=== PATIENT | female | born 1930 | race Caucasian/White ===

== ENCOUNTER 2017-09-01 08:43 | Emergency (ER) | payer MEDICARE ==
--- NOTE | 2017-09-01 09:57 | RAD ---
RIGHT ANKLE 3 VIEWS: HISTORY: Fall. Right ankle injury. FINDINGS: No comparison. The ankle mortise is intact. Small linear calcification lies just lateral to the me dial malleolus and may represent an old avulsion injury. No acute fracture or dislocation are appar ent. Large enthesophytes arise from the posterior aspect of the calcaneus. IMPRESSION: No acute osseous abnormalities are demonstrated. POS: [facility]
== END 2017-09-01 09:25 | disposition home or self-care (01) ==
LOC: ERS 08:43
DX: S93.401A Sprain of unspecified ligament of right ankle, initial encounter (principal); I48.91 Unspecified atrial fibrillation; E03.9 Hypothyroidism, unspecified; I10 Essential (primary) hypertension; Z79.82 Long term (current) use of aspirin; Z79.899 Other long term (current) drug therapy; X50.1XXA Overexertion from prolonged static or awkward postures, initial encounter

== ENCOUNTER 2018-01-25 10:04 | Emergency (ER) | payer MEDICARE ==
[2018-01-25] MEDS ORDERED: Adacel (T-DAP) 0.5 ML VIAL ONE (11:28)
--- NOTE | 2018-01-25 12:54 | RAD ---
THREE VIEWS OF THE RIGHT SHOULDER: COMPARISON: None. HISTORY: Right shoulder pain and arm pain after injury this morning. FINDINGS: Three views of the right shoulder show the patient to be status post right shoulder arthroplasty with out perihardware lucency or fracture. The visualized right thorax is unremarkable. No focal soft ti ssue swelling is seen. IMPRESSION: Status post right shoulder arthroplasty without evidence of acute osseous abnormality. POS: [facility]
== END 2018-01-25 12:11 | disposition home or self-care (01) ==
LOC: ERS 10:04
DX: S51.011A Laceration without foreign body of right elbow, initial encounter (principal); S40.011A Contusion of right shoulder, initial encounter; I48.91 Unspecified atrial fibrillation; E03.9 Hypothyroidism, unspecified; I10 Essential (primary) hypertension; Z79.82 Long term (current) use of aspirin; Z79.899 Other long term (current) drug therapy; W01.0XXA Fall on same level from slipping, tripping and stumbling without subsequent striking against object, initial encounter
CPT/HCPCS: 90471; 90715

== ENCOUNTER 2018-06-13 01:25 | Observation (INO) | payer MEDICARE ==
[2018-06-13 02:46] LABS: Hemoglobin 13.2 g/dL (12.0-16.0); Mean Corpuscular HGB CONC 33.3 g/dL (32.0-36.0); Mean Platelet Volume 8.1 fL (7.4-10.4); Platelet Count 190 thou/uL (130-400); RBC Distribution Width 12.9 % (11.5-14.5); Red Blood Cell (RBC) Count 4.38 mill/uL (4.20-5.40); White Blood Cell (WBC) Count 5.5 thou/uL (4.8-10.8)
[2018-06-13 03:04] LABS: ALT (SGPT) 10 U/L (8-55); AST (SGOT) 16 U/L (5-34); Alkaline Phosphatase 90 U/L (40-150); Anion Gap 12 mmol/L (10-20); BUN (Urea Nitrogen) 14 mg/dL (9.8-20.1); Bilirubin, Total 0.7 mg/dL (0.2-1.2); Calc. Creatinine Clearance 0 mL/min (70-130); Calcium 9.4 mg/dL (7.8-10.44); Carbon Dioxide 25 mmol/L (23-31); Chloride 106 mmol/L (98-107); Estimated GFR-MDRD 52; Globulin 3.1 g/dL (2.4-3.5); Glucose 105 mg/dL (83-110); Potassium 4.4 mmol/L (3.5-5.1); Protein, Total 7.1 g/dL (6.0-8.3); Sodium 139 mmol/L (136-145)
[2018-06-13 03:07] LABS: CKMB 2.1 ng/mL (0-6.6); Troponin I Less than 0.010 ng/mL (< 0.028)
[2018-06-13 03:22] LABS: Band 5 % (5-11); Eosinophils 3 % (0-10); Lymphocytes 41 % (21-51); MDiff Complete? YES; Monocytes 12 % (0-10); Neutrophil 38 % (42-75)
[2018-06-13 05:50] VITALS: BMI 27.3
[2018-06-13 05:56] LABS: Troponin I 0.014 ng/mL (< 0.028)
[2018-06-13] MEDS ORDERED: Ondansetron ODT 4 MG TAB SL PRN (06:01)
[2018-06-13] MEDS ORDERED: Ondansetron HCl/PF 4 MG/2 ML Vial IVP PRN (06:01)
--- NOTE | 2018-06-13 08:27 | RAD ---
CHEST 1 VIEW: HISTORY: Chest pain. COMPARISON: Chest radiograph 05/27/14. FINDINGS: Heart size is mildly enlarged. Dual-lead pacer is present. No focal airspace consolidation, pneumot horax, or effusion. There appears to be some scarring in the left upper lobe. IMPRESSION: Mild cardiomegaly and pulmonary venous congestion. POS: [facility]
[2018-06-13 08:56] LABS: Troponin I Less than 0.010 ng/mL (< 0.028)
[2018-06-13] MEDS ORDERED: Acetaminophen 325 MG TAB PO PRN (10:34)
--- NOTE | 2018-06-13 10:58 | HP ---
CHIEF COMPLAINT: Left-sided arm tingling. HISTORY OF PRESENT ILLNESS: Patient is an 87-year-old female with a known history of atrial fibrillation, permanent pacemaker, hyperlipidemia, and hypertension who presented with acute onset of left-sided arm numbness and tingling earlier today. She took one of her 's nitroglycerin tabs and the numbness and tingling subsequently resolved. Patient denies any prior similar symptoms. 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 Patient did not have any subsequent recurrence of these issues in the emergency department or at the time of my evaluation. REVIEW OF SYSTEMS: As per HPI. Constitutional: No significant weight loss or gain. No recent fevers, no recent acute illnesses. HEENT: No accompanying dizziness, lightheadedness, or vision change. Cardiovascular: As noted above. No chest pressure, no chest pain, no diaphoretic episode associated with her symptoms. Respiratory: No dyspnea with exertion. No congestion or shortness of breath. No recent upper respiratory infection. Gastrointestinal: No nausea , vomiting, abdominal pain, diarrhea or issues with constipation lately. Genitourinary: No changes in her urinary pattern habits. Patient does state that she has at baseline a fair amount of incontinence, but is not grossly changed from usual. Musculoskeletal: The patient has chronic arthralgias that are unchanged. Remainder of the review of systems otherwise negative. PAST MEDICAL AND SURGICAL HISTORY: As per HPI Includes, 1. Atrial fibrillation. 2. Hypertension. 3. Hyperlipidemia. 4. Hypothyroidism. 5. Arrhythmia, otherwise not specified. 6. Status post bilateral knee replacement. 7. Status post right shoulder replacement. 8. Status post hysterectomy. 9. Status post permanent pacemaker placement. HOME MEDICATIONS: Her EMR list currently includes the following, flecainide 100 mg p.o. daily and 50 mg p.o. at bedtime, furosemide 40 mg p.o. daily p.r.n. , Levothyroxine 50 mcg p.o. daily, lovastatin 40 mg p.o. at bedtime, aspirin 81 mg p.o. at bedtime, amlodipine 10 mg p.o. daily, carvedilol 12.5 mg p.o. b.i.d. , Losartan 100 mg p.o. daily. ALLERGIES: Include CEFAZOLIN, which causes a rash, CODEINE which causes nausea , IV and ORAL IODINATED CONTRAST causes shortness of breath, PENICILLINS cause a rash and SHELLFISH cause shortness of breath. FAMILY HISTORY: The patient denies any family history of significant cardiovascular disease. SOCIAL HISTORY: The patient denies any alcohol, tobacco or illicit drug use. PHYSICAL EXAMINATION: GENERAL: The patient is awake, alert, appropriate, oriented x3, provides a reasonable history as described above. HEENT: Normocephalic, atraumatic. Moist mucous membranes, equal ocular motions are intact. CARDIOVASCULAR: S1, S2. Soft heart tones. No murmurs, rubs or gallops appreciated. Pulses 2+ bilateral upper extremities. No pitting pedal edema. RESPIRATORY: Reasonable air movement. No conversational dyspnea. No wheezes, rales or rhonchi, otherwise clear to auscultation bilaterally. ABDOMEN: Positive bowel sounds, soft, nontender to palpation. MUSCULOSKELETAL: Moving all 4 extremities. LABORATORY DATA AND IMAGING: WBC 5.5, hemoglobin 13.2, hematocrit 39.5, platelets 190. Sodium 139, potassium 4.4, chloride 106, bicarbonate 25, BUN 14 , creatinine 1.0, glucose 105, calcium 9.4, total bilirubin 0.7, AST 16, ALT 10 , alkaline phosphatase 90. Troponin less than 0.01, followed by 0.014, followed by less than 0.01. Total protein 7.1, albumin 4.0. Chest x-ray from 06/13/2018 demonstrates "mild cardiomegaly and pulmonary venous congestion". ASSESSMENT AND PLAN: An 87-year-old female presenting with left arm tingling. 1. Left arm tingling concerning for atypical chest pain in a patient with prior cardiovascular history. Serial troponins have been negative. We will go ahead and obtain a pacer interrogation. The patient states that her last interrogation was 04/25/2018, we would be interested in the interval information that might be provided. The patient also states it has been greater than a year since her last stress test. We will consult patient's outpatient office aide, Dr. Vega, and also order a pharmacological stress test at this point in time. 2. Hypertension, stable. Continue home regimen. 3. Prior history of arrhythmia, status post permanent pacemaker on flecainide. Continue home regimen. 4. Hyperlipidemia. Continue home regimen. We will check a fasting lipid panel. 5. Hypothyroidism. We will check a TSH and continue her on her home regimen. 6. History of significant arthritis, particularly in the left shoulder. This could be an etiology for her discomfort if cardiac etiologies are ruled out. 7. Diet: N.p.o. for stress test. 8. Activity: As tolerated. 9. Deep venous thrombosis prophylaxis with enoxaparin. Thank you for asking me to care for your patient. Questions or concerns, please contact me at [facility]. The patient is a full code at this point in time. LAKEISHAD
[2018-06-13 11:13] LABS: Cardiac Risk 2.5 (Less than 4.5)
--- NOTE | 2018-06-13 14:21 | NM ---
NUCLEAR MEDICINE MYOCARDIAL PERFUSION EVALUATION: CLINICAL HISTORY: An 87-year-old female with chest pain. FINDINGS: Evaluation of the stress and rest imaging reveals no significant fixed or reversible defect. There i s a slight degree of physiologic apical thinning, although gated imaging does reveal appropriate scarlett on at the apex. The remaining aspects of the left ventricular kraft also reveal appropriate motion a nd contractility by gated imaging. There is a calculated LVEF of 83%. IMPRESSION: 1. Mild physiological apical thinning. 2. Otherwise, no significant abnormalities are demonstrated. POS: [facility]
[2018-06-13 15:43] VITALS: BP 135/67; TEMP 98.2
[2018-06-13] MEDS ORDERED: ADENOSINE 60 MG/20 ML VIAL ONE (15:45)
[2018-06-13] MEDS ORDERED: Atorvastatin Calcium 10 MG TAB PO SCH (21:00)
[2018-06-13] MEDS ORDERED: Aspirin 81 mg Enteric Coated Tablet PO SCH (21:00)
[2018-06-13] MEDS ORDERED: Carvedilol 6.25 MG TAB PO SCH (21:00)
[2018-06-13] MEDS ORDERED: Flecainide 50 MG TAB PO SCH (21:00)
--- NOTE | 2018-06-13 21:33 | CON ---
DATE OF CONSULTATION: 06/13/2018 HISTORY OF PRESENT ILLNESS: The patient is an 87-year-old woman with a history of atrial fibrillation and presented with left arm discomfort. The patient has a previous history of placement of electronic pacemaker. She also has a history of chronic shoulder discomfort. The patient was sleeping when she suddenly woke up with pain in her left arm, which radiated into her hand which was associated with numbness. This lasted for approximately 15 minutes and resolved prior to coming to the hospital. The patient did not have any further discomfort. The patient denies having any chest pain with exertion. She does have a history of atrial fibrillation and had had several falls. The patient denied having any recent palpitations. PAST MEDICAL HISTORY: 1. Hypertension. 2. Atrial fibrillation. 3. Hypothyroidism. PAST SURGICAL HISTORY: Knee surgery, shoulder surgery,and hysterectomy. SOCIAL HISTORY: Nonsmoker. MEDICATIONS: See nursing list. ALLERGIES: IODINE, PENICILLIN, CODEINE, and SHELLFISH. FAMILY HISTORY: No strong family history of heart disease. SOCIAL HISTORY: Nonsmoker. REVIEW OF SYSTEMS: Ten-point system otherwise unremarkable. PHYSICAL EXAMINATION: GENERAL: This is a well developed woman, in no acute distress. VITAL SIGNS: Blood pressure 153/70. NECK: Showed no jugular distention. LUNGS: Clear to auscultation. HEART: Regular rate and rhythm, normal S1, S2, no murmurs. ABDOMEN: Nondistended. EXTREMITIES: Showed no edema. SKIN: Warm and dry. VASCULAR: Radial pulses 2+. LABORATORY DATA: Sodium 139, potassium 4.4, chloride 106, bicarbonate 25, BUN 14, creatinine is 1.0. Troponin was less than 0.01. Her white blood cell count was 5.5, hemoglobin 13.2, hematocrit 39.5, platelets are 190. Her EKG revealed electronic atrial pacemaker with an incomplete right bundle branch block and a possible previous septal infarction. Nuclear stress test revealed no evidence of significant ischemia. IMPRESSION: 1. Left arm discomfort. 2. History of atrial fibrillation. 3. History of pacemaker placement. 4. History of multiple falls. This patient presents with left arm pain. There was no evidence of ischemia on her stress test. I think it is unlikely based on the stress test that the discomfort at rest was secondary to ischemic heart disease. The patient is on appropriate medications. She would be a poor candidate for anticoagulation with her history of multiple falls. The patient will continue on flecainide. We will follow this patient with you through her hospitalization. WANDY
[2018-06-14] MEDS ORDERED: Levothyroxine Sodium 50 MCG TAB PO SCH (09:00)
[2018-06-14] MEDS ORDERED: Losartan 25 MG TAB PO SCH (09:00)
[2018-06-14] MEDS ORDERED: Enoxaparin Sodium 30 MG/0.3 ML SYRINGE SC SCH (09:00)
[2018-06-14] MEDS ORDERED: Amlodipine 10 MG TAB PO SCH (09:00)
[2018-06-14] MEDS ORDERED: Flecainide 50 MG TAB PO SCH (09:00)
== END 2018-06-13 18:42 | disposition home or self-care (01) ==
LOC: ERS 01:25 → 2SW 04:09
PROVIDERS: ADMIT Hospitalist; ATTEND Hospitalist
DX: R20.2 Paresthesia of skin (principal); I10 Essential (primary) hypertension; E78.5 Hyperlipidemia, unspecified; E03.9 Hypothyroidism, unspecified; I48.91 Unspecified atrial fibrillation; Z91.041 Radiographic dye allergy status; Z88.5 Allergy status to narcotic agent; Z88.0 Allergy status to penicillin; Z91.013 Allergy to seafood; Z79.82 Long term (current) use of aspirin; Z95.0 Presence of cardiac pacemaker
CPT/HCPCS: 71045; 78452; 80061; 82553; 84484 ×2; 93005; 93017; 93306; 94760; 99285; A9500; G0378; 36415; 80053; 84443; 85025; J0153

== ENCOUNTER 2018-06-20 07:55 | Outpatient (CLI) | payer MEDICARE | END 2018-06-20 07:56 | disposition home or self-care (01) | LOC: BICMAMMO 07:55 | PROVIDERS: ATTEND Family Medicine | DX: Z12.31 Encounter for screening mammogram for malignant neoplasm of breast (principal); R92.1 Mammographic calcification found on diagnostic imaging of breast; Z80.3 Family history of malignant neoplasm of breast | CPT/HCPCS: 77063; 77067 ==

== ENCOUNTER 2018-12-21 08:34 | Inpatient (IN) | payer MEDICARE ==
--- NOTE | 2018-12-21 09:00 | RAD ---
RADIOGRAPH CHEST 1 VIEW: HISTORY: An 87-year-old female with chest pain. FINDINGS: There is hyperinflation of the lungs, consistent with COPD. There is no evidence of air space densit y, pneumothorax, or pulmonary edema. The lateral costophrenic angles are sharp. There is no cardiom egaly. There is a dual-lead left subclavian pacemaker. IMPRESSION: 1) No acute pulmonary findings. 2) Emphysema. 3) Pacemaker. monserrat [] POS: [facility]
[2018-12-21] MEDS ORDERED: Lidocaine Viscous Sol 2% 15 ml UD Cup ONE (09:33)
[2018-12-21] MEDS ORDERED: Mag-Al 1200 mg/1200 mg/30 ML UDCUP ONE (09:33)
[2018-12-21 09:51] LABS: #Eosinphils 0.2 thou/uL (0.0-0.7); #Lymphocytes 1.7 thou/uL (1.20-3.40); #Monocytes 0.8 thou/uL (0.11-0.59); #Neutrophils 3.3 thou/uL (1.40-6.50); %Basophils 0.7 % (0.0-1.0); %Eosinophils 3.6 % (0.0-10.0); %Lymphocytes 27.6 % (21.0-51.0); %Monocytes 13.1 % (0.0-10.0); Hemoglobin 14.5 g/dL (12.0-16.0); Mean Corpuscular HGB CONC 32.9 g/dL (32.0-36.0); Mean Corpuscular Hemoglobin 30.1 pg (27.0-31.0); Mean Corpuscular Volume 91.7 fL (78.0-98.0); Mean Platelet Volume 8.7 fL (7.4-10.4); Platelet Count 199 thou/uL (130-400); RBC Distribution Width 12.7 % (11.5-14.5); Red Blood Cell (RBC) Count 4.83 mill/uL (4.20-5.40)
[2018-12-21 10:27] LABS: ALT (SGPT) 13 U/L (8-55); AST (SGOT) 28 U/L (5-34); Albumin 4.4 g/dL (3.4-4.8); Alkaline Phosphatase 86 U/L (40-150); Anion Gap 14 mmol/L (10-20); BUN (Urea Nitrogen) 15 mg/dL (9.8-20.1); Bilirubin, Total 0.9 mg/dL (0.2-1.2); CK (CPK) 150 U/L (29-168); Calc. Creatinine Clearance 0 mL/min (70-130); Calcium 9.8 mg/dL (7.8-10.44); Carbon Dioxide 23 mmol/L (23-31); Chloride 105 mmol/L (98-107); Estimated GFR-MDRD 47; Globulin 3.6 g/dL (2.4-3.5); Glucose 98 mg/dL (83-110); Lipase 22 U/L (8-78); Potassium 4.8 mmol/L (3.5-5.1); Sodium 137 mmol/L (136-145)
[2018-12-21 10:35] LABS: CKMB 4.4 ng/mL (0-6.6)
[2018-12-21] MEDS ORDERED: Nitroglycerin 2% Ointment 1 INCH/1 GM Packet ONE (11:39)
[2018-12-21] MEDS ORDERED: Aspirin Chewable 81 MG TAB ONE ×3 (11:39→12:10)
[2018-12-21 12:18] LABS: Bilirubin Negative (Negative); Blood, Urine Small (Negative); Clarity CLEAR (Clear); Glucose, Urine (Dipstick) Negative (Negative); Leukocyte Moderate (Negative); Nitrite Negative (Negative); Protein, Urine (Dipstick) Negative (Neg-Trace); Specific Gravity, Urine 1.011 (1.002-1.036); Urobilinogen 0.2 mg/dL (0.2-1.0)
[2018-12-21 12:21] LABS: Bacteria/HPF None Seen HPF (None Seen); Hyaline Casts/LPF 0-3 HYALINE CAST LPF (0-3 Hyaline); Pathc Cast-AUWi Flag 0.29 (0-2.49); Squamous Epithelial 0-3 HPF (0-3)
[2018-12-21] MEDS ORDERED: Acetaminophen 325 MG TAB PO PRN (13:15)
[2018-12-21] MEDS ORDERED: Ondansetron PF 4 MG/2 ML Vial IVP PRN (13:15)
[2018-12-21] MEDS ORDERED: Ondansetron ODT 4 MG TAB PO PRN (13:15)
[2018-12-21] MEDS ORDERED: Senokot S 8.6-50 MG TAB PO PRN (13:15)
[2018-12-21] MEDS ORDERED: Furosemide 40 MG TAB PO PRN (13:20)
[2018-12-21] MEDS ORDERED: Heparin 10,000 UNITS/ 10 ML VIAL SLOW IVP SCH (14:15)
[2018-12-21] MEDS ORDERED: Heparin 25,000 units/D5W 500 ML IVPB SCH (14:15)
[2018-12-21 14:27] LABS: CKMB 5.7 ng/mL (0-6.6)
[2018-12-21] MEDS ORDERED: Communication Order-Pharmacy FS SCH (15:00)
[2018-12-21 15:07] LABS: Hemoglobin 14.2 g/dL (12.0-16.0); Platelet Count 203 thou/uL (130-400)
[2018-12-21] MEDS ORDERED: predniSONE 50 MG TAB PO SCH (16:00)
--- NOTE | 2018-12-21 16:12 | CON ---
DATE OF CONSULTATION: 12/21/2018 REASON FOR CONSULTATION: Non-STEMI. PRIMARY OPERATIONS RESEARCH MANAGER: Sierra Vega MD HISTORY OF PRESENT ILLNESS: Ms. Monson is a very pleasant 87-year-old white female, who comes to the hospital for chest pain. She states at 7:00 a.m. this morning, she started having chest tightness. She thought it was for her reflux, but it felt a little different by noon. She was not getting any better, so she decided to come in for evaluation. Initially, her troponins were negative, but they have been trending up to a positive range, so Cardiology has been consulted for this. She tells me that her pain is a little better controlled probably about one or two right now. PAST MEDICAL HISTORY: 1. History of paroxysmal atrial fibrillation. 2. Hypertension. 3. Hyperlipidemia. 4. Hypothyroidism. PAST SURGICAL HISTORY: 1. Bilateral knee replacements. 2. Right shoulder replacement. 3. Hysterectomy. 4. Pacemaker placement. OUTPATIENT MEDICATIONS: Include: 1. Flecainide 100 mg in the morning and 50 mg in the evening. 2. Lasix 40 mg a day. 3. Levothyroxine 50 mcg a day. 4. Lovastatin 40 mg at bedtime. 5. Aspirin 81 a day. 6. Amlodipine 10 mg a day. 7. Carvedilol 12.5 mg b.i.d. 8. Losartan 100 mg a day. ALLERGIES: CEFAZOLIN, CODEINE, IV AND ORAL IODINE CAUSES SHORTNESS OF BREATH, PENICILLIN, AND SHELLFISH. FAMILY HISTORY: No early coronary artery disease. SOCIAL HISTORY: No alcohol, tobacco, or drugs. REVIEW OF SYSTEMS: A 12-point review of systems was done and was found to be negative unless stated in the history of present illness. PHYSICAL EXAMINATION: VITAL SIGNS: Temperature 97.5, pulse 60, respiratory rate 18, saturating 98% on 2 L nasal cannula, and blood pressure 132/78. GENERAL: Awake, alert, and oriented x3. No distress. HEENT: Normocephalic and atraumatic. NECK: Supple. LUNGS: Clear. CARDIOVASCULAR: S1 and S2. No S3 or S4. No murmurs. ABDOMEN: Soft. Positive bowel sounds. EXTREMITIES: No edema. SKIN: Warm and dry. LABORATORY DATA: Laboratory work was reviewed. CBC with a white count of 6, hemoglobin 14, hematocrit 44, platelet count 199. Chemistries are completely unremarkable. GFR 47. Troponin initially 0.18 and now 0.36. Normal CK-MB. Albumin of 4.4 and lipase was 22. UA was unremarkable. EKG, no acute ischemia. Chest x-ray, no acute cardiopulmonary issues. ASSESSMENT: [id number] myocardial infarction. PLAN: 1. I spoke with Ms. Monson about how aggressive she wants to be with her care. I offered both medical therapy or heart catheterization. She tells me that she is very familiar with heart catheterization and she is very well aware of what it entails, and she states that if this is in fact a heart attack, she is willing to undergo said procedure. I think this is reasonable. We will go ahead and keep her n.p.o. post midnight for possible angiography with intervention tomorrow. 2. We spoke about the risks and benefits of the procedure. Risks included, but not limited to stroke, ND, bleeding, need for blood transfusion, limb loss, organ loss, . The patient understands and verbalized understanding of this and agrees to proceed. 3. Dr. 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 Job ID: [id number]
[2018-12-21] MEDS ORDERED: Heparin 1,000 UNITS/ML VIAL ONE ×2 (16:18→16:33)
[2018-12-21] MEDS ORDERED: Fentanyl 100 MCG/2 ML VIAL ONE (17:49)
[2018-12-21] MEDS: Fentanyl 100 MCG/2 ML VIAL SLOW IVP SCH ×2 (17:54→22:15)
[2018-12-21 17:57] LABS: CKMB 11.6 ng/mL (0-6.6)
[2018-12-21 20:57] LABS: Troponin I 1.687 ng/mL (< 0.028)
[2018-12-21] MEDS ORDERED: Sodium Chloride 0.9% 20 ML ONE (21:07)
[2018-12-21] MEDS ORDERED: Fentanyl 100 MCG/2 ML VIAL SLOW IVP PRN ×2 (21:51→22:44)
[2018-12-21] MEDS: Aspirin 81 mg Enteric Coated Tablet PO SCH (22:16)
[2018-12-21] MEDS: Atorvastatin Calcium 10 MG TAB PO SCH (22:17)
[2018-12-21] MEDS: predniSONE 50 MG TAB PO SCH (22:17)
[2018-12-21] MEDS: Flecainide 50 MG TAB PO SCH (22:17)
[2018-12-21] MEDS: Pantoprazole 40 MG VIAL IVP SCH (22:18)
[2018-12-21] MEDS: Nitroglycerin 0.4 MG TAB (25 Tab Bottle) SL PRN ×2 (22:31→22:42)
[2018-12-21] MEDS: Carvedilol 6.25 MG TAB PO SCH (22:56)
[2018-12-21] MEDS: Sodium Chloride 0.9% 1,000 ML IV SCH (22:57)
[2018-12-22] MEDS ORDERED: Sodium Chloride 0.9% 1,000 ML IV SCH (00:01)
[2018-12-22] MEDS: ALPRAZolam 0.5 MG TAB PO PRN ×2 (00:06→22:13)
--- NOTE | 2018-12-22 00:23 | HP ---
CHIEF COMPLAINT: Chest pain. HISTORY OF PRESENTING ILLNESS: This is an 87-year-old female with a relatively good health, history of hypertension, presented to the ER with 1-week history of hypertension. The patient's troponin in the ER was elevated at 0.181, subsequently decreased to 0.326, and next the 3rd set was 1.166. The patient's vital signs in the ER were within normal limits. PAST MEDICAL HISTORY: Significant for hypertension, pacemaker, some degree of anxiety. PAST SURGICAL HISTORY: Significant for hysterectomy, knee surgeries, and right shoulder surgery. ALLERGIES: THE PATIENT IS ALLERGIC TO CEFAZOLIN, CODEINE, IODINATED CONTRAST, PENICILLIN, SHELLFISH. SOCIAL HISTORY: The patient denies any smoking, alcohol, or drug history. REVIEW OF SYSTEMS: CONSTITUTIONAL: The patient denies any fever or chills. HEENT: The patient denies any headache, any blurred vision, pain or discharge from the ears. Denies any sore throat. RESPIRATORY/CHEST: The patient denies any respiratory distress, complaints of chest pain. CARDIOVASCULAR: Complains of chest pain, denies any palpitations. ABDOMEN: Complains of epigastric pain. Denies any nausea, vomiting, diarrhea, or constipation. MUSCULOSKELETAL: Chronic complaints of right shoulder pain, knee pain. NEUROLOGY: Denies any complaints of neurological deficit, weakness. PSYCHIATRIC: Denies any depression or anxiety. PHYSICAL EXAMINATION: CONSTITUTIONAL: No apparent distress. The patient is slightly anxious. VITAL SIGNS: Blood pressure 145/66, pulse 75, respiratory rate 77, O2 saturation 96% on room air, temperature 98.1. Vital signs are stable. HEENT: Normocephalic and atraumatic head. Normal external canal and tympanic membrane. Normal eyelids and conjunctivae, bilateral pupils are round and reactive to light. Moist oral mucosa, centrally placed nasal septum, midline trachea, no cervical lymphadenopathy. RESPIRATORY: No respiratory distress, good airway entry into both lung sinha. No wheezing. No rales. CHEST/CARDIOVASCULAR: Regular rate and rhythm. No murmurs. No rubs. No gallops. ABDOMEN: Soft, NT, ND. No masses. No splenomegaly. MUSCULOSKELETAL: No obvious swelling or tenderness. NEUROLOGIC: Cranial nerves are intact. No focal deficits noted. Motor and sensory faculties are within normal limits. PSYCHIATRIC: The patient is appropriately anxious. No signs of depression. LABORATORY DATA: Elevated troponin, 1st set is 0.181, 0.326, and 1.166. Rest of the labs are within normal limits. ASSESSMENT AND PLAN: 1. Chest pain, rule out myocardial infarction: Admit the patient under chest pain, rule out myocardial infarction. Due to the increasing troponin, we will start the patient on heparin drip. Cardiology consulted. Cardiac cath is planned for the morning. Start the patient on aspirin and statin, sublingual nitroglycerin as required, morphine as required. 2. Hypertension. Continue all the home medications. 3. Anxiety. Coleman jordan Job ID: [id number] [facility]
[2018-12-22 04:25] LABS: #Monocytes 0.1 thou/uL (0.11-0.59); #Neutrophils 3.4 thou/uL (1.40-6.50); %Basophils 0.3 % (0.0-1.0); %Eosinophils 0.1 % (0.0-10.0); %Lymphocytes 22.7 % (21.0-51.0); %Monocytes 1.1 % (0.0-10.0); %Neutrophils 75.8 % (42.0-75.0); Mean Corpuscular HGB CONC 32.9 g/dL (32.0-36.0); Mean Corpuscular Hemoglobin 30.1 pg (27.0-31.0); Mean Corpuscular Volume 91.4 fL (78.0-98.0); Mean Platelet Volume 8.5 fL (7.4-10.4); Platelet Count 182 thou/uL (130-400); RBC Distribution Width 12.3 % (11.5-14.5); Red Blood Cell (RBC) Count 4.33 mill/uL (4.20-5.40); White Blood Cell (WBC) Count 4.5 thou/uL (4.8-10.8)
[2018-12-22 04:42] LABS: Anion Gap 12 mmol/L (10-20); BUN (Urea Nitrogen) 21 mg/dL (9.8-20.1); Calc. Creatinine Clearance 51 mL/min (70-130); Calcium 9.3 mg/dL (7.8-10.44); Carbon Dioxide 24 mmol/L (23-31); Chloride 104 mmol/L (98-107); Estimated GFR-MDRD 49; Glucose 148 mg/dL (83-110); Potassium 4.3 mmol/L (3.5-5.1); Sodium 136 mmol/L (136-145)
[2018-12-22] MEDS: Carvedilol 6.25 MG TAB PO SCH ×2 (06:41→20:09)
[2018-12-22] MEDS: Losartan 25 MG TAB PO SCH (06:41)
[2018-12-22] MEDS: predniSONE 50 MG TAB PO SCH ×2 (06:42→19:59)
[2018-12-22] MEDS: Pantoprazole 40 MG VIAL IVP SCH ×2 (06:42→19:58)
[2018-12-22] MEDS ORDERED: Prevnar 13-Val Conj/PF 0.5 ML SYRINGE IM ONE (09:00)
[2018-12-22] MEDS ORDERED: Iopamidol 370 76% 100 ML VIAL ONE (09:21)
[2018-12-22] MEDS ORDERED: Sodium Chloride 0.9% 200 ML IV SCH (10:05)
[2018-12-22] MEDS ORDERED: traMADol HCl 50 MG TAB PO PRN (10:05)
[2018-12-22] MEDS ORDERED: Nitroglycerin 0.4 MG TAB (25 Tab Bottle) SL PRN (10:05)
[2018-12-22 12:35] LABS: Troponin I 1.338 ng/mL (< 0.028)
[2018-12-22] MEDS: Sodium Chloride 0.9% 1,000 ML IV SCH (13:18)
--- NOTE | 2018-12-22 13:45 | PDOC.PN ---
- Subjective Encounter Start Date: 12/22/18 Encounter Start Time: 13:39 Subjective: S/P cath, right groin discomfort after cath - Objective Resuscitation Status - Order Detail: 12/21/18 13:15 Resuscitation Status Routine Resuscitation Status: DNAR: NO Resuscitation Discussed with: Patient Vital Signs & Weight: Vital Signs (12 hours) Temp Pulse Resp BP BP Pulse Ox 12/22/18 07:59 97.5 F L 64 16 143/66 H 99 12/22/18 06:41 136/60 12/22/18 06:40 65 16 136/60 12/22/18 03:30 97.6 F 63 15 138/65 97 Weight Weight 194 lb 6.4 oz I&O: 12/21/18 12/22/18 12/23/18 06:59 06:59 06:59 Intake Total 1217 Output Total 100 Balance 1117 Result Diagrams: 12/22/18 04:14 12/22/18 04:14 Phys Exam - Physical Examination HEENT: PERRLA, moist MMs, sclera anicteric, TM's clear, oral pharynx no lesions , 2+ tonsils Neck: no nodes, no JVD, supple, full ROM Respiratory: no wheezing, no rales, no rhonchi Cardiovascular: RRR, no significant murmur, no rub Gastrointestinal: soft, non-tender, no distention, positive bowel sounds Musculoskeletal: no edema, pulses present Neurological: non-focal, normal sensation Psychiatric: normal affect, A&O x 3 Dx/Plan (1) CAD (coronary artery disease), [place] coronary artery Code(s): I25.10 - ATHSCL HEART DISEASE OF [place] CORONARY ARTERY W/O ANG PCTRS Status: Acute Qualifiers: [place] vs. transplanted heart: [place] heart Associated angina: with unstable angina Qualified Code(s): I25.110 - Atherosclerotic heart disease of [place] coronary artery with unstable angina pectoris Comment: S/P Cath, severe extensive CAD, no stents. Required CABG, not sure if Patient will opt for it. At baseline patient is independent, lives at home with her . Aspirin with Statin (2) Hypertension Code(s): I10 - ESSENTIAL (PRIMARY) HYPERTENSION Status: Acute Qualifiers: Hypertension type: essential hypertension Qualified Code(s): I10 - Essential (primary) hypertension Comment: continue home meds - Plan cont current plan of care, plan discussed w/ family, DVT proph w/SCDs * .
[2018-12-22] MEDS ORDERED: Communication Order-Pharmacy FS ONE (15:44)
[2018-12-22] MEDS ORDERED: CABG-Vancomycin 1 GM in Premix Bag 1 BAG IVPB SCH (15:45)
--- NOTE | 2018-12-22 16:52 | CON ---
DATE OF CONSULTATION: 12/22/2018 REQUESTING PHYSICIAN: Dr. Vega. PRIMARY CARE PHYSICIAN: Dr. Hernán Loza. CHIEF COMPLAINT: Epigastric discomfort and belching. HISTORY OF PRESENT ILLNESS: The patient is an active woman, who turns 88 years old tomorrow. She lives independently and until very recently even mowed her own yard with a push mower and only quit because of issues with arthritic symptoms in her shoulder. Last Summer, she had a brief stay in the hospital that she describes as being due to some ache and numbness in her left arm that was not clearly elucidated and then other than that had no symptoms that even in retrospect might be cardiac in nature. She presented after having persistent epigastric bloating and belching and some chest tightness. It started around 7 in the morning, but persisted and had some sort of change in character around noon time. When she presented to the hospital, her initial troponin was positive and they continued to rise during the course of the day. Cardiac catheterization today demonstrates 3-vessel coronary disease with good LV function. The patient denies any previous such episodes. The only episode of left arm and shoulder symptoms were this past Summer and she has not had any episodes of similar symptoms in the other shoulder or throat or jaws or in her back. This was not associated with any nausea or vomiting. No diaphoresis and no shortness of breath. PAST MEDICAL HISTORY: Her past medical history is significant for history of paroxysmal atrial fibrillation. She has been on anticoagulation in the past, but has been in sinus rhythm, on medical management, and has a dual-chamber pacemaker in place. She has hypertension, hyperlipidemia, hypothyroidism. She has had knee replacements and a right shoulder replacement. MEDICATIONS: Her mode medications are; 1. Coreg 12.5 mg b.i.d. 2. Losartan 100 mg a day. 3. Norvasc 10 mg a day. 4. Lovastatin 40 mg at bedtime. 5. Baby aspirin a day. 6. Flecainide 50 mg b.i.d. 7. Lasix 40 mg a day p.r.n. for edema. 8. Synthroid 50 mcg a day. 9. She also is taking half of a Bactrim a day. 10. Her flecainide has been adjusted to once a day. 11. Her Lasix has been changed to a scheduled dose. 12. Lipitor 10 mg at bedtime has been substituted for lovastatin. ALLERGIES: SHE REPORTS DEVELOPING HIVES WITH ANCEF AND WITH SHELLFISH WITH HER PREVIOUS ORTHOPEDIC PROCEDURES. SHE GOT VERY CONFUSED AND DYSPHORIA WITH WHAT SOUND LIKE NARCOTIC BASED PAIN MEDICATIONS. SHE SAID THAT TRAMADOL DID NOT WORK VERY WELL FOR HER, BUT PLAIN TYLENOL WAS USUALLY ADEQUATE. SHE HAS AN INTOLERANCE TO MANY ADHESIVE TAPES WELL. SOCIAL HISTORY: She does not smoke or drink alcohol. FAMILY HISTORY: She denies any family history of premature coronary disease. REVIEW OF SYSTEMS: Negative for any transient eye, speech, facial, or extremity symptoms consistent with TIAs unless one were to consider the arm numbness that she had last Summer. Negative for any claudication. Negative any shortness of breath, orthopnea, or PND. Negative for any recent illnesses. She has chronic right shoulder pain and limited range of motion of her right shoulder. PHYSICAL EXAMINATION: GENERAL: She appears perhaps slightly younger than her stated age, but looks reasonably urbina for an 88-year-old, and she does not strike me as frail or feeble at all. VITAL SIGNS: Her heart rate is 66, blood pressure 143/66, temperature is 97.5, and T-max this hospitalization has been 98.4, room air O2 saturations are 97% to 99%. HEENT: She has no xanthelasma. No JVD. No carotid bruits. CHEST: Clear to auscultation. She has regular rate and rhythm. ABDOMEN: Soft and nontender without any masses or bruits. She has healed surgical scars from her knee replacements and right shoulder replacement. Her pacemaker on the left side and low vertical midline abdomen, status post hysterectomy. EXTREMITIES: She has easily palpable radial, femoral, and posterior tibial pulses. I was not able to appreciate dorsalis pedis pulses. The vein is readily visible through thin skin on her legs. She has no varicosities, minimal if any edema. NEUROLOGIC: Grossly nonfocal. LABORATORY DATA: Laboratory exam shows a white count of 6.0, hemoglobin 14.5, hematocrit 44.3, and platelets of 199,000. Electrolytes were normal. Glucose 98, BUN 15, creatinine 1.10, calcium was 9.8, protein 8.0, albumin 4.4, lipase 22. Bilirubin 0.9, alkaline phosphatase 86, AST 28, ALT 13. Her troponin at about 09:30 yesterday morning was 0.181, about 1:15 in the afternoon was 0.326, around a quarter to five, it was 1.166, and around 8:00 p.m., was 1.687. Chest x-ray was clear with a relatively small heart, right shoulder prosthesis, and dual-chamber pacemaker via a left subclavian approach were present. Cardiac catheterization shows a right-dominant system with serial lesions in the right coronary proper and relatively slow filling through the PDA. She has calcification in her left main and proximal LAD and circumflex system with diffuse irregularity to those vessels. There is a long 80% or 90% lesion relatively proximally in the LAD, a little bit beyond the level of a very small high diagonal. There is a shorter more modest LAD lesion just beyond the small second diagonal the LAD wraps around the apex. There is extensive disease and a fairly high bifurcated OM1. There is disease in the circumflex proper just before a tiny subtotally occluded OM2 and then the circumflex terminates in two OMs, one of which is fairly in good size. The LVEF is around 60% or perhaps even 70% with an area inferior apical hypokinesis. LV pressures were 152/12 with an EDP of 24 and 143/13 with an EDP of 22. Aortic pressure on pullback was 153/60 with a mean of 100. IMPRESSION AND RECOMMENDATIONS: I had two long talks with the patient and her son, one of which an additional family member was present. Anatomically, I think that she is quite amenable to surgical revascularization. She seems to be "young," 88-year-old, but we had a lengthy discussion about the axiom about elderly patients no matter how good they look up front, they act their age once they are asleep under general anesthesia. I discussed the slightly increased risk of mortality simply because of age but more significant impact on difficulties in recovery. I do not think that her difficulties would be inordinate but that she should be prepared to have a somewhat longer length of stay in the hospital and be more likely to need some sort of interim disposition rather than going directly home, particularly because she lives alone and her family lives in [place]. I do not think that percutaneous intervention is a particularly attractive option given the nature of her lesions in a multi-vessel nature of her disease. She already has a slow enough heart rate noted to be a little bit hard to drive that any further down, there might be room to lower her blood pressure a bit more if she were to opt for medical management. The patient has not yet made up her mind. She wants to stop things over with Dr. Vega again and she also has some issues about good friend of hers having similar surgery done by Dr. See. She may decide if she wants to do surgery. She would like to discuss it with him. Job ID: [id number]
[2018-12-22] MEDS: Nitroglycerin 0.4 MG TAB (25 Tab Bottle) SL PRN ×4 (17:26→20:03)
[2018-12-22] MEDS: Aspirin 81 mg Enteric Coated Tablet PO SCH (19:59)
[2018-12-22] MEDS: Flecainide 50 MG TAB PO SCH (19:59)
[2018-12-22] MEDS: Atorvastatin Calcium 10 MG TAB PO SCH (19:59)
--- NOTE | 2018-12-22 20:08 | EKG ---
Test Reason : STAT Blood Pressure : / mmHG Vent. Rate : 062 BPM Atrial Rate : 062 BPM P-R Int : 278 ms QRS Dur : 096 ms QT Int : 454 ms P-R-T Axes : 000 -51 009 degrees QTc Int : 460 ms Atrial-paced rhythm with prolonged AV conduction Left axis deviation Inferior infarct , age undetermined Cannot rule out Anterior infarct (cited on or before 13-JUN-2018) Abnormal ECG When compared with ECG of 13-JUN-2018 01:57, Incomplete right bundle branch block is no longer Present Questionable change in initial forces of Septal leads Confirmed by APRIL VENTURA, SShalonda ([id number]) on 12/22/2018 8:08:20 PM Referred By: KAY Confirmed By:DR. Nicole CHEN MD
[2018-12-22] MEDS ORDERED: Gaviscon Tablet PO PRN (22:50)
[2018-12-22] MEDS ORDERED: Famotidine 20 MG TAB PO SCH (23:00)
[2018-12-22 23:44] LABS: Critical Call Chem Troponin I RESULT DECREASING; Troponin I 0.684 ng/mL (< 0.028)
[2018-12-23] MEDS: Sodium Chloride 0.9% 1,000 ML IV SCH ×2 (03:34→13:43)
[2018-12-23] MEDS ORDERED: Lidocaine 2% Viscous Solution 10 ML, Aluminum & Magnesium Hydroxide 30 ML SSW SCH (04:00)
[2018-12-23] MEDS: Carvedilol 6.25 MG TAB PO SCH (05:51)
[2018-12-23] MEDS: Losartan 25 MG TAB PO SCH (05:52)
[2018-12-23] MEDS ORDERED: Heparin 5,000 UNITS/ML VIAL ONE ×2 (06:03→16:26)
[2018-12-23] MEDS ORDERED: Albumin 5% 500 ML ONE (06:30)
[2018-12-23 06:45] LABS: Cardiac Risk 2.9 (Less than 4.5)
[2018-12-23] MEDS ORDERED: Midazolam HCl 2 mg/2 ml Vial ONE (07:21)
[2018-12-23] MEDS ORDERED: Fentanyl 250 MCG/5 ML VIAL ONE (07:35)
[2018-12-23] MEDS ORDERED: Midazolam HCl 5 mg/5 ml Vial ONE (07:36)
[2018-12-23] MEDS ORDERED: Nitroglycerin 50 MG/250 ML BOT 250 ML IVPB PRN (10:31)
[2018-12-23] MEDS ORDERED: Acetaminophen 325 MG TAB PO PRN (10:31)
[2018-12-23] MEDS ORDERED: Potassium Chloride 20 MEQ/100 ML PREMIX BAG IVPB PRN (10:31)
[2018-12-23] MEDS ORDERED: Promethazine HCl 25 MG/ML VIAL IM PRN (10:31)
[2018-12-23] MEDS ORDERED: Fentanyl 100 MCG/2 ML VIAL SLOW IVP PRN ×2 (10:31)
[2018-12-23] MEDS ORDERED: Hetastarch 6% 500 ML 500 ML IVPB PRN (10:31)
[2018-12-23] MEDS ORDERED: Mag-Al 1200 mg/1200 mg/30 ML UDCUP PO PRN (10:31)
[2018-12-23] MEDS ORDERED: Guaifenesin DM 100-10/5 ML UDCUP PO PRN (10:31)
[2018-12-23] MEDS ORDERED: Bisacodyl 10 MG SUPP PR PRN (10:31)
[2018-12-23] MEDS ORDERED: Bisacodyl 5 MG TAB PO PRN (10:31)
[2018-12-23] MEDS ORDERED: hydrALAZINE 20 MG/ML VIAL SLOW IVP PRN (10:31)
[2018-12-23] MEDS ORDERED: Post-Op Insulin Drip Protocol IVPB ONE (10:31)
[2018-12-23] MEDS ORDERED: Phenylephrine HCL 10 MG/ML VIAL ONE (10:35)
[2018-12-23] MEDS ORDERED: Insulin Regular 300 UNITS/3 ML VIAL SC PRN (11:40)
[2018-12-23] MEDS ORDERED: HUMULIN R 100 UNITS in Sodium Chloride 0.9% 100 ML IVPB SCH (11:40)
[2018-12-23] MEDS ORDERED: Dextrose 5% in Water 1,000 ML IV PRN (11:40)
[2018-12-23] MEDS ORDERED: Dextrose 50% Abboject 50 ML SYRINGE SLOW IVP PRN (11:40)
[2018-12-23] MEDS ORDERED: Aspirin Chewable 81 MG TAB PO SCH (11:45)
[2018-12-23] MEDS ORDERED: Docusate 100 MG CAP PO SCH (11:45)
[2018-12-23] MEDS ORDERED: Famotidine/PF 20 mg/2ml Vial SLOW IVP SCH (11:45)
[2018-12-23] MEDS ORDERED: Dexamethasone 4 mg/ml Vial ONE (12:00)
[2018-12-23] MEDS ORDERED: Bupivacaine HCl 0.5%/Epinephrine 1:200,000/PF 30 ml Vial ONE (12:00)
[2018-12-23 13:30] LABS: Actual Bicarbonate (HCO3a) 24.7 mEq/L (22-28); Carboxyhemoglobin (COHb) 0.6 gm% (0.0-3.0); Hemoglobin (Hb) 10.8 g/dL (12.0-16.0); O2 Tension (PaO2) 195.4 mmHg (> 60.0); Potassium - ABG Lab 4.25 mmol/L (3.70-5.30); pH, Arterial 7.46 (7.35-7.45)
[2018-12-23 13:31] LABS: Puncture Site ALINE
[2018-12-23 13:50] LABS: INR-International Normal Ratio 1.7; PTT 32.5 SEC (22.9-36.1); Prothrombin Time 20.1 SEC (12.0-14.7)
[2018-12-23 13:52] LABS: Hemoglobin 11.2 g/dL (12.0-16.0); Mean Corpuscular Hemoglobin 29.1 pg (27.0-31.0); Mean Corpuscular Volume 90.8 fL (78.0-98.0); Mean Platelet Volume 9.1 fL (7.4-10.4); Platelet Count 163 thou/uL (130-400); RBC Distribution Width 12.8 % (11.5-14.5); Red Blood Cell (RBC) Count 3.85 mill/uL (4.20-5.40)
[2018-12-23 13:58] LABS: Anion Gap 14 mmol/L (10-20); BUN (Urea Nitrogen) 18 mg/dL (9.8-20.1); Calc. Creatinine Clearance 75 mL/min (70-130); Calcium 8.3 mg/dL (7.8-10.44); Carbon Dioxide 21 mmol/L (23-31); Chloride 110 mmol/L (98-107); Estimated GFR-MDRD 76; Glucose 212 mg/dL (83-110); Potassium 4.4 mmol/L (3.5-5.1); Sodium 141 mmol/L (136-145)
[2018-12-23 14:01] LABS: Band 18 % (5-11); Large Platelets SLIGHT; Lymphocytes 13 % (21-51); MDiff Complete? YES; Metamyelocyte 1 % (0-0); Monocytes 14 % (0-10); Myelocyte 2 % (0-0); Neutrophil 52 % (42-75); Ovalocytes SLIGHT = 2-5 cells (100X) (0-1/hpf); Platelet Morphology Comment Appears Adequate; Polychromasia SLIGHT = 2-3 cells (100X) (0-2/hpf)
--- NOTE | 2018-12-23 14:45 | OP ---
DATE OF PROCEDURE: 12/23/2018 PROCEDURES PERFORMED: Coronary artery bypass grafting x4 with left internal mammary artery to the distal left anterior descending, sequential reverse greater saphenous vein graft from aorta to the first obtuse marginal to the third obtuse marginal, and reverse greater saphenous vein graft from aorta to the distal PDA, ligation of left atrial appendage. PREOPERATIVE DIAGNOSES: Coronary artery disease, status post non-ST elevation myocardial infarction; history of paroxysmal atrial fibrillation. POSTOPERATIVE DIAGNOSES: Coronary artery disease, status post non-ST elevation myocardial infarction; history of paroxysmal atrial fibrillation. SUPPLEMENTAL MANAGER: Everardo. ANESTHESIA: General endotracheal anesthesia. INDICATIONS: The patient is a woman, who turned 88 years old today. She presented with epigastric discomfort and chest pain associated with belching that she had first attributed to reflux symptoms. After it had persisted for several hours, she presented to the emergency room, where she was found to have elevated troponins without any ST elevation. It is consistent with a non-ST elevation myocardial infarction. Cardiac catheterization demonstrates severe 3-vessel coronary artery disease with good LV function. After discussing treatment options with her, it is opted to proceed with surgical revascularization. FINDINGS: The patient was in atrial fibrillation shortly after induction and postprocedure was in and out of atrial fibrillation. Most of her soft tissues were soft and of poor quality, particularly the skin. The ANEUDY was a large vessel with good flow. The saphenous vein had multiple segments of diffuse dilatation. All the coronaries were diffusely diseased with the LAD and the first obtuse marginal being particularly poor quality due to calcification. The distal LAD, where graft was about a 1 to 1.5 mm vessel. The mid OM1, where graft was 1.5 to 2 mm. The OM2 was about 2 mm. The distal PDA was about a 1.5 mm vessel. The right coronary crux was rock hard. The posterolateral branch was deep within the epicardial fat and was only about 1 to 1.5 mm vessel and it was elected not to attempt grafting of it. The pericardium was easily closed. NARRATIVE REPORT: After informed consent was obtained, the patient was taken to the operating room and placed in supine position on the operating table. After the induction of general anesthesia, the patient's left greater saphenous vein was ultrasonographically mapped and the leg marked. Her right chest was prepped and draped in sterile fashion and a right subclavian central line was placed using a triple-lumen central line kit and the Seldinger technique. All 3 ports aspirated and flushed easily. The line was secured to the skin with suture. The patient's torso, groins, and lower extremities were then prepped and draped in sterile fashion. Saphenous vein was exposed just above the left knee and then, endoscopically harvested from the groin to the distal calf. It was prepared for use as a graft because of diffuse oozing in the dissection bed. The port site and the skin incision were made in the lower leg to free up the vein and harvested were closed over a bulb suction drain using subcutaneous Vicryl and running nylon skin suture. A median sternotomy was performed. The left internal mammary artery was mobilized as a skeletonized in-situ graft from the level of lateral xiphoid to the level of subclavian vein. Side branches were controlled with small hemoclips. The patient was heparinized and the mammary was ligated and divided distally. There was excellent flow through the mammary, which was then instilled intraluminally with papaverine solution. The mammary bed was inspected for hemostasis. The ANEUDY retractor was replaced with a Cerna retractor. The pericardium was opened and marsupialized. The aorta was palpated and was soft. Double concentric pursestring of 2-0 Ethibond was placed in the ascending aorta beyond the pericardial reflection at the base of the arch. A single pursestring was placed in the right atrial appendage, taking care to avoid the tip of the pacemaker atrial lead. Aortic and venous cannulae were inserted and secured by their pursestrings. Cardiopulmonary bypass was instituted and the patient was systemically cooled. The heart was examined and the vessel to be bypassed were identified. The hilar reflections of the left pleura were mobilized and a longitudinal incision was made in the pericardium anterior to the left phrenic nerve through which the mammary could be passed. The plane between the aorta and pulmonary artery were developed. An aortic cross-clamp was applied and cardioplegia was administered through an aortic root needle. When arrest have been achieved, attention was then turned to the distal PDA. It was exposed and opened across an island of plaque and the saphenous vein was reversed and anastomosed to it end-to-side with running Prolene suture. The anastomosis was tested by flushing cold cardioplegia down the graft. The right coronary artery was then exposed at the crux. It was not bypassable at that level. The posterolateral was explored near its origin. It was deep within the epicardial fat was a relatively small vessel. It was opted to not to attempt grafting of it. That dissection bed was oversewn with Prolene suture to assure hemostasis and attention was then turned to the circumflex system. The first obtuse marginal was a diffusely diseased vessel distally, where the plaquing was less pronounced. It was very small vessel and still fairly poor quality and island of relatively soft vessel could be identified and it was opted to use that for an anastomotic point. By contrast, the posterolateral OM3 was relatively good quality. It was opened and the saphenous vein was anastomosed to it end-to-side with the anastomosis oriented perpendicular to the axis of the coronary. A [id number]-aq-chep anastomosis was then constructed from that vein graft to the soft area on the mid OM1 with that anastomosis also oriented perpendicular to the axis of the coronary. The LAD was then explored. It was opened rather distally, where anteriorly the vessel was thin-walled, but soft posteriorly. There was still very heavy plaquing. The mammary was anastomosed there with running 7-0 Prolene over a 1 mm probe at the heel. Upon releasing the bulldog, Doppler flow could be clearly identified both proximally and distally in the LAD and the heart began to pink up and fribbled. Aortic cross-clamp was replaced with a partial occluding clamp and aortotomy was made in the ascending aorta with a scalpel and punch incorporating the root needle site for the more proximal aortotomy. The PDA graft was along the right side of the heart and anastomosed to that proximal aortotomy. The sequential OM graft was anastomosed to the more distal aortotomy. The vein grafts were occluded. Partial occluding clamp removed. The vein grafts were de-aired and the bulldogs removed from them. The anastomoses were inspected for hemostasis. The left atrial appendage had been ligated using 3-0 Prolene suture run in 2 layers of horizontal mattress suture. Immediately after achieving arrest and prior to constructing the first coronary anastomosis, that suture line was also hemostatic and the appendage felt tensed and was noncompressible. A posterior pericardial drain was brought out through a separate incision and secured with suture. Right atrial and right ventricular temporary epicardial pacing wires were placed. The patient was then slowly weaned from cardiopulmonary bypass. The proximal vein graft anastomoses were marked with small hemoclips. When the patient was off bypass, the aortic and venous cannulae were removed and the pursestring secured, protamine was administered when hemostasis was adequate and an anterior mediastinal drain was placed and the pericardium was easily closed over with running Vicryl. The cut surfaces of the sternum were treated with vancomycin paste and platelet rich GPS. The sternum was reapproximated with #7 stainless steel wires. A total of 30 mL of 0.5% Marcaine with epinephrine mixed with 4 mg of Decadron were infiltrated into the fascia and subcutaneous tissue for postoperative pain control. The soft tissues were irrigated and then treated with platelet poor GPS. The fascia was closed over the wires with running #1 Vicryl. Subcutaneous tissue was reapproximated with 2-0 Vicryl and skin was closed with 4-0 Vicryl subcuticular suture. The wounds were dressed and the patient taken to the intensive care unit in stable condition. Job ID: [id number]
[2018-12-23] MEDS: Ondansetron PF 4 MG/2 ML Vial IVP PRN (14:49)
[2018-12-23] MEDS: Ketorolac Tromethamine 30 MG/ML VIAL IVP SCH ×2 (14:49→18:22)
--- NOTE | 2018-12-23 15:45 | RAD ---
CHEST ONE VIEW: HISTORY: Status post open heart surgery. COMPARISON: 12/21/2018 FINDINGS: There is an endotracheal tube at the level of the clavicles. Left-sided transvenous pacemaker, uncha nged. A mediastinal drainage catheter is identified. There is a right-sided subclavian central veno us catheter with the distal tip projecting over the expected region of the right atrium. There are s ternotomy wires. There is atherosclerosis of the aorta. Normal cardiac silhouette. Lungs and pleur al spaces are essentially clear. No consolidation or masses. There are chronic changes. No pneumot horax. Chronic degenerative changes of the left shoulder are noted. IMPRESSION: Findings compatible with recent open heart surgery. POS: [facility]
[2018-12-23] MEDS ORDERED: Cardioplegic Soln 1,000 ML BAG ONE (16:26)
[2018-12-23] MEDS ORDERED: Protamine Sulfate 250 MG/25 ML VIAL ONE (16:26)
[2018-12-23] MEDS ORDERED: Rocuronium Bromide 10 MG/ML (10ML VIAL) ONE (16:26)
[2018-12-23] MEDS ORDERED: Papaverine 60 MG/2 ML VIAL ONE (16:26)
[2018-12-23] MEDS ORDERED: PROPOFOL 200 MG/20 ML VIAL ONE (16:26)
[2018-12-23] MEDS ORDERED: DOPamine 400 MG/10 ML VIAL ONE (16:26)
[2018-12-23] MEDS ORDERED: Heparin 30,000 units/30 ml VIAL ONE (16:26)
[2018-12-23] MEDS ORDERED: Magnesium 5 GM/10 ML VIAL ONE (16:26)
[2018-12-23] MEDS ORDERED: Thrombin 5000 UNITS/5 ML VIAL ONE (16:26)
[2018-12-23] MEDS ORDERED: Aminocaproic Acid 5 GM/20 ML VIAL ONE (16:26)
[2018-12-23] MEDS ORDERED: PHENYLEPHRINE-NS 100 MCG/ML 10 ML SYRINGE ONE (16:26)
[2018-12-23] MEDS ORDERED: Mannitol 12.5 GM/50 ML ONE (16:26)
[2018-12-23] MEDS ORDERED: Calcium Chloride 1 GM/10 ML Abboject SYRINGE ONE (16:26)
[2018-12-23] MEDS ORDERED: Lidocaine 2% PF 100 mg/5 ml Syringe ONE (16:26)
[2018-12-23] MEDS ORDERED: Potassium Chloride 60 MEQ/30 ML VIAL ONE (16:26)
[2018-12-23] MEDS ORDERED: Sodium Bicarb 50 MEQ/50 ML VIAL ONE (16:26)
[2018-12-23] MEDS ORDERED: Albumin 25% 25 GM/100 ML BOT ONE (16:26)
[2018-12-23] MEDS ORDERED: Vecuronium 10 MG VIAL ONE (16:26)
[2018-12-23 16:31] LABS: Base Excess (BEa) -3.7 mEq/L (-2.0 to +3.0); CO2 Tension 26.6 mmHg (35.0-45.0); Calcium, Ionized 1.07 mmol/L (1.12-1.30); Carboxyhemoglobin (COHb) 1.1 gm% (0.0-3.0); Hemoglobin (Hb) 9.2 g/dL (12.0-16.0); O2 Tension (PaO2) 162.4 mmHg (> 60.0); Potassium - ABG Lab 3.75 mmol/L (3.70-5.30); pH, Arterial 7.47 (7.35-7.45)
[2018-12-23 16:32] LABS: Puncture Site ALINE
--- NOTE | 2018-12-23 16:40 | PDOC.CTH ---
Cardiology Progress Note - Subjective Pt. back from OR s/p CABGx4. QUINTANILLA-> LAD, SVG-> RCA,OM1,2. Stillintubated but awake. - Objective Vital Signs Pulse Resp BP BP Pulse Ox 12/23/18 15:06 98 79/54 L 12/23/18 14:00 100 12/23/18 10:31 98 12/23/18 05:50 84 18 147/73 H Weight 193 lb 3.2 oz 12/22/18 12/23/18 12/24/18 06:59 06:59 06:59 Intake Total 1217 1420 Output Total 100 2400 Balance 1117 -980 - Physical Examination General/Neuro: other: (intubated) Neck: carotid US brisk Lungs: CTA Heart: RRR Abdomen: NT/ND, soft - Telemetry Telemetry Rhythm: NSR, V-Pacing - Labs Result Diagrams: 12/23/18 13:28 12/23/18 13:28 Troponin/CKMB CK-MB (CK-2) 11.6 ng/mL (0-6.6) H* 12/21/18 16:44 Troponin I 0.684 ng/mL (< 0.028) H* 12/22/18 23:03 - Assessment/Plan 1.CAD- s/p CABG today. 2.HTN_ low at present ,on pressors. 3.Atrial fib: V-pacing, sinus I agree with the present management.
[2018-12-23] MEDS ORDERED: DOPamine 400 MG/D5W 250 ML 250 ML IVPB SCH (17:15)
[2018-12-23] MEDS: Norepinephrine 8 MG/0.9% NS 250 ML IVPB PRN (18:00)
--- NOTE | 2018-12-23 18:48 | PDOC.PN ---
- Subjective Encounter Start Date: 12/23/18 Encounter Start Time: 18:46 Subjective: s/p CABG X4 vessels today.intubated and in CCU -: awake and follows simple commands - Objective Resuscitation Status - Order Detail: 12/21/18 13:15 Resuscitation Status Routine Resuscitation Status: DNAR: NO Resuscitation Discussed with: Patient MAR Reviewed: Yes Vital Signs & Weight: Vital Signs (12 hours) Temp Pulse Resp BP Pulse Ox 12/23/18 18:15 69 114/72 12/23/18 16:00 97.1 F L 17 12/23/18 15:06 98 79/54 L 12/23/18 15:00 97.2 F L 12/23/18 14:00 96.7 F L 100 12/23/18 13:00 96.1 F L 12/23/18 10:31 98 Weight Weight 193 lb 3.2 oz Most Recent Monitor Data Heart Rate from ECG 74 NIBP 115/91 NIBP BP-Mean 99 Respiration from ECG 12 SpO2 100 I&O: 12/22/18 12/23/18 12/24/18 06:59 06:59 06:59 Intake Total 1217 1420 1258 Output Total 100 2400 2004 Balance 8662 -802 -378 Result Diagrams: 12/23/18 13:28 12/23/18 13:28 Additional Labs: Accuchecks 12/23/18 12/23/18 12/23/18 18:20 17:32 16:23 POC Glucose 128 H 182 H 178 H 12/23/18 12/23/18 12/23/18 13:29 12:18 11:01 POC Glucose 203 H 179 H 183 H 12/23/18 12/23/18 12/23/18 10:33 09:47 08:07 POC Glucose 155 H 160 H 130 H Laboratory Tests 12/21/18 12/21/18 12/21/18 09:39 13:19 16:44 Troponin I 0.181 H 0.326 H* 1.166 H* 12/21/18 12/22/18 12/22/18 19:50 11:48 23:03 Troponin I 1.687 H* 1.338 H* 0.684 H* Phys Exam - Physical Examination Constitutional: NAD ETT.opens eyes w verbal stimuli,nods head HEENT: PERRLA, moist MMs, sclera anicteric, oral pharynx no lesions ETT Neck: no nodes, no JVD, supple, full ROM Respiratory: no wheezing, no rales, no rhonchi, clear to auscultation bilateral Cardiovascular: RRR, no significant murmur Gastrointestinal: soft, non-tender, no distention, positive bowel sounds Musculoskeletal: no edema, pulses present Neurological: moves all 4 limbs Psychiatric: normal affect Dx/Plan (1) CAD (coronary artery disease), [place] coronary artery Code(s): I25.10 - ATHSCL HEART DISEASE OF [place] CORONARY ARTERY W/O ANG PCTRS Status: Acute Qualifiers: [place] vs. transplanted heart: [place] heart Associated angina: with unstable angina Qualified Code(s): I25.110 - Atherosclerotic heart disease of [place] coronary artery with unstable angina pectoris Comment: S/P Cath, severe extensive CAD.S/P CABGX4 12/23/18 (2) Hypertension Code(s): I10 - ESSENTIAL (PRIMARY) HYPERTENSION Status: Acute Qualifiers: Hypertension type: essential hypertension Qualified Code(s): I10 - Essential (primary) hypertension Comment: continue home meds - Plan PT/OT, incentive spirometry, DVT proph w/SCDs cont ASA. -: Post-op care per CTS and cardiology. -: HD stable. -: am labs * . Review of Systems - Review of Systems Other: can not be obtained as pt is mildly sedated and intubated - Medications/Allergies Allergies/Adverse Reactions: Allergies Allergy/AdvReac Type Severity Reaction Status Date / Time adhesive Allergy Rash Verified 12/22/18 00:09 cefazolin [From Anc] Allergy Verified 12/21/18 23:37 codeine Allergy Verified 12/21/18 23:37 iodine Allergy Verified 12/22/18 04:57 shellfish derived Allergy Short of Verified 12/21/18 23:37 Breath Medications: Current Medications Acetaminophen (Tylenol) 650 mg PO Q6H PRN PRN Reason: Headache/Fever Or Mild Pain Hydrocodone Bitart/Acetaminophen ([place] 5/325) 1 tab PO Q4H PRN PRN Reason: Moderate Pain (4-6) Hydrocodone Bitart/Acetaminophen ([place] 5/325) 2 tab PO Q4H PRN PRN Reason: Severe Pain (7-10) Al Hydroxide/Mg Hydroxide (Maalox) 30 ml PO Q4H PRN PRN Reason: Indigestion Albumin Human (Albumin 5%) 12.5 gm IVPB Q6H PRN PRN Reason: To Maintain SBP> 90 mmHG Stop: 12/24/18 10:32 Albumin Human (Albumin 5%) 25 gm IVPB Q6H PRN PRN Reason: To Maintain SBP > 90 mmHG Stop: 12/24/18 10:32 Last Admin: 12/23/18 13:35 Dose: 25 gm Albumin Human (Albumin 5%) 25 gm IVPB NOW [facility] Stop: 12/23/18 20:00 Last Admin: 12/23/18 16:35 Dose: 25 gm Albuterol/Ipratropium (Duoneb) 3 ml NEB Q6H PRN PRN Reason: SHORTNESS OF BREATH Aspirin (Aspirin Chewable) 81 mg PO DAILY [facility] Bisacodyl (Dulcolax) 10 mg PO Q12H PRN PRN Reason: Constipation Bisacodyl (Dulcolax) 10 mg [place] Q12H PRN PRN Reason: Constipation Dextrose/Water (Dextrose 50%) 25 gm SLOW IVP PRN PRN PRN Reason: PER HYPOGLYCEMIC PROTOCOL Docusate Sodium (Colace) 100 mg PO BID [facility] Famotidine (Pepcid) 20 mg SLOW IVP Q12HR [facility] Fentanyl (Sublimaze) 25 mcg SLOW IVP Q2H PRN PRN Reason: Moderate Pain (4-6) Stop: 12/25/18 07:45 Fentanyl (Sublimaze) 50 mcg SLOW IVP Q2H PRN PRN Reason: Severe Pain (7-10) Stop: 12/25/18 07:45 Glucagon (Glucagon) 1 mg SC PRN PRN PRN Reason: PER HYPOGLYCEMIC PROTOCOL Guaifenesin/Dextromethorphan (Robitussin Dm) 15 ml PO Q4H PRN PRN Reason: Cough Hydralazine HCl (Apresoline) 10 mg SLOW IVP Q6H PRN PRN Reason: To Maintain SBP< 140mmHG Hetastarch/Sodium Chloride (Hespan) 500 mls @ 0 mls/hr IVPB PRN PRN PRN Reason: To Maintain SBP > 90mmHg Stop: 12/24/18 07:45 Norepinephrine Bitartrate (Levophed) 250 mls @ 0 mls/hr IVPB PRN PRN; Protocol PRN Reason: To maintain SBP > 90 mmHG Last Admin: 12/23/18 18:00 Dose: 250 mls Nicardipine HCl 25 mg/ Sodium (Chloride) 260 mls @ 0 mls/hr IVPB INF PRN; Protocol PRN Reason: To Maintain SBP< 140mmHG Nitroglycerin/Dextrose (Nitroglycerin 50 Mg/250 Ml Bot) 250 mls @ 0 mls/hr IVPB PRN PRN; Protocol PRN Reason: To Maintain SBP< 140mmHG Sodium Chloride (Normal Saline 0.9%) 1,000 mls @ 75 mls/hr IV .[id number] [facility] Last Admin: 12/23/18 13:43 Dose: 1,000 mls Insulin Human Regular 100 (units/ Sodium Chloride) 101 mls @ 0 mls/hr IVPB INF [facility]; Protocol Last Admin: 12/23/18 15:14 Dose: 101 mls Dextrose/Water (D5w) 1,000 mls @ 0 mls/hr IV INF PRN PRN Reason: PRN HYPOGLYCEMIC PROTOCOL Dopamine HCl/Dextrose (Dopamine/D5w) 250 mls @ 0 mls/hr IVPB INF [facility]; Protocol Insulin Glargine (Lantus) 0 units SC ONE PRN PRN Reason: PER OPEN HEART ORDERS Stop: 12/26/18 11:41 Insulin Human Regular (Humulin R) 0 units SC Q4H PRN; Protocol PRN Reason: POST OP SLIDING SCALE Ketorolac Tromethamine (Toradol) 15 mg IVP Q6HR [facility] Stop: 12/24/18 06:01 Last Admin: 12/23/18 18:22 Dose: 15 mg Morphine Sulfate (Morphine) 2 mg SLOW IVP Q15MIN PRN PRN Reason: Severe Pain (7-10) Ondansetron HCl (Zofran) 4 mg IVP Q6H PRN PRN Reason: Nausea/Vomiting Last Admin: 12/23/18 14:49 Dose: 4 mg Potassium Chloride (Kcl) 20 meq IVPB PRN PRN PRN Reason: K level </= 4.0 Promethazine HCl (Phenergan) 6.25 mg IM Q4H PRN PRN Reason: Nausea/Vomiting
[2018-12-23 19:39] LABS: Hemoglobin 7.9 g/dL (12.0-16.0)
[2018-12-23 19:53] LABS: Potassium 3.8 mmol/L (3.5-5.1)
[2018-12-23] MEDS ORDERED: Calcium Chloride 1 GM/10 ML Abboject SYRINGE IVP SCH (20:45)
[2018-12-23 21:02] LABS: Actual Bicarbonate (HCO3a) 18.4 mEq/L (22-28); Base Excess (BEa) -4.5 mEq/L (-2.0 to +3.0); Calcium, Ionized 1.33 mmol/L (1.12-1.30); Carboxyhemoglobin (COHb) 1.5 gm% (0.0-3.0); Hemoglobin (Hb) 6.7 g/dL (12.0-16.0); O2 Tension (PaO2) 146.5 mmHg (> 60.0); Potassium - ABG Lab 3.43 mmol/L (3.70-5.30); pH, Arterial 7.48 (7.35-7.45)
[2018-12-23 21:05] LABS: CO2 Tension 25.4 mmHg (35.0-45.0); Puncture Site ART LINE
[2018-12-23] MEDS: Famotidine/PF 20 mg/2ml Vial SLOW IVP SCH (21:14)
[2018-12-23] MEDS: Docusate 100 MG CAP PO SCH (21:14)
[2018-12-24] MEDS: Norepinephrine 8 MG/0.9% NS 250 ML IVPB PRN ×4 (00:20→20:45)
[2018-12-24] MEDS: Ketorolac Tromethamine 30 MG/ML VIAL IVP SCH ×2 (00:23→05:38)
[2018-12-24] MEDS: Morphine 2 MG/ML SYRINGE SLOW IVP PRN ×4 (02:34→16:30)
[2018-12-24] MEDS ORDERED: Digoxin 0.5 MG/2 ML AMP SLOW IVP SCH ×2 (05:45→10:45)
[2018-12-24 05:49] LABS: Band 18 % (5-11); Hemoglobin 9.7 g/dL (12.0-16.0); Lymphocytes 11 % (21-51); MDiff Complete? YES; Mean Corpuscular Hemoglobin 30.3 pg (27.0-31.0); Mean Corpuscular Volume 91.7 fL (78.0-98.0); Monocytes 13 % (0-10); Neutrophil 58 % (42-75); Platelet Count 112 thou/uL (130-400); Platelet Morphology Comment Appears Decreased; RBC Distribution Width 12.7 % (11.5-14.5); White Blood Cell (WBC) Count 19.9 thou/uL (4.8-10.8)
[2018-12-24 05:50] LABS: Anion Gap 14 mmol/L (10-20); BUN (Urea Nitrogen) 24 mg/dL (9.8-20.1); Calc. Creatinine Clearance 64 mL/min (70-130); Calcium 8.2 mg/dL (7.8-10.44); Carbon Dioxide 18 mmol/L (23-31); Chloride 114 mmol/L (98-107); Estimated GFR-MDRD 63; Glucose 113 mg/dL (83-110); Potassium 4.4 mmol/L (3.5-5.1); Sodium 142 mmol/L (136-145)
[2018-12-24] MEDS: Sodium Chloride 0.9% 1,000 ML IV SCH ×2 (06:18→13:28)
[2018-12-24] MEDS ORDERED: HYDROcodone/Acetaminophen 5/325 mg Tablet PO PRN (07:45)
--- NOTE | 2018-12-24 07:45 | RAD ---
CHEST 1 VIEW: Date: 12/24/18 INDICATION: Status post open heart surgery. COMPARISON: Prior exam dated 12/23/18. FINDINGS: Cardiomegaly is present. Mediastinal drain is unchanged. ET tube is unchanged. Right subclavian centr al venous catheter is unchanged. No pneumothorax is evident. Dual lead pacemaker is similar appearing . Chronic lung changes are similar appearing. IMPRESSION: Stable exam. POS: [facility]
[2018-12-24 08:00] LABS: Actual Bicarbonate (HCO3a) 15.7 mEq/L (22-28); Base Excess (BEa) -6.8 mEq/L (-2.0 to +3.0); Calcium, Ionized 1.11 mmol/L (1.12-1.30); Carboxyhemoglobin (COHb) 0.7 gm% (0.0-3.0); Hemoglobin (Hb) 9.1 g/dL (12.0-16.0); O2 Tension (PaO2) 119.4 mmHg (> 60.0); Potassium - ABG Lab 4.52 mmol/L (3.70-5.30); pH, Arterial 7.46 (7.35-7.45)
[2018-12-24] MEDS ORDERED: Sodium Bicarb 50 MEQ/50 ML VIAL IVP SCH (08:15)
[2018-12-24] MEDS ORDERED: Sodium Bicarb 50 MEQ/50 ML Abboject 8.4% SYRINGE IVP SCH (08:15)
[2018-12-24] MEDS: Famotidine/PF 20 mg/2ml Vial SLOW IVP SCH ×2 (08:55→20:45)
[2018-12-24] MEDS: Docusate 100 MG CAP PO SCH ×2 (09:10→20:39)
[2018-12-24] MEDS: Aspirin Chewable 81 MG TAB PO SCH (09:10)
--- NOTE | 2018-12-24 10:52 | PDOC.CTH ---
Cardiology Progress Note - Subjective The pt seen and examined. Converted back to AFib with RVR this AM when the pt' s vent was weaning down to Cpap. Unable to speak due to Vent support. - Objective Vital Signs Temp Pulse Resp BP Pulse Ox 12/24/18 10:04 132 H 104/55 L 12/24/18 08:00 98.7 F 11 L 100 12/24/18 07:00 98.7 F 12/24/18 06:20 120 H 100/56 L 12/24/18 06:00 12 12/24/18 05:37 148 H 12/24/18 04:00 15 12/24/18 02:08 82 119/62 12/24/18 02:00 12 12/24/18 00:00 12 Weight 194 lb 6.4 oz 12/23/18 12/24/18 12/25/18 06:59 06:59 06:59 Intake Total 1420 1958 Output Total 2400 3280 95 Balance -980 -1322 -95 - Physical Examination General/Neuro: other: (alert) Lungs: CTA (very diminished at bases) Heart: other: (irregular) Abdomen: soft Extremities: other: (No edema) - Telemetry Telemetry Rhythm: Afib 100-120s - Labs Result Diagrams: 12/24/18 05:25 12/24/18 05:25 Troponin/CKMB CK-MB (CK-2) 11.6 ng/mL (0-6.6) H* 12/21/18 16:44 Troponin I 0.684 ng/mL (< 0.028) H* 12/22/18 23:03 - Assessment/Plan 1. CAD with S/p CABGx4 with QUINTANILLA-> LAD, RSVG-> OM1, OM2, and dist PDA and SYBIL ligation - stable; not on BBlokcer due to hypotensive. 2. Afib - HR still up to 100-120s with s/p Digoxin 0.25mg IV push this AM; Will start Digoxin 0.25mg IV push q 6hrs x3 then change to 0.125mg PO qd. on ASA 81mg qd. Cont. to monitor on tele 3. HTN - Hypotensive; Off dopamine this AM; still on Levophed; 4. Hyperlipidemia - will resume Statin when she is more stable 5. Hypothyroidism - may resume Levothyroxine; managed by PCP 6. Hx of PM placement - MAR reviewed * Echo on 12/23/2018 - EF 60-65%, mild MR, mild TR, trace AR Pt. seen and eval. by me. doing well post-op. I agree with the A/P by the [employer]PER[employer]. Post-op Afib. Consider resuming flecainide or change to Multaq. Will need to be off Flecainide a couple days prior to starting Multaq. Review of Systems - Review of Systems Constitutional: reports: see HPI
[2018-12-24] MEDS ORDERED: Digoxin 0.5 MG/2 ML AMP ONE (11:37)
[2018-12-24] MEDS: Digoxin 0.5 MG/2 ML AMP SLOW IVP SCH ×2 (11:39→19:39)
--- NOTE | 2018-12-24 11:43 | PDOC.PN ---
- Subjective Encounter Start Date: 12/24/18 Encounter Start Time: 11:42 Subjective: still on levophed.dopamine titrated off. 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.s/p 1 dose IV digoxin - Objective Resuscitation Status - Order Detail: 12/21/18 13:15 Resuscitation Status Routine Resuscitation Status: DNAR: NO Resuscitation Discussed with: Patient MAR Reviewed: Yes Vital Signs & Weight: Vital Signs (12 hours) Temp Pulse Resp BP Pulse Ox 12/24/18 10:04 132 H 104/55 L 12/24/18 10:00 14 12/24/18 08:00 98.7 F 11 L 100 12/24/18 07:00 98.7 F 12/24/18 06:20 120 H 100/56 L 12/24/18 06:00 12 12/24/18 05:37 148 H 12/24/18 04:00 15 12/24/18 02:08 82 119/62 12/24/18 02:00 12 12/24/18 00:00 12 Weight Weight 194 lb 6.4 oz Most Recent Monitor Data Heart Rate from ECG 111 NIBP 107/79 NIBP BP-Mean 88 Respiration from ECG 10 SpO2 99 I&O: 12/23/18 12/24/18 12/25/18 06:59 06:59 06:59 Intake Total 1420 1958 Output Total 2400 3280 95 Balance -980 -1322 -95 Result Diagrams: 12/24/18 05:25 12/24/18 05:25 Additional Labs: Accuchecks 12/24/18 12/24/18 12/24/18 09:25 06:05 05:08 POC Glucose 106 108 102 12/24/18 12/24/18 12/24/18 04:05 03:03 01:10 POC Glucose 115 H 87 122 H 12/23/18 12/23/18 12/23/18 23:58 23:05 22:12 POC Glucose 135 H 89 84 12/23/18 12/23/18 12/23/18 21:06 20:09 18:20 POC Glucose 117 H 143 H 128 H 12/23/18 12/23/18 12/23/18 17:32 16:23 13:29 POC Glucose 182 H 178 H 203 H 12/23/18 12/23/18 12:18 11:33 POC Glucose 179 H 191 H Phys Exam - Physical Examination Constitutional: NAD ETT in place, awake and hawa head for answers HEENT: PERRLA, moist MMs, sclera anicteric, oral pharynx no lesions ETT Neck: no nodes, no JVD, supple, full ROM Respiratory: no wheezing, no rales, no rhonchi, clear to auscultation bilateral Cardiovascular: no significant murmur, irregular Gastrointestinal: soft, non-tender, no distention, positive bowel sounds Musculoskeletal: no edema, pulses present Neurological: moves all 4 limbs Psychiatric: normal affect, A&O x 3 Dx/Plan (1) Atrial fibrillation with RVR Code(s): I48.91 - UNSPECIFIED ATRIAL FIBRILLATION Status: Acute (2) CAD (coronary artery disease), [place] coronary artery Code(s): I25.10 - ATHSCL HEART DISEASE OF [place] CORONARY ARTERY W/O ANG PCTRS Status: Acute Qualifiers: [place] vs. transplanted heart: [place] heart Associated angina: with unstable angina Qualified Code(s): I25.110 - Atherosclerotic heart disease of [place] coronary artery with unstable angina pectoris Comment: S/P Cath, severe extensive CAD.S/P CABGX4 12/23/18 (3) Hypertension Code(s): I10 - ESSENTIAL (PRIMARY) HYPERTENSION Status: Acute Qualifiers: Hypertension type: essential hypertension Qualified Code(s): I10 - Essential (primary) hypertension Comment: continue home meds (4) HLD (hyperlipidemia) Code(s): E78.5 - HYPERLIPIDEMIA, UNSPECIFIED Status: Chronic (5) Hypothyroid Code(s): E03.9 - HYPOTHYROIDISM, UNSPECIFIED Status: Chronic - Plan plan discussed w/ family, DVT proph w/SCDs Started on IV digoxin.monitor -: blood and urine Cx given low Gd fever.likley atelectasis.WBC getting better -: BP low.hold BB/JAUN-I/ARB.cont ASA for now -: am labs -: s/p PRBC 2 units yesterday.stable H/h * . Review of Systems - Review of Systems Other: can not be reliably obtained due to intubated state - Medications/Allergies Allergies/Adverse Reactions: Allergies Allergy/AdvReac Type Severity Reaction Status Date / Time adhesive Allergy Rash Verified 12/22/18 00:09 cefazolin [From Anc] Allergy Verified 12/21/18 23:37 codeine Allergy Verified 12/21/18 23:37 iodine Allergy Verified 12/22/18 04:57 shellfish derived Allergy Short of Verified 12/21/18 23:37 Breath Medications: Current Medications Acetaminophen (Tylenol) 650 mg PO Q6H PRN PRN Reason: Headache/Fever Or Mild Pain Hydrocodone Bitart/Acetaminophen ([place] 5/325) 1 tab PO Q4H PRN PRN Reason: Moderate Pain (4-6) Hydrocodone Bitart/Acetaminophen ([place] 5/325) 2 tab PO Q4H PRN PRN Reason: Severe Pain (7-10) Al Hydroxide/Mg Hydroxide (Maalox) 30 ml PO Q4H PRN PRN Reason: Indigestion Albuterol/Ipratropium (Duoneb) 3 ml NEB Q6H PRN PRN Reason: SHORTNESS OF BREATH Aspirin (Aspirin Chewable) 81 mg PO DAILY [facility] Last Admin: 12/24/18 09:10 Dose: Not Given Bisacodyl (Dulcolax) 10 mg PO Q12H PRN PRN Reason: Constipation Bisacodyl (Dulcolax) 10 mg [place] Q12H PRN PRN Reason: Constipation Dextrose/Water (Dextrose 50%) 25 gm SLOW IVP PRN PRN PRN Reason: PER HYPOGLYCEMIC PROTOCOL Digoxin (Lanoxin) 0.25 mg SLOW IVP Q6H [facility] Stop: 12/24/18 18:01 Digoxin (Lanoxin) 0.125 mg PO QAM [facility] Docusate Sodium (Colace) 100 mg PO BID [facility] Last Admin: 12/24/18 09:10 Dose: Not Given Famotidine (Pepcid) 20 mg SLOW IVP Q12HR [facility] Last Admin: 12/24/18 08:55 Dose: 20 mg Fentanyl (Sublimaze) 25 mcg SLOW IVP Q2H PRN PRN Reason: Moderate Pain (4-6) Stop: 12/25/18 07:45 Fentanyl (Sublimaze) 50 mcg SLOW IVP Q2H PRN PRN Reason: Severe Pain (7-10) Stop: 12/25/18 07:45 Glucagon (Glucagon) 1 mg SC PRN PRN PRN Reason: PER HYPOGLYCEMIC PROTOCOL Guaifenesin/Dextromethorphan (Robitussin Dm) 15 ml PO Q4H PRN PRN Reason: Cough Hydralazine HCl (Apresoline) 10 mg SLOW IVP Q6H PRN PRN Reason: To Maintain SBP< 140mmHG Norepinephrine Bitartrate (Levophed) 250 mls @ 0 mls/hr IVPB PRN PRN; Protocol PRN Reason: To maintain SBP > 90 mmHG Last Admin: 12/24/18 06:43 Dose: 250 mls Nicardipine HCl 25 mg/ Sodium (Chloride) 260 mls @ 0 mls/hr IVPB INF PRN; Protocol PRN Reason: To Maintain SBP< 140mmHG Nitroglycerin/Dextrose (Nitroglycerin 50 Mg/250 Ml Bot) 250 mls @ 0 mls/hr IVPB PRN PRN; Protocol PRN Reason: To Maintain SBP< 140mmHG Sodium Chloride (Normal Saline 0.9%) 1,000 mls @ 75 mls/hr IV .[id number] [facility] Last Admin: 12/24/18 06:18 Dose: 1,000 mls Insulin Human Regular 100 (units/ Sodium Chloride) 101 mls @ 0 mls/hr IVPB INF [facility]; Protocol Last Admin: 12/23/18 15:14 Dose: 101 mls Dextrose/Water (D5w) 1,000 mls @ 0 mls/hr IV INF PRN PRN Reason: PRN HYPOGLYCEMIC PROTOCOL Dopamine HCl/Dextrose (Dopamine/D5w) 250 mls @ 0 mls/hr IVPB INF [facility]; Protocol Last Admin: 12/23/18 19:56 Dose: 250 mls Insulin Glargine (Lantus) 0 units SC ONE PRN PRN Reason: PER OPEN HEART ORDERS Stop: 12/26/18 11:41 Insulin Human Regular (Humulin R) 0 units SC Q4H PRN; Protocol PRN Reason: POST OP SLIDING SCALE Morphine Sulfate (Morphine) 2 mg SLOW IVP Q15MIN PRN PRN Reason: Severe Pain (7-10) Last Admin: 12/24/18 11:31 Dose: 2 mg Ondansetron HCl (Zofran) 4 mg IVP Q6H PRN PRN Reason: Nausea/Vomiting Last Admin: 12/23/18 14:49 Dose: 4 mg Potassium Chloride (Kcl) 20 meq IVPB PRN PRN PRN Reason: K level </= 4.0 Promethazine HCl (Phenergan) 6.25 mg IM Q4H PRN PRN Reason: Nausea/Vomiting
[2018-12-24] MEDS ORDERED: Amiodarone 150 MG, Admixture Fee 1 EACH in Dextrose 5% in Water 100 ML IVPB SCH (15:15)
[2018-12-24 15:56] LABS: ALV-art Gradient 51.865 (0-20); CO2 Tension 22.7 mmHg (35.0-45.0); Puncture Site ALINE
[2018-12-24] MEDS: Amiodarone 450 MG in Dextrose 5% in Water 250 ML IVPB SCH (15:58)
--- NOTE | 2018-12-24 16:01 | EKG ---
Test Reason : Blood Pressure : / mmHG Vent. Rate : 127 BPM Atrial Rate : 147 BPM P-R Int : 000 ms QRS Dur : 082 ms QT Int : 300 ms P-R-T Axes : 000 -52 044 degrees QTc Int : 436 ms Atrial fibrillation with rapid ventricular response with premature ventricular or aberrantly conducte d complexes Left axis deviation Inferior infarct , age undetermined Abnormal ECG When compared with ECG of 23-DEC-2018 13:41, Atrial fibrillation has replaced Electronic ventricular pacemaker Confirmed by APRIL VENTURA, DR. Rivera ([id number]) on 12/24/2018 4:00:52 PM Referred By: Confirmed By:DR. Nicole CHEN MD
--- NOTE | 2018-12-25 01:15 | CON ---
DATE OF CONSULTATION: 12/24/2018 SUBJECTIVE: This is an 88-year-old female who underwent coronary bypass grafting on the . She remains mechanically ventilated. I am told she had some bleeding. It appears that she had 1630 mL of output through her 2 chest tubes after surgery. This has decreased considerably today. She had 100 mL of drainage from her leg. She is awake and alert, moving all her extremities. She is in no distress. PAST MEDICAL HISTORY: 1. Remarkable for: Hypertension. 1. Pacemaker. 2. Hysterectomy. 3. Knee surgery. 4. Shoulder surgery in the past. SOCIAL HISTORY: She is a nonsmoker and nondrinker. ALLERGIES: SHE REPORTS CEPHALOSPORIN, CODEINE, IODINE WELL PENICILLIN ALLERGY. FAMILY HISTORY: Negative for lung disease in early age. REVIEW OF SYSTEMS: Not obtainable. Her son was at the bedside. PHYSICAL EXAMINATION: VITAL SIGNS: Heart rate is 94, blood pressure 114/64, respiratory rate is 18. Pupils react, sclerae is anicteric. Extraocular movements are full. LUNGS: Remarkable for coarse equal breath sounds. HEART: Regular rhythm. S1 and S2 are unremarkable. She does have a mediastinal rub. ABDOMEN: Soft and nontender. EXTREMITIES: Without clubbing, cyanosis, or edema. Her feet are warm. LABORATORY DATA: White count 19.9, hemoglobin 9.7, and platelets 112,000. Sodium 142, potassium 4.4, chloride 114, bicarb 18, BUN 24, creatinine 0.85. IMAGING: Chest x-ray is unremarkable. IMPRESSION: 1. Post coronary bypass grafting, clinically stable. 2. Bleeding issues appear to have subsided. 3. History of atrial fibrillation, not clinically an issue at this time. 4. Advanced age. 5. I have recommended continue mechanical ventilation in the morning. Do a spontaneous breathing trial. If she is doing well, hopefully we can extubate her in the morning. TOTAL TIME SPENT: Critical care time 30 minutes.In addition to the consult I spent probably 30 minutes talking with the son and answered questions and getting to know him and his mom. Job ID: [id number] MTDD
[2018-12-25] MEDS: Norepinephrine 8 MG/0.9% NS 250 ML IVPB PRN ×2 (03:48→16:52)
[2018-12-25 05:13] LABS: Anion Gap 13 mmol/L (10-20); BUN (Urea Nitrogen) 41 mg/dL (9.8-20.1); Calc. Creatinine Clearance 36 mL/min (70-130); Calcium 7.7 mg/dL (7.8-10.44); Carbon Dioxide 19 mmol/L (23-31); Chloride 116 mmol/L (98-107); Estimated GFR-MDRD 33; Glucose 136 mg/dL (83-110); Potassium 4.6 mmol/L (3.5-5.1); Sodium 143 mmol/L (136-145)
[2018-12-25] MEDS: Amiodarone 450 MG in Dextrose 5% in Water 250 ML IVPB SCH ×2 (05:26→21:00)
[2018-12-25 05:27] LABS: Band 9 % (5-11); Hemoglobin 8.4 g/dL (12.0-16.0); Hypochromia SLIGHT = 6-15 cells (100X) (0-5/hpf); Lymphocytes 11 % (21-51); MDiff Complete? YES; Mean Corpuscular HGB CONC 33.3 g/dL (32.0-36.0); Mean Corpuscular Hemoglobin 30.8 pg (27.0-31.0); Mean Corpuscular Volume 92.6 fL (78.0-98.0); Mean Platelet Volume 10.7 fL (7.4-10.4); Monocytes 7 % (0-10); Neutrophil 59 % (42-75); Platelet Count 105 thou/uL (130-400); Platelet Morphology Comment Appears Decreased; RBC Distribution Width 13.1 % (11.5-14.5); Reactive Lymphocytes 14 % (0-10); Red Blood Cell (RBC) Count 2.74 mill/uL (4.20-5.40); White Blood Cell (WBC) Count 13.7 thou/uL (4.8-10.8)
[2018-12-25 06:46] LABS: Actual Bicarbonate (HCO3a) 17.7 mEq/L (22-28); Base Excess (BEa) -6.3 mEq/L (-2.0 to +3.0); CO2 Tension 29.1 mmHg (35.0-45.0); Calcium, Ionized 1.08 mmol/L (1.12-1.30); Carboxyhemoglobin (COHb) 1.3 gm% (0.0-3.0); Hemoglobin (Hb) 7.6 g/dL (12.0-16.0); O2 Tension (PaO2) 97.6 mmHg (> 60.0); Potassium - ABG Lab 4.68 mmol/L (3.70-5.30)
[2018-12-25 06:50] LABS: ALV-art Gradient 65.665 (0-20)
--- NOTE | 2018-12-25 08:00 | PDOC.CTH ---
Cardiology Progress Note - Subjective The pt seen and examined. No overnight events. No cardiac complaints. Possible extubate this AM. - Objective Vital Signs Temp Pulse Resp BP 12/25/18 07:06 60 137/60 12/25/18 07:00 99.6 F 12/25/18 06:00 9 L 12/25/18 04:00 12 12/25/18 02:24 60 96/70 12/25/18 02:00 11 L 12/25/18 00:00 10 L 12/24/18 22:00 10 L 12/24/18 21:47 93 111/68 Admit Weight 190 lb 6.259 oz Weight 192 lb 11.2 oz 12/24/18 12/25/18 12/26/18 06:59 06:59 06:59 Intake Total 1958 1788 Output Total 3280 900 15 Balance -1322 888 -15 - Physical Examination General/Neuro: alert & oriented x3 Neck: no JVD present Lungs: other: (coarses and diminished at bases) Heart: RRR Abdomen: soft Extremities: other: (Generalized edema) - Telemetry Telemetry Rhythm: SR - Labs Result Diagrams: 12/25/18 03:55 12/25/18 03:55 Troponin/CKMB CK-MB (CK-2) 11.6 ng/mL (0-6.6) H* 12/21/18 16:44 Troponin I 0.684 ng/mL (< 0.028) H* 12/22/18 23:03 - Assessment/Plan 1. CAD with S/p CABGx4 with QUINTANILLA-> LAD, RSVG-> OM1, OM2, and dist PDA and SYBIL ligation - stable; not on BBlokcer due to hypotensive. 2. Afib - Converted back to SR at 0120 on 12/25/2018; On Amiodarone drip and ASA 81mg qd. Off Digoxin. Cont. to monitor on tele; Consider resuming flecainide or change to Multaq. Will need to be off Flecainide a couple days prior to starting Multaq. 3. HTN - Stable with Levophed; 4. Hyperlipidemia - will resume Statin when she is more stable 5. Hypothyroidism - may resume Levothyroxine; managed by PCP 6. Hx of PM placement - JAN reviewed * Echo on 12/23/2018 - EF 60-65%, mild MR, mild TR, trace AR Pt. seen and eval. by me. I agree with the A/P by the PEN RIDER. She appears to be on the dry side. She has a normal EF and is still on levophed. I will give a bolus of NS and see if the Levophed can be titrated further and d/c'd. H/H decreased from yesterday but no obvious site. May be dilutional. She is now extubated and doing well. She converted to NSR with the Amiodarone.Will change to po after 24 hrs of IV protocol. Review of Systems - Review of Systems Constitutional: reports: no symptoms reported EENTM: reports: no symptoms reported Respiratory: reports: no symptoms reported Cardiac (ROS): reports: no symptoms reported : reports: no symptoms reported
--- NOTE | 2018-12-25 08:06 | PQF ---
DATE: 12-25-18 ATTN : DR. KELIN FRANK Please exercise your independent, professional judgment in responding to the clarification form. Clinical indicators are provided on the bottom of this form for your review Please check appropriate box(s): [ X ] NSTEMI [ ] Elevated Troponin [ ] Other diagnosis [ ] Unable to determine In addition, please specify: Present on Admission (POA): [ X ] Yes [ ] No [ ] Unable to determine CLINICAL INDICATORS - SIGNS / SYMPTOMS / LABS ER DX: CP, ELEVATED TROPONIN, H/O CAD TROPONIN: 12-21-18: 0.181 12-21-18: 0.326 12-21-18: 1.166 12-21-18: 1.687 12-22-18: 1.338 12-22-18: 0.684 H&P: CHEST PAIN, RULE OUT VT CONSULT NOTE DR. THOMPSON 12-21-18: NSTEMI CONSULT NOTE DR. HANKINS 12-23-18: CAD S/P CABG TODAY, HTN, A FIB PN DR. FRANK 12-23-18: CAD S/P CABG 12-23-[address] FELIX 12-23-18: CAD, S/P NSTEMI PN DR. FRANK 12-24-18: ACUTE A FIB WITH RVR, ACUTE CAD *NO FURTHER MENTION OF NSTEMI RISKS: ER: HX PACEMAKER, A FIB, HYPOTHYROIDISM, HTN, H/O CAD TREATMENTS: [facility] 12-22-18 PROCEDURE: 12-23-18: CABG ER: ASA 325MG PO, NITRO TRANSDERMAL, GI COCKTAIL ORAL (This form is maintained as a part of the permanent medical record) 2014 [employer]. All Rights Reserved [email or web address] [email or web address] Office: [phone] [facility]
[2018-12-25] MEDS: D5 1/4 NS 1,000 ML IV SCH ×2 (08:18→20:59)
[2018-12-25] MEDS: Aspirin Chewable 81 MG TAB PO SCH (08:30)
[2018-12-25] MEDS: Docusate 100 MG CAP PO SCH ×2 (08:30→20:58)
[2018-12-25] MEDS ORDERED: Digoxin 0.125 MG TAB PO SCH (09:00)
--- NOTE | 2018-12-25 09:06 | RAD ---
CHEST ONE VIEW: History: Post op open heart. Comparison: 12-24-18 FINDINGS: Life support tubes and chest tubes remain in place. Left ICD. Slightly worsening pleural and parenchy mal opacity changes in the left base which may represent some developing left lower lobe parenchymal change including atelectasis and/or pneumonia. Right lung is stable. IMPRESSION: Developing increased density in the left retrocardiac region somewhat obliterating the left hemidiaph ragm raising concern for developing left lower lobe pneumonia and/or atelectasis. Evidence for small left pleural effusion. No pneumothorax. Continued short term follow up. POS: [facility]
[2018-12-25 09:31] LABS: Bilirubin Moderate (Negative); Blood, Urine Negative (Negative); Clarity CLOUDY (Clear); Glucose, Urine (Dipstick) Negative (Negative); Leukocyte Small (Negative); Nitrite Negative (Negative); Protein, Urine (Dipstick) 30 mg/dL (Neg-Trace); Specific Gravity, Urine 1.027 (1.002-1.036); pH, Urine 5.5 (5.0-9.0)
[2018-12-25 09:35] LABS: Pathc Cast-AUWi Flag 9.15 (0-2.49)
[2018-12-25 09:43] LABS: Bacteria/HPF 1+ HPF (None Seen); Hyaline Casts/LPF 0-3 HYALINE CAST LPF (0-3 Hyaline); Manual Microscopic Reviewed? No Path Casts Seen; RBC/HPF 0-3 HPF (0-3); Renal Epithelial None Seen HPF (0-3); Transitional Epithelial NONE SEEN HPF (0-3)
--- NOTE | 2018-12-25 09:59 | PRG ---
DATE OF SERVICE: 12/25/2018 SUBJECTIVE: Татьяна Monson is awake and alert, moving all her extremities. Her exhaled tidal volume was 650 mL and when the cuff was deflated; it was 400 mL. OBJECTIVE: VITAL SIGNS: Heart rate was in the 60s this morning, blood pressure 124/59, oximetry is 95% to 100%. LUNGS: Clear. HEART: Regular rhythm, S1 and S2 normal. ABDOMEN: Soft and nontender. EXTREMITIES: Warm without edema. LABORATORY STUDIES: White count 13.7, hemoglobin 8.4, platelets 105. Sodium 143, potassium 4.6, chloride 116, bicarb 19, BUN 41, creatinine 1.5. PH 7.4, CO2 of 29, pO2 of 97. Chest radiograph is clear. IMPRESSION AND PLAN: 1. Status post coronary artery bypass grafting. 2. Hyperchloremic acidosis secondary to volume resuscitation. She has been switched to D5 quarter normal saline. 3. Advanced age. 4. Blood loss anemia. 5. Consumption thrombocytopenia secondary to blood loss. 6. Acute on chronic renal dysfunction. Her bump in creatinine is likely related to her surgery. She did have two days of negative fluid balance. Today, she is positive 898 mL. She should continue IV fluids. I suspect her declining creatinine will plateau. 7. I felt she was a candidate for extubation. This has subsequently been done successfully. She has had no post-extubation respiratory distress or stridor. She appears comfortable on repeat exam. Critical care time 35 minutes. Job ID: [id number] MTDD
[2018-12-25] MEDS: Sodium Chloride 0.9% 1,000 ML IV SCH (10:12)
[2018-12-25] MEDS: Famotidine/PF 20 mg/2ml Vial SLOW IVP SCH ×2 (10:37→20:58)
[2018-12-25] MEDS: HYDROcodone/Acetaminophen 5/325 mg Tablet PO PRN ×2 (10:37→20:58)
[2018-12-25] MEDS: Ondansetron PF 4 MG/2 ML Vial IVP PRN (10:38)
[2018-12-25 14:05] LABS: Actual Bicarbonate (HCO3a) 24.8 mEq/L (22-28); Analyzer IN Cardio OR; Base Excess (BEa) -1.5 mEq/L (-2.0 to +3.0); CO2 Tension 50.6 mmHg (35.0-45.0); Calcium, Ionized 0.93 mmol/L (1.12-1.30); Carboxyhemoglobin (COHb) 0.8 gm% (0.0-3.0); Hemoglobin (Hb) 8.1 g/dL (12.0-16.0); Potassium - ABG Lab 4.91 mmol/L (3.70-5.30); pH, Arterial 7.31 (7.35-7.45)
[2018-12-25 14:05] LABS: Actual Bicarbonate (HCO3a) 22.6 mEq/L (22-28); Analyzer IN Cardio OR; Base Excess (BEa) -3.1 mEq/L (-2.0 to +3.0); CO2 Tension 42.8 mmHg (35.0-45.0); Calcium, Ionized 1.06 mmol/L (1.12-1.30); Carboxyhemoglobin (COHb) 0.3 gm% (0.0-3.0); Hemoglobin (Hb) 12.4 g/dL (12.0-16.0); O2 Tension (PaO2) 150.6 mmHg (> 60.0); Potassium - ABG Lab 4.27 mmol/L (3.70-5.30); pH, Arterial 7.34 (7.35-7.45)
[2018-12-25 14:05] LABS: Actual Bicarbonate (HCO3a) 22.9 mEq/L (22-28); Analyzer IN Cardio OR; Base Excess (BEa) -1.4 mEq/L (-2.0 to +3.0); CO2 Tension 36.9 mmHg (35.0-45.0); Hemoglobin (Hb) 13.5 g/dL (12.0-16.0); Potassium - ABG Lab 4.32 mmol/L (3.70-5.30); pH, Arterial 7.41 (7.35-7.45)
[2018-12-25 14:06] LABS: Actual Bicarbonate (HCO3a) 23.4 mEq/L (22-28); Analyzer IN Cardio OR; Base Excess (BEa) -2.5 mEq/L (-2.0 to +3.0); Calcium, Ionized 0.97 mmol/L (1.12-1.30); Hemoglobin (Hb) 8.9 g/dL (12.0-16.0); Potassium - ABG Lab 4.77 mmol/L (3.70-5.30); pH, Arterial 7.33 (7.35-7.45)
[2018-12-25 14:06] LABS: Actual Bicarbonate (HCO3a) 23.5 mEq/L (22-28); Analyzer IN Cardio OR; Base Excess (BEa) -2.9 mEq/L (-2.0 to +3.0); CO2 Tension 48.9 mmHg (35.0-45.0); Calcium, Ionized 1.07 mmol/L (1.12-1.30); Carboxyhemoglobin (COHb) 0.4 gm% (0.0-3.0); Hemoglobin (Hb) 8.1 g/dL (12.0-16.0); O2 Tension (PaO2) 491.9 mmHg (> 60.0); Potassium - ABG Lab 4.78 mmol/L (3.70-5.30)
[2018-12-25 14:07] LABS: Actual Bicarbonate (HCO3a) 21.8 mEq/L (22-28); Analyzer IN Cardio OR; CO2 Tension 37.7 mmHg (35.0-45.0); Calcium, Ionized 1.17 mmol/L (1.12-1.30); Carboxyhemoglobin (COHb) 0.2 gm% (0.0-3.0); Hemoglobin (Hb) 8.7 g/dL (12.0-16.0); O2 Tension (PaO2) 406.5 mmHg (> 60.0); Potassium - ABG Lab 4.45 mmol/L (3.70-5.30); pH, Arterial 7.38 (7.35-7.45)
[2018-12-25 14:11] LABS: Puncture Site ALINE
[2018-12-25 14:11] LABS: Puncture Site ALINE
[2018-12-25 14:12] LABS: O2 Tension (PaO2) 554.6 mmHg (> 60.0); Puncture Site ALINE
[2018-12-25 14:14] LABS: O2 Tension (PaO2) 545.2 mmHg (> 60.0); Puncture Site ALINE
[2018-12-25 14:14] LABS: Puncture Site ALINE
--- NOTE | 2018-12-25 14:18 | PDOC.PN ---
- Subjective Encounter Start Date: 12/25/18 Encounter Start Time: 14:16 Subjective: extubated this morning & doing well. -: ens eyes and follows simple commands -: Levophed being titrated off.UO low side - Objective Resuscitation Status - Order Detail: 12/21/18 13:15 Resuscitation Status Routine Resuscitation Status: DNAR: NO Resuscitation Discussed with: Patient SHERMAN Reviewed: Yes Vital Signs & Weight: Vital Signs (12 hours) Temp Pulse Resp BP Pulse Ox 12/25/18 11:00 99.3 F 12/25/18 08:23 63 22 H 95 12/25/18 08:20 100 12/25/18 08:00 17 12/25/18 07:06 60 137/60 12/25/18 07:00 99.6 F 12/25/18 06:00 9 L 12/25/18 04:00 12 12/25/18 02:24 60 96/70 Weight Admit Weight 190 lb 6.259 oz Weight 192 lb 11.2 oz Most Recent Monitor Data Heart Rate from ECG 60 NIBP 94/42 NIBP BP-Mean 59 Respiration from ECG 15 SpO2 100 I&O: 12/24/18 12/25/18 12/26/18 06:59 06:59 06:59 Intake Total 1958 1788 360 Output Total 3280 900 200 Balance -1322 888 160 Result Diagrams: 12/25/18 03:55 12/25/18 03:55 Additional Labs: Microbiology 12/24/18 17:00 Urine donohue catheter Urine Culture - Preliminary NO GROWTH AT 24 HOURS 12/24/18 12:14 A-Line - Right Brachiocephalic vein Blood Culture - Preliminary Specimen has been received and culture in progress. No Growth to date. 12/24/18 12:08 Central Line - Right Subclavian Vein Blood Culture - Preliminary Specimen has been received and culture in progress. No Growth to date. Laboratory Tests 12/21/18 12/22/18 12/23/18 09:39 04:14 13:28 Creatinine 1.10 1.06 0.72 12/24/18 12/25/18 05:25 03:55 Creatinine 0.85 1.50 H Phys Exam - Physical Examination Constitutional: NAD pale HEENT: PERRLA, moist MMs, sclera anicteric, oral pharynx no lesions Neck: no nodes, no JVD, supple, full ROM Respiratory: no wheezing, no rales, no rhonchi, clear to auscultation bilateral Cardiovascular: RRR, no significant murmur Gastrointestinal: soft, non-tender, no distention, positive bowel sounds Musculoskeletal: no edema, pulses present Neurological: non-focal, normal sensation, moves all 4 limbs Psychiatric: normal affect, A&O x 3 Skin: no rash Dx/Plan (1) Atrial fibrillation with RVR Code(s): I48.91 - UNSPECIFIED ATRIAL FIBRILLATION Status: Acute Comment: IV aniodarone. converted on NSR now (2) CAD (coronary artery disease), [place] coronary artery Code(s): I25.10 - ATHSCL HEART DISEASE OF [place] CORONARY ARTERY W/O ANG PCTRS Status: Acute Qualifiers: [place] vs. transplanted heart: [place] heart Associated angina: with unstable angina Qualified Code(s): I25.110 - Atherosclerotic heart disease of [place] coronary artery with unstable angina pectoris Comment: S/P Cath, severe extensive CAD.S/P CABGX4 12/23/18 (3) Hypertension Code(s): I10 - ESSENTIAL (PRIMARY) HYPERTENSION Status: Acute Qualifiers: Hypertension type: essential hypertension Qualified Code(s): I10 - Essential (primary) hypertension Comment: continue home meds (4) HLD (hyperlipidemia) Code(s): E78.5 - HYPERLIPIDEMIA, UNSPECIFIED Status: Chronic (5) Hypothyroid Code(s): E03.9 - HYPOTHYROIDISM, UNSPECIFIED Status: Chronic - Plan plan discussed w/ family, PT/OT, incentive spirometry, out of bed/ambulate, DVT proph w/SCDs all Cx negative so far. no indication of ABx. Leucocytosis improving -: IVF ordered as pt appears hypovolemic.Cr higher today -: monitor lytes. -: Cardiac meds per CTS & cardiology. -: care discussed w family at bedside. AM labs * . Review of Systems - Review of Systems Constitutional: weakness, malaise ENT: Throat Pain Respiratory: negative: Cough, Dry, Shortness of Breath, Hemoptysis, SOB with Excertion, Pleuritic Pain, Sputum, Wheezing Cardiovascular: negative: chest pain, palpitations, orthopnea, paroxysmal nocturnal dyspnea, edema, light headedness, other Gastrointestinal: negative: Nausea, Vomiting, Abdominal Pain, Diarrhea, Constipation, Melena, Hematochezia, Other Other: limited ROS due to recent intubation and after effects of critical illness.pt somnolent - Medications/Allergies Allergies/Adverse Reactions: Allergies Allergy/AdvReac Type Severity Reaction Status Date / Time adhesive Allergy Rash Verified 12/22/18 00:09 cefazolin [From Anc] Allergy Verified 12/21/18 23:37 codeine Allergy Verified 12/21/18 23:37 iodine Allergy Verified 12/22/18 04:57 shellfish derived Allergy Short of Verified 12/21/18 23:37 Breath Medications: Current Medications Acetaminophen (Tylenol) 650 mg PO Q6H PRN PRN Reason: Headache/Fever Or Mild Pain Hydrocodone Bitart/Acetaminophen ([place] 5/325) 1 tab PO Q4H PRN PRN Reason: Moderate Pain (4-6) Last Admin: 12/25/18 10:37 Dose: 1 tab Hydrocodone Bitart/Acetaminophen ([place] 5/325) 2 tab PO Q4H PRN PRN Reason: Severe Pain (7-10) Al Hydroxide/Mg Hydroxide (Maalox) 30 ml PO Q4H PRN PRN Reason: Indigestion Albuterol/Ipratropium (Duoneb) 3 ml NEB Q6H PRN PRN Reason: SHORTNESS OF BREATH Aspirin (Aspirin Chewable) 81 mg PO DAILY [facility] Last Admin: 12/25/18 08:30 Dose: Not Given Bisacodyl (Dulcolax) 10 mg PO Q12H PRN PRN Reason: Constipation Bisacodyl (Dulcolax) 10 mg [place] Q12H PRN PRN Reason: Constipation Dextrose/Water (Dextrose 50%) 25 gm SLOW IVP PRN PRN PRN Reason: PER HYPOGLYCEMIC PROTOCOL Docusate Sodium (Colace) 100 mg PO BID [facility] Last Admin: 12/25/18 08:30 Dose: Not Given Famotidine (Pepcid) 20 mg SLOW IVP Q12HR [facility] Last Admin: 12/25/18 10:37 Dose: 20 mg Glucagon (Glucagon) 1 mg SC PRN PRN PRN Reason: PER HYPOGLYCEMIC PROTOCOL Guaifenesin/Dextromethorphan (Robitussin Dm) 15 ml PO Q4H PRN PRN Reason: Cough Hydralazine HCl (Apresoline) 10 mg SLOW IVP Q6H PRN PRN Reason: To Maintain SBP< 140mmHG Norepinephrine Bitartrate (Levophed) 250 mls @ 0 mls/hr IVPB PRN PRN; Protocol PRN Reason: To maintain SBP > 90 mmHG Last Admin: 12/25/18 03:48 Dose: 250 mls Nicardipine HCl 25 mg/ Sodium (Chloride) 260 mls @ 0 mls/hr IVPB INF PRN; Protocol PRN Reason: To Maintain SBP< 140mmHG Nitroglycerin/Dextrose (Nitroglycerin 50 Mg/250 Ml Bot) 250 mls @ 0 mls/hr IVPB PRN PRN; Protocol PRN Reason: To Maintain SBP< 140mmHG Insulin Human Regular 100 (units/ Sodium Chloride) 101 mls @ 0 mls/hr IVPB INF [facility]; Protocol Last Admin: 12/23/18 15:14 Dose: 101 mls Dextrose/Water (D5w) 1,000 mls @ 0 mls/hr IV INF PRN PRN Reason: PRN HYPOGLYCEMIC PROTOCOL Dopamine HCl/Dextrose (Dopamine/D5w) 250 mls @ 0 mls/hr IVPB INF [facility]; Protocol Last Admin: 12/23/18 19:56 Dose: 250 mls Amiodarone HCl 450 mg/ (Dextrose/Water) 259 mls @ 0 mls/hr IVPB INF [facility]; Protocol Last Admin: 12/25/18 05:26 Dose: 259 mls Dextrose/Sodium Chloride (D5 1/4 Ns) 1,000 mls @ 75 mls/hr IV .[id number] [facility] Last Admin: 12/25/18 08:18 Dose: 1,000 mls Insulin Glargine (Lantus) 0 units SC ONE PRN PRN Reason: PER OPEN HEART ORDERS Stop: 12/26/18 11:41 Insulin Human Regular (Humulin R) 0 units SC Q4H PRN; Protocol PRN Reason: POST OP SLIDING SCALE Morphine Sulfate (Morphine) 2 mg SLOW IVP Q15MIN PRN PRN Reason: Severe Pain (7-10) Last Admin: 12/24/18 16:30 Dose: 2 mg Ondansetron HCl (Zofran) 4 mg IVP Q6H PRN PRN Reason: Nausea/Vomiting Last Admin: 12/25/18 10:38 Dose: 4 mg Potassium Chloride (Kcl) 20 meq IVPB PRN PRN PRN Reason: K level </= 4.0 Promethazine HCl (Phenergan) 6.25 mg IM Q4H PRN PRN Reason: Nausea/Vomiting
[2018-12-25 14:19] LABS: Puncture Site ALINE
[2018-12-26] MEDS: HYDROcodone/Acetaminophen 5/325 mg Tablet PO PRN ×2 (03:13→17:22)
[2018-12-26 05:30] LABS: Anion Gap 9 mmol/L (10-20); BUN (Urea Nitrogen) 56 mg/dL (9.8-20.1); Calc. Creatinine Clearance 30 mL/min (70-130); Calcium 7.5 mg/dL (7.8-10.44); Carbon Dioxide 22 mmol/L (23-31); Chloride 111 mmol/L (98-107); Estimated GFR-MDRD 26; Glucose 120 mg/dL (83-110); Potassium 4.3 mmol/L (3.5-5.1); Sodium 138 mmol/L (136-145)
[2018-12-26 05:43] LABS: Band 11 % (5-11); Eosinophils 1 % (0-10); Hemoglobin 7.3 g/dL (12.0-16.0); Lymphocytes 13 % (21-51); MDiff Complete? YES; Mean Corpuscular HGB CONC 33.4 g/dL (32.0-36.0); Mean Corpuscular Volume 92.9 fL (78.0-98.0); Mean Platelet Volume 10.6 fL (7.4-10.4); Monocytes 11 % (0-10); Neutrophil 62 % (42-75); Platelet Count 65 thou/uL (130-400); Platelet Morphology Comment Appears Decreased; Reactive Lymphocytes 2 % (0-10); Red Blood Cell (RBC) Count 2.37 mill/uL (4.20-5.40); White Blood Cell (WBC) Count 10.6 thou/uL (4.8-10.8)
[2018-12-26] MEDS: Docusate 100 MG CAP PO SCH ×2 (07:49→21:32)
[2018-12-26] MEDS: Famotidine/PF 20 mg/2ml Vial SLOW IVP SCH ×2 (07:49→21:32)
[2018-12-26] MEDS: Aspirin Chewable 81 MG TAB PO SCH (07:49)
[2018-12-26] MEDS ORDERED: Metolazone 5 MG TAB PO SCH (08:00)
[2018-12-26] MEDS: Furosemide 40 MG/4 ML VIAL SLOW IVP SCH ×2 (08:19→17:33)
--- NOTE | 2018-12-26 08:36 | PDOC.CTH ---
Cardiology Progress Note - Subjective The pt seen and examined. No overnight events. No cardiac complaints. She is up to cardiac chair. - Objective Vital Signs Temp 12/26/18 04:00 98.9 F 12/26/18 00:00 99.1 F Admit Weight 190 lb 6.259 oz Weight 197 lb 6.4 oz 12/25/18 12/26/18 12/27/18 06:59 06:59 06:59 Intake Total 1788 3904 Output Total 900 630 125 Balance 888 3274 -125 - Physical Examination General/Neuro: other: (drawsy) Neck: no JVD present Lungs: other: (diminished at bases) Heart: RRR Abdomen: soft Extremities: other: (generalized edema) - Telemetry Telemetry Rhythm: SR 60 - Labs Result Diagrams: 12/27/18 05:10 12/27/18 05:10 Troponin/CKMB CK-MB (CK-2) 11.6 ng/mL (0-6.6) H* 12/21/18 16:44 Troponin I 0.684 ng/mL (< 0.028) H* 12/22/18 23:03 - Assessment/Plan 1. CAD with S/p CABGx4 with QUINTANILLA-> LAD, RSVG-> OM1, OM2, and dist PDA and SYBIL ligation - stable; not on BBlokcer due to hypotensive. 2. Afib - Converted back to SR at 0120 on 12/25/2018; On Amiodarone drip, which will be changed to PO form from today. On ASA 81mg qd. Off Digoxin. Cont. to monitor on tele; Consider resuming flecainide or change to Multaq. Will need to be off Flecainide a couple days prior to starting Multaq. 3. HTN - Stable with Levophed; 4. Hyperlipidemia - will resume Statin when she is more stable 5. Hypothyroidism - may resume Levothyroxine; managed by PCP 6. Hx of PM placement - 7. NAINA - no changed; on NS @ 75ml/h. 8. Anemia - H/H decreased from yesterday MAR reviewed * Echo on 12/23/2018 - EF 60-65%, mild MR, mild TR, trace AR Pt, seen and eval. I agree with the A/Pby the LAV CREWMAN. The Hgb. dropped again but no obvious site of bleeding. The platelet count has also dropped. She denies any cardiac symptoms. THE RENAL FUNCTION is compromised. Continue to follow. Cardiac status is stable. Chest clear. RRR. Review of Systems - Review of Systems Constitutional: reports: weakness EENTM: reports: no symptoms reported Respiratory: reports: no symptoms reported Cardiac (ROS): reports: no symptoms reported ABD/GI: reports: no symptoms reported : reports: no symptoms reported
--- NOTE | 2018-12-26 08:44 | RAD ---
CHEST 1 VIEW: Date: 12/26/18 HISTORY: Chest surgery. Follow-up. COMPARISON: 12/25/18. FINDINGS: Cardiac silhouette is magnified, enlarged, and now more obscured by bilateral pleural fluid and patch y bibasilar infiltrates. Pulmonary vasculature is engorged with widespread reticulonodular interstiti al prominence. Mediastinum is midline with radiopaque drain and postoperative changes apparent. Nasog astric tube is no longer visible. Right subclavian central venous catheter remains in place. IMPRESSION: 1. Developing pulmonary edema and bilateral pleural fluid. 2. Interval extubation. POS: [facility]
--- NOTE | 2018-12-26 09:13 | RAD ---
AP CHEST: HISTORY: Postop sternotomy. Shortness of breath. COMPARISON: 12/26/2018 at 5:00 a.m. FINDINGS: Left basilar atelectasis or infiltrate. Mild vascular engorgement. Pacemaker leads unchanged. Cent ral line unchanged. The vascular congestion appears improved when compared to the film at 5:00 a.m. There are prominent degenerative changes at the left shoulder. IMPRESSION: 1. Left basilar atelectasis or infiltrate. 2. Vascular engorgement. The vascular congestive changes appear improved when compared to the earli er film. Some of this difference is due to exposure. POS: OFF
[2018-12-26] MEDS: Amiodarone 200 MG TAB PO SCH ×2 (10:38→21:33)
--- NOTE | 2018-12-26 11:46 | PRG ---
DATE OF SERVICE: 12/26/2018 SUBJECTIVE: Ms. Monson is doing well. She sat up for a little over an hour and a half. OBJECTIVE: VITAL SIGNS: Blood pressure is 151/50, heart rate 60, respiratory rate is 22. She denies shortness of breath, oximetry is 100%. LUNGS: Clear. HEART: Regular rhythm. ABDOMEN: Soft. She still has mediastinal tubes in. LABORATORY DATA: White count 10.7, hemoglobin 7.3. Two units of blood were ordered. Her intake and output was positive 3247, so this probably accounts for drop in hemoglobin. Creatinine is 1.82, BUN is 56, potassium 4.3. IMPRESSION: 1. Status post coronary artery bypass grafting. 2. Status post transfusion post bypass. 3. Acute on chronic kidney disease, likely related to surgery, cardiac catheterization. The blood loss and chronic kidney disease at 88 years of age. I suspect this will plateau soon. 4. Hyperchloremia, it is improved by adding more free water. We will continue to follow with her in the Critical Care Unit. Job ID: [id number]
--- NOTE | 2018-12-26 13:04 | PDOC.PN ---
- Subjective Encounter Start Date: 12/26/18 Encounter Start Time: 13:03 Subjective: feels better. weak and tired but no CP/SOB -: family at bedside - Objective Resuscitation Status - Order Detail: 12/21/18 13:15 Resuscitation Status Routine Resuscitation Status: DNAR: NO Resuscitation Discussed with: Patient SHERMAN Reviewed: Yes Vital Signs & Weight: Vital Signs (12 hours) Temp Pulse Resp BP Pulse Ox 12/26/18 12:10 97.7 F 60 19 155/60 H 97 12/26/18 11:42 97.7 F 60 20 138/56 L 99 12/26/18 11:00 97.7 F 12/26/18 09:00 98.1 F 12/26/18 08:00 98 12/26/18 04:00 98.9 F Weight Admit Weight 190 lb 6.259 oz Weight 197 lb 6.4 oz Most Recent Monitor Data Heart Rate from ECG 60 NIBP 155/60 NIBP BP-Mean 91 Respiration from ECG 17 SpO2 99 I&O: 12/25/18 12/26/18 12/27/18 06:59 06:59 06:59 Intake Total 1788 3904 549.3 Output Total 900 630 665 Balance 888 3274 -115.7 Result Diagrams: 12/26/18 04:55 12/26/18 04:55 Additional Labs: Microbiology 12/24/18 17:00 Urine donohue catheter Urine Culture - Preliminary NO GROWTH AT 24 HOURS 12/24/18 12:14 A-Line - Right Brachiocephalic vein Blood Culture - Preliminary Specimen has been received and culture in progress. No Growth to date. 12/24/18 12:08 Central Line - Right Subclavian Vein Blood Culture - Preliminary Specimen has been received and culture in progress. No Growth to date. Laboratory Tests 12/21/18 12/21/18 12/21/18 09:39 09:39 15:00 WBC 6.0 Hgb 14.5 14.2 Creatinine 1.10 12/22/18 12/22/18 12/23/18 04:14 04:14 13:28 WBC 4.5 L Hgb 13.0 Creatinine 1.06 0.72 12/23/18 12/23/18 12/24/18 13:28 19:23 05:25 WBC 35.0 H Hgb 11.2 L 7.9 L Creatinine 0.85 12/24/18 12/25/18 12/25/18 05:25 03:55 03:55 WBC 19.9 H 13.7 H Hgb 9.7 L 8.4 L Creatinine 1.50 H 12/26/18 12/26/18 04:55 04:55 WBC 10.6 Hgb 7.3 L Creatinine 1.82 H Phys Exam - Physical Examination Constitutional: NAD HEENT: PERRLA, moist MMs, sclera anicteric, oral pharynx no lesions Neck: no nodes, no JVD, supple, full ROM Respiratory: no wheezing, no rales, no rhonchi, clear to auscultation bilateral Cardiovascular: RRR, no significant murmur, no rub surgical incison well healing Gastrointestinal: soft, non-tender, no distention, positive bowel sounds Musculoskeletal: no edema, pulses present Neurological: non-focal, normal sensation, moves all 4 limbs Psychiatric: normal affect, A&O x 3 Dx/Plan (1) Atrial fibrillation with RVR Code(s): I48.91 - UNSPECIFIED ATRIAL FIBRILLATION Status: Acute Comment: Stop IV amiodarone. converted on NSR now.Changed to PO Amiodarone (2) CAD (coronary artery disease), [place] coronary artery Code(s): I25.10 - ATHSCL HEART DISEASE OF [place] CORONARY ARTERY W/O ANG PCTRS Status: Acute Qualifiers: [place] vs. transplanted heart: [place] heart Associated angina: with unstable angina Qualified Code(s): I25.110 - Atherosclerotic heart disease of [place] coronary artery with unstable angina pectoris Comment: S/P Cath, severe extensive CAD.S/P CABGX4 12/23/18 (3) Hypertension Code(s): I10 - ESSENTIAL (PRIMARY) HYPERTENSION Status: Acute Qualifiers: Hypertension type: essential hypertension Qualified Code(s): I10 - Essential (primary) hypertension Comment: continue home meds (4) HLD (hyperlipidemia) Code(s): E78.5 - HYPERLIPIDEMIA, UNSPECIFIED Status: Chronic (5) Hypothyroid Code(s): E03.9 - HYPOTHYROIDISM, UNSPECIFIED Status: Chronic - Plan PT/OT, respiratory therapy, incentive spirometry, out of bed/ambulate, DVT proph w/SCDs Cx remain negative.monitor clinically -: IVF stopped due to edema on CXR. lasix and zaroxolyn given -: PRBC transfusion as H/H lower -: Po amiodarone.ASA -: supportive care. AM labs * . Review of Systems - Review of Systems Constitutional: weakness. negative: fever, chills, sweats, malaise, other ENT: negative: Ear Pain, Ear Discharge, Nose Pain, Nose Discharge, Nose Congestion, Mouth Pain, Mouth Swelling, Throat Pain, Throat Swelling, Other Respiratory: negative: Cough, Dry, Shortness of Breath, Hemoptysis, SOB with Excertion, Pleuritic Pain, Sputum, Wheezing Cardiovascular: negative: chest pain, palpitations, orthopnea, paroxysmal nocturnal dyspnea, edema, light headedness, other Gastrointestinal: negative: Nausea, Vomiting, Abdominal Pain, Diarrhea, Constipation, Melena, Hematochezia, Other Genitourinary: negative: Dysuria, Frequency, Incontinence, Hematuria, Retention , Other Neurological: negative: Weakness, Numbness, Incoordination, Change in Speech, Confusion, Seizures, Other - Medications/Allergies Allergies/Adverse Reactions: Allergies Allergy/AdvReac Type Severity Reaction Status Date / Time adhesive Allergy Rash Verified 12/22/18 00:09 cefazolin [From Anc] Allergy Verified 12/21/18 23:37 codeine Allergy Verified 12/21/18 23:37 iodine Allergy Verified 12/22/18 04:57 shellfish derived Allergy Short of Verified 12/21/18 23:37 Breath Medications: Current Medications Acetaminophen (Tylenol) 650 mg PO Q6H PRN PRN Reason: Headache/Fever Or Mild Pain Hydrocodone Bitart/Acetaminophen ([place] 5/325) 1 tab PO Q4H PRN PRN Reason: Moderate Pain (4-6) Last Admin: 12/26/18 03:13 Dose: 1 tab Hydrocodone Bitart/Acetaminophen ([place] 5/325) 2 tab PO Q4H PRN PRN Reason: Severe Pain (7-10) Al Hydroxide/Mg Hydroxide (Maalox) 30 ml PO Q4H PRN PRN Reason: Indigestion Albuterol/Ipratropium (Duoneb) 3 ml NEB Q6H PRN PRN Reason: SHORTNESS OF BREATH Amiodarone HCl (Cordarone) 400 mg PO BID [facility] Stop: 01/01/19 21:01 Last Admin: 12/26/18 10:38 Dose: 400 mg Amiodarone HCl (Cordarone) 200 mg PO BID [facility] Stop: 01/08/19 21:01 Amiodarone HCl (Cordarone) 200 mg PO DAILY [facility] Aspirin (Aspirin Chewable) 81 mg PO DAILY [facility] Last Admin: 12/26/18 07:49 Dose: 81 mg Bisacodyl (Dulcolax) 10 mg PO Q12H PRN PRN Reason: Constipation Bisacodyl (Dulcolax) 10 mg AL Q12H PRN PRN Reason: Constipation Dextrose/Water (Dextrose 50%) 25 gm SLOW IVP PRN PRN PRN Reason: PER HYPOGLYCEMIC PROTOCOL Docusate Sodium (Colace) 100 mg PO BID [facility] Last Admin: 12/26/18 07:49 Dose: 100 mg Famotidine (Pepcid) 20 mg SLOW IVP Q12HR [facility] Last Admin: 12/26/18 07:49 Dose: 20 mg Furosemide (Lasix) 40 mg SLOW IVP ONE [facility] Stop: 12/26/18 17:00 Glucagon (Glucagon) 1 mg SC PRN PRN PRN Reason: PER HYPOGLYCEMIC PROTOCOL Guaifenesin/Dextromethorphan (Robitussin Dm) 15 ml PO Q4H PRN PRN Reason: Cough Hydralazine HCl (Apresoline) 10 mg SLOW IVP Q6H PRN PRN Reason: To Maintain SBP< 140mmHG Norepinephrine Bitartrate (Levophed) 250 mls @ 0 mls/hr IVPB PRN PRN; Protocol PRN Reason: To maintain SBP > 90 mmHG Last Admin: 12/25/18 16:52 Dose: 250 mls Nitroglycerin/Dextrose (Nitroglycerin 50 Mg/250 Ml Bot) 250 mls @ 0 mls/hr IVPB PRN PRN; Protocol PRN Reason: To Maintain SBP< 140mmHG Insulin Human Regular 100 (units/ Sodium Chloride) 101 mls @ 0 mls/hr IVPB INF [facility]; Protocol Last Admin: 12/23/18 15:14 Dose: 101 mls Dextrose/Water (D5w) 1,000 mls @ 0 mls/hr IV INF PRN PRN Reason: PRN HYPOGLYCEMIC PROTOCOL Dopamine HCl/Dextrose (Dopamine/D5w) 250 mls @ 0 mls/hr IVPB INF [facility]; Protocol Last Admin: 12/23/18 19:56 Dose: 250 mls Insulin Human Regular (Humulin R) 0 units SC Q4H PRN; Protocol PRN Reason: POST OP SLIDING SCALE Morphine Sulfate (Morphine) 2 mg SLOW IVP Q15MIN PRN PRN Reason: Severe Pain (7-10) Last Admin: 12/24/18 16:30 Dose: 2 mg Ondansetron HCl (Zofran) 4 mg IVP Q6H PRN PRN Reason: Nausea/Vomiting Last Admin: 12/25/18 10:38 Dose: 4 mg Potassium Chloride (Kcl) 20 meq IVPB PRN PRN PRN Reason: K level </= 4.0 Promethazine HCl (Phenergan) 6.25 mg IM Q4H PRN PRN Reason: Nausea/Vomiting Sodium Chloride (Flush - Normal Saline) 10 ml IVF Q12HR [facility] Last Admin: 12/26/18 10:39 Dose: 10 ml Sodium Chloride (Flush - Normal Saline) 10 ml IVF PRN PRN PRN Reason: Saline Flush
[2018-12-26] MEDS ORDERED: Furosemide 40 MG/4 ML VIAL SLOW IVP SCH (16:00)
[2018-12-27 05:53] LABS: Anion Gap 10 mmol/L (10-20); BUN (Urea Nitrogen) 49 mg/dL (9.8-20.1); Calc. Creatinine Clearance 35 mL/min (70-130); Calcium 7.6 mg/dL (7.8-10.44); Carbon Dioxide 24 mmol/L (23-31); Chloride 106 mmol/L (98-107); Estimated GFR-MDRD 31; Glucose 104 mg/dL (83-110); Potassium 3.6 mmol/L (3.5-5.1); Sodium 136 mmol/L (136-145)
[2018-12-27 06:10] LABS: Band 5 % (5-11); Hemoglobin 9.6 g/dL (12.0-16.0); Large Platelets SLIGHT; Lymphocytes 12 % (21-51); MDiff Complete? YES; Mean Corpuscular HGB CONC 33.8 g/dL (32.0-36.0); Mean Corpuscular Hemoglobin 30.7 pg (27.0-31.0); Monocytes 20 % (0-10); Neutrophil 62 % (42-75); Platelet Count 63 thou/uL (130-400); Platelet Morphology Comment Appears Decreased; Reactive Lymphocytes 1 % (0-10); Red Blood Cell (RBC) Count 3.13 mill/uL (4.20-5.40)
--- NOTE | 2018-12-27 07:36 | PDOC.CTH ---
Cardiology Progress Note - Subjective Doing well. Awaiting transfer to the floor - Objective Vital Signs Temp 12/27/18 00:00 98.2 F Admit Weight 190 lb 6.259 oz Weight 194 lb 12.8 oz 12/26/18 12/27/18 12/28/18 06:59 06:59 06:59 Intake Total 3904 3205.3 Output Total 630 3025 Balance 3274 180.3 - Physical Examination General/Neuro: alert & oriented x3, NAD Neck: carotid US brisk, no JVD present Lungs: CTA, unlabored respirations Heart: PMI normal Abdomen: NT/ND, soft Extremities: + edema B - Labs Result Diagrams: 12/27/18 05:10 12/27/18 05:10 Troponin/CKMB CK-MB (CK-2) 11.6 ng/mL (0-6.6) H* 12/21/18 16:44 Troponin I 0.684 ng/mL (< 0.028) H* 12/22/18 23:03 - Assessment/Plan CAD s/p CABG afib HTN NAINA anemia Doing well. On CV meds. IS and PT Ambulation
--- NOTE | 2018-12-27 07:55 | RAD ---
CHEST 1 VIEW: Date: 12/27/18 INDICATION: History of CABG. COMPARISON: Prior study dated 12/26/18. FINDINGS: Cardiomegaly persists. Pulmonary vascular congestion is similar. Central edema pattern is unchanged. Bilateral pleural effusions are similar appearing. Bibasilar atelectasis is unchanged. No pneumothora x is evident. Chronic osseous changes are similar appearing. Midline sternotomy changes, left-sided d ual lead pacemaker, and right shoulder replacement similar appearing. IMPRESSION: Stable exam to a comparison dated 12/26/18. POS:
[2018-12-27] MEDS: Amiodarone 200 MG TAB PO SCH ×2 (08:58→20:42)
[2018-12-27] MEDS: Aspirin Chewable 81 MG TAB PO SCH (08:59)
[2018-12-27] MEDS: Famotidine/PF 20 mg/2ml Vial SLOW IVP SCH (08:59)
[2018-12-27] MEDS: Docusate 100 MG CAP PO SCH (08:59)
[2018-12-27] MEDS: HYDROcodone/Acetaminophen 5/325 mg Tablet PO PRN (09:12)
[2018-12-27] MEDS ORDERED: Bisacodyl 5 MG TAB PO PRN (10:04)
[2018-12-27] MEDS ORDERED: Furosemide 40 MG/4 ML VIAL SLOW IVP SCH (10:04)
[2018-12-27] MEDS ORDERED: Guaifenesin DM 100-10/5 ML UDCUP PO PRN (10:04)
[2018-12-27] MEDS ORDERED: Nitroglycerin 0.4 MG TAB (25 Tab Bottle) SL PRN (10:04)
[2018-12-27] MEDS ORDERED: Mineral Oil ENEMA PR PRN (10:04)
[2018-12-27] MEDS ORDERED: Bisacodyl 10 MG SUPP PR PRN (10:04)
[2018-12-27] MEDS ORDERED: Mag-Al 1200 mg/1200 mg/30 ML UDCUP PO PRN (10:04)
[2018-12-27] MEDS ORDERED: traMADol HCl 50 MG TAB PO PRN (10:04)
--- NOTE | 2018-12-27 13:25 | PDOC.PN ---
- Subjective Encounter Start Date: 12/27/18 Encounter Start Time: 13:24 Subjective: feels weak but better -: RN report poor urine output. oozing from thigh coco -: poor appetite but no Vomiting - Objective Resuscitation Status - Order Detail: 12/21/18 13:15 Resuscitation Status Routine Resuscitation Status: DNAR: NO Resuscitation Discussed with: Patient SHERMAN Reviewed: Yes Vital Signs & Weight: Vital Signs (12 hours) Temp Pulse Pulse BP BP Pulse Ox Pulse Ox 12/27/18 12:23 60 62 112/56 L 115/56 L 99 12/27/18 08:00 99 12/27/18 07:00 97.4 F L Pulse Ox 12/27/18 12:23 98 12/27/18 08:00 12/27/18 07:00 Weight Admit Weight 190 lb 6.259 oz Weight 194 lb 12.8 oz Most Recent Monitor Data Heart Rate from ECG 60 NIBP 114/38 NIBP BP-Mean 63 Respiration from ECG 17 SpO2 100 I&O: 12/26/18 12/27/18 12/28/18 06:59 06:59 06:59 Intake Total 3904 3205.3 444 Output Total 630 3025 250 Balance 3274 180.3 194 Result Diagrams: 12/27/18 05:10 12/27/18 05:10 Additional Labs: Microbiology 12/24/18 17:00 Urine donohue catheter Urine Culture - Final NO GROWTH AT 48 HOURS 12/24/18 12:14 A-Line - Right Brachiocephalic vein Blood Culture - Preliminary NO GROWTH AT 48 HOURS 12/24/18 12:08 Central Line - Right Subclavian Vein Blood Culture - Preliminary NO GROWTH AT 48 HOURS Laboratory Tests 12/21/18 12/21/18 12/22/18 09:39 15:00 04:14 Hgb 13.0 Plt Count 199 203 182 12/23/18 12/23/18 12/24/18 13:28 19:23 05:25 Hgb 11.2 L 7.9 L 9.7 L Plt Count 163 112 L 12/25/18 12/26/18 12/27/18 03:55 04:55 05:10 Hgb 8.4 L 7.3 L 9.6 L Plt Count 105 L 65 L 63 L Phys Exam - Physical Examination Constitutional: NAD pale and weak looking,somewhat lethargic HEENT: PERRLA, moist MMs, sclera anicteric, oral pharynx no lesions Neck: no nodes, no JVD, supple, full ROM Respiratory: no wheezing, no rhonchi, clear to auscultation bilateral few basilar crackles Cardiovascular: RRR, no significant murmur Gastrointestinal: soft, non-tender, no distention, positive bowel sounds Musculoskeletal: no edema, pulses present oozing from left thigh coco-mild Neurological: non-focal, normal sensation, moves all 4 limbs Psychiatric: normal affect, A&O x 3 Deviation from normal: sleepy Deviation from normal: small brusie around CABG site upper sternum Dx/Plan (1) Atrial fibrillation with RVR Code(s): I48.91 - UNSPECIFIED ATRIAL FIBRILLATION Status: Acute Comment: Stop IV amiodarone. converted on NSR now.Changed to PO Amiodarone (2) NAINA (acute kidney injury) Code(s): N17.9 - ACUTE KIDNEY FAILURE, UNSPECIFIED Status: Acute Comment: improving (3) CAD (coronary artery disease), [place] coronary artery Code(s): I25.10 - ATHSCL HEART DISEASE OF [place] CORONARY ARTERY W/O ANG PCTRS Status: Acute Qualifiers: [place] vs. transplanted heart: [place] heart Associated angina: with unstable angina Qualified Code(s): I25.110 - Atherosclerotic heart disease of [place] coronary artery with unstable angina pectoris Comment: S/P Cath, severe extensive CAD.S/P CABGX4 12/23/18.on ASA (4) Hypertension Code(s): I10 - ESSENTIAL (PRIMARY) HYPERTENSION Status: Chronic Qualifiers: Hypertension type: essential hypertension Qualified Code(s): I10 - Essential (primary) hypertension Comment: continue home meds (5) HLD (hyperlipidemia) Code(s): E78.5 - HYPERLIPIDEMIA, UNSPECIFIED Status: Chronic (6) Hypothyroid Code(s): E03.9 - HYPOTHYROIDISM, UNSPECIFIED Status: Chronic - Plan plan discussed w/ family, PT/OT, respiratory therapy, incentive spirometry, DVT proph w/SCDs low platelets.no heparin or lovenox. monitor .transfuse if needed -: cont ASA.no JAUN-I/ARB d/t NAINA. -: will diurese.monitor UO.suspect Intravascular depletion w third spacing -: start BB if BP allows.off of IVF due to Pulm edema -: am labs.Ok to transfer to tele * . Review of Systems - Review of Systems Constitutional: weakness, malaise Respiratory: negative: Cough, Dry, Shortness of Breath, Hemoptysis, SOB with Excertion, Pleuritic Pain, Sputum, Wheezing Cardiovascular: negative: chest pain, palpitations, orthopnea, paroxysmal nocturnal dyspnea, edema, light headedness, other Gastrointestinal: negative: Nausea, Vomiting, Abdominal Pain, Diarrhea, Constipation, Melena, Hematochezia, Other Other: limited due to lethargy - Medications/Allergies Allergies/Adverse Reactions: Allergies Allergy/AdvReac Type Severity Reaction Status Date / Time adhesive Allergy Rash Verified 12/22/18 00:09 cefazolin [From [facility]] Allergy Verified 12/21/18 23:37 codeine Allergy Verified 12/21/18 23:37 iodine Allergy Verified 12/22/18 04:57 shellfish derived Allergy Short of Verified 12/21/18 23:37 Breath Medications: Current Medications Acetaminophen (Tylenol) 650 mg PO Q6H PRN PRN Reason: Headache/Fever or Pain Al Hydroxide/Mg Hydroxide (Maalox) 30 ml PO Q4H PRN PRN Reason: Indigestion Amiodarone HCl (Cordarone) 400 mg PO BID ON [facility] OF [facility] Stop: 01/01/19 21:01 Last Admin: 12/27/18 08:58 Dose: 400 mg Amiodarone HCl (Cordarone) 200 mg PO BID ON [facility] OF [facility] Stop: 01/08/19 21:01 Amiodarone HCl (Cordarone) 200 mg PO DAILY [facility] Aspirin (Ecotrin) 325 mg PO DAILY [facility] Bisacodyl (Dulcolax) 10 mg PO Q12H PRN PRN Reason: Constipation Bisacodyl (Dulcolax) 10 mg [place] Q12H PRN PRN Reason: Constipation Famotidine (Pepcid) 20 mg PO BID [facility] Furosemide (Lasix) 40 mg PO DAILY [facility] Guaifenesin/Dextromethorphan (Robitussin Dm) 15 ml PO Q4H PRN PRN Reason: Cough Mineral Oil (Fleet Mineral Oil) 133 ml [place] DAILYPRN PRN PRN Reason: Constipation Nitroglycerin (Nitrostat) 0.4 mg SL Q5MIN PRN PRN Reason: Chest Pain Polyethylene Glycol (Miralax) 17 gm PO DAILY [facility] Potassium Chloride (Klor-Con 10) 10 meq PO QAM-WM [facility] Sodium Chloride (Flush - Normal Saline) 10 ml IVF Q12HR [facility] Sodium Chloride (Flush - Normal Saline) 10 ml IVF PRN PRN PRN Reason: Saline Flush Tramadol HCl (Ultram) 50 mg PO Q6H PRN PRN Reason: Pain
[2018-12-27] MEDS: Acetaminophen 325 MG TAB PO PRN (15:22)
[2018-12-27] MEDS: Carvedilol 3.125 MG TAB PO SCH (17:36)
--- NOTE | 2018-12-27 20:05 | PRG ---
DATE OF SERVICE: SERVICE: Pulmonary Medicine. INTERVAL HISTORY: The patient is doing well from a respiratory standpoint. She denies any current shortness of breath or chest discomfort. She is able to sit up on the side of bed with physical therapy, but was so weak that she did not feel like she was comfortable standing. Otherwise, there has been no interval change to her condition. She denies any current fevers, chills, nausea or vomiting. There are no significant overnight events. She has successfully transitioned out of ICU to the telemetry unit. PHYSICAL EXAMINATION: VITAL SIGNS: Afebrile, pulse 60, blood pressure 118/56, respirations 18, and saturation 98% on 2 L nasal cannula. GENERAL: The patient is awake and alert, in no apparent distress. LUNGS: Decent air entry. No dependent crackles are noted. HEART: Normal rate, regular. ABDOMEN: Soft, nontender, and nondistended. Bowel sounds are positive. MUSCULOSKELETAL: No cyanosis or clubbing. No pitting in the bilateral lower extremities. NEUROLOGIC: Grossly nonfocal. LABORATORY DATA: WBC 12.0, hemoglobin 9.6, and platelets 63,000. INR 1.7. Creatinine 1.59 and gently downtrending, BUN 49. Basic metabolic profile is otherwise unremarkable. Cortisol level is more than adequate. Blood cultures x2, urine culture are negative. IMAGING: Chest x-ray demonstrates stable chest x-ray. Bilateral pleural parenchymal opacifications and effusions are noted. Sternotomy wires remain in place. There is a right subclavian central venous catheter, which terminates in good position. Cephalization is also present. There is right shoulder replacement. Cardiomegaly is present, though this is an AP film. Two-chamber AICD/pacemaker is in good position. ASSESSMENT: 1. Acute hypoxic respiratory failure, improving. 2. Coronary artery disease. 3. Coronary artery bypass graft, postop day 4. 4. Acute kidney injury, improving. DISCUSSION AND PLAN: We will try to continue our efforts at mobilizing the patient. Supportive measures will be continued through time. Pulmonary and Critical Care will continue to follow along until she more clearly turns the corner. Please call with any additional questions or concerns. Job ID: [id number]
[2018-12-27] MEDS: Famotidine 20 MG TAB PO SCH (20:42)
[2018-12-28 06:34] LABS: Anion Gap 13 mmol/L (10-20); BUN (Urea Nitrogen) 52 mg/dL (9.8-20.1); Calc. Creatinine Clearance 44 mL/min (70-130); Calcium 7.5 mg/dL (7.8-10.44); Carbon Dioxide 21 mmol/L (23-31); Chloride 104 mmol/L (98-107); Estimated GFR-MDRD 36; Glucose 92 mg/dL (83-110); Potassium 3.5 mmol/L (3.5-5.1); Sodium 134 mmol/L (136-145)
[2018-12-28 06:50] LABS: Band 4 % (5-11); Hemoglobin 9.1 g/dL (12.0-16.0); Lymphocytes 14 % (21-51); MDiff Complete? YES; Mean Corpuscular HGB CONC 33.5 g/dL (32.0-36.0); Mean Corpuscular Hemoglobin 30.9 pg (27.0-31.0); Mean Corpuscular Volume 92.2 fL (78.0-98.0); Mean Platelet Volume 10.8 fL (7.4-10.4); Monocytes 16 % (0-10); Neutrophil 66 % (42-75); Platelet Count 81 thou/uL (130-400); Platelet Morphology Comment Appears Decreased; Polychromasia SLIGHT = 2-3 cells (100X) (0-2/hpf); RBC Distribution Width 13.6 % (11.5-14.5); Red Blood Cell (RBC) Count 2.94 mill/uL (4.20-5.40); White Blood Cell (WBC) Count 10.3 thou/uL (4.8-10.8)
[2018-12-28] MEDS ORDERED: Potassium Chloride 10 MEQ TAB PO SCH (08:00)
[2018-12-28] MEDS: Aspirin 325 mg Enteric Coated Tablet PO SCH (08:38)
[2018-12-28] MEDS: Famotidine 20 MG TAB PO SCH ×2 (08:39→20:42)
[2018-12-28] MEDS: Amiodarone 200 MG TAB PO SCH ×2 (08:39→20:42)
[2018-12-28] MEDS: Carvedilol 3.125 MG TAB PO SCH ×2 (08:39→17:15)
[2018-12-28] MEDS: Polyethylene Glycol 3350 17 GM Packet PO SCH (08:40)
[2018-12-28] MEDS ORDERED: Furosemide 40 MG TAB PO SCH (09:00)
--- NOTE | 2018-12-28 10:10 | PDOC.CTH ---
Cardiology Progress Note - Subjective c/o fatigue. No pain/SOB - Objective Vital Signs Temp Pulse Resp BP BP Pulse Ox 12/28/18 08:35 99.0 F 87 19 118/63 12/28/18 04:32 97.7 F 90 16 118/58 L 95 Admit Weight 190 lb 6.259 oz Weight 216 lb 12/27/18 12/28/18 12/29/18 06:59 06:59 06:59 Intake Total 3205.3 674 Output Total 3025 825 Balance 180.3 -151 - Physical Examination General/Neuro: alert & oriented x3 Lungs: CTA Heart: RRR Abdomen: NT/ND Extremities: other: (no edema) - Telemetry Telemetry Rhythm: AF - Labs Result Diagrams: 12/28/18 05:42 12/28/18 05:42 Troponin/CKMB CK-MB (CK-2) 11.6 ng/mL (0-6.6) H* 12/21/18 16:44 Troponin I 0.684 ng/mL (< 0.028) H* 12/22/18 23:03 - Assessment/Plan 1. CAD s/p CABG 2. Paroxysmal AF 3. ANTWAN 4. HTN Patient lying in bed majority of the time. No chair in room. instructed nurse to find chair and patient to start increased ambulation. Add statin.
[2018-12-28] MEDS: Furosemide 40 MG TAB PO SCH (14:50)
--- NOTE | 2018-12-28 16:25 | PRG ---
DATE OF SERVICE: 12/28/2018 SERVICE: Pulmonary Medicine. INTERVAL HISTORY: The patient is doing really well from respiratory standpoint. Her strength has actually improved a little bit. She got up on 3 separate occasions today. Otherwise, there has been no interval change to her condition. PHYSICAL EXAMINATION: VITAL SIGNS: Afebrile. Pulse 82, blood pressure 111/64, respirations 20, and saturation 96% on 2 L nasal cannula. GENERAL: The patient is awake and alert, in no apparent distress. LUNGS: Excellent air entry. No prolonged expiratory phase or wheezing is appreciated. HEART: Normal rate, regular. ABDOMEN: Soft, nontender, and nondistended. Bowel sounds are positive. MUSCULOSKELETAL: No cyanosis or clubbing. There is no pitting in the bilateral lower extremities. NEUROLOGIC: Grossly nonfocal. LABORATORY DATA: WBC 10.3, hemoglobin 9.1, platelets 81,000 and improving. Creatinine 1.38 and downtrending. BUN 52. Basic metabolic profile is otherwise unremarkable. ASSESSMENT: 1. Acute hypoxic respiratory failure, improving. 2. Coronary artery disease. 3. Coronary artery bypass graft, postop day 5. 4. Acute kidney injury, improving. DISCUSSION AND PLAN: We will continue our mobilization efforts through time. Pulmonary will continue to follow for the time being. Patiño catheter to be removed. Otherwise, no interval change to her current management. Job ID: [id number]
[2018-12-28] MEDS: Potassium Chloride 10 MEQ TAB PO SCH (17:16)
[2018-12-28] MEDS: Atorvastatin Calcium 20 MG TAB PO SCH (20:42)
[2018-12-29 06:38] LABS: Anion Gap 13 mmol/L (10-20); BUN (Urea Nitrogen) 50 mg/dL (9.8-20.1); Calc. Creatinine Clearance 43 mL/min (70-130); Calcium 7.6 mg/dL (7.8-10.44); Carbon Dioxide 23 mmol/L (23-31); Chloride 100 mmol/L (98-107); Estimated GFR-MDRD 35; Glucose 103 mg/dL (83-110); Hemoglobin 9.2 g/dL (12.0-16.0); Mean Corpuscular HGB CONC 33.3 g/dL (32.0-36.0); Mean Corpuscular Hemoglobin 30.7 pg (27.0-31.0); Mean Platelet Volume 10.2 fL (7.4-10.4); Platelet Count 133 thou/uL (130-400); Potassium 3.1 mmol/L (3.5-5.1); RBC Distribution Width 13.9 % (11.5-14.5); Sodium 133 mmol/L (136-145)
[2018-12-29] MEDS ORDERED: Magnesium Citrate 300 ML BOT PO SCH (06:45)
[2018-12-29] MEDS ORDERED: Metolazone 5 MG TAB PO SCH (06:45)
[2018-12-29 08:12] LABS: Band 3 % (5-11); Hypochromia SLIGHT = 6-15 cells (100X) (0-5/hpf); Lymphocytes 9 % (21-51); MDiff Complete? YES; Monocytes 18 % (0-10); Neutrophil 70 % (42-75); Platelet Morphology Comment Appears Adequate; Polychromasia MODERATE = 3-4 cells (100X) (0-2/hpf)
--- NOTE | 2018-12-29 08:51 | PDOC.CTH ---
Cardiology Progress Note - Subjective The pt seen and examined. No overnight events. No cardiac complaints. She is complaining of constipation for a few days. She is passing gas now. - Objective Vital Signs Temp Pulse Resp BP Pulse Ox 12/29/18 07:25 97.9 F 90 20 110/59 L 94 L 12/29/18 04:39 97.7 F 81 18 112/59 L 95 Admit Weight 190 lb 6.259 oz Weight 217 lb 12/28/18 12/29/18 12/30/18 06:59 06:59 06:59 Intake Total 674 600 Output Total 825 600 Balance -151 0 - Physical Examination General/Neuro: alert & oriented x3 Neck: no JVD present Lungs: CTA (diminished at bases) Heart: other: (irregular) Abdomen: soft Extremities: other: (No edema) - Telemetry Telemetry Rhythm: Afib 80-100s - Labs Result Diagrams: 12/29/18 05:18 12/29/18 05:18 Troponin/CKMB CK-MB (CK-2) 11.6 ng/mL (0-6.6) H* 12/21/18 16:44 Troponin I 0.684 ng/mL (< 0.028) H* 12/22/18 23:03 - Assessment/Plan 1. CAD with S/p CABGx4 on 12/23/2018 with QUINTANILLA-> LAD, RSVG-> OM1, OM2, and dist PDA and SYBIL ligation - stable; on Coreg 3.125mg BID, ASA 325mg qd, and Lipitor 2. Afib - Converted back to afib on 12/27/2018; well controlled HR with Amiodarone PO. On ASA 325 mg qd. Cont. to monitor on tele; Consider resuming flecainide or change to Multaq. 3. HTN - Stable with Coreg 3.125mg BID 4. Hyperlipidemia - On Lipitor 5. Hypothyroidism - may resume Levothyroxine from tomorrow; managed by PCP 6. Hx of PM placement - v paced 7. NAINA - stable; cont. to monitor 8. Anemia - H/H decreased from yesterday MAR reviewed * Echo on 12/23/2018 - EF 60-65%, mild MR, mild TR, trace AR Pt. seen and eval. by me. I agree with the A/P by the CALL WORKER PERSON. She continues in Afib. If she does not converet, I suggest she have cardioversion. Review of Systems - Review of Systems Constitutional: reports: no symptoms reported EENTM: reports: no symptoms reported Respiratory: reports: no symptoms reported Cardiac (ROS): reports: no symptoms reported ABD/GI: reports: see HPI : reports: no symptoms reported
[2018-12-29] MEDS: Amiodarone 200 MG TAB PO SCH ×2 (09:12→21:35)
[2018-12-29] MEDS: Potassium Chloride 10 MEQ TAB PO SCH ×2 (09:13→17:12)
[2018-12-29] MEDS: Aspirin 325 mg Enteric Coated Tablet PO SCH (09:13)
[2018-12-29] MEDS: Carvedilol 3.125 MG TAB PO SCH ×2 (09:13→17:13)
[2018-12-29] MEDS: Famotidine 20 MG TAB PO SCH ×2 (09:13→21:34)
[2018-12-29] MEDS: Furosemide 40 MG TAB PO SCH ×2 (09:13→17:12)
[2018-12-29] MEDS: Docusate 100 MG CAP PO SCH ×2 (09:14→21:34)
[2018-12-29] MEDS: Polyethylene Glycol 3350 17 GM Packet PO SCH (09:14)
--- NOTE | 2018-12-29 12:33 | PDOC.PN ---
- Subjective Encounter Start Date: 12/29/18 Encounter Start Time: 09:20 Pt seen for followup re: pati don Says she feels better. No complaints today. - Objective Resuscitation Status - Order Detail: 12/21/18 13:15 Resuscitation Status Routine Resuscitation Status: DNAR: NO Resuscitation Discussed with: Patient SHERMAN Reviewed: Yes Vital Signs & Weight: Vital Signs (12 hours) Temp Pulse Pulse Pulse Resp BP BP 12/29/18 11:30 98.2 F 71 99 93 20 108/56 L 12/29/18 07:25 97.9 F 90 20 110/59 L 12/29/18 04:39 97.7 F 81 18 112/59 L BP Pulse Ox Pulse Ox 12/29/18 11:30 108/56 L 97 96 12/29/18 07:25 94 L 12/29/18 04:39 95 Weight Admit Weight 190 lb 6.259 oz Weight 217 lb Most Recent Monitor Data Heart Rate from ECG 60 NIBP 114/38 NIBP BP-Mean 63 Respiration from ECG 17 SpO2 100 I&O: 12/28/18 12/29/18 12/30/18 06:59 06:59 06:59 Intake Total 674 600 Output Total 825 600 Balance -151 0 Result Diagrams: 12/29/18 05:18 12/29/18 05:18 EKG Reviewed by me: Yes (Tele: pati medrano) Phys Exam - Physical Examination Constitutional: NAD HEENT: moist MMs Neck: supple Respiratory: clear to auscultation bilateral Cardiovascular: irregular Gastrointestinal: soft Neurological: moves all 4 limbs Psychiatric: normal affect Dx/Plan (1) Afib Code(s): I48.91 - UNSPECIFIED ATRIAL FIBRILLATION Status: Acute Comment: on amiodarone (2) CAD (coronary artery disease), [place] coronary artery Code(s): I25.10 - ATHSCL HEART DISEASE OF [place] CORONARY ARTERY W/O ANG PCTRS Status: Acute Qualifiers: [place] vs. transplanted heart: [place] heart Associated angina: with unstable angina Qualified Code(s): I25.110 - Atherosclerotic heart disease of [place] coronary artery with unstable angina pectoris Comment: S/P Cath, severe extensive CAD.S/P CABGX4 12/23/18.on ASA (3) Hypertension Code(s): I10 - ESSENTIAL (PRIMARY) HYPERTENSION Status: Chronic Qualifiers: Hypertension type: essential hypertension Qualified Code(s): I10 - Essential (primary) hypertension Comment: controlled (4) Hypothyroid Code(s): E03.9 - HYPOTHYROIDISM, UNSPECIFIED Status: Chronic Comment: continue synthroid - Plan * . Review of Systems - Review of Systems Respiratory: negative: Cough, Shortness of Breath, SOB with Excertion, Pleuritic Pain, Wheezing Cardiovascular: negative: chest pain, palpitations, orthopnea, paroxysmal nocturnal dyspnea, edema, light headedness - Medications/Allergies Allergies/Adverse Reactions: Allergies Allergy/AdvReac Type Severity Reaction Status Date / Time adhesive Allergy Rash Verified 12/22/18 00:09 cefazolin [From [facility]] Allergy Verified 12/21/18 23:37 codeine Allergy Verified 12/21/18 23:37 iodine Allergy Verified 12/22/18 04:57 shellfish derived Allergy Short of Verified 12/21/18 23:37 Breath Medications: Current Medications Acetaminophen (Tylenol) 650 mg PO Q6H PRN PRN Reason: Headache/Fever or Pain Last Admin: 12/27/18 15:22 Dose: 650 mg Al Hydroxide/Mg Hydroxide (Maalox) 30 ml PO Q4H PRN PRN Reason: Indigestion Amiodarone HCl (Cordarone) 400 mg PO BID [facility] Stop: 01/01/19 21:01 Last Admin: 12/29/18 09:12 Dose: 400 mg Amiodarone HCl (Cordarone) 200 mg PO BID [facility] Stop: 01/08/19 21:01 Amiodarone HCl (Cordarone) 200 mg PO DAILY [facility] Aspirin (Ecotrin) 325 mg PO DAILY [facility] Last Admin: 12/29/18 09:13 Dose: 325 mg Atorvastatin Calcium (Lipitor) 20 mg PO [facility] Last Admin: 12/28/18 20:42 Dose: 20 mg Bisacodyl (Dulcolax) 10 mg PO Q12H PRN PRN Reason: Constipation Last Admin: 12/27/18 15:22 Dose: 10 mg Bisacodyl (Dulcolax) 10 mg [place] Q12H PRN PRN Reason: Constipation Last Admin: 12/29/18 00:01 Dose: 10 mg Carvedilol (Coreg) 3.125 mg PO BID-[facility] Last Admin: 12/29/18 09:13 Dose: 3.125 mg Docusate Sodium (Colace) 100 mg PO BID [facility] Last Admin: 12/29/18 09:14 Dose: 100 mg Famotidine (Pepcid) 20 mg PO BID [facility] Last Admin: 12/29/18 09:13 Dose: 20 mg Furosemide (Lasix) 40 mg PO 0900,1400 [facility] Last Admin: 12/29/18 09:13 Dose: 40 mg Guaifenesin/Dextromethorphan (Robitussin Dm) 15 ml PO Q4H PRN PRN Reason: Cough Levothyroxine Sodium (Synthroid) 50 mcg PO 0600 [facility] Metolazone (Zaroxolyn) 10 mg PO 0645 [facility] Stop: 12/30/18 08:45 Mineral Oil (Fleet Mineral Oil) 133 ml [place] DAILYPRN PRN PRN Reason: Constipation Nitroglycerin (Nitrostat) 0.4 mg SL Q5MIN PRN PRN Reason: Chest Pain Polyethylene Glycol (Miralax) 17 gm PO DAILY [facility] Last Admin: 12/29/18 09:14 Dose: 17 gm Potassium Chloride (Klor-Con 10) 10 meq PO BID-[facility] Last Admin: 12/29/18 09:13 Dose: 10 meq Sodium Chloride (Flush - Normal Saline) 10 ml IVF Q12HR [facility] Last Admin: 12/29/18 09:20 Dose: 10 ml Sodium Chloride (Flush - Normal Saline) 10 ml IVF PRN PRN PRN Reason: Saline Flush Last Admin: 12/28/18 08:41 Dose: 10 ml Tramadol HCl (Ultram) 50 mg PO Q6H PRN PRN Reason: Pain
--- NOTE | 2018-12-29 15:13 | PRG ---
DATE OF SERVICE: 12/29/2018 SUBJECTIVE: Says she is doing well. She says she wants to go home, but realizes she is not ready. OBJECTIVE: VITAL SIGNS: She is afebrile. Heart rate is 71, respiratory rate is 20, oximetry is 97%, blood pressure 108/56. LUNGS: Clear. HEART: Regular rhythm. ABDOMEN: Soft. LABORATORY DATA: White count is 12, hemoglobin is 9.2, platelets 133. Hemoglobin was 9.1 yesterday. Sodium 133, potassium 3.1, chloride 100, bicarb 23, BUN 50, and creatinine 1.41, 1.38 yesterday, 1.82 on Saturday. IMPRESSION: 1. Status post coronary artery bypass grafting complicated by some perioperative bleeding, clinically stable. 2. Advanced age, deconditioning. 3. Atrial fibrillation, 4. Hypertension. 5. Lipid disorder. 6. Blood loss anemia. PLAN: Continue supportive care with Physical Therapy. We will continue to follow. Job ID: [id number] [facility]
[2018-12-29] MEDS: Atorvastatin Calcium 20 MG TAB PO SCH (21:34)
[2018-12-30 06:15] LABS: Anion Gap 13 mmol/L (10-20); BUN (Urea Nitrogen) 55 mg/dL (9.8-20.1); Calc. Creatinine Clearance 36 mL/min (70-130); Calcium 7.7 mg/dL (7.8-10.44); Carbon Dioxide 25 mmol/L (23-31); Chloride 98 mmol/L (98-107); Estimated GFR-MDRD 29; Glucose 113 mg/dL (83-110); Potassium 3.1 mmol/L (3.5-5.1); Sodium 133 mmol/L (136-145)
[2018-12-30] MEDS: Levothyroxine Sodium 50 MCG TAB PO SCH (06:32)
[2018-12-30 06:39] LABS: Band 6 % (5-11); Eosinophils 1 % (0-10); Hemoglobin 9.6 g/dL (12.0-16.0); Lymphocytes 16 % (21-51); MDiff Complete? YES; Mean Corpuscular HGB CONC 33.8 g/dL (32.0-36.0); Mean Corpuscular Hemoglobin 31.6 pg (27.0-31.0); Mean Corpuscular Volume 93.3 fL (78.0-98.0); Mean Platelet Volume 9.8 fL (7.4-10.4); Monocytes 22 % (0-10); Neutrophil 55 % (42-75); Nucleated RBC 1 % (0); Platelet Count 167 thou/uL (130-400); Polychromasia SLIGHT = 2-3 cells (100X) (0-2/hpf); RBC Distribution Width 14.2 % (11.5-14.5); Red Blood Cell (RBC) Count 3.03 mill/uL (4.20-5.40); White Blood Cell (WBC) Count 11.2 thou/uL (4.8-10.8)
[2018-12-30] MEDS ORDERED: Metolazone 5 MG TAB PO SCH (06:45)
--- NOTE | 2018-12-30 08:19 | RAD ---
CHEST 1 VIEW: INDICATION: Status post CABG. COMPARISON: Prior exam dated 12/27/2018. FINDINGS: The examination has not appreciably changed from the comparison examination. Cardiomegaly, pulmonary vascular congestion, and central edema is similar appearing. Small right and mild to moderate left pleural effusion is again noted. Pacemaker is unchanged. Right subclavian central venous catheter i s similar-appearing. No pneumothorax is evident. IMPRESSION: Stable exam. POS: BH
[2018-12-30] MEDS: Potassium Chloride 10 MEQ TAB PO SCH ×2 (08:45→16:02)
[2018-12-30] MEDS: Furosemide 40 MG TAB PO SCH ×2 (08:45→13:31)
[2018-12-30] MEDS: Docusate 100 MG CAP PO SCH ×2 (08:45→21:25)
[2018-12-30] MEDS: Famotidine 20 MG TAB PO SCH ×2 (08:46→20:10)
[2018-12-30] MEDS: Amiodarone 200 MG TAB PO SCH ×2 (08:46→20:09)
[2018-12-30] MEDS: Polyethylene Glycol 3350 17 GM Packet PO SCH (08:46)
[2018-12-30] MEDS: Aspirin 325 mg Enteric Coated Tablet PO SCH (08:46)
[2018-12-30] MEDS: Carvedilol 3.125 MG TAB PO SCH ×2 (08:47→16:03)
--- NOTE | 2018-12-30 10:34 | PDOC.CTH ---
Cardiology Progress Note - Objective Vital Signs Temp Pulse Resp BP Pulse Ox 12/30/18 07:20 97.7 F 99 17 101/59 L 97 12/30/18 04:30 97.5 F L 81 17 104/52 L 97 12/30/18 00:00 97.8 F 77 18 90/52 L 99 Admit Weight 190 lb 6.259 oz Weight 211 lb 8 oz 12/29/18 12/30/18 12/31/18 06:59 06:59 06:59 Intake Total 600 1460 Output Total 600 650 Balance 0 810 - Physical Examination General/Neuro: alert & oriented x3 Neck: no JVD present Lungs: CTA Heart: other: (irreg. pacing at times with underlying A-fib.) Abdomen: NT/ND, soft - Labs Result Diagrams: 12/30/18 05:33 12/30/18 05:33 Troponin/CKMB CK-MB (CK-2) 11.6 ng/mL (0-6.6) H* 12/21/18 16:44 Troponin I 0.684 ng/mL (< 0.028) H* 12/22/18 23:03 - Assessment/Plan 1. CAD with S/p CABGx4 on 12/23/2018 with QUINTANILLA-> LAD, RSVG-> OM1, OM2, and dist PDA and SYBIL ligation - stable; on Coreg 3.125mg BID, ASA 325mg qd, and Lipitor 2. Afib - Converted back to afib on 12/27/2018; well controlled HR with Amiodarone PO. On ASA 325 mg qd. Cont. to monitor on tele; Consider resuming flecainide or change to Multaq. Plan for electrical cardioversion if she does not convert with medical treatment. 3. HTN - Stable with Coreg 3.125mg BID 4. Hyperlipidemia - On Lipitor 5. Hypothyroidism - may resume Levothyroxine from tomorrow; managed by PCP 6. Hx of PM placement - v paced 7. NAINA - stable; cont. to monitor 8. Anemia - H/H stable. MAR reviewed
[2018-12-30] MEDS ORDERED: Potassium Chloride 20 MEQ TAB PO SCH (13:15)
--- NOTE | 2018-12-30 13:42 | PDOC.PN ---
- Subjective Encounter Start Date: 12/30/18 Encounter Start Time: 08:20 Pt seen for followup re: NAINA. No complaints today. - Objective Resuscitation Status - Order Detail: 12/21/18 13:15 Resuscitation Status Routine Resuscitation Status: DNAR: NO Resuscitation Discussed with: Patient SHERMAN Reviewed: Yes Vital Signs & Weight: Vital Signs (12 hours) Temp Pulse Pulse Pulse Resp BP BP 12/30/18 11:55 97.5 F L 82 16 12/30/18 08:45 86 89 117/54 L 95/53 L 12/30/18 07:20 97.7 F 99 17 12/30/18 04:30 97.5 F L 81 17 BP Pulse Ox Pulse Ox Pulse Ox 12/30/18 11:55 89/52 L 95 12/30/18 08:45 98 96 12/30/18 07:20 101/59 L 97 12/30/18 04:30 104/52 L 97 Weight Admit Weight 190 lb 6.259 oz Weight 211 lb 8 oz Most Recent Monitor Data Heart Rate from ECG 60 NIBP 114/38 NIBP BP-Mean 63 Respiration from ECG 17 SpO2 100 I&O: 12/29/18 12/30/18 12/31/18 06:59 06:59 06:59 Intake Total 600 1460 Output Total 600 650 Balance 0 810 Result Diagrams: 12/30/18 05:33 12/30/18 05:33 EKG Reviewed by me: Yes (Tele: pati medrano) Phys Exam - Physical Examination Constitutional: NAD HEENT: moist MMs Neck: supple Respiratory: clear to auscultation bilateral Cardiovascular: RRR Gastrointestinal: soft Neurological: moves all 4 limbs Psychiatric: normal affect Dx/Plan (1) NAINA (acute kidney injury) Code(s): N17.9 - ACUTE KIDNEY FAILURE, UNSPECIFIED Status: Acute Comment: likely secondary to aggressive diuresis (2) Afib Code(s): I48.91 - UNSPECIFIED ATRIAL FIBRILLATION Status: Acute Comment: continue amiodarone (3) CAD (coronary artery disease), [place] coronary artery Code(s): I25.10 - ATHSCL HEART DISEASE OF [place] CORONARY ARTERY W/O ANG PCTRS Status: Acute Qualifiers: [place] vs. transplanted heart: [place] heart Associated angina: with unstable angina Qualified Code(s): I25.110 - Atherosclerotic heart disease of [place] coronary artery with unstable angina pectoris Comment: S/P Cath, severe extensive CAD.S/P CABGX4 12/23/18.on ASA (4) Hypertension Code(s): I10 - ESSENTIAL (PRIMARY) HYPERTENSION Status: Chronic Qualifiers: Hypertension type: essential hypertension Qualified Code(s): I10 - Essential (primary) hypertension Comment: controlled (5) Hypothyroid Code(s): E03.9 - HYPOTHYROIDISM, UNSPECIFIED Status: Chronic Comment: on synthroid - Plan * . consult nephrology for acute kidney injury Review of Systems - Review of Systems Cardiovascular: negative: chest pain, palpitations, orthopnea, paroxysmal nocturnal dyspnea, edema, light headedness Gastrointestinal: negative: Nausea, Vomiting, Abdominal Pain, Diarrhea, Constipation, Melena, Hematochezia - Medications/Allergies Allergies/Adverse Reactions: Allergies Allergy/AdvReac Type Severity Reaction Status Date / Time adhesive Allergy Rash Verified 12/22/18 00:09 cefazolin [From [facility]] Allergy Verified 12/21/18 23:37 codeine Allergy Verified 12/21/18 23:37 iodine Allergy Verified 12/22/18 04:57 shellfish derived Allergy Short of Verified 12/21/18 23:37 Breath Medications: Current Medications Acetaminophen (Tylenol) 650 mg PO Q6H PRN PRN Reason: Headache/Fever or Pain Last Admin: 12/27/18 15:22 Dose: 650 mg Al Hydroxide/Mg Hydroxide (Maalox) 30 ml PO Q4H PRN PRN Reason: Indigestion Albumin Human (Albumin 25%) 25 gm IVPB ONE ONE Stop: 12/30/18 13:36 Amiodarone HCl (Cordarone) 400 mg PO BID [facility] Stop: 01/01/19 21:01 Last Admin: 12/30/18 08:46 Dose: 400 mg Amiodarone HCl (Cordarone) 200 mg PO BID [facility] Stop: 01/08/19 21:01 Amiodarone HCl (Cordarone) 200 mg PO DAILY [facility] Aspirin (Ecotrin) 325 mg PO DAILY [facility] Last Admin: 12/30/18 08:46 Dose: 325 mg Atorvastatin Calcium (Lipitor) 20 mg PO HS [facility] Last Admin: 12/29/18 21:34 Dose: 20 mg Bisacodyl (Dulcolax) 10 mg PO Q12H PRN PRN Reason: Constipation Last Admin: 12/27/18 15:22 Dose: 10 mg Bisacodyl (Dulcolax) 10 mg [place] Q12H PRN PRN Reason: Constipation Last Admin: 12/29/18 00:01 Dose: 10 mg Carvedilol (Coreg) 3.125 mg PO BID[facility] Last Admin: 12/30/18 08:47 Dose: 3.125 mg Docusate Sodium (Colace) 100 mg PO BID [facility] Last Admin: 12/30/18 08:45 Dose: 100 mg Famotidine (Pepcid) 20 mg PO BID [facility] Last Admin: 12/30/18 08:46 Dose: 20 mg Furosemide (Lasix) 40 mg PO 0900,1400 [facility] Last Admin: 12/30/18 13:31 Dose: 40 mg Guaifenesin/Dextromethorphan (Robitussin Dm) 15 ml PO Q4H PRN PRN Reason: Cough Levothyroxine Sodium (Synthroid) 50 mcg PO 0600 [facility] Last Admin: 12/30/18 06:32 Dose: 50 mcg Levothyroxine Sodium (Synthroid) 50 mcg PO 0600 [facility] Mineral Oil (Fleet Mineral Oil) 133 ml [place] DAILYPRN PRN PRN Reason: Constipation Nitroglycerin (Nitrostat) 0.4 mg SL Q5MIN PRN PRN Reason: Chest Pain Polyethylene Glycol (Miralax) 17 gm PO DAILY [facility] Last Admin: 12/30/18 08:46 Dose: Not Given Potassium Chloride (Klor-Con 10) 10 meq PO BID[facility] Last Admin: 12/30/18 08:45 Dose: 10 meq Potassium Chloride (K-Dur) 40 meq PO NOW [facility] Stop: 12/30/18 15:15 Last Admin: 12/30/18 13:31 Dose: 40 meq Sodium Chloride (Flush - Normal Saline) 10 ml IVF Q12HR [facility] Last Admin: 12/30/18 08:47 Dose: 10 ml Sodium Chloride (Flush - Normal Saline) 10 ml IVF PRN PRN PRN Reason: Saline Flush Last Admin: 12/28/18 08:41 Dose: 10 ml Sodium Chloride (Flush - Normal Saline) 10 ml IVF Q12HR [facility] Sodium Chloride (Flush - Normal Saline) 10 ml IVF PRN PRN PRN Reason: Saline Flush Tramadol HCl (Ultram) 50 mg PO Q6H PRN PRN Reason: Pain
[2018-12-30] MEDS: Albumin 25% 25 GM/100 ML BOT IVPB SCH ×2 (13:59→20:01)
--- NOTE | 2018-12-30 15:16 | PRG ---
DATE OF SERVICE: 12/30/2018 SUBJECTIVE: Ms. Monson says, she is feeling better each day. She really wants to go home. OBJECTIVE: VITAL SIGNS: She is afebrile. Heart rate 82, respiratory rate 16, oximetry is 95% on 2 L, blood pressure is 117/54. LUNGS: Clear. HEART: Regular rhythm. ABDOMEN: Soft. LABORATORY DATA: White count 11.2, hemoglobin 9.6, platelets 167. Sodium 133, potassium 3.1, chloride 98, bicarbonate 25, BUN 55, creatinine 1.68. Intake and outputs, positive 810. IMPRESSION: 1. Status post coronary artery bypass grafting. 2. Blood loss anemia. 3. Acute on chronic kidney disease. 4. Advanced age, deconditioning. 5. Atrial fibrillation with a planned elective cardioversion coming up according to the patient. 6. History of hypertension. 7. History of hypothyroidism. 8. History of pacemaker. PLAN: Continue supportive care. Job ID: [id number]
--- NOTE | 2018-12-30 15:33 | ULT ---
RENAL ULTRASOUND: HISTORY: Renal failure. COMPARISON: None. TECHNIQUE: Multiplanar rojas-scale and color Doppler images were obtained in a renal ultrasound. FINDINGS: There is a cyst in the right kidney, measuring 2 cm in greatest dimension. A small echogenic, nonsha dowing focus is seen in the left kidney, measuring 7 mm in greatest dimension. No hydronephrosis is seen on either side. The kidneys demonstrate normal cortical echogenicity and measures 9.4 and 8.8 c m in length on the right and left, respectively. The urinary bladder was not evaluated on this exam. IMPRESSION: 1. Right renal cyst. 2. Echogenic focus in the left kidney could represent a nonobstructing renal calcification. POS: JACKI
[2018-12-30 16:10] LABS: Bilirubin Negative (Negative); Blood, Urine Moderate (Negative); Clarity TURBID (Clear); Glucose, Urine (Dipstick) Negative (Negative); Leukocyte Large (Negative); Nitrite Positive (Negative); Protein, Urine (Dipstick) Negative (Neg-Trace); Specific Gravity, Urine 1.009 (1.002-1.036); pH, Urine 5.5 (5.0-9.0)
[2018-12-30 16:19] LABS: Bacteria/HPF 1+ HPF (None Seen); Hyaline Casts/LPF 4-6 HYALINE CAST LPF (0-3 Hyaline); Pathc Cast-AUWi Flag 1.01 (0-2.49); Squamous Epithelial 0-3 HPF (0-3)
[2018-12-30 16:21] LABS: Yeast-AUWi Flag 46.9 (0-25.0)
[2018-12-30 16:28] LABS: Creatinine, Urine 41.7 mg/dL (47-110)
[2018-12-30 16:30] LABS: Yeast-All Forms None Seen HPF (None Seen)
--- NOTE | 2018-12-30 17:10 | CON ---
DATE OF CONSULTATION: HISTORY OF PRESENT ILLNESS: Ms. Monson is an 88-year-old white female with known history of coronary artery disease, recently status post CABG, and was initially admitted for chest pain. She had a workup and eventually was found to have significant cardiac problem and underwent CABG. During the last several days, creatinine is being fluctuating; however, on the last three days, creatinine is slowly going up. Please note, she is currently on a diuretic regimen. Her chest x-ray done on December 30, 2018, shows increased lung markings suggestive of CHF. We are here to further evaluate her acute kidney injury on top of her presumed chronic renal failure. REVIEW OF SYSTEMS: Positive for mild shortness of breath. No nausea. No vomiting. No diarrhea. Appetite and energy level are decreased. No headache. No diplopia. No syncopal episode. Decreased hearing. No dysuria. No hematochezia. No melena. No abdominal pain. No sore throat. No diplopia. No fever or chills. MEDICATIONS: The patient is currently on the following medicine; 1. Acetaminophen 650 mg q.6h p.r.n. 2. Amiodarone 400 mg p.o. b.i.d. 3. Aspirin 325 mg once a day. 4. Atorvastatin 20 mg tablet at bedtime. 5. Carvedilol 3.125 mg p.o. b.i.d. 6. Pepcid 20 mg p.o. b.i.d. 7. Furosemide 40 mg p.o. b.i.d. 8. Levothyroxine 50 mcg daily. 9. Metolazone 10 mg daily-currently on hold. 10. KCl 10 mEq b.i.d. 11. Tramadol 50 mg q.6 p.r.n. PAST MEDICAL HISTORY: 1. Coronary artery disease. 2. The patient has history of hypothyroidism. 3. She has also history of atrial fibrillation, hypertension, hyperlipidemia, and DJD. PAST SURGICAL HISTORY: Recently status post cardiac cath, status post CABG, status post permanent pacemaker placement, status post right shoulder replacement, status post bilateral knee replacement, status post hysterectomy, status post bilateral knee surgery. ALLERGIES: CEFAZOLIN, CODEINE, CONTRAST, PENICILLIN. TRAUMA: None. IMMUNIZATION: Up-to-date. HOSPITALIZATIONS: Please see past medical history. FAMILY HISTORY: No family history of ESRD. SOCIAL HISTORY: The patient lives alone, lives in [place]. She is , one child. 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 No history of smoking. No alcohol intake. No IV drug abuse. No blood transfusion. PHYSICAL EXAMINATION: VITAL SIGNS: Blood pressure is 106/57, heart rate 82, respiratory rate 16, temperature 97.3, and pulse ox 99%. GENERAL: Noted to be awake, supine, comfortable, not in overt distress. SKIN: Adequate turgor. HEENT: She has slightly pale conjunctivae. Anicteric sclerae. No neck mass. No carotid bruits. No JVD. CHEST: No deformities. LUNGS: Decreased breath sounds. No wheezing. No crackles. HEART: Normal sinus rhythm. No murmur. No gallops. No rubs. ABDOMEN: Globular, soft, and nontender. No masses. EXTREMITIES: Trace edema. NEUROLOGICAL: Moving all extremities. Decreased hearing, but oriented to 3 spheres. LABORATORY DATA: Laboratories of December 30, 2018; white count 11.2, hemoglobin 9.6. Sodium 133, potassium 3.1, chloride 98, carbon dioxide 25, BUN 55, creatinine 1.68, glucose 113, calcium 7.7. Urinalysis of December 30, 2018, pending. Urine chemistries, pending. Renal ultrasound of December 30, 2018, showed right renal disease, echogenic focus in the left kidney. No hydronephrosis. Further review of her chemistries showed the following, on December 30, 2018; creatinine 1.68. On December 29, 2018, creatinine 1.41. Creatinine on December 28, 2018, 1.38. On December 27, 2018, creatinine 1.59. On December 26, 2018, creatinine is 1.82. On December 24, 2018, creatinine 0.85. ASSESSMENT AND PLAN: 1. Acute kidney injury, consider hemodynamically-mediated renal dysfunction. Please note that the patient is also having low blood pressure. In addition, she has been receiving diuretics. Diuretics have been adjusted. Please note, the metolazone has been discontinued. Our plan is to empirically volume replete therapy. We will start with albumin infusion 25 g IV q.6. We will continue to maintain Lasix unless the renal function will further worsen by tomorrow. Please note, metolazone has been discontinued. Renal ultrasound did not show any obstruction per se. 2. Borderline anemia. We will continue to observe. 3. Status post coronary artery bypass graft, stable. Currently, on diuretic regimen. There is no indication for any dialytic intervention with this patient. We will review urinalysis to look for evidence of any acute tubular necrosis. Thank you for the consult. We will continue to follow. Job ID: [id number]
[2018-12-30] MEDS ORDERED: KETAMINE 100 MG/ML (5ML VIAL) ONE (17:13)
[2018-12-30] MEDS: Atorvastatin Calcium 20 MG TAB PO SCH (20:10)
--- NOTE | 2018-12-30 21:45 | OP ---
DATE OR PROCEDURE: 12/30/18 INDICATION FOR PROCEDURE: 88-year-old female who has a history of atrial fibrillation in the past who has coronary artery disea se and underwent bypass surgery. In the postoperative period developed atrial fibrillation. She has n ot converted to normal sinus rhythm despite being on medical management. She was advised to undergo e lectrical cardioversion of her atrial fibrillation back to sinus rhythm. She was taken to the Recovery Area where she underwent short acting propofol and using one attempt at 200 joules she was successfully converted from atrial fibrillation back to normal sinus rhythm with a heart are in the 70s. There were no difficulties or complications encountered. She tolerated the pr ocedure well.
[2018-12-31] MEDS: Albumin 25% 25 GM/100 ML BOT IVPB SCH ×3 (02:22→14:43)
[2018-12-31 05:01] LABS: Anion Gap 14 mmol/L (10-20); BUN (Urea Nitrogen) 58 mg/dL (9.8-20.1); Calc. Creatinine Clearance 31 mL/min (70-130); Calcium 8.2 mg/dL (7.8-10.44); Carbon Dioxide 27 mmol/L (23-31); Chloride 99 mmol/L (98-107); Estimated GFR-MDRD 25; Glucose 115 mg/dL (83-110); Potassium 3.3 mmol/L (3.5-5.1); Sodium 137 mmol/L (136-145)
[2018-12-31 05:17] LABS: Band 9 % (5-11); Eosinophils 3 % (0-10); Hemoglobin 8.1 g/dL (12.0-16.0); Lymphocytes 20 % (21-51); MDiff Complete? YES; Mean Corpuscular Hemoglobin 30.7 pg (27.0-31.0); Mean Platelet Volume 9.4 fL (7.4-10.4); Monocytes 27 % (0-10); Neutrophil 41 % (42-75); Platelet Count 168 thou/uL (130-400); RBC Distribution Width 14.1 % (11.5-14.5); Red Blood Cell (RBC) Count 2.65 mill/uL (4.20-5.40); White Blood Cell (WBC) Count 7.7 thou/uL (4.8-10.8)
[2018-12-31] MEDS: Levothyroxine Sodium 50 MCG TAB PO SCH ×2 (06:12)
[2018-12-31] MEDS: Carvedilol 3.125 MG TAB PO SCH ×2 (08:40→18:08)
[2018-12-31] MEDS: Potassium Chloride 10 MEQ TAB PO SCH ×2 (08:42→18:07)
[2018-12-31] MEDS: Docusate 100 MG CAP PO SCH ×2 (08:43→21:30)
[2018-12-31] MEDS: Amiodarone 200 MG TAB PO SCH ×2 (08:43→20:17)
[2018-12-31] MEDS: Aspirin 325 mg Enteric Coated Tablet PO SCH (08:43)
[2018-12-31] MEDS: Famotidine 20 MG TAB PO SCH ×2 (08:43→20:18)
[2018-12-31] MEDS: Furosemide 40 MG TAB PO SCH (08:44)
[2018-12-31] MEDS: Polyethylene Glycol 3350 17 GM Packet PO SCH (08:44)
--- NOTE | 2018-12-31 08:53 | PDOC.CTH ---
Cardiology Progress Note - Subjective The pt seen and examined. No overnight events. No cardiac complaints. however , she cont. having feeling of fatigue. - Objective Vital Signs Temp Pulse Resp BP Pulse Ox 12/31/18 08:24 97.6 F 68 18 146/65 H 97 12/31/18 04:00 97.6 F 69 20 124/60 97 Admit Weight 190 lb 6.259 oz Weight 212 lb 4.8 oz 12/30/18 12/31/18 01/01/19 06:59 06:59 06:59 Intake Total 1460 1720 Output Total 650 1125 Balance 810 595 - Physical Examination General/Neuro: alert & oriented x3 Neck: no JVD present Lungs: other: (diminished at bases) Heart: RRR Abdomen: soft Extremities: other: (No edema) - Telemetry Telemetry Rhythm: SR 60-80s - Labs Result Diagrams: 12/31/18 04:30 12/31/18 04:30 Troponin/CKMB CK-MB (CK-2) 11.6 ng/mL (0-6.6) H* 12/21/18 16:44 Troponin I 0.684 ng/mL (< 0.028) H* 12/22/18 23:03 - Assessment/Plan 1. CAD with S/p CABGx4 on 12/23/2018 with QUINTANILLA-> LAD, RSVG-> OM1, OM2, and dist PDA and SYBIL ligation - stable; on Coreg 3.125mg BID, ASA 325mg qd, and Lipitor. 2. Afib with s/p DCCV on 12/30/2018 - remains in SR with Amiodarone PO. On ASA 325 mg qd for now. Cont. to monitor on tele; 3. HTN - Stable with Coreg 3.125mg BID 4. Hyperlipidemia - On Lipitor 5. Hypothyroidism - on Levothyroxine; managed by PCP 6. Hx of PM placement - V paced 7. NAINA - no changed; cont. to monitor 8. Anemia - Hgb today was 8.1 which was 9.6 yesterday. MAR reviewed Review of Systems - Review of Systems Constitutional: reports: weakness EENTM: reports: no symptoms reported Respiratory: reports: no symptoms reported Cardiac (ROS): reports: no symptoms reported ABD/GI: reports: no symptoms reported
[2018-12-31] MEDS ORDERED: Potassium Chloride 20 MEQ TAB PO SCH ×2 (09:15→17:00)
--- NOTE | 2018-12-31 09:57 | PRG ---
DATE OF SERVICE: 12/31/2018 SUBJECTIVE: Ms. Monson is an 88-year-old white female, who was status post CABG and seen for her acute kidney injury. At that time, I thought this was simply a hemodynamically-mediated renal dysfunction secondary to her current diuretic regimen and decreased p.o. intake. She was started on albumin infusion to enhance intravascular volume. Today's creatinine is noted at 1.86, which is slightly higher from yesterday of 1.68. Please note, her metolazone has been discontinued. The plan is to continue current management. I will probably decrease the dose of the furosemide from 40 mg IV q.12 to at least once a day. She will continue with albumin infusion. No other complaints today. She is feeling better. OBJECTIVE: VITAL SIGNS: Blood pressure is 146/65, heart rate 68, respiratory rate 18, temperature 97.6, and pulse ox 97%. GENERAL: Noted to be awake, alert, and comfortable, not in overt distress. SKIN: Adequate turgor. HEENT: She has a pinkish conjunctivae. Anicteric sclerae. NECK: No neck mass. No carotid bruits. No JVD. CHEST: No deformities. LUNGS: Clear breath sounds. HEART: Normal sinus rhythm. No murmur. No gallops. No rubs. ABDOMEN: Globular, soft, and nontender. No masses. EXTREMITIES: No edema. MEDICATIONS: Medications of December 31, 2018, was reviewed. LABORATORY DATA: Laboratories of December 31, 2018; sodium 137, potassium 3.3, chloride 99, carbon dioxide 27, BUN 58, creatinine 1.89, glucose 115, and calcium 8.2. White count 11.2 and hemoglobin 9.6. ASSESSMENT AND PLAN: 1. Acute kidney injury - consider hemodynamically-mediated renal dysfunction. Urinalysis does not suggest acute tubular necrosis. Adjust diuretics - we will change the furosemide to 40 mg IV q.12 to q day 2. Atrial fibrillation - currently in normal sinus rhythm, status post cardioversion. With improved cardiac rhythm, I do anticipate further improvement with the patient's cardiac output with subsequent in the renal function. Again , no indication for any dialytic intervention. Continue albumin infusion. Job ID: [id number] [facility]
--- NOTE | 2018-12-31 13:12 | PDOC.PN ---
- Subjective Encounter Start Date: 12/31/18 Encounter Start Time: 08:40 Pt seen for followup re: NAINA. Feels okay, no complaints today. - Objective Resuscitation Status - Order Detail: 12/21/18 13:15 Resuscitation Status Routine Resuscitation Status: DNAR: NO Resuscitation Discussed with: Patient SHERMAN Reviewed: Yes Vital Signs & Weight: Vital Signs (12 hours) Temp Pulse Resp BP Pulse Ox 12/31/18 11:07 97.9 F 60 20 121/58 L 96 12/31/18 08:24 97.6 F 68 18 146/65 H 97 12/31/18 04:00 97.6 F 69 20 124/60 97 Weight Admit Weight 190 lb 6.259 oz Weight 212 lb 4.8 oz Most Recent Monitor Data Heart Rate from ECG 60 NIBP 114/38 NIBP BP-Mean 63 Respiration from ECG 17 SpO2 100 I&O: 12/30/18 12/31/18 01/01/19 06:59 06:59 06:59 Intake Total 1460 1720 Output Total 650 1125 Balance 810 595 Result Diagrams: 12/31/18 04:30 12/31/18 04:30 EKG Reviewed by me: Yes (Tele: NSR) Phys Exam - Physical Examination Obese HEENT: moist MMs Neck: supple Respiratory: clear to auscultation bilateral Cardiovascular: RRR Gastrointestinal: soft Neurological: moves all 4 limbs Psychiatric: normal affect Dx/Plan (1) NAINA (acute kidney injury) Code(s): N17.9 - ACUTE KIDNEY FAILURE, UNSPECIFIED Status: Acute Comment: secondary to aggressive diuresis vs ATN. Cr 1.89 today. Started on albumin infusion. (2) Afib Code(s): I48.91 - UNSPECIFIED ATRIAL FIBRILLATION Status: Acute Comment: on amiodarone (3) CAD (coronary artery disease), [place] coronary artery Code(s): I25.10 - ATHSCL HEART DISEASE OF [place] CORONARY ARTERY W/O ANG PCTRS Status: Acute Qualifiers: [place] vs. transplanted heart: [place] heart Associated angina: with unstable angina Qualified Code(s): I25.110 - Atherosclerotic heart disease of [place] coronary artery with unstable angina pectoris Comment: S/P Cath, severe extensive CAD.S/P CABGX4 12/23/18. Continue ASA (4) Hypertension Code(s): I10 - ESSENTIAL (PRIMARY) HYPERTENSION Status: Chronic Qualifiers: Hypertension type: essential hypertension Qualified Code(s): I10 - Essential (primary) hypertension Comment: controlled (5) Hypothyroid Code(s): E03.9 - HYPOTHYROIDISM, UNSPECIFIED Status: Chronic Comment: will continue synthroid - Plan * . Review of Systems - Review of Systems Cardiovascular: negative: chest pain, palpitations, orthopnea, paroxysmal nocturnal dyspnea, edema, light headedness Gastrointestinal: negative: Nausea, Vomiting, Abdominal Pain, Diarrhea, Constipation, Melena, Hematochezia - Medications/Allergies Allergies/Adverse Reactions: Allergies Allergy/AdvReac Type Severity Reaction Status Date / Time adhesive Allergy Rash Verified 12/22/18 00:09 cefazolin [From [facility]] Allergy Verified 12/21/18 23:37 codeine Allergy Verified 12/21/18 23:37 iodine Allergy Verified 12/22/18 04:57 shellfish derived Allergy Short of Verified 12/21/18 23:37 Breath Medications: Current Medications Acetaminophen (Tylenol) 650 mg PO Q6H PRN PRN Reason: Headache/Fever or Pain Last Admin: 12/27/18 15:22 Dose: 650 mg Al Hydroxide/Mg Hydroxide (Maalox) 30 ml PO Q4H PRN PRN Reason: Indigestion Albumin Human (Albumin 25%) 25 gm IVPB Q6H [facility] Stop: 01/02/19 14:01 Last Admin: 12/31/18 08:40 Dose: 25 gm Amiodarone HCl (Cordarone) 400 mg PO BID [facility] Stop: 01/01/19 21:01 Last Admin: 12/31/18 08:43 Dose: 400 mg Amiodarone HCl (Cordarone) 200 mg PO BID [facility] Stop: 01/08/19 21:01 Amiodarone HCl (Cordarone) 200 mg PO DAILY [facility] Aspirin (Ecotrin) 325 mg PO DAILY [facility] Last Admin: 12/31/18 08:43 Dose: 325 mg Atorvastatin Calcium (Lipitor) 20 mg PO HS [facility] Last Admin: 12/30/18 20:10 Dose: 20 mg Bisacodyl (Dulcolax) 10 mg PO Q12H PRN PRN Reason: Constipation Last Admin: 12/27/18 15:22 Dose: 10 mg Bisacodyl (Dulcolax) 10 mg [place] Q12H PRN PRN Reason: Constipation Last Admin: 12/29/18 00:01 Dose: 10 mg [facility] Last Admin: 12/31/18 08:40 Dose: 3.125 mg Docusate Sodium (Colace) 100 mg PO BID [facility] Last Admin: 12/31/18 08:43 Dose: 100 mg Famotidine (Pepcid) 20 mg PO BID [facility] Last Admin: 12/31/18 08:43 Dose: 20 mg Furosemide (Lasix) [facility] Guaifenesin/Dextromethorphan (Robitussin Dm) 15 ml PO Q4H PRN PRN Reason: Cough Levothyroxine Sodium (Synthroid) 50 mcg PO 0600 [facility] Last Admin: 12/31/18 06:12 Dose: 50 mcg Levothyroxine Sodium (Synthroid) 50 mcg PO 0600 [facility] Last Admin: 12/31/18 06:12 Dose: 50 mcg Mineral Oil (Fleet Mineral Oil) 133 ml [place] DAILYPRN PRN PRN Reason: Constipation Nitroglycerin (Nitrostat) 0.4 mg SL Q5MIN PRN PRN Reason: Chest Pain Polyethylene Glycol (Miralax) 17 gm PO DAILY [facility] Last Admin: 12/31/18 08:44 Dose: Not Given Potassium Chloride (K-Dur) [facility] Sodium Chloride (Flush - Normal Saline) 10 ml IVF Q12HR [facility] Last Admin: 12/31/18 08:44 Dose: 10 ml Sodium Chloride (Flush - Normal Saline) 10 ml IVF PRN PRN PRN Reason: Saline Flush Last Admin: 12/31/18 02:22 Dose: 10 ml Sodium Chloride (Flush - Normal Saline) 10 ml IVF Q12HR [facility] Last Admin: 12/31/18 08:44 Dose: Not Given Sodium Chloride (Flush - Normal Saline) 10 ml IVF PRN PRN PRN Reason: Saline Flush Tramadol HCl (Ultram) 50 mg PO Q6H PRN PRN Reason: Pain
[2018-12-31] MEDS ORDERED: Albumin 25% 25 GM/100 ML BOT IVPB SCH (14:45)
--- NOTE | 2018-12-31 17:12 | PRG ---
DATE OF SERVICE: 12/31/2018 SUBJECTIVE: Ms. Monson has no complaints. She had a cardioversion that was successful. By exam, she is in sinus rhythm. OBJECTIVE: VITAL SIGNS: She is afebrile, heart rate 60, respiratory rate 16, oximetry is 95 on 3 L, blood pressure 134/70. LUNGS: Clear. HEART: Regular rate and rhythm abdomen. ABDOMEN: Soft. IMPRESSION: 1. Status post coronary artery bypass grafting. 2. Blood loss anemia. 3. Acute on chronic kidney disease with a creatinine today of 1.89. 4. Atrial fibrillation, now in sinus rhythm by exam. 5. History of hypertension. 6. History of hypothyroidism. Overall, she appears to be stable at this time. She will continue with physical therapy. Job ID: [id number] [facility]
[2018-12-31] MEDS: Atorvastatin Calcium 20 MG TAB PO SCH (20:18)
[2019-01-01 05:45] LABS: Anion Gap 14 mmol/L (10-20); BUN (Urea Nitrogen) 57 mg/dL (9.8-20.1); Calc. Creatinine Clearance 29 mL/min (70-130); Calcium 8.4 mg/dL (7.8-10.44); Carbon Dioxide 29 mmol/L (23-31); Chloride 98 mmol/L (98-107); Estimated GFR-MDRD 23; Glucose 117 mg/dL (83-110); Sodium 138 mmol/L (136-145)
[2019-01-01 05:59] LABS: Band 2 % (5-11); Hemoglobin 8.7 g/dL (12.0-16.0); Lymphocytes 10 % (21-51); MDiff Complete? YES; Mean Corpuscular HGB CONC 33.5 g/dL (32.0-36.0); Mean Corpuscular Hemoglobin 31.4 pg (27.0-31.0); Mean Corpuscular Volume 93.8 fL (78.0-98.0); Mean Platelet Volume 9.1 fL (7.4-10.4); Monocytes 15 % (0-10); Neutrophil 73 % (42-75); Platelet Count 200 thou/uL (130-400); RBC Distribution Width 14.5 % (11.5-14.5); Red Blood Cell (RBC) Count 2.76 mill/uL (4.20-5.40); White Blood Cell (WBC) Count 10.3 thou/uL (4.8-10.8)
[2019-01-01] MEDS: Levothyroxine Sodium 50 MCG TAB PO SCH ×2 (05:59)
[2019-01-01] MEDS ORDERED: Furosemide 40 MG TAB PO SCH (07:30)
[2019-01-01] MEDS: Polyethylene Glycol 3350 17 GM Packet PO SCH (08:04)
[2019-01-01] MEDS: Docusate 100 MG CAP PO SCH ×2 (08:04→19:28)
[2019-01-01] MEDS: Famotidine 20 MG TAB PO SCH ×2 (08:05→19:55)
[2019-01-01] MEDS: Aspirin 325 mg Enteric Coated Tablet PO SCH (08:05)
[2019-01-01] MEDS: Potassium Chloride 10 MEQ TAB PO SCH ×2 (08:05→17:14)
[2019-01-01] MEDS: Carvedilol 3.125 MG TAB PO SCH ×2 (08:06→17:14)
[2019-01-01] MEDS: Amiodarone 200 MG TAB PO SCH ×2 (08:06→19:55)
[2019-01-01] MEDS ORDERED: Albumin 25% 25 GM/100 ML BOT IVPB ONE (08:06)
[2019-01-01] MEDS ORDERED: Potassium Chloride 20 MEQ TAB PO SCH (08:30)
[2019-01-01] MEDS: Albumin 25% 25 GM/100 ML BOT IVPB SCH ×3 (08:38→19:28)
--- NOTE | 2019-01-01 08:47 | PRG ---
DATE OF SERVICE: 01/01/2019 SUBJECTIVE: Ms. Monson is an 88-year-old white female, who underwent a CABG, and was seen by Renal Service for acute kidney injury. She was thought to have a hemodynamically-mediated renal dysfunction. Adjustment of diuretics has been made. Albumin infusion was given. In addition, I have decided to extend albumin for another 3 days. No other complaints today. No chest pain or shortness of breath. OBJECTIVE: VITAL SIGNS: Blood pressure 153/68, heart rate 67, respiratory rate 18, temperature 98, and pulse ox 96%. GENERAL: Noted to be awake, alert, comfortable, not in overt distress. SKIN: Adequate turgor. HEENT: She has slightly pale conjunctivae. Anicteric sclerae. No neck mass. No carotid bruits. No JVD. CHEST: No deformities. LUNGS: Decreased breath sounds. No wheezing. No crackles. HEART: Normal sinus rhythm. No murmur. No gallops. No rubs. ABDOMEN: Globular, soft, nontender. No masses. EXTREMITIES: No edema. No deformities. MEDICATIONS: Medications of January 01, 2019, were reviewed. LABORATORY DATA: Laboratories of January 01, 2019; white count 10.3, hemoglobin 8.7. Sodium 138, potassium 3, chloride 98, carbon dioxide 29, BUN 57, creatinine 2.02, calcium is 8.4. ASSESSMENT AND PLAN: 1. Acute kidney injury-hemodynamically mediated renal dysfunction. Creatinine is slightly high at 2.0. Continue current management. Continue current diuretic regimen. I have extended the albumin to 3 more days. 2. Mild hypokalemia. P.r.n. potassium replacement. 3. Congestive heart failure, clinically stable. 4. Status post coronary artery bypass graft-doing well, stable. Plan is to discharge the patient to rehab. Agree with current management. Job ID: [id number]
--- NOTE | 2019-01-01 12:28 | PDOC.PN ---
- Subjective Encounter Start Date: 01/01/19 Encounter Start Time: 08:00 Pt seen for followup re: acute kidney injury. No complaints. - Objective Resuscitation Status - Order Detail: 12/21/18 13:15 Resuscitation Status Routine Resuscitation Status: DNAR: NO Resuscitation Discussed with: Patient SHERMAN Reviewed: Yes Vital Signs & Weight: Vital Signs (12 hours) Temp Pulse Pulse Pulse Resp BP BP 01/01/19 11:45 01/01/19 11:41 65 24 H 01/01/19 11:10 98.0 F 87 19 01/01/19 09:34 62 61 148/66 H 149/65 H 01/01/19 07:20 98.0 F 67 18 01/01/19 04:00 98.2 F 64 20 BP Pulse Ox Pulse Ox Pulse Ox 01/01/19 11:45 90 L 01/01/19 11:41 90 L 01/01/19 11:10 134/71 93 L 01/01/19 09:34 92 L 88 L 01/01/19 07:20 153/68 H 96 01/01/19 04:00 134/65 95 Weight Admit Weight 190 lb 6.259 oz Weight 212 lb 14.4 oz Most Recent Monitor Data Heart Rate from ECG 60 NIBP 114/38 NIBP BP-Mean 63 Respiration from ECG 17 SpO2 100 I&O: 12/31/18 01/01/19 01/02/19 06:59 06:59 06:59 Intake Total 1720 1700 Output Total 1125 1350 Balance 595 350 Result Diagrams: 01/01/19 05:14 01/01/19 05:14 EKG Reviewed by me: Yes (Tele: NSR) Phys Exam - Physical Examination Constitutional: NAD HEENT: moist MMs Neck: supple Respiratory: clear to auscultation bilateral Cardiovascular: RRR Gastrointestinal: soft Neurological: moves all 4 limbs Psychiatric: normal affect Dx/Plan (1) NAINA (acute kidney injury) Code(s): N17.9 - ACUTE KIDNEY FAILURE, UNSPECIFIED Status: Acute Comment: secondary to aggressive diuresis vs ATN. Cr 2.02 today, pt to have three more days of albumin infusion. (2) Afib Code(s): I48.91 - UNSPECIFIED ATRIAL FIBRILLATION Status: Acute Comment: will continue amiodarone (3) CAD (coronary artery disease), [place] coronary artery Code(s): I25.10 - ATHSCL HEART DISEASE OF [place] CORONARY ARTERY W/O ANG PCTRS Status: Acute Qualifiers: [place] vs. transplanted heart: [place] heart Associated angina: with unstable angina Qualified Code(s): I25.110 - Atherosclerotic heart disease of [place] coronary artery with unstable angina pectoris Comment: Continue ASA (4) Hypertension Code(s): I10 - ESSENTIAL (PRIMARY) HYPERTENSION Status: Chronic Qualifiers: Hypertension type: essential hypertension Qualified Code(s): I10 - Essential (primary) hypertension Comment: controlled (5) Hypothyroid Code(s): E03.9 - HYPOTHYROIDISM, UNSPECIFIED Status: Chronic Comment: continue synthroid - Plan * . Review of Systems - Review of Systems Cardiovascular: negative: chest pain, palpitations, orthopnea, paroxysmal nocturnal dyspnea, edema, light headedness Neurological: negative: Weakness, Numbness, Incoordination, Change in Speech, Confusion, Seizures - Medications/Allergies Allergies/Adverse Reactions: Allergies Allergy/AdvReac Type Severity Reaction Status Date / Time adhesive Allergy Rash Verified 12/22/18 00:09 cefazolin [From Anc] Allergy Verified 12/21/18 23:37 codeine Allergy Verified 12/21/18 23:37 iodine Allergy Verified 12/22/18 04:57 shellfish derived Allergy Short of Verified 12/21/18 23:37 Breath Medications: Current Medications Acetaminophen (Tylenol) 650 mg PO Q6H PRN PRN Reason: Headache/Fever or Pain Last Admin: 12/27/18 15:22 Dose: 650 mg Al Hydroxide/Mg Hydroxide (Maalox) 30 ml PO Q4H PRN PRN Reason: Indigestion Albumin Human (Albumin 25%) 25 gm IVPB Q6H [facility] Stop: 01/04/19 09:01 Last Admin: 01/01/19 08:38 Dose: 25 gm Albuterol/Ipratropium (Duoneb) 3 ml NEB Q6H PRN PRN Reason: SOB &/or Wheezing Last Admin: 01/01/19 11:41 Dose: 3 ml Amiodarone HCl (Cordarone) 400 mg PO BID [facility] Stop: 01/01/19 21:01 Last Admin: 01/01/19 08:06 Dose: 400 mg Amiodarone HCl (Cordarone) 200 mg PO BID [facility] Stop: 01/08/19 21:01 Amiodarone HCl (Cordarone) 200 mg PO DAILY [facility] Aspirin (Ecotrin) 325 mg PO DAILY [facility] Last Admin: 01/01/19 08:05 Dose: 325 mg Atorvastatin Calcium (Lipitor) 20 mg PO HS [facility] Last Admin: 12/31/18 20:18 Dose: 20 mg Bisacodyl (Dulcolax) 10 mg PO Q12H PRN PRN Reason: Constipation Last Admin: 12/27/18 15:22 Dose: 10 mg Bisacodyl (Dulcolax) 10 mg IN Q12H PRN PRN Reason: Constipation Last Admin: 12/29/18 00:01 Dose: 10 mg Carvedilol (Coreg) 3.125 mg PO BID-[facility] Last Admin: 01/01/19 08:06 Dose: 3.125 mg Docusate Sodium (Colace) 100 mg PO BID [facility] Last Admin: 01/01/19 08:04 Dose: Not Given Famotidine (Pepcid) 20 mg PO BID [facility] Last Admin: 01/01/19 08:05 Dose: 20 mg [facility] ([facility]) [facility] Last Admin: 01/01/19 08:06 Dose: 40 mg Guaifenesin/Dextromethorphan (Robitussin Dm) 15 ml PO Q4H PRN PRN Reason: Cough Levothyroxine Sodium (Synthroid) 50 mcg PO 0600 [facility] Last Admin: 01/01/19 05:59 Dose: 50 mcg Levothyroxine Sodium (Synthroid) 50 mcg PO 0600 [facility] Last Admin: 01/01/19 05:59 Dose: 50 mcg Mineral Oil (Fleet Mineral Oil) 133 ml IN DAILYPRN PRN PRN Reason: Constipation Nitroglycerin (Nitrostat) 0.4 mg SL Q5MIN PRN PRN Reason: Chest Pain Polyethylene Glycol (Miralax) 17 gm PO DAILY [facility] Last Admin: 01/01/19 08:04 Dose: Not Given Potassium Chloride (Klor-Con 10) 20 meq PO BID-[facility] Last Admin: 01/01/19 08:05 Dose: 20 meq Sodium Chloride (Flush - Normal Saline) 10 ml IVF Q12HR [facility] Last Admin: 01/01/19 08:05 Dose: Not Given Sodium Chloride (Flush - Normal Saline) 10 ml IVF PRN PRN PRN Reason: Saline Flush Tramadol HCl (Ultram) 50 mg PO Q6H PRN PRN Reason: Pain
--- NOTE | 2019-01-01 12:34 | PDOC.CTH ---
Cardiology Progress Note - Subjective The pt seen and examined. No overnight events. No cardiac complaints. She cont. complaining of fatigue. - Objective Vital Signs Temp Pulse Pulse Pulse Resp BP BP 01/01/19 11:45 01/01/19 11:41 65 24 H 01/01/19 11:10 98.0 F 87 19 01/01/19 09:34 62 61 148/66 H 149/65 H 01/01/19 07:20 98.0 F 67 18 01/01/19 04:00 98.2 F 64 20 BP Pulse Ox Pulse Ox Pulse Ox 01/01/19 11:45 90 L 01/01/19 11:41 90 L 01/01/19 11:10 134/71 93 L 01/01/19 09:34 92 L 88 L 01/01/19 07:20 153/68 H 96 01/01/19 04:00 134/65 95 Admit Weight 190 lb 6.259 oz Weight 212 lb 14.4 oz 12/31/18 01/01/19 01/02/19 06:59 06:59 06:59 Intake Total 1720 1700 Output Total 1125 1350 Balance 595 350 - Physical Examination General/Neuro: alert & oriented x3 Neck: no JVD present Lungs: CTA (diminished at preciado) Heart: RRR Abdomen: soft Extremities: other: (No edema) - Telemetry Telemetry Rhythm: SR - Labs Result Diagrams: 01/01/19 05:14 01/01/19 05:14 Troponin/CKMB CK-MB (CK-2) 11.6 ng/mL (0-6.6) H* 12/21/18 16:44 Troponin I 0.684 ng/mL (< 0.028) H* 12/22/18 23:03 - Assessment/Plan 1. CAD with S/p CABGx4 on 12/23/2018 with QUINTANILLA-> LAD, RSVG-> OM1, OM2, and dist PDA and SYBIL ligation - stable; on Coreg 3.125mg BID, ASA 325mg qd, and Lipitor. 2. Afib with s/p DCCV on 12/30/2018 - remains in SR with Amiodarone PO. On ASA 325 mg qd for now. Cont. to monitor on tele; 3. HTN - Stable with Coreg 3.125mg BID 4. Hyperlipidemia - On Lipitor 5. Hypothyroidism - on Levothyroxine; managed by PCP 6. Hx of PM placement - V paced 7. NAINA - consulted by Dr Franco. 8. Anemia - Hgb today was 8.7 which was 8.1 yesterday. MAR reviewed Pt. seen and eval. by me. she has some wheezing. I am concerned about the amiodarone in this pt and will stop this medication. The renal function has deterioated . She may be over diuresed. hold lasix. if she returns to atrial fibrillation consider sotolol or Multaq. No sotolol at this time with the renal insufficiency. RRR, bilat. expiratory wheezing. no edema. Review of Systems - Review of Systems Constitutional: reports: see HPI EENTM: reports: no symptoms reported Respiratory: reports: no symptoms reported Cardiac (ROS): reports: no symptoms reported ABD/GI: reports: no symptoms reported : reports: no symptoms reported Musculoskeletal: reports: no symptoms reported
--- NOTE | 2019-01-01 16:03 | PRG ---
DATE OF SERVICE: 01/01/2019 SUBJECTIVE: Ms. Monson, at this point, can go home. OBJECTIVE: VITAL SIGNS: By exam, she is still in sinus rhythm. She is afebrile, heart rate 65, respiratory rate is 20, oximetry is 90 on 2 L, and blood pressure 148/66. LUNGS: Free of wheezes or congestion. HEART: Regular rhythm. ABDOMEN: Soft and nontender. LABORATORY DATA: Hemoglobin is 8.7 and was 8.1 yesterday; white count is 10.3; platelets 200,000. Sodium 138, potassium 3, chloride 98, bicarb 29, BUN 57, creatinine 2.02. Intake and output positive 350. IMPRESSION: 1. Acute on chronic kidney disease. 2. Status post coronary artery bypass grafting . 3. blood loss, now stable. 4. Advanced age and deconditioning. She is stable to move off telemetry in my opinion. Job ID: [id number] MTDD
[2019-01-01] MEDS ORDERED: BIOTENE MOUTH SPRAY 44.3 ML MM PRN (19:11)
[2019-01-01] MEDS: Atorvastatin Calcium 20 MG TAB PO SCH (19:55)
[2019-01-01] MEDS: Acetaminophen 325 MG TAB PO PRN (23:58)
[2019-01-02] MEDS: Albumin 25% 25 GM/100 ML BOT IVPB SCH ×2 (03:20→09:44)
[2019-01-02] MEDS: Levothyroxine Sodium 50 MCG TAB PO SCH (05:33)
[2019-01-02] MEDS ORDERED: Furosemide 40 MG/4 ML VIAL ONE (06:37)
[2019-01-02] MEDS ORDERED: Furosemide 20 MG/2 ML VIAL SLOW IVP SCH (06:45)
[2019-01-02 07:31] LABS: #Eosinphils 0.1 thou/uL (0.0-0.7); #Lymphocytes 0.9 thou/uL (1.20-3.40); #Monocytes 1.8 thou/uL (0.11-0.59); #Neutrophils 9.3 thou/uL (1.40-6.50); %Basophils 0.3 % (0.0-1.0); %Eosinophils 0.9 % (0.0-10.0); %Lymphocytes 7.4 % (21.0-51.0); %Monocytes 14.9 % (0.0-10.0); %Neutrophils 76.5 % (42.0-75.0); Hemoglobin 8.5 g/dL (12.0-16.0); Mean Corpuscular HGB CONC 33.2 g/dL (32.0-36.0); Mean Corpuscular Hemoglobin 31.1 pg (27.0-31.0); Mean Corpuscular Volume 93.8 fL (78.0-98.0); Platelet Count 224 thou/uL (130-400); RBC Distribution Width 14.7 % (11.5-14.5); Red Blood Cell (RBC) Count 2.72 mill/uL (4.20-5.40); White Blood Cell (WBC) Count 12.1 thou/uL (4.8-10.8)
[2019-01-02 07:50] LABS: Anion Gap 13 mmol/L (10-20); BUN (Urea Nitrogen) 53 mg/dL (9.8-20.1); Calc. Creatinine Clearance 32 mL/min (70-130); Calcium 8.8 mg/dL (7.8-10.44); Carbon Dioxide 31 mmol/L (23-31); Chloride 98 mmol/L (98-107); Estimated GFR-MDRD 26; Glucose 117 mg/dL (83-110); Potassium 3.1 mmol/L (3.5-5.1); Sodium 139 mmol/L (136-145)
--- NOTE | 2019-01-02 08:42 | RAD ---
PORTABLE CHEST: DATE: 01/02/2019. PROVIDED CLINICAL HISTORY: Shortness of breath. FINDINGS: COMPARISON: 12/30/2018. The cardiac silhouette remains enlarged. Median sternotomy changes are again seen. Right subclavian central line and left subclavian cardiac pacing device are redemonstrated in similar posi tions. Left pleural effusion with adjacent atelectasis was again noted. Development of right basila r pleural parenchymal opacity. Prominence of the pulmonary vasculature and pulmonary interstitium. No evidence for pneumothorax. IMPRESSION: Findings suggesting congestive failure with left greater than right pleural effusions. POS: [facility]
[2019-01-02] MEDS ORDERED: Potassium Chloride 20 MEQ TAB PO SCH (08:45)
--- NOTE | 2019-01-02 08:49 | PDOC.CTH ---
Cardiology Progress Note - Subjective The pt seen and examined. No overnight events. No cardiac complaints. Lasix 20mg IV push was given this AM for worsening of SOB and wheezing. O2 sat was 88 % with 3LNC, which was increased to 3.5L. - Objective Vital Signs Temp Pulse Resp BP BP Pulse Ox 01/02/19 05:45 97.4 F L 60 24 H 171/70 H 95 01/02/19 04:00 97.4 F L 60 18 166/70 H 92 L 01/02/19 03:27 60 28 H 92 L 01/02/19 00:00 97.2 F L 72 20 146/72 H 92 L Admit Weight 190 lb 6.259 oz Weight 212 lb 01/01/19 01/02/19 01/03/19 06:59 06:59 06:59 Intake Total 1700 1650 Output Total 1350 300 Balance 350 1350 - Physical Examination General/Neuro: alert & oriented x3 Neck: no JVD present Lungs: other: (very diminished at bases) Heart: RRR Abdomen: soft Extremities: other: (No edema) - Labs Result Diagrams: 01/02/19 07:20 01/02/19 07:20 Troponin/CKMB CK-MB (CK-2) 11.6 ng/mL (0-6.6) H* 12/21/18 16:44 Troponin I 0.684 ng/mL (< 0.028) H* 12/22/18 23:03 - Assessment/Plan 1. CAD with S/p CABGx4 on 12/23/2018 with [place]-> LAD, RSVG-> OM1, OM2, and dist PDA and SYBIL ligation - stable; on Coreg 3.125mg BID, ASA 325mg qd, and Lipitor. 2. Afib with s/p DCCV on 12/30/2018 - remains in SR; Stop Amiodarone for worsening of lung function. May start Sotalol (not now due to NAINA) or Multaq. On ASA 325 mg qd for now. Cont. to monitor on tele; 3. HTN - on Coreg 3.125mg BID 4. Hyperlipidemia - On Lipitor 5. Hypothyroidism - on Levothyroxine; managed by PCP 6. Hx of PM placement - V paced 7. NAINA - consulted by Dr Franco. 8. Anemia - Hgb today was 8.7 which was 8.1 yesterday. MAR reviewed pt. seen and eval. by me. i agree with the A/P by the [employer]> She is still wheezing and SOB. The renal function is slightly improved. I agree with the IV lasix. Will continue to follow renal function. The BUN:[place]rew[place]. is still > 20:1 making me suspicious she is prerenal. Albumin was given. Ordered for 3 days.She does not have any edema. The CXR does show some congestion. I will check an echo to check the EF to see if there has been a significant change. Chest : diffuse wheeze, decrease BS in the bases. RRR. No edema. incisions dry. Review of Systems - Review of Systems Constitutional: reports: weakness EENTM: reports: no symptoms reported Respiratory: reports: shortness of breath, SOB at rest, wheezing Cardiac (ROS): reports: no symptoms reported ABD/GI: reports: no symptoms reported : reports: no symptoms reported Musculoskeletal: reports: no symptoms reported
[2019-01-02] MEDS ORDERED: Amiodarone 200 MG TAB PO SCH (09:00)
[2019-01-02] MEDS: Carvedilol 3.125 MG TAB PO SCH ×2 (09:41→17:14)
[2019-01-02] MEDS: Famotidine 20 MG TAB PO SCH ×2 (09:41→21:16)
[2019-01-02] MEDS: Docusate 100 MG CAP PO SCH ×2 (09:41→21:16)
[2019-01-02] MEDS: Aspirin 325 mg Enteric Coated Tablet PO SCH (09:42)
[2019-01-02] MEDS: Polyethylene Glycol 3350 17 GM Packet PO SCH (09:43)
[2019-01-02] MEDS: Potassium Chloride 10 MEQ TAB PO SCH ×2 (09:44→17:14)
--- NOTE | 2019-01-02 10:06 | PRG ---
DATE OF SERVICE: 01/02/2019 SERVICE: Renal Medicine. SUBJECTIVE: Ms. Monson is an 88-year-old white female, who underwent CABG and was seen by the Renal Service for acute kidney injury. At that time, we felt that she had a hemodynamically-mediated renal dysfunction. Adjustment with her diuretics was made. In addition, she was restarted back on albumin infusion. Creatinine today was noted 1.86, which is slightly improved from yesterday of 2.02. However, the patient was noted to be in some mild CHF and currently had to be resumed on diuretics. She is feeling better this morning. No other complaints. OBJECTIVE: VITAL SIGNS: Blood pressure is 171/70 with a heart rate of 60, respiratory rate 24, temperature 97.4, and pulse ox 95%. GENERAL: Noted to be awake, alert, comfortable, not in overt distress. SKIN: Adequate turgor. HEENT: She has slightly pale conjunctivae. Anicteric sclerae. NECK: No neck mass. No carotid bruits. No JVD. CHEST: No deformities. LUNGS: Decreased breath sounds. HEART: Normal sinus rhythm. No murmurs, gallops, or rubs. ABDOMEN: Globular, soft, nontender. No masses. EXTREMITIES: Trace edema. MEDICATIONS: Medications of January 02, 2019, reviewed. IMAGING DATA: Chest x-ray of January 02, 2019, shows CHF. ASSESSMENT AND PLAN: 1. Congestive heart failure-agree with empiric IV diuretics. 2. Acute kidney injury-stable. Proceed with diuresis. There is no indication for any dialytic intervention. 3. Status post coronary artery bypass grafting, stable. Agree with current management. Case discussed with Dr. Vega. Job ID: [id number]
[2019-01-02] MEDS ORDERED: Furosemide 40 MG/4 ML VIAL SLOW IVP SCH (11:00)
--- NOTE | 2019-01-02 17:30 | PDOC.PN ---
- Subjective Encounter Start Date: 01/02/19 Encounter Start Time: 08:20 Pt seen for followup re: NAINA. Reports SOBOE. - Objective Resuscitation Status - Order Detail: 12/21/18 13:15 Resuscitation Status Routine Resuscitation Status: DNAR: NO Resuscitation Discussed with: Patient SHERMAN Reviewed: Yes Vital Signs & Weight: Vital Signs (12 hours) Temp Pulse Resp BP Pulse Ox 01/02/19 08:25 66 18 01/02/19 08:00 90 L 01/02/19 05:45 97.4 F L 60 24 H 171/70 H 95 Weight Admit Weight 190 lb 6.259 oz Weight 212 lb Most Recent Monitor Data Heart Rate from ECG 60 NIBP 114/38 NIBP BP-Mean 63 Respiration from ECG 17 SpO2 100 I&O: 01/01/19 01/02/19 01/03/19 06:59 06:59 06:59 Intake Total 1700 1650 Output Total 1350 300 Balance 350 1350 Result Diagrams: 01/02/19 07:20 01/02/19 07:20 Additional Labs: Labs reviewed by me Phys Exam - Physical Examination Constitutional: NAD HEENT: moist MMs Neck: supple Bon crackles Cardiovascular: RRR Gastrointestinal: soft Neurological: moves all 4 limbs Psychiatric: normal affect Dx/Plan (1) NAINA (acute kidney injury) Code(s): N17.9 - ACUTE KIDNEY FAILURE, UNSPECIFIED Status: Acute Comment: secondary to aggressive diuresis vs ATN. Cr 1.86 today, pt to have albumin infusion. (2) Volume overload Code(s): E87.70 - FLUID OVERLOAD, UNSPECIFIED Status: Acute Comment: PRN diuretics (3) Afib Code(s): I48.91 - UNSPECIFIED ATRIAL FIBRILLATION Status: Acute Comment: amiodarone discontinued s/p electrical cardioversion (4) CAD (coronary artery disease), [place] coronary artery Code(s): I25.10 - ATHSCL HEART DISEASE OF [place] CORONARY ARTERY W/O ANG PCTRS Status: Acute Qualifiers: [place] vs. transplanted heart: [place] heart Associated angina: with unstable angina Qualified Code(s): I25.110 - Atherosclerotic heart disease of [place] coronary artery with unstable angina pectoris Comment: Continue ASA (5) Hypertension Code(s): I10 - ESSENTIAL (PRIMARY) HYPERTENSION Status: Chronic Qualifiers: Hypertension type: essential hypertension Qualified Code(s): I10 - Essential (primary) hypertension Comment: controlled (6) Hypothyroid Code(s): E03.9 - HYPOTHYROIDISM, UNSPECIFIED Status: Chronic Comment: continue synthroid - Plan * . Review of Systems - Review of Systems Respiratory: SOB with Excertion. negative: Cough, Shortness of Breath, Pleuritic Pain, Wheezing Cardiovascular: negative: chest pain, palpitations, orthopnea, paroxysmal nocturnal dyspnea, edema, light headedness - Medications/Allergies Allergies/Adverse Reactions: Allergies Allergy/AdvReac Type Severity Reaction Status Date / Time adhesive Allergy Rash Verified 12/22/18 00:09 cefazolin [From [facility]] Allergy Verified 12/21/18 23:37 codeine Allergy Verified 12/21/18 23:37 iodine Allergy Verified 12/22/18 04:57 shellfish derived Allergy Short of Verified 12/21/18 23:37 Breath Medications: Current Medications Acetaminophen (Tylenol) 650 mg PO Q6H PRN PRN Reason: Headache/Fever or Pain Last Admin: 01/01/19 23:58 Dose: 650 mg Al Hydroxide/Mg Hydroxide (Maalox) 30 ml PO Q4H PRN PRN Reason: Indigestion Albuterol/Ipratropium (Duoneb) 3 ml NEB Q6H PRN PRN Reason: SOB &/or Wheezing Last Admin: 01/02/19 08:25 Dose: 3 ml Aspirin (Ecotrin) 325 mg PO DAILY [facility] Last Admin: 01/02/19 09:42 Dose: 325 mg Atorvastatin Calcium (Lipitor) 20 mg PO [facility] Last Admin: 01/01/19 19:55 Dose: 20 mg Bisacodyl (Dulcolax) 10 mg PO Q12H PRN PRN Reason: Constipation Last Admin: 12/27/18 15:22 Dose: 10 mg Bisacodyl (Dulcolax) 10 mg [place] Q12H PRN PRN Reason: Constipation Last Admin: 12/29/18 00:01 Dose: 10 mg Carvedilol (Coreg) 3.125 mg PO BID-[facility] Last Admin: 01/02/19 17:14 Dose: 3.125 mg Docusate Sodium (Colace) 100 mg PO BID [facility] Last Admin: 01/02/19 09:41 Dose: 100 mg Famotidine (Pepcid) 20 mg PO BID [facility] Last Admin: 01/02/19 09:41 Dose: 20 mg Guaifenesin/Dextromethorphan (Robitussin Dm) 15 ml PO Q4H PRN PRN Reason: Cough Levothyroxine Sodium (Synthroid) 50 mcg PO 0600 [facility] Last Admin: 01/02/19 05:33 Dose: 50 mcg Mineral Oil (Fleet Mineral Oil) 133 ml [place] DAILYPRN PRN PRN Reason: Constipation Miscellaneous Medication (Biotene Moisturizing Mouth) 0 ml MM Q2H PRN PRN Reason: DRY MOUTH Last Admin: 01/01/19 20:02 Dose: 1 spray Nitroglycerin (Nitrostat) 0.4 mg SL Q5MIN PRN PRN Reason: Chest Pain Polyethylene Glycol (Miralax) 17 gm PO DAILY [facility] Last Admin: 01/02/19 09:43 Dose: Not Given Potassium Chloride (Klor-Con 10) 20 meq PO BID-[facility] Last Admin: 01/02/19 17:14 Dose: 20 meq Sodium Chloride (Flush - Normal Saline) 10 ml IVF Q12HR [facility] Last Admin: 01/02/19 09:43 Dose: 10 ml Sodium Chloride (Flush - Normal Saline) 10 ml IVF PRN PRN PRN Reason: Saline Flush Tramadol HCl (Ultram) 50 mg PO Q6H PRN PRN Reason: Pain Last Admin: 01/02/19 05:39 Dose: 50 mg
[2019-01-02] MEDS: Atorvastatin Calcium 20 MG TAB PO SCH (21:16)
[2019-01-03] MEDS: Levothyroxine Sodium 50 MCG TAB PO SCH (05:37)
[2019-01-03 05:51] LABS: #Eosinphils 0.3 thou/uL (0.0-0.7); #Lymphocytes 1.4 thou/uL (1.20-3.40); #Monocytes 2.2 thou/uL (0.11-0.59); #Neutrophils 11.9 thou/uL (1.40-6.50); %Basophils 0.1 % (0.0-1.0); %Eosinophils 1.7 % (0.0-10.0); %Lymphocytes 8.7 % (21.0-51.0); %Monocytes 14.1 % (0.0-10.0); %Neutrophils 75.4 % (42.0-75.0); Hemoglobin 9.3 g/dL (12.0-16.0); Mean Corpuscular HGB CONC 31.6 g/dL (32.0-36.0); Mean Platelet Volume 8.9 fL (7.4-10.4); Platelet Count 297 thou/uL (130-400); RBC Distribution Width 14.7 % (11.5-14.5); White Blood Cell (WBC) Count 15.8 thou/uL (4.8-10.8)
[2019-01-03 06:13] LABS: Anion Gap 14 mmol/L (10-20); BUN (Urea Nitrogen) 49 mg/dL (9.8-20.1); Calc. Creatinine Clearance 35 mL/min (70-130); Calcium 9.2 mg/dL (7.8-10.44); Carbon Dioxide 33 mmol/L (23-31); Chloride 98 mmol/L (98-107); Estimated GFR-MDRD 28; Glucose 116 mg/dL (83-110); Potassium 3.6 mmol/L (3.5-5.1); Sodium 141 mmol/L (136-145)
[2019-01-03] MEDS: Aspirin 325 mg Enteric Coated Tablet PO SCH (08:01)
[2019-01-03] MEDS: Famotidine 20 MG TAB PO SCH ×2 (08:02→20:27)
[2019-01-03] MEDS: Carvedilol 3.125 MG TAB PO SCH ×2 (08:02→16:14)
[2019-01-03] MEDS: Potassium Chloride 10 MEQ TAB PO SCH ×2 (08:02→16:13)
[2019-01-03] MEDS: Furosemide 20 MG/2 ML VIAL SLOW IVP SCH (08:03)
[2019-01-03] MEDS: Docusate 100 MG CAP PO SCH ×2 (08:03→20:26)
[2019-01-03] MEDS: Polyethylene Glycol 3350 17 GM Packet PO SCH (08:07)
[2019-01-03] MEDS ORDERED: guaiFENesin ER 600 MG TAB PO SCH ×2 (15:15→21:00)
--- NOTE | 2019-01-03 15:20 | PDOC.PN ---
- Subjective Encounter Start Date: 01/03/19 Encounter Start Time: 09:00 Pt seen for followup re: NAINA. c/o cough, no sputum. No fevers. - Objective Resuscitation Status - Order Detail: 12/21/18 13:15 Resuscitation Status Routine Resuscitation Status: DNAR: NO Resuscitation Discussed with: Patient MAR Reviewed: Yes Vital Signs & Weight: Vital Signs (12 hours) Temp Pulse Resp BP BP Pulse Ox Pulse Ox 01/03/19 08:44 93 L 01/03/19 08:00 97.7 F 61 22 H 141/88 H 94 L 01/03/19 04:00 97.6 F 60 18 155/77 H 95 Pulse Ox 01/03/19 08:44 85 L 01/03/19 08:00 01/03/19 04:00 Weight Admit Weight 190 lb 6.259 oz Weight 212 lb Most Recent Monitor Data Heart Rate from ECG 60 NIBP 114/38 NIBP BP-Mean 63 Respiration from ECG 17 SpO2 100 I&O: 01/02/19 01/03/19 01/04/19 06:59 06:59 06:59 Intake Total 1650 1080 Output Total 300 1100 Balance 1350 -20 Result Diagrams: 01/03/19 05:08 01/03/19 05:08 Additional Labs: Labs reviewed by me Phys Exam - Physical Examination Constitutional: NAD HEENT: moist MMs Neck: supple Respiratory: clear to auscultation bilateral Cardiovascular: RRR Gastrointestinal: soft Neurological: moves all 4 limbs Psychiatric: normal affect Dx/Plan (1) NAINA (acute kidney injury) Code(s): N17.9 - ACUTE KIDNEY FAILURE, UNSPECIFIED Status: Acute Comment: secondary to aggressive diuresis vs ATN. Cr improved to 1.79 today. (2) Volume overload Code(s): E87.70 - FLUID OVERLOAD, UNSPECIFIED Status: Acute Comment: on Lasix 20 mg IV daily (3) Afib Code(s): I48.91 - UNSPECIFIED ATRIAL FIBRILLATION Status: Acute Comment: s/ p electrical cardioversion (4) CAD (coronary artery disease), [place] coronary artery Code(s): I25.10 - ATHSCL HEART DISEASE OF [place] CORONARY ARTERY W/O ANG PCTRS Status: Acute Qualifiers: [place] vs. transplanted heart: [place] heart Associated angina: with unstable angina Qualified Code(s): I25.110 - Atherosclerotic heart disease of [place] coronary artery with unstable angina pectoris Comment: on ASA (5) Hypertension Code(s): I10 - ESSENTIAL (PRIMARY) HYPERTENSION Status: Chronic Qualifiers: Hypertension type: essential hypertension Qualified Code(s): I10 - Essential (primary) hypertension Comment: controlled (6) Hypothyroid Code(s): E03.9 - HYPOTHYROIDISM, UNSPECIFIED Status: Chronic Comment: on synthroid - Plan * . Review of Systems - Review of Systems Respiratory: Cough, Dry. negative: Shortness of Breath, SOB with Excertion, Pleuritic Pain, Wheezing Cardiovascular: negative: chest pain, palpitations, orthopnea, paroxysmal nocturnal dyspnea, edema, light headedness Gastrointestinal: negative: Nausea, Vomiting, Abdominal Pain, Diarrhea, Constipation, Melena, Hematochezia - Medications/Allergies Allergies/Adverse Reactions: Allergies Allergy/AdvReac Type Severity Reaction Status Date / Time adhesive Allergy Rash Verified 12/22/18 00:09 cefazolin [From [facility]] Allergy Verified 12/21/18 23:37 codeine Allergy Verified 12/21/18 23:37 iodine Allergy Verified 12/22/18 04:57 shellfish derived Allergy Short of Verified 12/21/18 23:37 Breath Medications: Current Medications Acetaminophen (Tylenol) 650 mg PO Q6H PRN PRN Reason: Headache/Fever or Pain Last Admin: 01/01/19 23:58 Dose: 650 mg Al Hydroxide/Mg Hydroxide (Maalox) 30 ml PO Q4H PRN PRN Reason: Indigestion Albuterol/Ipratropium (Duoneb) 3 ml NEB Q6H PRN PRN Reason: SOB &/or Wheezing Last Admin: 01/02/19 08:25 Dose: 3 ml Aspirin (Ecotrin) 325 mg PO DAILY [facility] Last Admin: 01/03/19 08:01 Dose: 325 mg Atorvastatin Calcium (Lipitor) 20 mg PO HS [facility] Last Admin: 01/02/19 21:16 Dose: 20 mg Bisacodyl (Dulcolax) 10 mg PO Q12H PRN PRN Reason: Constipation Last Admin: 12/27/18 15:22 Dose: 10 mg Bisacodyl (Dulcolax) 10 mg [place] Q12H PRN PRN Reason: Constipation Last Admin: 12/29/18 00:01 Dose: 10 mg [facility] ([facility]) [facility] Last Admin: 01/03/19 08:02 Dose: 3.125 mg Docusate Sodium (Colace) 100 mg PO BID [facility] Last Admin: 01/03/19 08:03 Dose: 100 mg Famotidine (Pepcid) 20 mg PO BID [facility] Last Admin: 01/03/19 08:02 Dose: 20 mg Furosemide (Lasix) 20 mg SLOW IVP DAILY [facility] Last Admin: 01/03/19 08:03 Dose: 20 mg Guaifenesin (Mucinex) 600 mg PO ONE [facility] Guaifenesin (Mucinex) 600 mg PO Q12HR [facility] Guaifenesin/Dextromethorphan (Robitussin Dm) 15 ml PO Q4H PRN PRN Reason: Cough Levothyroxine Sodium (Synthroid) 50 mcg PO 0600 [facility] Last Admin: 01/03/19 05:37 Dose: 50 mcg Mineral Oil (Fleet Mineral Oil) 133 ml [place] DAILYPRN PRN PRN Reason: Constipation Miscellaneous Medication (Biotene Moisturizing Mouth) 0 ml MM Q2H PRN PRN Reason: DRY MOUTH Last Admin: 01/01/19 20:02 Dose: 1 spray Nitroglycerin (Nitrostat) 0.4 mg SL Q5MIN PRN PRN Reason: Chest Pain Polyethylene Glycol (Miralax) 17 gm PO DAILY [facility] Last Admin: 01/03/19 08:07 Dose: 17 gm Potassium Chloride (Klor-Con 10) 20 meq [facility] Last Admin: 01/03/19 08:02 Dose: 20 meq Sodium Chloride (Flush - Normal Saline) 10 ml IVF Q12HR [facility] Last Admin: 01/03/19 08:07 Dose: 10 ml Sodium Chloride (Flush - Normal Saline) 10 ml IVF PRN PRN PRN Reason: Saline Flush Tramadol HCl (Ultram) 50 mg PO Q6H PRN PRN Reason: Pain Last Admin: 01/02/19 05:39 Dose: 50 mg
--- NOTE | 2019-01-03 18:44 | EKG ---
Test Reason : Blood Pressure : / mmHG Vent. Rate : 065 BPM Atrial Rate : 065 BPM P-R Int : 314 ms QRS Dur : 114 ms QT Int : 424 ms P-R-T Axes : 000 -43 010 degrees QTc Int : 440 ms Atrial-paced rhythm with prolonged AV conduction with occasional ventricular-paced complexes Left axis deviation Incomplete right bundle branch block Abnormal ECG Confirmed by ISMEAL ANN ([id number]), publications editor SARAH AVENDANO ([id number]) on 01/03/2019 6:43:41 PM Referred By: Confirmed By:ISMAEL ANN
[2019-01-03] MEDS: Atorvastatin Calcium 20 MG TAB PO SCH (20:26)
[2019-01-03] MEDS: guaiFENesin ER 600 MG TAB PO SCH (20:27)
[2019-01-04] MEDS: Acetaminophen 325 MG TAB PO PRN (00:19)
[2019-01-04] MEDS: Levothyroxine Sodium 50 MCG TAB PO SCH (05:25)
[2019-01-04 05:39] LABS: #Eosinphils 0.4 thou/uL (0.0-0.7); #Lymphocytes 1.1 thou/uL (1.20-3.40); #Monocytes 1.4 thou/uL (0.11-0.59); #Neutrophils 6.7 thou/uL (1.40-6.50); %Basophils 0.1 % (0.0-1.0); %Eosinophils 4.2 % (0.0-10.0); %Lymphocytes 11.8 % (21.0-51.0); %Monocytes 14.5 % (0.0-10.0); %Neutrophils 69.4 % (42.0-75.0); Hemoglobin 9.1 g/dL (12.0-16.0); Mean Corpuscular HGB CONC 32.2 g/dL (32.0-36.0); Mean Corpuscular Hemoglobin 30.7 pg (27.0-31.0); Mean Corpuscular Volume 95.3 fL (78.0-98.0); Mean Platelet Volume 8.3 fL (7.4-10.4); Platelet Count 282 thou/uL (130-400); RBC Distribution Width 14.8 % (11.5-14.5); Red Blood Cell (RBC) Count 2.98 mill/uL (4.20-5.40); White Blood Cell (WBC) Count 9.7 thou/uL (4.8-10.8)
[2019-01-04 06:00] LABS: Anion Gap 14 mmol/L (10-20); BUN (Urea Nitrogen) 42 mg/dL (9.8-20.1); Calc. Creatinine Clearance 45 mL/min (70-130); Calcium 8.9 mg/dL (7.8-10.44); Carbon Dioxide 33 mmol/L (23-31); Chloride 98 mmol/L (98-107); Estimated GFR-MDRD 39; Glucose 93 mg/dL (83-110); Sodium 142 mmol/L (136-145)
[2019-01-04] MEDS ORDERED: Potassium Chloride 20 MEQ TAB PO SCH (08:00)
[2019-01-04] MEDS: guaiFENesin ER 600 MG TAB PO SCH ×2 (08:35→21:31)
[2019-01-04] MEDS: Carvedilol 3.125 MG TAB PO SCH ×2 (08:36→16:18)
[2019-01-04] MEDS: Famotidine 20 MG TAB PO SCH ×2 (08:36→21:31)
[2019-01-04] MEDS: Docusate 100 MG CAP PO SCH ×2 (08:36→21:31)
[2019-01-04] MEDS: Potassium Chloride 10 MEQ TAB PO SCH ×2 (08:37→16:19)
[2019-01-04] MEDS: Aspirin 325 mg Enteric Coated Tablet PO SCH (08:37)
[2019-01-04] MEDS: Furosemide 20 MG/2 ML VIAL SLOW IVP SCH (08:38)
[2019-01-04] MEDS: Polyethylene Glycol 3350 17 GM Packet PO SCH (08:39)
--- NOTE | 2019-01-04 11:36 | PRG ---
DATE OF SERVICE: 01/04/2019 SERVICE: Renal Medicine. SUBJECTIVE: Ms. Monson is an 88-year-old white female, who was initially seen for an acute kidney injury. Initially, her diuretics placed on hold, but due to recurrent CHF, she was restarted back on her diuretics. So far, the patient is tolerating her current furosemide/Lasix. In addition, the renal function has slowly been improving with the most recent creatinine now noted at 1.3. Please note, the creatinine peaked at 2.02 back on January 01. We have also given this patient an albumin infusion. No other complaints today. She denies any chest pain or shortness of breath. OBJECTIVE: VITAL SIGNS: Blood pressure is 146/88, heart rate 90, respiratory rate 20, temperature 97.6, pulse ox 98%. GENERAL: Awake, alert, comfortable, not in distress. SKIN: Adequate turgor. HEENT: Pinkish conjunctivae. Anicteric sclerae. No neck mass. No carotid bruits. No JVD. CHEST: No deformities. LUNGS: Decreased breath sounds. HEART: Normal sinus rhythm. No murmurs, gallops, or rubs. ABDOMEN: Globular, soft, nontender. No masses. EXTREMITIES: No edema. No deformities. MEDICATIONS: Medications of January 04, 2019, was reviewed. LABORATORY DATA: Laboratories of January 04, 2019; white count 9.7, hemoglobin 9.1. Sodium 142, potassium 3.0, chloride 98, carbon dioxide 33, BUN 42, creatinine 1.3, glucose 93, calcium 8.9. ASSESSMENT AND PLAN: 1. Acute kidney injury - hemodynamically-mediated renal dysfunction, improving renal function. Tolerating current diuretic regimen. Continue said diuresis. 2. Mild hypokalemia, p.r.n. potassium replacement. 3. Status post coronary artery bypass graft, doing well. Surgery is following. 4. There is no indication for any dialytic intervention. Recheck basic metabolic and CBC in a.m. Job ID: [id number]
--- NOTE | 2019-01-04 14:16 | PDOC.PN ---
- Subjective Encounter Start Date: 01/04/19 Encounter Start Time: 08:40 Pt seen for followup re: NAINA. Feels better. - Objective Resuscitation Status - Order Detail: 12/21/18 13:15 Resuscitation Status Routine Resuscitation Status: DNAR: NO Resuscitation Discussed with: Patient SHERMAN Reviewed: Yes Vital Signs & Weight: Vital Signs (12 hours) Temp Pulse Resp BP Pulse Ox 01/04/19 08:00 98 01/04/19 07:33 97.6 F 90 20 146/88 H 98 Weight Admit Weight 190 lb 6.259 oz Weight 211 lb 8 oz Most Recent Monitor Data Heart Rate from ECG 60 NIBP 114/38 NIBP BP-Mean 63 Respiration from ECG 17 SpO2 100 I&O: 01/03/19 01/04/19 01/05/19 06:59 06:59 06:59 Intake Total 1080 1290 Output Total 1100 Balance -20 1290 Result Diagrams: 01/04/19 05:31 01/04/19 05:31 Additional Labs: labs reviewed by me Phys Exam - Physical Examination Obesity HEENT: moist MMs Neck: supple Respiratory: clear to auscultation bilateral Cardiovascular: RRR Gastrointestinal: soft Neurological: moves all 4 limbs Psychiatric: normal affect Dx/Plan (1) NAINA (acute kidney injury) Code(s): N17.9 - ACUTE KIDNEY FAILURE, UNSPECIFIED Status: Acute Comment: Cr improved to 1.30 today. (2) Volume overload Code(s): E87.70 - FLUID OVERLOAD, UNSPECIFIED Status: Acute Comment: will continue Lasix 20 mg IV daily (3) CAD (coronary artery disease), [place] coronary artery Code(s): I25.10 - ATHSCL HEART DISEASE OF [place] CORONARY ARTERY W/O ANG PCTRS Status: Acute Qualifiers: [place] vs. transplanted heart: [place] heart Associated angina: with unstable angina Qualified Code(s): I25.110 - Atherosclerotic heart disease of [place] coronary artery with unstable angina pectoris Comment: continue ASA (4) Hypertension Code(s): I10 - ESSENTIAL (PRIMARY) HYPERTENSION Status: Chronic Qualifiers: Hypertension type: essential hypertension Qualified Code(s): I10 - Essential (primary) hypertension Comment: controlled (5) Hypothyroid Code(s): E03.9 - HYPOTHYROIDISM, UNSPECIFIED Status: Chronic Comment: on synthroid (6) Afib Code(s): I48.91 - UNSPECIFIED ATRIAL FIBRILLATION Status: Resolved - Plan * . Review of Systems - Review of Systems Respiratory: negative: Cough, Shortness of Breath, SOB with Excertion, Pleuritic Pain, Wheezing Cardiovascular: negative: chest pain, palpitations, orthopnea, paroxysmal nocturnal dyspnea, edema, light headedness - Medications/Allergies Allergies/Adverse Reactions: Allergies Allergy/AdvReac Type Severity Reaction Status Date / Time adhesive Allergy Rash Verified 12/22/18 00:09 cefazolin [From Anc] Allergy Verified 12/21/18 23:37 codeine Allergy Verified 12/21/18 23:37 iodine Allergy Verified 12/22/18 04:57 shellfish derived Allergy Short of Verified 12/21/18 23:37 Breath Medications: Current Medications Acetaminophen (Tylenol) 650 mg PO Q6H PRN PRN Reason: Headache/Fever or Pain Last Admin: 01/04/19 00:19 Dose: 650 mg Al Hydroxide/Mg Hydroxide (Maalox) 30 ml PO Q4H PRN PRN Reason: Indigestion Albuterol/Ipratropium (Duoneb) 3 ml NEB Q6H PRN PRN Reason: SOB &/or Wheezing Last Admin: 01/02/19 08:25 Dose: 3 ml Aspirin (Ecotrin) 325 mg PO DAILY [facility] Last Admin: 01/04/19 08:37 Dose: 325 mg Atorvastatin Calcium (Lipitor) 20 mg PO HS [facility] Last Admin: 01/03/19 20:26 Dose: 20 mg Bisacodyl (Dulcolax) 10 mg PO Q12H PRN PRN Reason: Constipation Last Admin: 12/27/18 15:22 Dose: 10 mg Bisacodyl (Dulcolax) 10 mg [place] Q12H PRN PRN Reason: Constipation Last Admin: 12/29/18 00:01 Dose: 10 mg Carvedilol (Coreg) 3.125 mg PO BID[facility] Last Admin: 01/04/19 08:36 Dose: 3.125 mg Docusate Sodium (Colace) 100 mg PO BID [facility] Last Admin: 01/04/19 08:36 Dose: 100 mg Famotidine (Pepcid) 20 mg PO BID [facility] Last Admin: 01/04/19 08:36 Dose: 20 mg Furosemide (Lasix) 20 mg SLOW IVP DAILY [facility] Last Admin: 01/04/19 08:38 Dose: 20 mg Guaifenesin (Mucinex) 600 mg PO Q12HR [facility] Last Admin: 01/04/19 08:35 Dose: 600 mg Guaifenesin/Dextromethorphan (Robitussin Dm) 15 ml PO Q4H PRN PRN Reason: Cough Levothyroxine Sodium (Synthroid) 50 mcg PO 0600 [facility] Last Admin: 01/04/19 05:25 Dose: 50 mcg Mineral Oil (Fleet Mineral Oil) 133 ml [place] DAILYPRN PRN PRN Reason: Constipation Miscellaneous Medication (Biotene Moisturizing Mouth) 0 ml MM Q2H PRN PRN Reason: DRY MOUTH Last Admin: 01/01/19 20:02 Dose: 1 spray Nitroglycerin (Nitrostat) 0.4 mg SL Q5MIN PRN PRN Reason: Chest Pain Polyethylene Glycol (Miralax) 17 gm PO DAILY [facility] Last Admin: 01/04/19 08:39 Dose: 17 gm Potassium Chloride (Klor-Con 10) 20 meq PO BID[facility] Last Admin: 01/04/19 08:37 Dose: Not Given Sodium Chloride (Flush - Normal Saline) 10 ml IVF Q12HR [facility] Last Admin: 01/03/19 20:27 Dose: 10 ml Sodium Chloride (Flush - Normal Saline) 10 ml IVF PRN PRN PRN Reason: Saline Flush Tramadol HCl (Ultram) 50 mg PO Q6H PRN PRN Reason: Pain Last Admin: 01/02/19 05:39 Dose: 50 mg
[2019-01-04] MEDS: Atorvastatin Calcium 20 MG TAB PO SCH (21:31)
[2019-01-05] MEDS: Levothyroxine Sodium 50 MCG TAB PO SCH (05:20)
[2019-01-05 06:32] LABS: Anion Gap 11 mmol/L (10-20); BUN (Urea Nitrogen) 32 mg/dL (9.8-20.1); Calc. Creatinine Clearance 49 mL/min (70-130); Calcium 8.7 mg/dL (7.8-10.44); Carbon Dioxide 35 mmol/L (23-31); Chloride 97 mmol/L (98-107); Estimated GFR-MDRD 43; Glucose 105 mg/dL (83-110); Potassium 3.4 mmol/L (3.5-5.1); Sodium 140 mmol/L (136-145)
[2019-01-05] MEDS: Furosemide 20 MG/2 ML VIAL SLOW IVP SCH (08:20)
[2019-01-05] MEDS: Potassium Chloride 10 MEQ TAB PO SCH ×2 (08:20→16:50)
[2019-01-05] MEDS: Aspirin 325 mg Enteric Coated Tablet PO SCH (08:20)
[2019-01-05] MEDS: Famotidine 20 MG TAB PO SCH ×2 (08:20→20:17)
[2019-01-05] MEDS: Docusate 100 MG CAP PO SCH ×2 (08:20→20:17)
[2019-01-05] MEDS: Polyethylene Glycol 3350 17 GM Packet PO SCH (08:20)
[2019-01-05] MEDS: guaiFENesin ER 600 MG TAB PO SCH ×2 (08:21→20:17)
[2019-01-05] MEDS: Carvedilol 3.125 MG TAB PO SCH ×2 (08:21→16:51)
[2019-01-05] MEDS ORDERED: Potassium Chloride 20 MEQ TAB PO SCH (11:00)
[2019-01-05] MEDS: Dronedarone HCl 400 MG TAB PO SCH (16:51)
--- NOTE | 2019-01-05 17:34 | PDOC.CTH ---
Cardiology Progress Note - Subjective The pt seen and examined. No overnight events. She complains of intermittent fluttering in her chest. - Objective Vital Signs Temp Pulse Resp BP Pulse Ox 01/05/19 15:34 97.7 F 75 18 133/75 98 01/05/19 12:00 97.2 F L 98 16 122/72 94 L 01/05/19 07:40 97.2 F L 98 18 151/88 H 94 L 01/05/19 07:22 97.2 F L 98 18 151/88 H 94 L Admit Weight 190 lb 6.259 oz Weight 215 lb 12.8 oz 01/04/19 01/05/19 01/06/19 06:59 06:59 06:59 Intake Total 1290 1480 970 Balance 1290 1480 970 - Physical Examination General/Neuro: alert & oriented x3 Neck: no JVD present Lungs: other: (diminished at bases) Heart: other: (irregular) Abdomen: soft Extremities: other: (No edema) - Telemetry Telemetry Rhythm: AFib - Labs Result Diagrams: 01/04/19 05:31 01/06/19 04:59 Troponin/CKMB CK-MB (CK-2) 11.6 ng/mL (0-6.6) H* 12/21/18 16:44 Troponin I 0.684 ng/mL (< 0.028) H* 12/22/18 23:03 - Assessment/Plan 1. CAD with S/p CABGx4 on 12/23/2018 with QUINTANILLA-> LAD, RSVG-> OM1, OM2, and dist PDA and SYBIL ligation - stable; on Coreg 3.125mg BID, ASA 325mg qd, and Lipitor. 2. Afib with s/p DCCV on 12/30/2018 - Converted back to AFib during last wkend; Start Multaq 400mg BID from today. Only ASA 325mg qd for now with s/p SYBIL ligation; Stopped Amiodarone for worsening of lung function. Cont. to monitor on tele; Possible DCCV within 1-2 days. 3. HTN - on Coreg 3.125mg BID 4. Hyperlipidemia - On Lipitor 5. Hypothyroidism - on Levothyroxine; managed by PCP 6. Hx of PM placement - V paced 7. NAINA - consulted by Dr Franco. 8. Anemia - Hgb yesterday was 9.1. MAR reviewed * No echo for now since the pt's condition is stable. Pt. seen and eval. by me. I agree with the A/P by the REAL ESTATE PROFESSIONAL. We will try to assist with getting the Multaq. If she does not convert to sinus i will consider a [id number] prior to d/c. Chest clear. Decr. BS at the bases. irreg/irreg. No edema. Review of Systems - Review of Systems Constitutional: reports: weakness EENTM: reports: no symptoms reported Respiratory: reports: no symptoms reported Cardiac (ROS): reports: irregular heart rate ABD/GI: reports: no symptoms reported : reports: no symptoms reported
--- NOTE | 2019-01-05 18:49 | PDOC.PN ---
- Subjective Encounter Start Date: 01/05/19 Encounter Start Time: 18:48 Pt seen for followup re: afib with RVR. DEnies chest pain, shortness of breath , fevers or chills. - Objective Resuscitation Status - Order Detail: 12/21/18 13:15 Resuscitation Status Routine Resuscitation Status: DNAR: NO Resuscitation Discussed with: Patient MAR Reviewed: Yes Vital Signs & Weight: Vital Signs (12 hours) Temp Pulse Resp BP Pulse Ox 01/05/19 15:34 97.7 F 75 18 133/75 98 01/05/19 12:00 97.2 F L 98 16 122/72 94 L 01/05/19 07:40 97.2 F L 98 18 151/88 H 94 L 01/05/19 07:22 97.2 F L 98 18 151/88 H 94 L Weight Admit Weight 190 lb 6.259 oz Weight 215 lb 12.8 oz Most Recent Monitor Data Heart Rate from ECG 60 NIBP 114/38 NIBP BP-Mean 63 Respiration from ECG 17 SpO2 100 I&O: 01/04/19 01/05/19 01/06/19 06:59 06:59 06:59 Intake Total 1290 1480 1210 Balance 1290 1480 1210 Result Diagrams: 01/04/19 05:31 01/05/19 05:42 EKG Reviewed by me: Yes (Tele: pati medrano with RVR) Phys Exam - Physical Examination Constitutional: NAD HEENT: moist MMs Neck: supple Respiratory: clear to auscultation bilateral Cardiovascular: irregular Gastrointestinal: soft Neurological: moves all 4 limbs Psychiatric: normal affect Dx/Plan (1) Atrial fibrillation with RVR Code(s): I48.91 - UNSPECIFIED ATRIAL FIBRILLATION Status: Acute Comment: Pt started on Multaq. Move to telemetry floor. (2) NAINA (acute kidney injury) Code(s): N17.9 - ACUTE KIDNEY FAILURE, UNSPECIFIED Status: Acute Comment: Cr improved to 1.18 today. (3) Volume overload Code(s): E87.70 - FLUID OVERLOAD, UNSPECIFIED Status: Acute Comment: on Lasix 20 mg IV daily (4) CAD (coronary artery disease), [place] coronary artery Code(s): I25.10 - ATHSCL HEART DISEASE OF [place] CORONARY ARTERY W/O ANG PCTRS Status: Acute Qualifiers: [place] vs. transplanted heart: [place] heart Associated angina: with unstable angina Qualified Code(s): I25.110 - Atherosclerotic heart disease of [place] coronary artery with unstable angina pectoris Comment: continue ASA, s/p CABG on 12/23/18 (5) Hypertension Code(s): I10 - ESSENTIAL (PRIMARY) HYPERTENSION Status: Chronic Qualifiers: Hypertension type: essential hypertension Qualified Code(s): I10 - Essential (primary) hypertension Comment: controlled (6) Hypothyroid Code(s): E03.9 - HYPOTHYROIDISM, UNSPECIFIED Status: Chronic Comment: continue synthroid - Plan * . Review of Systems - Review of Systems Respiratory: Cough, Dry. negative: Shortness of Breath, Hemoptysis, SOB with Excertion, Pleuritic Pain, Sputum, Wheezing Cardiovascular: negative: chest pain, palpitations, orthopnea, paroxysmal nocturnal dyspnea, edema, light headedness - Medications/Allergies Allergies/Adverse Reactions: Allergies Allergy/AdvReac Type Severity Reaction Status Date / Time adhesive Allergy Rash Verified 12/22/18 00:09 cefazolin [From [facility]] Allergy Verified 12/21/18 23:37 codeine Allergy Verified 12/21/18 23:37 iodine Allergy Verified 12/22/18 04:57 shellfish derived Allergy Short of Verified 12/21/18 23:37 Breath Medications: Current Medications Acetaminophen (Tylenol) 650 mg PO Q6H PRN PRN Reason: Headache/Fever or Pain Last Admin: 01/04/19 00:19 Dose: 650 mg Al Hydroxide/Mg Hydroxide (Maalox) 30 ml PO Q4H PRN PRN Reason: Indigestion Albuterol/Ipratropium (Duoneb) 3 ml NEB Q6H PRN PRN Reason: SOB &/or Wheezing Last Admin: 01/02/19 08:25 Dose: 3 ml Aspirin (Ecotrin) 325 mg PO DAILY [facility] Last Admin: 01/05/19 08:20 Dose: 325 mg Atorvastatin Calcium (Lipitor) 20 mg PO HS [facility] Last Admin: 01/04/19 21:31 Dose: 20 mg Bisacodyl (Dulcolax) 10 mg PO Q12H PRN PRN Reason: Constipation Last Admin: 12/27/18 15:22 Dose: 10 mg Bisacodyl (Dulcolax) 10 mg [place] Q12H PRN PRN Reason: Constipation Last Admin: 12/29/18 00:01 Dose: 10 mg Carvedilol (Coreg) 3.125 mg PO BID[facility] Last Admin: 01/05/19 16:51 Dose: 3.125 mg Docusate Sodium (Colace) 100 mg PO BID [facility] Last Admin: 01/05/19 08:20 Dose: 100 mg Dronedarone (Multaq) 400 mg PO BID[facility] Last Admin: 01/05/19 16:51 Dose: 400 mg Famotidine (Pepcid) 20 mg PO BID [facility] Last Admin: 01/05/19 08:20 Dose: 20 mg Furosemide (Lasix) 20 mg SLOW IVP DAILY [facility] Last Admin: 01/05/19 08:20 Dose: 20 mg Guaifenesin (Mucinex) 600 mg PO Q12HR [facility] Last Admin: 01/05/19 08:21 Dose: 600 mg Guaifenesin/Dextromethorphan (Robitussin Dm) 15 ml PO Q4H PRN PRN Reason: Cough Levothyroxine Sodium (Synthroid) 50 mcg PO 0600 [facility] Last Admin: 01/05/19 05:20 Dose: 50 mcg Mineral Oil (Fleet Mineral Oil) 133 ml [place] DAILYPRN PRN PRN Reason: Constipation Miscellaneous Medication (Biotene Moisturizing Mouth) 0 ml MM Q2H PRN PRN Reason: DRY MOUTH Last Admin: 01/01/19 20:02 Dose: 1 spray Nitroglycerin (Nitrostat) 0.4 mg SL Q5MIN PRN PRN Reason: Chest Pain Polyethylene Glycol (Miralax) 17 gm PO DAILY [facility] Last Admin: 01/05/19 08:20 Dose: 17 gm Potassium Chloride (Klor-Con 10) 20 meq PO BID[facility] Last Admin: 01/05/19 16:50 Dose: 20 meq Sodium Chloride (Flush - Normal Saline) 10 ml IVF Q12HR [facility] Last Admin: 01/05/19 08:25 Dose: 10 ml Sodium Chloride (Flush - Normal Saline) 10 ml IVF PRN PRN PRN Reason: Saline Flush
[2019-01-05] MEDS: Atorvastatin Calcium 20 MG TAB PO SCH (20:17)
[2019-01-06] MEDS: Levothyroxine Sodium 50 MCG TAB PO SCH (06:05)
[2019-01-06 06:14] LABS: BUN (Urea Nitrogen) 26 mg/dL (9.8-20.1); Calc. Creatinine Clearance 52 mL/min (70-130); Calcium 8.6 mg/dL (7.8-10.44); Estimated GFR-MDRD 46; Glucose 102 mg/dL (83-110)
[2019-01-06 06:23] LABS: Anion Gap 14 mmol/L (10-20); Carbon Dioxide 30 mmol/L (23-31); Chloride 97 mmol/L (98-107); Potassium 3.8 mmol/L (3.5-5.1); Sodium 137 mmol/L (136-145)
[2019-01-06] MEDS: Aspirin 325 mg Enteric Coated Tablet PO SCH (09:28)
[2019-01-06] MEDS: Docusate 100 MG CAP PO SCH ×2 (09:28→20:22)
[2019-01-06] MEDS: Dronedarone HCl 400 MG TAB PO SCH ×2 (09:28→16:27)
[2019-01-06] MEDS: Potassium Chloride 10 MEQ TAB PO SCH ×2 (09:28→16:27)
[2019-01-06] MEDS: Famotidine 20 MG TAB PO SCH ×2 (09:29→20:22)
[2019-01-06] MEDS: guaiFENesin ER 600 MG TAB PO SCH ×2 (09:29→20:22)
[2019-01-06] MEDS: Carvedilol 3.125 MG TAB PO SCH ×2 (09:29→16:27)
[2019-01-06] MEDS: Polyethylene Glycol 3350 17 GM Packet PO SCH (09:30)
[2019-01-06] MEDS: Furosemide 20 MG/2 ML VIAL SLOW IVP SCH (09:30)
--- NOTE | 2019-01-06 11:05 | PQF ---
DATE: 01-06-19 ATTN: DR. SRAVANI CUNHA Please exercise your independent, professional judgment in responding to the clarification form. Clinical indicators are provided on the bottom of this form for your review Please check appropriate box(s): HEART FAILURE: A. TYPE: [ ] Systolic / HFrEF [ ] Diastolic / HFpEF [ ] Combined Systolic / Diastolic B. ACUITY [ ] Acute [ ] Acute on Chronic [ ] Chronic [ ] Other diagnosis [ ] Unable to determine In addition, please specify: Present on Admission (POA): [ ] Yes [ ] No [ ] Unable to determine For continuity of documentation, please document condition throughout progress notes and discharge summary. Thank You. CLINICAL INDICATORS - SIGNS / SYMPTOMS / LABS CXR 12-26-18: PULMONARY VASCULATURE IS ENGORGED WITH WIDESPREAD RETICULONODULAR INTERSTITIAL PROMINENCE. DEVELOPING PULMONARY EDEMA AND BILATERAL PLEURAL FLUID CONSULT NOTE DR. JOHNSON 12-30-18: HER CXR DONE ON 12-30-18 , SHOWS INCREASED LUNG MARKINGS SUGGESTIVE OF CHF. POSITIVE FR MILD SOB, CONSULT DR. JOHNSON 01-02-19: THE PATIENT WAS NOTED TO BE IN SOME MILD CHF AND CURRENTLY HAD TO BE RESUMED ON DIURETICS. CXR OF 01-03-[address] CUNHA 01-03-19: ACUTE VOLUME OVERLOAD RISKS: H&P: HX HTN, PACEMAKER, CAD, ACUTE ON CHRONIC RENAL DYSFUNCTION, A FIB TREATMENTS: MAR: 12-27-18: COREG PO, LASIX IV RT ASSESSMENT: [facility] V[facility], O2 NL (This form is maintained as a part of the permanent medical record) 2014 [employer] All Rights Reserved [email or web address] [email or web address] Office: [phone] [facility]
--- NOTE | 2019-01-06 11:43 | PDOC.CTH ---
Cardiology Progress Note - Subjective The pt seen and examined. No overnight events. No cardiac complaints. She is up to chair this AM without any cardiac complaints. - Objective Vital Signs Temp Pulse Resp BP Pulse Ox 01/06/19 08:00 98.4 F 89 18 129/90 95 01/06/19 04:00 97.6 F 88 18 136/74 97 Admit Weight 190 lb 6.259 oz Weight 207 lb 9.6 oz 01/05/19 01/06/19 01/07/19 06:59 06:59 06:59 Intake Total 1480 1450 Output Total 400 Balance 1480 1050 - Physical Examination General/Neuro: alert & oriented x3 Neck: no JVD present Lungs: other: (diminihsed at bases) Heart: other: (irregular) Abdomen: soft Extremities: other: (No edema) - Telemetry Telemetry Rhythm: Afib - Labs Result Diagrams: 01/04/19 05:31 01/07/19 04:41 Troponin/CKMB CK-MB (CK-2) 11.6 ng/mL (0-6.6) H* 12/21/18 16:44 Troponin I 0.684 ng/mL (< 0.028) H* 12/22/18 23:03 - Assessment/Plan 1. Afib with s/p DCCV on 12/30/2018 - Converted back to AFib during last wkend; Start Multaq 400mg BID from last night. Only ASA 325mg qd for now with s/p SYBIL ligation; Stopped Amiodarone for worsening of lung function. Cont. to monitor on tele; Possible DCCV within 1-2 days prior to tx to rehab. 2. CAD with S/p CABGx4 on 12/23/2018 with QUINTANILLA-> LAD, RSVG-> OM1, OM2, and dist PDA and SYBIL ligation - stable; on Coreg 3.125mg BID, ASA 325mg qd, and Lipitor. 3. HTN - on Coreg 3.125mg BID 4. Hyperlipidemia - On Lipitor 5. Hypothyroidism - on Levothyroxine; managed by PCP 6. Hx of PM placement - V paced 7. NAINA - consulted by Dr Franco. 8. Anemia - MAR reviewed * No echo for now since the pt's condition is stable. Pt. seen and eval. by me, I agree with the A/P by the JERKER. Chest Decreased BS on left 1/[address] way up. Still maintaining NSR s/p cardioversion. Review of Systems - Review of Systems Constitutional: reports: no symptoms reported EENTM: reports: no symptoms reported Respiratory: reports: no symptoms reported Cardiac (ROS): reports: no symptoms reported ABD/GI: reports: no symptoms reported : reports: no symptoms reported Musculoskeletal: reports: no symptoms reported
--- NOTE | 2019-01-06 14:00 | RAD ---
PORTABLE AP CHEST RADIOGRAPH: Date: 01-06-19 History: CHF. Pleural effusion. Comparison: 01-02-19 FINDINGS: Post-surgical changes related to median sternotomy are again noted. Right sided pleural effusion and atelectasis are again noted although there is improvement in aeration of the left upper lung zone. Th ere is a tiny right pleural effusion and atelectasis present. Left cardiac border is obscured. The pu lmonary vasculature is less congested on today's examination. Dual-lead left subclavian cardiac pacem aking device is stable in position. Vascular calcification seen in the thoracic aorta. Right glenohum eral prosthesis noted with severe left glenohumeral osteoarthropathy again present. IMPRESSION: 1. Moderately large left pleural effusion and atelectasis with improvement in aeration of the left up per lung zone. 2. Small right pleural effusion and atelectasis. 3. Improvement in pulmonary vascular congestion. POS: [facility]
--- NOTE | 2019-01-06 14:50 | PDOC.PN ---
- Subjective Encounter Start Date: 01/06/19 Encounter Start Time: 08:20 Pt seen for followup re; atrial fibrillation. No new complaints today. - Objective Resuscitation Status - Order Detail: 12/21/18 13:15 Resuscitation Status Routine Resuscitation Status: DNAR: NO Resuscitation Discussed with: Patient SHERMAN Reviewed: Yes Vital Signs & Weight: Vital Signs (12 hours) Temp Pulse Pulse Pulse Resp BP BP 01/06/19 12:00 98.4 F 89 18 01/06/19 10:05 125 H 102 H 139/68 128/90 01/06/19 08:00 98.4 F 89 18 01/06/19 07:45 01/06/19 04:00 97.6 F 88 18 BP Pulse Ox 01/06/19 12:00 129/90 95 01/06/19 10:05 01/06/19 08:00 129/90 95 01/06/19 07:45 95 01/06/19 04:00 136/74 97 Weight Admit Weight 190 lb 6.259 oz Weight 207 lb 9.6 oz Most Recent Monitor Data Heart Rate from ECG 60 NIBP 114/38 NIBP BP-Mean 63 Respiration from ECG 17 SpO2 100 I&O: 01/05/19 01/06/19 01/07/19 06:59 06:59 06:59 Intake Total 1480 1450 Output Total 400 Balance 1480 1050 Result Diagrams: 01/04/19 05:31 01/06/19 04:59 EKG Reviewed by me: Yes (Tele: a. fib) Phys Exam - Physical Examination Constitutional: NAD HEENT: moist MMs Neck: supple Respiratory: clear to auscultation bilateral Cardiovascular: irregular Gastrointestinal: soft Neurological: moves all 4 limbs Psychiatric: normal affect Dx/Plan (1) Atrial fibrillation with RVR Code(s): I48.91 - UNSPECIFIED ATRIAL FIBRILLATION Status: Acute Comment: Pt started on Multaq, continues to be in a. fib. (2) Acute diastolic heart failure, NYHA class 3 Code(s): I50.31 - ACUTE DIASTOLIC (CONGESTIVE) HEART FAILURE Status: Acute Comment: Improving with diuretics, not present on admission (3) NAINA (acute kidney injury) Code(s): N17.9 - ACUTE KIDNEY FAILURE, UNSPECIFIED Status: Acute Comment: Cr improved to 1.11 today. (4) Volume overload Code(s): E87.70 - FLUID OVERLOAD, UNSPECIFIED Status: Acute Comment: continue lasix (5) CAD (coronary artery disease), [place] coronary artery Code(s): I25.10 - ATHSCL HEART DISEASE OF [place] CORONARY ARTERY W/O ANG PCTRS Status: Acute Qualifiers: [place] vs. transplanted heart: [place] heart Associated angina: with unstable angina Qualified Code(s): I25.110 - Atherosclerotic heart disease of [place] coronary artery with unstable angina pectoris Comment: continue ASA (6) Hypertension Code(s): I10 - ESSENTIAL (PRIMARY) HYPERTENSION Status: Chronic Qualifiers: Hypertension type: essential hypertension Qualified Code(s): I10 - Essential (primary) hypertension Comment: controlled (7) Hypothyroid Code(s): E03.9 - HYPOTHYROIDISM, UNSPECIFIED Status: Chronic Comment: on synthroid - Plan * . Review of Systems - Review of Systems Respiratory: negative: Cough, Shortness of Breath, SOB with Excertion, Pleuritic Pain, Wheezing Cardiovascular: negative: chest pain, palpitations, orthopnea, paroxysmal nocturnal dyspnea, edema, light headedness - Medications/Allergies Allergies/Adverse Reactions: Allergies Allergy/AdvReac Type Severity Reaction Status Date / Time adhesive Allergy Rash Verified 12/22/18 00:09 cefazolin [From Anc] Allergy Verified 12/21/18 23:37 codeine Allergy Verified 12/21/18 23:37 iodine Allergy Verified 12/22/18 04:57 shellfish derived Allergy Short of Verified 12/21/18 23:37 Breath Medications: Current Medications Acetaminophen (Tylenol) 650 mg PO Q6H PRN PRN Reason: Headache/Fever or Pain Last Admin: 01/04/19 00:19 Dose: 650 mg Al Hydroxide/Mg Hydroxide (Maalox) 30 ml PO Q4H PRN PRN Reason: Indigestion Albuterol/Ipratropium (Duoneb) 3 ml NEB Q6H PRN PRN Reason: SOB &/or Wheezing Last Admin: 01/02/19 08:25 Dose: 3 ml Aspirin (Ecotrin) 325 mg PO DAILY [facility] Last Admin: 01/06/19 09:28 Dose: 325 mg Atorvastatin Calcium (Lipitor) 20 mg PO HS [facility] Last Admin: 01/05/19 20:17 Dose: 20 mg Bisacodyl (Dulcolax) 10 mg PO Q12H PRN PRN Reason: Constipation Last Admin: 12/27/18 15:22 Dose: 10 mg Bisacodyl (Dulcolax) 10 mg OR Q12H PRN PRN Reason: Constipation Last Admin: 12/29/18 00:01 Dose: 10 [facility] Admin: 01/06/19 09:29 Dose: 3.125 mg Docusate Sodium (Colace) 100 mg PO BID [facility] Last Admin: 01/06/19 09:28 Dose: 100 mg [facility] ([facility] Last Admin: 01/06/19 09:28 Dose: 400 mg Famotidine (Pepcid) 20 mg PO BID [facility] Last Admin: 01/06/19 09:29 Dose: 20 mg Furosemide (Lasix) 20 mg SLOW IVP DAILY [facility] Last Admin: 01/06/19 09:30 Dose: 20 mg Guaifenesin (Mucinex) 600 mg PO Q12HR [facility] Last Admin: 01/06/19 09:29 Dose: 600 mg Guaifenesin/Dextromethorphan (Robitussin Dm) 15 ml PO Q4H PRN PRN Reason: Cough Levothyroxine Sodium (Synthroid) 50 mcg PO 0600 [facility] Last Admin: 01/06/19 06:05 Dose: 50 mcg Mineral Oil (Fleet Mineral Oil) 133 ml OR DAILYPRN PRN PRN Reason: Constipation Miscellaneous Medication (Biotene Moisturizing Mouth) 0 ml MM Q2H PRN PRN Reason: DRY MOUTH Last Admin: 01/01/19 20:02 Dose: 1 spray Nitroglycerin (Nitrostat) 0.4 mg SL Q5MIN PRN PRN Reason: Chest Pain Polyethylene Glycol (Miralax) 17 gm PO DAILY [facility] Last Admin: 01/06/19 09:30 Dose: Not Given Potassium Chloride (Klor-Con 10) 20 meq PO BID-[facility] Last Admin: 01/06/19 09:28 Dose: 20 meq Sodium Chloride (Flush - Normal Saline) 10 ml IVF Q12HR [facility] Last Admin: 01/06/19 09:30 Dose: 10 ml Sodium Chloride (Flush - Normal Saline) 10 ml IVF PRN PRN PRN Reason: Saline Flush
[2019-01-06] MEDS: Atorvastatin Calcium 20 MG TAB PO SCH (20:22)
[2019-01-07] MEDS: Levothyroxine Sodium 50 MCG TAB PO SCH (05:38)
[2019-01-07 05:52] LABS: Anion Gap 11 mmol/L (10-20); BUN (Urea Nitrogen) 30 mg/dL (9.8-20.1); Calc. Creatinine Clearance 45 mL/min (70-130); Calcium 8.8 mg/dL (7.8-10.44); Carbon Dioxide 35 mmol/L (23-31); Chloride 97 mmol/L (98-107); Estimated GFR-MDRD 42; Glucose 100 mg/dL (83-110); Potassium 3.8 mmol/L (3.5-5.1); Sodium 139 mmol/L (136-145)
[2019-01-07] MEDS ORDERED: Metolazone 5 MG TAB PO SCH (09:00)
[2019-01-07] MEDS ORDERED: PROPOFOL 20 ML ONE (09:03)
[2019-01-07] MEDS ORDERED: Lidocaine 1% PF 5 ML VIAL ONE (09:04)
[2019-01-07] MEDS: Famotidine 20 MG TAB PO SCH ×2 (11:21→21:23)
[2019-01-07] MEDS: Aspirin 325 mg Enteric Coated Tablet PO SCH (11:21)
[2019-01-07] MEDS: guaiFENesin ER 600 MG TAB PO SCH ×2 (11:21→21:24)
[2019-01-07] MEDS: Metolazone 5 MG TAB PO SCH (11:21)
[2019-01-07] MEDS: Docusate 100 MG CAP PO SCH ×2 (11:21→21:23)
[2019-01-07] MEDS: Polyethylene Glycol 3350 17 GM Packet PO SCH (11:22)
[2019-01-07] MEDS: Potassium Chloride 10 MEQ TAB PO SCH ×2 (11:29→17:59)
[2019-01-07] MEDS: Carvedilol 3.125 MG TAB PO SCH ×2 (11:29→17:59)
[2019-01-07] MEDS: Dronedarone HCl 400 MG TAB PO SCH ×2 (11:29→17:59)
--- NOTE | 2019-01-07 11:49 | PDOC.CTH ---
Cardiology Progress Note - Subjective The pt seen and examined. No overnight events. No cardiac complaints. S/p DCCV on 01/07/2019 and converted back to SR. - Objective Vital Signs Temp Pulse Resp BP Pulse Ox 01/07/19 07:57 97.2 F L 90 16 158/80 H 95 01/07/19 03:03 98.0 F 96 18 147/74 H 92 L Admit Weight 190 lb 6.259 oz Weight 195 lb 6.4 oz 01/06/19 01/07/19 01/08/19 06:59 06:59 06:59 Intake Total 1450 1460 Output Total 400 900 Balance 1050 560 - Physical Examination General/Neuro: alert & oriented x3 Neck: no JVD present Lungs: CTA Heart: RRR Abdomen: soft Extremities: other: (No edema) - Telemetry Telemetry Rhythm: SR - Labs Result Diagrams: 01/04/19 05:31 01/07/19 04:41 Troponin/CKMB CK-MB (CK-2) 11.6 ng/mL (0-6.6) H* 12/21/18 16:44 Troponin I 0.684 ng/mL (< 0.028) H* 12/22/18 23:03 - Assessment/Plan 1. Afib with s/p DCCV on 12/30/2018 and S/p ELIEZER/DCCV on 01/07/2019 - converted back to SR; On Multaq 400mg BID and ASA 325mg qd for now with s/p SYBIL ligation; Stopped Amiodarone for worsening of lung function. 3. HTN - start Norvasc 5mg qd; on Coreg 3.125mg BID 4. Hyperlipidemia - On Lipitor 5. Hypothyroidism - on Levothyroxine; managed by PCP 6. Hx of PM placement - V paced 7. NAINA - consulted by Dr Franco. 8. Anemia - MAR reviewed * No echo for now since the pt's condition is stable. * From Cardiac standpoint, the pt is stable to tx to Rehab. The pt will f/u with Dr Vega' office within 10 days after she is d/tsering from Rehab. pt. seen and eval . by me. Thre CXR revealed a moderate left pleural effusion. the renal function has improved. I will try diuretics and see if this helps but being mindful of the renal fx. Review of Systems - Review of Systems Constitutional: reports: no symptoms reported EENTM: reports: no symptoms reported Respiratory: reports: no symptoms reported Cardiac (ROS): reports: no symptoms reported : reports: no symptoms reported Musculoskeletal: reports: no symptoms reported
[2019-01-07] MEDS ORDERED: Amlodipine 5 MG TAB PO SCH (12:15)
[2019-01-07] MEDS: Furosemide 20 MG/2 ML VIAL SLOW IVP SCH (13:02)
[2019-01-07] MEDS ORDERED: PROPOFOL 200 MG/20 ML VIAL ONE (13:38)
--- NOTE | 2019-01-07 16:26 | PDOC.PN ---
- Subjective Encounter Start Date: 01/07/19 Encounter Start Time: 16:27 Pt seen for followup re: acute diastolic CHF. Feels better. - Objective Resuscitation Status - Order Detail: 12/21/18 13:15 Resuscitation Status Routine Resuscitation Status: DNAR: NO Resuscitation Discussed with: Patient Vital Signs & Weight: Vital Signs (12 hours) Temp Pulse Pulse Resp BP BP BP 01/07/19 14:11 60 166/75 H 130/83 01/07/19 12:56 90 149/64 H 01/07/19 07:57 97.2 F L 90 16 BP Pulse Ox Pulse Ox Pulse Ox 01/07/19 14:11 96 97 01/07/19 12:56 01/07/19 07:57 158/80 H 95 Weight Admit Weight 190 lb 6.259 oz Weight 195 lb 6.4 oz Most Recent Monitor Data Heart Rate from ECG 60 NIBP 114/38 NIBP BP-Mean 63 Respiration from ECG 17 SpO2 100 I&O: 01/06/19 01/07/19 01/08/19 06:59 06:59 06:59 Intake Total 1450 1460 Output Total 400 900 Balance 1050 560 Result Diagrams: 01/04/19 05:31 01/07/19 04:41 Phys Exam - Physical Examination Constitutional: NAD HEENT: moist MMs Neck: supple [place] crack[place] Cardiovascular: RRR Gastrointestinal: soft Neurological: moves all 4 limbs Psychiatric: normal affect Dx/Plan (1) Acute diastolic heart failure, NYHA class 3 Code(s): I50.31 - ACUTE DIASTOLIC (CONGESTIVE) HEART FAILURE Status: Acute Comment: Diuretics being titrated. Pt is on metolazone and IV lasix (2) NAINA (acute kidney injury) Code(s): N17.9 - ACUTE KIDNEY FAILURE, UNSPECIFIED Status: Acute Comment: Cr 1.22 today (3) Volume overload Code(s): E87.70 - FLUID OVERLOAD, UNSPECIFIED Status: Acute Comment: continue lasix (4) CAD (coronary artery disease), [place] coronary artery Code(s): I25.10 - ATHSCL HEART DISEASE OF [place] CORONARY ARTERY W/O ANG PCTRS Status: Acute Qualifiers: [place] vs. transplanted heart: [place] heart Associated angina: with unstable angina Qualified Code(s): I25.110 - Atherosclerotic heart disease of [place] coronary artery with unstable angina pectoris Comment: on ASA (5) Hypertension Code(s): I10 - ESSENTIAL (PRIMARY) HYPERTENSION Status: Chronic Qualifiers: Hypertension type: essential hypertension Qualified Code(s): I10 - Essential (primary) hypertension Comment: controlled (6) Hypothyroid Code(s): E03.9 - HYPOTHYROIDISM, UNSPECIFIED Status: Chronic Comment: on synthroid (7) Atrial fibrillation with RVR Code(s): I48.91 - UNSPECIFIED ATRIAL FIBRILLATION Status: Resolved Comment: Pt was electrically cardioverted today - Plan * . Review of Systems - Review of Systems Respiratory: SOB with Excertion Cardiovascular: negative: chest pain, palpitations, orthopnea, paroxysmal nocturnal dyspnea, edema, light headedness Gastrointestinal: negative: Nausea, Vomiting, Abdominal Pain, Diarrhea, Constipation, Melena, Hematochezia - Medications/Allergies Allergies/Adverse Reactions: Allergies Allergy/AdvReac Type Severity Reaction Status Date / Time adhesive Allergy Rash Verified 12/22/18 00:09 cefazolin [From Ancef] Allergy Verified 12/21/18 23:37 codeine Allergy Verified 12/21/18 23:37 iodine Allergy Verified 12/22/18 04:57 shellfish derived Allergy Short of Verified 12/21/18 23:37 Breath Medications: Current Medications Acetaminophen (Tylenol) 650 mg PO Q6H PRN PRN Reason: Headache/Fever or Pain Last Admin: 01/04/19 00:19 Dose: 650 mg Al Hydroxide/Mg Hydroxide (Maalox) 30 ml PO Q4H PRN PRN Reason: Indigestion Albuterol/Ipratropium (Duoneb) 3 ml NEB Q6H PRN PRN Reason: SOB &/or Wheezing Last Admin: 01/02/19 08:25 Dose: 3 ml Amlodipine Besylate (Norvasc) 5 mg PO DAILY [facility] Aspirin (Ecotrin) 325 mg PO DAILY [facility] Last Admin: 01/07/19 11:21 Dose: 325 mg Atorvastatin Calcium (Lipitor) 20 mg PO HS [facility] Last Admin: 01/06/19 20:22 Dose: 20 mg Bisacodyl (Dulcolax) 10 mg PO Q12H PRN PRN Reason: Constipation Last Admin: 12/27/18 15:22 Dose: 10 mg Bisacodyl (Dulcolax) 10 mg OR Q12H PRN PRN Reason: Constipation Last Admin: 12/29/18 00:01 Dose: 10 mg Carvedilol (Coreg) 3.125 mg PO BID-[facility] Last Admin: 01/07/19 11:29 Dose: 3.125 mg Docusate Sodium (Colace) 100 mg PO BID [facility] Last Admin: 01/07/19 11:21 Dose: 100 mg Dronedarone (Multaq) 400 mg PO BID-[facility] Last Admin: 01/07/19 11:29 Dose: 400 mg Famotidine (Pepcid) 20 mg PO BID [facility] Last Admin: 01/07/19 11:21 Dose: 20 mg Furosemide (Lasix) 20 mg SLOW IVP 0600,1400 [facility] Last Admin: 01/07/19 13:02 Dose: 20 mg Guaifenesin (Mucinex) 600 mg PO Q12HR [facility] Last Admin: 01/07/19 11:21 Dose: 600 mg Guaifenesin/Dextromethorphan (Robitussin Dm) 15 ml PO Q4H PRN PRN Reason: Cough Levothyroxine Sodium (Synthroid) 50 mcg PO 0600 [facility] Last Admin: 01/07/19 05:38 Dose: 50 mcg Metolazone (Zaroxolyn) 10 mg PO 0830 [facility] Last Admin: 01/07/19 11:21 Dose: 10 mg Mineral Oil (Fleet Mineral Oil) 133 ml OR DAILYPRN PRN PRN Reason: Constipation Miscellaneous Medication (Biotene Moisturizing Mouth) 0 ml MM Q2H PRN PRN Reason: DRY MOUTH Last Admin: 01/01/19 20:02 Dose: 1 spray Nitroglycerin (Nitrostat) 0.4 mg SL Q5MIN PRN PRN Reason: Chest Pain Polyethylene Glycol (Miralax) 17 gm PO DAILY [facility] Last Admin: 01/07/19 11:22 Dose: Not Given Potassium Chloride (Klor-Con 10) 20 meq PO BID-[facility] Last Admin: 01/07/19 11:29 Dose: 20 meq Sodium Chloride (Flush - Normal Saline) 10 ml IVF Q12HR [facility] Last Admin: 01/07/19 09:00 Dose: Not Given Sodium Chloride (Flush - Normal Saline) 10 ml IVF PRN PRN PRN Reason: Saline Flush Last Admin: 01/07/19 13:03 Dose: 10 ml
[2019-01-07] MEDS: Atorvastatin Calcium 20 MG TAB PO SCH (21:23)
--- NOTE | 2019-01-07 21:57 | OP ---
INDICATION FOR PROCEDURE: This is an 87-year-old female who was admitted and underwent bypass surgery. Postoperatively she deve loped atrial fibrillation. She was treated with medical management and did not convert to sinus rhyth m. Was advised to undergo electrocardioversion of her atrial fibrillation prior to being discharged t o the rehab center. She was taken to the recovery area where she underwent short acting propofol and using one attempt at 200 joules, she was successfully converted back to normal sinus rhythm. She had been placed on Multa q for at least three doses prior to the procedure. There were no complications or difficulties encoun tered.
[2019-01-08 05:36] LABS: Anion Gap 12 mmol/L (10-20); BUN (Urea Nitrogen) 31 mg/dL (9.8-20.1); Calc. Creatinine Clearance 42 mL/min (70-130); Calcium 8.8 mg/dL (7.8-10.44); Carbon Dioxide 34 mmol/L (23-31); Chloride 97 mmol/L (98-107); Estimated GFR-MDRD 39; Glucose 105 mg/dL (83-110); Potassium 4.2 mmol/L (3.5-5.1); Sodium 139 mmol/L (136-145)
[2019-01-08] MEDS: Levothyroxine Sodium 50 MCG TAB PO SCH (05:50)
[2019-01-08] MEDS: Furosemide 20 MG/2 ML VIAL SLOW IVP SCH (05:51)
[2019-01-08] MEDS: guaiFENesin ER 600 MG TAB PO SCH (08:56)
[2019-01-08] MEDS: Potassium Chloride 10 MEQ TAB PO SCH (08:57)
[2019-01-08] MEDS: Aspirin 325 mg Enteric Coated Tablet PO SCH (08:57)
[2019-01-08] MEDS: Carvedilol 3.125 MG TAB PO SCH (08:57)
[2019-01-08] MEDS: Dronedarone HCl 400 MG TAB PO SCH (08:58)
[2019-01-08] MEDS: Metolazone 5 MG TAB PO SCH (08:58)
[2019-01-08] MEDS: Famotidine 20 MG TAB PO SCH (08:59)
[2019-01-08] MEDS: Docusate 100 MG CAP PO SCH (08:59)
[2019-01-08] MEDS ORDERED: Amlodipine 5 MG TAB PO SCH (09:00)
[2019-01-08] MEDS: Polyethylene Glycol 3350 17 GM Packet PO SCH (09:00)
--- NOTE | 2019-01-08 11:32 | PDOC.PN ---
- Subjective Encounter Start Date: 01/08/19 Encounter Start Time: 10:57 Subjective: Seen No new problem - Objective Resuscitation Status - Order Detail: 12/21/18 13:15 Resuscitation Status Routine Resuscitation Status: DNAR: NO Resuscitation Discussed with: Patient Vital Signs & Weight: Vital Signs (12 hours) Temp Pulse Pulse Resp BP BP BP 01/08/19 08:56 60 139/100 H 01/08/19 08:43 60 172/74 H 140/62 01/08/19 08:00 97.4 F L 60 12 01/08/19 02:52 97.4 F L 60 20 BP BP Pulse Ox Pulse Ox Pulse Ox 01/08/19 08:56 01/08/19 08:43 93 L 98 01/08/19 08:00 153/70 H 94 L 01/08/19 02:52 147/66 H 93 L Weight Admit Weight 190 lb 6.259 oz Weight 202 lb Most Recent Monitor Data Heart Rate from ECG 60 NIBP 114/38 NIBP BP-Mean 63 Respiration from ECG 17 SpO2 100 I&O: 01/07/19 01/08/19 01/09/19 06:59 06:59 06:59 Intake Total 1460 1430 Output Total 900 700 Balance 560 730 Result Diagrams: 01/04/19 05:31 01/08/19 05:03 Phys Exam - Physical Examination HEENT: PERRLA, oral pharynx no lesions Neck: full ROM Decreased air entry both bases Cardiovascular: RRR Gastrointestinal: soft, non-tender, no distention Musculoskeletal: pulses present Neurological: non-focal, moves all 4 limbs Dx/Plan (1) NAINA (acute kidney injury) Code(s): N17.9 - ACUTE KIDNEY FAILURE, UNSPECIFIED Status: Acute Comment: improving (2) Acute diastolic heart failure, NYHA class 3 Code(s): I50.31 - ACUTE DIASTOLIC (CONGESTIVE) HEART FAILURE Status: Acute Comment: Diuretics being titrated. Pt is on metolazone and IV lasix (3) CAD (coronary artery disease), [place] coronary artery Code(s): I25.10 - ATHSCL HEART DISEASE OF [place] CORONARY ARTERY W/O ANG PCTRS Status: Acute Qualifiers: [place] vs. transplanted heart: [place] heart Associated angina: with unstable angina Qualified Code(s): I25.110 - Atherosclerotic heart disease of [place] coronary artery with unstable angina pectoris Comment: on ASA (4) Volume overload Code(s): E87.70 - FLUID OVERLOAD, UNSPECIFIED Status: Acute Comment: continue lasix (5) HLD (hyperlipidemia) Code(s): E78.5 - HYPERLIPIDEMIA, UNSPECIFIED Status: Chronic (6) Hypertension Code(s): I10 - ESSENTIAL (PRIMARY) HYPERTENSION Status: Chronic Qualifiers: Hypertension type: essential hypertension Qualified Code(s): I10 - Essential (primary) hypertension Comment: controlled (7) Hypothyroid Code(s): E03.9 - HYPOTHYROIDISM, UNSPECIFIED Status: Chronic Comment: on synthroid (8) Atrial fibrillation with RVR Code(s): I48.91 - UNSPECIFIED ATRIAL FIBRILLATION Status: Resolved Comment: Pt was electrically cardioverted today - Plan Discharge to acute rehab. -: D/W CTS. * .
--- NOTE | 2019-01-08 12:51 | DIS ---
DATE OF ADMISSION: 12/21/2018 DATE OF DISCHARGE: 01/08/2019 DISCHARGE DIAGNOSES: 1. Acute myocardial infarction. 2. Status post coronary artery bypass graft. 3. Hypertension. 4. Paroxysmal atrial fibrillation. 5. Status post direct current cardioversion. 6. Physical deconditioning. 7. Acute kidney injury. 8. Chronic kidney disease stage 3. 9. Hypothyroidism. 10. Atrial fibrillation with rapid ventricular response. 11. Pleural effusion. 12. Acute diastolic heart failure, NYHA class III. 13. Hyperlipidemia. 14. History of pacemaker placement. 15. Anemia. HOSPITAL COURSE: An 88-year-old female with hypertension, anxiety, and hypothyroidism, admitted with acute onset of chest pain. Evaluation showed features of acute myocardial infarction. Cardiology consult was obtained and the patient subsequently had cardiac angio which showed multiple vessel disease. Cardiothoracic surgery consult was obtained and the patient subsequently had CABG. Recovery however was slow and the patient eventually was extubated and transferred out of the ICU. Hospital course was complicated by atrial fibrillation with rapid ventricular response, for which the patient had DC cardioversion and currently in sinus rhythm. The patient also had acute on chronic kidney injury which was thought to be cardiorenal, which improved with improvement of hemodynamics. The patient also had fluid overload and acute diastolic heart failure which was treated with diuretics with improvement of both renal function and cardiac function. The patient also had physical deconditioning, for which she received physical therapy. Overall, the patient improved and would further need acute rehabilitation, hence discharged to acute rehab facility for further restorative therapy. PHYSICAL EXAMINATION: VITAL SIGNS: Blood pressure 140/62, pulse 60, SpO2 98% on room air. GENERAL: Elderly female, in no obvious distress. Afebrile, anicteric, acyanotic. HEENT: Normocephalic, atraumatic. Pupils are equal and reactive to light. CARDIOVASCULAR: Regular rhythm and rate. Normal heart sounds 1 and 2. RESPIRATORY: Fair air entry bilaterally. Air entry however is decreased at both bases. There is no use of accessory muscles. ABDOMEN: Full, soft, nontender, nondistended with normal bowel sounds. EXTREMITIES: Dressing noted on the left medial thigh and medial leg. Associated with some resolving ecchymosis. Trace bilateral leg edema noted. NEUROLOGIC: Conscious and alert, oriented x3 with appropriate mental status. Cranial nerves 2 through 12 are intact. The patient moves all extremities. DISCHARGE FOLLOWUP: The patient is to follow up with cardiology in 10 days post discharge from acute rehab. The patient also will follow up with cardiothoracic surgery. She will be contacted by the cardiothoracic surgeon's office. DISCHARGE MEDICATIONS: See discharged meds. TIME SPENT: This discharge took more than 35 minutes. Job ID: [id number]
[2019-01-08 13:03] VITALS: BP 126/60; TEMP 97.5
[2019-01-08 13:05] VITALS: BMI 29.0
--- NOTE | 2019-01-08 15:23 | PDOC.CTH ---
Cardiology Progress Note - Objective Vital Signs Temp Pulse Pulse Resp BP BP BP 01/08/19 12:40 97.5 F L 60 14 01/08/19 08:56 60 139/100 H 01/08/19 08:43 60 172/74 H 140/62 01/08/19 08:00 97.4 F L 60 12 BP Pulse Ox Pulse Ox Pulse Ox 01/08/19 12:40 126/60 95 01/08/19 08:56 01/08/19 08:43 93 L 98 01/08/19 08:00 153/70 H 94 L Admit Weight 190 lb 6.259 oz Weight 202 lb 01/07/19 01/08/19 01/09/19 06:59 06:59 06:59 Intake Total 1460 1430 Output Total 900 700 Balance 560 730 - Physical Examination General/Neuro: alert & oriented x3 Neck: no JVD present Lungs: other: (decreased BS 1/2 way up on the left.) Heart: RRR Abdomen: NT/ND, soft - Labs Result Diagrams: 01/04/19 05:31 01/08/19 05:03 Troponin/CKMB CK-MB (CK-2) 11.6 ng/mL (0-6.6) H* 12/21/18 16:44 Troponin I 0.684 ng/mL (< 0.028) H* 12/22/18 23:03 - Assessment/Plan 1. Afib with s/p DCCV on 12/30/2018 and S/p ELIEZER/DCCV on 01/07/2019 - converted back to SR; On Multaq 400mg BID and ASA 325mg qd for now with s/p SYBIL ligation; Stopped Amiodarone for worsening of lung function. 3. HTN - start Norvasc 5mg qd; on Coreg 3.125mg BID 4. Hyperlipidemia - On Lipitor 5. Hypothyroidism - on Levothyroxine; managed by PCP 6. Hx of PM placement - V paced 7. NAINA - consulted by Dr Franco. 8. Anemia - 9.large left pleural effusion. trying low dose diuretics, will need tofollow renal function carefully. okay for transfer to rehab. MAR reviewed
[2019-01-09] MEDS ORDERED: Amiodarone 200 MG TAB PO SCH (09:00)
== END 2019-01-08 15:48 | DRG 233 ==
LOC: ERS 08:34 → ERHOLD 10:42 → OBSVTOIN 15:35 → 2NO 18:47 → CCU 12-23 07:50 → 2NO 12-27 11:21 → T4-A 01-01 13:37 → 2NO 01-05 16:08
PROVIDERS: ADMIT Internal Medicine Nephrology; ATTEND Family Medicine
PROC: 4A023N7 Measurement of Cardiac Sampling and Pressure, Left Heart, Percutaneous Approach (ICD-10-PCS; 2018-12-22)
PROC: B2111ZZ Fluoroscopy of Multiple Coronary Arteries using Low Osmolar Contrast (ICD-10-PCS; 2018-12-22)
PROC: 02100Z9 Bypass Coronary Artery, One Artery from Left Internal Mammary, Open Approach (ICD-10-PCS; principal; 2018-12-23)
PROC: 021209W Bypass Coronary Artery, Three Arteries from Aorta with Autologous Venous Tissue, Open Approach (ICD-10-PCS; 2018-12-23)
PROC: 06BQ4ZZ Excision of Left Saphenous Vein, Percutaneous Endoscopic Approach (ICD-10-PCS; 2018-12-23)
PROC: 02L70ZK Occlusion of Left Atrial Appendage, Open Approach (ICD-10-PCS; 2018-12-23)
PROC: 5A1221Z Performance of Cardiac Output, Continuous (ICD-10-PCS; 2018-12-23)
PROC: 30233N1 Transfusion of Nonautologous Red Blood Cells into Peripheral Vein, Percutaneous Approach (ICD-10-PCS; 2018-12-26)
PROC: 5A2204Z Restoration of Cardiac Rhythm, Single (ICD-10-PCS; 2018-12-30)
PROC: 30233J1 Transfusion of Nonautologous Serum Albumin into Peripheral Vein, Percutaneous Approach (ICD-10-PCS; 2019-01-01)
PROC: 5A2204Z Restoration of Cardiac Rhythm, Single (ICD-10-PCS; 2019-01-07)
DX: I21.4 Non-ST elevation (NSTEMI) myocardial infarction (principal); I50.31 Acute diastolic (congestive) heart failure; J96.01 Acute respiratory failure with hypoxia; D62 Acute posthemorrhagic anemia; N17.9 Acute kidney failure, unspecified; I13.0 Hypertensive heart and chronic kidney disease with heart failure and stage 1 through stage 4 chronic kidney disease, or unspecified chronic kidney disease; I25.10 Atherosclerotic heart disease of native coronary artery without angina pectoris; I48.0 Paroxysmal atrial fibrillation; N18.3 Chronic kidney disease, stage 3 (moderate); E87.8 Other disorders of electrolyte and fluid balance, not elsewhere classified; Z95.0 Presence of cardiac pacemaker; E78.5 Hyperlipidemia, unspecified; E03.9 Hypothyroidism, unspecified; M19.90 Unspecified osteoarthritis, unspecified site; Z66 Do not resuscitate; E87.6 Hypokalemia; F41.9 Anxiety disorder, unspecified; Z79.82 Long term (current) use of aspirin; Z88.1 Allergy status to other antibiotic agents; Z91.041 Radiographic dye allergy status; Z88.0 Allergy status to penicillin; Z91.013 Allergy to seafood
CPT/HCPCS: 36415; 36416; 36430; 71045; 76770; 80048; 80053; 80061; 81001; 81003; 81015; 82533; 82550; 82553; 82570; 82805; 83690; 84300; 84484; 85025; 85610; 85730; 86850; 86900; 86901; 87086; 92960; 93005; 93010; 93306; 93458; 93798; 94002; 94003; 94640; 94760; A4353; C1769; C9113; J0282; J0670; J1100; J1160; J1265; J1642; J1644; J1815; J1885; J1940; J2001; J2150; J2250; J2270; J2370; J2405; J2440; J2704; J2720; J3010; J3370; J3475; J3480; J7050; J7070; J7620; P9016; P9045; P9047; Q0162; Q9967; S0017; S0028

== ENCOUNTER 2019-01-30 07:19 | Inpatient (IN) | payer MEDICARE ==
[2019-01-30 08:07] LABS: Hemoglobin 10.8 g/dL (12.0-16.0); Mean Corpuscular HGB CONC 31.5 g/dL (32.0-36.0); Mean Corpuscular Hemoglobin 28.2 pg (27.0-31.0); Mean Corpuscular Volume 89.6 fL (78.0-98.0); Mean Platelet Volume 9.1 fL (7.4-10.4); Platelet Count 191 thou/uL (130-400); RBC Distribution Width 14.1 % (11.5-14.5); Red Blood Cell (RBC) Count 3.84 mill/uL (4.20-5.40); White Blood Cell (WBC) Count 4.9 thou/uL (4.8-10.8)
[2019-01-30 08:18] LABS: ALT (SGPT) 19 U/L (8-55); AST (SGOT) 34 U/L (5-34); Albumin 3.6 g/dL (3.4-4.8); Alkaline Phosphatase 88 U/L (40-150); Anion Gap 15 mmol/L (10-20); BUN (Urea Nitrogen) 18 mg/dL (9.8-20.1); Bilirubin, Total 1.6 mg/dL (0.2-1.2); Calc. Creatinine Clearance 0 mL/min (70-130); Calcium 8.8 mg/dL (7.8-10.44); Carbon Dioxide 30 mmol/L (23-31); Chloride 98 mmol/L (98-107); Estimated GFR-MDRD 61; Glucose 102 mg/dL (83-110); Potassium 3.4 mmol/L (3.5-5.1); Protein, Total 6.6 g/dL (6.0-8.3); Sodium 140 mmol/L (136-145)
[2019-01-30] MEDS ORDERED: Nitroglycerin 2% Ointment 1 INCH/1 GM Packet ONE (08:28)
[2019-01-30] MEDS ORDERED: Furosemide 40 MG/4 ML VIAL ONE (08:28)
--- NOTE | 2019-01-30 08:38 | RAD ---
CHEST 1 VIEW: HISTORY: Dyspnea. COMPARISON: Radiograph 01/06/2019. FINDINGS: Heart size is enlarged. There are layering bilateral pleural effusions, larger than the prior examin ation, large on the left and moderate on the right. Moderate edema. Multiple midline sternotomy wires. Dual-lead pacer is in place. Severe left glenohumeral degenerati ve changes. IMPRESSION: Worsening congestive heart failure. POS: CET
[2019-01-30 08:39] LABS: CKMB 1.8 ng/mL (0-6.6)
[2019-01-30 08:44] LABS: Band 20 % (5-11); Eosinophils 3 % (0-10); Lymphocytes 19 % (21-51); MDiff Complete? YES; Metamyelocyte 1 % (0-0); Monocytes 6 % (0-10); Myelocyte 2 % (0-0); Neutrophil 48 % (42-75); Reactive Lymphocytes 1 % (0-10)
[2019-01-30 09:23] LABS: Bilirubin Negative (Negative); Blood, Urine Small (Negative); Clarity CLEAR (Clear); Glucose, Urine (Dipstick) Negative (Negative); Leukocyte Small (Negative); Nitrite Positive (Negative); Protein, Urine (Dipstick) Trace mg/dL (Neg-Trace); Specific Gravity, Urine 1.011 (1.002-1.036); pH, Urine 6.5 (5.0-9.0)
[2019-01-30 09:26] LABS: Bacteria/HPF 1+ HPF (None Seen); Hyaline Casts/LPF 4-6 HYALINE CAST LPF (0-3 Hyaline); Pathc Cast-AUWi Flag 1.49 (0-2.49); Squamous Epithelial 0-3 HPF (0-3); WBC/HPF 21-50 HPF (0-3)
[2019-01-30] MEDS ORDERED: Senokot S 8.6-50 MG TAB PO PRN (11:32)
[2019-01-30] MEDS ORDERED: Acetaminophen 650 MG Suppository PR PRN (11:32)
[2019-01-30 11:33] LABS: Troponin I 0.053 ng/mL (< 0.028)
[2019-01-30] MEDS ORDERED: Vancomycin HCl 1 GM in Premix Bag 1 BAG IVPB SCH (11:45)
--- NOTE | 2019-01-30 12:20 | HP ---
PRIMARY CARE PROVIDER: Hernán Loza. CHIEF COMPLAINT: Shortness of breath. HISTORY OF PRESENT ILLNESS: Ms. Monson is a pleasant 88-year-old lady, who was seen at [facility] on January 30, 2019. She was hospitalized at this facility from December 21 to January 08 of this year for acute myocardial infarction. During that hospitalization, she underwent coronary artery bypass graft. She also had paroxysmal atrial fibrillation and had direct electrical cardioversion. She was discharged to rehab. She was discharged from rehab a few days ago to home. Prior to discharge, she was started on clindamycin for possible infection of surgical site over the left lower extremity. She reports that she has been short of breath over the last few days. It worsened today. She also reports orthopnea and lower extremity edema. She denies any fevers or chills. She denies any nausea or vomiting. REVIEW OF SYSTEMS: All other systems reviewed and found to be negative. PAST MEDICAL HISTORY: Paroxysmal atrial fibrillation, hypothyroidism, dyslipidemia, hypertension, coronary artery disease. PAST SURGICAL HISTORY: Coronary artery bypass graft, hysterectomy, pacemaker placement, bilateral knee surgery, bilateral ankle surgery, bilateral shoulder surgery. SOCIAL HISTORY: The patient denies tobacco use, alcohol use, or recreational drug use. FAMILY HISTORY: Family history of premature coronary artery disease. CODE STATUS: I discussed her code status. She is DNAR. ALLERGIES: ANCEF, CODEINE, IODINE, PENICILLIN, AND SHELLFISH. CURRENT MEDICATIONS: 1. Norvasc 5 mg daily. 2. Levothyroxine 50 mcg daily. 3. Furosemide 40 mg daily. 4. Polyethylene glycol 17 g daily. 5. Ecotrin 325 mg daily. 6. Lipitor 20 mg daily. 7. Colace 100 mg 2 times a day. 8. Multaq 400 mg 2 times a day. 9. Carvedilol 3.125 mg 2 times a day. 10. Pepcid 20 mg daily. 11. Clindamycin 300 mg three times a day. PHYSICAL EXAMINATION: GENERAL: On examination, Ms. Monson is awake and alert, not in acute distress. VITAL SIGNS: Blood pressure is 117/82, pulse 120, respiratory rate 21, and oxygen saturation 97% on 2 L of oxygen. Her pulse was normal when she presented to the emergency room. EYES: No scleral icterus, no conjunctival pallor. ENT: Moist mucosal membranes. No oropharyngeal erythema or exudates. NECK: Supple, nontender, trachea is midline. RESPIRATORY: Accessory muscles of breathing are mildly active. Chest wall movements are symmetric bilaterally. LUNGS: Reveal bibasilar crackles. CARDIOVASCULAR: S1 and S2 are heard, tachycardic and regular. Peripheral pulses palpable. No carotid bruit. No pericardial rub. ABDOMEN: Soft, nontender, bowel sounds heard, no hepatomegaly, no splenomegaly. NEUROLOGIC: Cranial nerves 2 through 12 intact, deep tendon reflexes 2+. MUSCULOSKELETAL: Power is 5/5 in all 4 extremities. She has bilateral edema over ankles and feet. SKIN: No rashes or subcutaneous nodules. LYMPHATIC: No cervical lymphadenopathy. PSYCHIATRIC: Normal mood, normal affect, the patient is oriented to person, place, and time. LABORATORY DATA: Ms. Monson's labs and investigations were reviewed. I reviewed her electrocardiogram, which shows low-voltage QRS complexes. There is a lot of artifact on the electrocardiogram. I also reviewed her chest x-ray, which shows interstitial edema. I cannot rule out pulmonary infiltrates. She has normal white count, but bandemia with 20% band neutrophils, normocytic anemia with hemoglobin 10.8, normal platelet count, normal sodium, decreased potassium of 3.4, indeterminate troponin-I of 0.055, elevated BNP of 1222, elevated total bilirubin of 1.6, and otherwise unremarkable comprehensive metabolic profile. Lactic acid is normal at 1.3. Urinalysis is positive for nitrite and leukocyte esterase. ASSESSMENT AND PLAN: Ms. Monson is a pleasant 88-year-old lady, who was seen at [facility] on January 30, 2019. Her problem list includes: 1. Congestive heart failure exacerbation: Ms. Monson is presenting with congestive heart failure exacerbation, diastolic, NYHA stage III and ACC/AHA class C. She will be admitted to the hospital for further management including intravenous diuretics. Given her recent history of coronary artery bypass graft surgery and the presence of low-voltage QRS complexes, we will also check 2D echocardiogram. We will also consult Cardiology for opinion and help with management. 2. Sepsis: Ms. Monson is presenting with sepsis, likely source of infection in urine, although I cannot rule out a pulmonary source. She has been started on vancomycin and levofloxacin, which I will continue. The patient reports a significant allergy to cephalosporins and has been told to never have cephalosporins. 3. Hypothyroidism: We will continue Synthroid. 4. Dyslipidemia: We will continue statin. 5. History of atrial fibrillation: We will have pacemaker interrogated. Many thanks for allowing me to participate in your patient's care. Please feel free to contact me with any questions or concerns. LEVEL OF RISK: High. LEVEL OF COMPLEXITY: High. Job ID: [id number]
[2019-01-30] MEDS ORDERED: Ondansetron PF 4 MG/2 ML Vial IVP PRN (13:54)
[2019-01-30] MEDS ORDERED: Ondansetron ODT 4 MG TAB PO PRN (13:54)
[2019-01-30 14:26] VITALS: BMI 29.9
[2019-01-30 14:32] LABS: Troponin I 0.062 ng/mL (< 0.028)
[2019-01-30] MEDS ORDERED: Vancomycin HCl 1.25 GM in Sodium Chloride 0.9% 250 ML 250 ML IVPB SCH (15:00)
[2019-01-30] MEDS: Furosemide 40 MG/4 ML VIAL SLOW IVP SCH (15:18)
[2019-01-30] MEDS ORDERED: Potassium Chloride 20 MEQ TAB PO SCH (17:45)
--- NOTE | 2019-01-30 19:36 | CON ---
DATE OF CONSULTATION: 01/30/2019 REASON FOR CONSULTATION: CHF. HISTORY OF PRESENT ILLNESS: Ms. Monson is an 88-year-old woman, who has had a prolonged hospital course earlier in the year. She had an NV followed by a bypass surgery. She was in the hospital for 2 weeks. She then proceeded to rehab. She has been on home for a few days and developed a shortness of breath. No chest pain or pressure noted. Mild lower extremity edema present. Last LVEF on record on 12/23/2018 with EF of 60% to 65%. PAST MEDICAL HISTORY: 1. Previous pneumonia. 2. Paroxysmal atrial fibrillation. 3. Chronic kidney disease. 4. Hypothyroidism. 5. Sick-sinus syndrome. 6. Hyperlipidemia. 7. Hypertension. 8. CAD, status bypass surgery. PAST SURGICAL HISTORY: 1. Appendectomy. 2. Cataract surgery. 3. Foot surgery. 4. Hysterectomy. 5. Total knee replacement. 6. Status post pacemaker. 7. Shoulder surgery. 8. Knee replacement. HOME MEDICATIONS: Include; 1. Lovastatin. 2. Losartan. 3. Amlodipine. 4. Lasix. 5. Coreg. 6. Aspirin. 7. Levothyroxine. 8. Acetaminophen. 9. Carvedilol. REVIEW OF SYSTEMS: A 10-point review of systems is reviewed and as above, otherwise negative. PHYSICAL EXAMINATION: GENERAL: Patient is a pleasant 88-year-old, who is in no acute distress. The patient appears their stated age. VITAL SIGNS: Blood pressure 150/67, pulse 68, temperature is afebrile. NEUROLOGIC: The patient is alert and oriented x3 with no focal neurologic deficits. HEENT: Sclerae without icterus. Mouth has moist mucous membranes with normal pallor. NECK: No JVD. Carotid upstroke brisk. No bruits bilaterally. LUNGS: Crackles noted bilaterally. BACK: No scoliosis or kyphosis. CARDIAC: Regular rate and rhythm with normal S1 and S2. No S3 or S4 noted. No significant rubs, murmurs, thrills, or gallops noted throughout the precordium. PMI is not displaced. There is no parasternal heave. ABDOMEN: Soft, nontender, nondistended. No peritoneal signs present. No hepatosplenomegaly. No abnormal striae. EXTREMITIES: 2+ femoral and 2+ dorsalis pedis pulses. No cyanosis, clubbing, or edema. SKIN: No gross abnormalities. PERTINENT LABORATORY DATA: Hemoglobin 10.8, hematocrit 34.4. Creatinine 0.87. BNP of 1222. Peak troponin of 0.055. IMPRESSION: 1. Acute heart failure of unknown etiology. 2. Coronary artery disease. 3. Status post bypass surgery. RECOMMENDATIONS: Ms. Monson's last LVEF has been 60% to 65% prior to bypass surgery. We will repeat her echo to determine whether she has diastolic or systolic dysfunction. She clearly had crackles and decreased breath sounds noted bilaterally. She has been placed on IV Lasix 40 mg b.i.d. and we will continue. If no response, we will add metolazone or increase IV Lasix. Her son states she has not been very compliant with incentive spirometry. We would like to have incentive spirometry once again at bedside. Continue amlodipine in addition to aspirin, atorvastatin, and Multaq. She appears to be in sinus rhythm. Job ID: [id number]
[2019-01-30] MEDS ORDERED: Dronedarone HCl 400 MG TAB PO SCH (20:00)
[2019-01-30] MEDS: Atorvastatin Calcium 20 MG TAB PO SCH (20:48)
[2019-01-31] MEDS: Acetaminophen 325 MG TAB PO PRN ×2 (00:03→23:26)
[2019-01-31 05:52] LABS: Anion Gap 9 mmol/L (10-20); BUN (Urea Nitrogen) 15 mg/dL (9.8-20.1); Calc. Creatinine Clearance 62 mL/min (70-130); Calcium 8.5 mg/dL (7.8-10.44); Carbon Dioxide 37 mmol/L (23-31); Chloride 97 mmol/L (98-107); Estimated GFR-MDRD 60; Glucose 94 mg/dL (83-110); Potassium 3.1 mmol/L (3.5-5.1); Sodium 140 mmol/L (136-145)
[2019-01-31 06:03] LABS: Band 8 % (5-11); Eosinophils 3 % (0-10); Hemoglobin 10.2 g/dL (12.0-16.0); Lymphocytes 34 % (21-51); MDiff Complete? YES; Mean Corpuscular HGB CONC 31.7 g/dL (32.0-36.0); Mean Corpuscular Hemoglobin 29.1 pg (27.0-31.0); Mean Corpuscular Volume 91.8 fL (78.0-98.0); Mean Platelet Volume 9.1 fL (7.4-10.4); Monocytes 12 % (0-10); Neutrophil 43 % (42-75); Platelet Count 174 thou/uL (130-400); Platelet Morphology Comment Appears Adequate; RBC Distribution Width 14.1 % (11.5-14.5); RBC Morphology Normal; Red Blood Cell (RBC) Count 3.49 mill/uL (4.20-5.40); White Blood Cell (WBC) Count 4.9 thou/uL (4.8-10.8)
[2019-01-31] MEDS: Furosemide 40 MG/4 ML VIAL SLOW IVP SCH ×2 (06:25→13:00)
[2019-01-31] MEDS: Levothyroxine Sodium 50 MCG TAB PO SCH (06:25)
[2019-01-31] MEDS: Carvedilol 3.125 MG TAB PO SCH ×2 (08:12→16:20)
[2019-01-31] MEDS: Dronedarone HCl 400 MG TAB PO SCH ×2 (08:12→16:20)
[2019-01-31] MEDS: Amlodipine 5 MG TAB PO SCH (08:12)
[2019-01-31] MEDS: Aspirin 325 mg Enteric Coated Tablet PO SCH (08:12)
[2019-01-31] MEDS: Enoxaparin Sodium 40 MG/0.4 ML SYRINGE SC SCH (08:12)
--- NOTE | 2019-01-31 10:29 | PDOC.CTH ---
Cardiology Progress Note - Subjective 1. Acute on chronic diastolic CHF 2. Hypokalemia 3. CAD s/p recent CABG 4. UTI 5. HTN Improved symptomatically. Patient reported elevated BP in last 24 hours, but BP meds held yesterday and resumed today. Will continue to monitor. Continue IV lasix one more day. Replace K+. Will d/c nitropaste. Cardiac rehab consult. Hopefully home Saturday. - Objective Vital Signs Temp Pulse Resp BP BP Pulse Ox 01/31/19 08:12 79 01/31/19 08:10 97 01/31/19 08:07 98.6 F 79 16 150/69 H 97 01/31/19 04:00 97.4 F L 67 16 155/72 H 97 01/31/19 00:15 75 168/72 H 96 Weight 191 lb 1.6 oz 01/30/19 01/31/19 02/01/19 06:59 06:59 07:59 Intake Total 830 Output Total 850 Balance -20 - Physical Examination General/Neuro: alert & oriented x3 Neck: no JVD present Lungs: CTA Heart: RRR Abdomen: NT/ND Extremities: other: (no edema) - Telemetry Telemetry Rhythm: V-pacing - Labs Result Diagrams: 01/31/19 04:32 01/31/19 04:32 Troponin/CKMB CK-MB (CK-2) 1.8 ng/mL (0-6.6) 01/30/19 07:26 Troponin I 0.062 ng/mL (< 0.028) H 01/30/19 14:00
[2019-01-31] MEDS ORDERED: Bisacodyl 10 MG SUPP PR PRN (11:36)
[2019-01-31] MEDS ORDERED: Bisacodyl 5 MG TAB PO PRN (11:37)
--- NOTE | 2019-01-31 12:32 | PDOC.PN ---
- Subjective Encounter Start Date: 01/31/19 Encounter Start Time: 07:00 Pt seen for followup re: CHF exacerbation. Feels better. - Objective Resuscitation Status - Order Detail: 01/30/19 11:32 Resuscitation Status Routine Resuscitation Status: DNAR: NO Resuscitation Discussed with: patient SHERMAN Reviewed: Yes Vital Signs & Weight: Vital Signs (12 hours) Temp Pulse Resp BP BP Pulse Ox 01/31/19 11:16 98.3 F 62 16 127/60 94 L 01/31/19 08:12 79 01/31/19 08:10 97 01/31/19 08:07 98.6 F 79 16 150/69 H 97 01/31/19 04:00 97.4 F L 67 16 155/72 H 97 Weight Weight 191 lb 1.6 oz I&O: 01/30/19 01/31/19 02/01/19 06:59 06:59 07:59 Intake Total 830 Output Total 850 Balance -20 Result Diagrams: 01/31/19 04:32 01/31/19 04:32 EKG Reviewed by me: Yes (Tele: NSR) Phys Exam - Physical Examination Constitutional: NAD HEENT: moist MMs, sclera anicteric, oral pharynx no lesions, 2+ tonsils Neck: no nodes, no JVD, supple, full ROM Bon crackles Cardiovascular: RRR, no rub S1, S2 Gastrointestinal: soft, non-tender, no distention, positive bowel sounds Neurological: moves all 4 limbs Psychiatric: normal affect, A&O x 3 Dx/Plan (1) Acute on chronic diastolic CHF (congestive heart failure), NYHA class 3 Code(s): I50.33 - ACUTE ON CHRONIC DIASTOLIC (CONGESTIVE) HEART FAILURE Status : Acute Comment: Improving, continue IV furosemide (2) Sepsis Code(s): A41.9 - SEPSIS, UNSPECIFIED ORGANISM Status: Acute Comment: secondary to UTI (3) UTI (urinary tract infection) Status: Acute Comment: continue IV levofloxacin (4) CAD (coronary artery disease), [place] coronary artery Code(s): I25.10 - ATHSCL HEART DISEASE OF [place] CORONARY ARTERY W/O ANG PCTRS Status: Chronic Qualifiers: [place] vs. transplanted heart: [place] heart Associated angina: with unstable angina Qualified Code(s): I25.110 - Atherosclerotic heart disease of [place] coronary artery with unstable angina pectoris Comment: on ASA (5) HLD (hyperlipidemia) Code(s): E78.5 - HYPERLIPIDEMIA, UNSPECIFIED Status: Chronic Comment: continue statin (6) Hypertension Code(s): I10 - ESSENTIAL (PRIMARY) HYPERTENSION Status: Chronic Qualifiers: Hypertension type: essential hypertension Qualified Code(s): I10 - Essential (primary) hypertension Comment: controlled (7) Hypothyroid Code(s): E03.9 - HYPOTHYROIDISM, UNSPECIFIED Status: Chronic Comment: continue synthroid (8) Acute on chronic diastolic CHF (congestive heart failure), NYHA class 3 Code(s): I50.33 - ACUTE ON CHRONIC DIASTOLIC (CONGESTIVE) HEART FAILURE Status : Acute - Plan * . Review of Systems - Review of Systems Constitutional: negative: fever, chills, sweats, weakness, malaise Respiratory: SOB with Excertion. negative: Cough, Shortness of Breath, Pleuritic Pain, Wheezing Cardiovascular: negative: chest pain, palpitations, orthopnea, paroxysmal nocturnal dyspnea, edema, light headedness Gastrointestinal: negative: Nausea, Vomiting, Abdominal Pain, Diarrhea, Constipation, Melena, Hematochezia Genitourinary: negative: Dysuria, Frequency, Incontinence, Hematuria, Retention - Medications/Allergies Allergies/Adverse Reactions: Allergies Allergy/AdvReac Type Severity Reaction Status Date / Time adhesive Allergy Rash Verified 12/22/18 00:09 cefazolin [From Ancef] Allergy Verified 12/21/18 23:37 codeine Allergy Verified 12/21/18 23:37 iodine Allergy Verified 12/22/18 04:57 shellfish derived Allergy Short of Verified 12/21/18 23:37 Breath Medications: Current Medications Acetaminophen (Tylenol) 650 mg PO Q4H PRN PRN Reason: Headache/Fever/Mild Pain (1-3) Last Admin: 01/31/19 00:03 Dose: 650 mg Acetaminophen (Tylenol) 650 mg [place] Q4H PRN PRN Reason: Headache/Fever/Mild Pain (1-3) Amlodipine Besylate (Norvasc) 5 mg PO DAILY [facility] Last Admin: 01/31/19 08:12 Dose: 5 mg Aspirin (Ecotrin) 325 mg PO DAILY [facility] Last Admin: 01/31/19 08:12 Dose: 325 mg Atorvastatin Calcium (Lipitor) 20 mg PO [facility] Last Admin: 03/08/19 20:48 Dose: 20 mg Bisacodyl (Dulcolax) 10 mg [place] Q12H PRN PRN Reason: Constipation Bisacodyl (Dulcolax) 10 mg PO Q12H PRN PRN Reason: CONSTIPATION Carvedilol (Coreg) 3.125 mg PO BID-[facility] Last Admin: 01/31/19 08:12 Dose: 3.125 mg Docusate Sodium (Colace) 100 mg PO BID [facility] Last Admin: 01/31/19 08:12 Dose: 400 mg Enoxaparin Sodium (Lovenox) 40 mg SC 0900 [facility] Last Admin: 01/31/19 08:12 Dose: 40 mg Furosemide (Lasix) 40 mg SLOW IVP 0600,1400 [facility] Last Admin: 01/31/19 06:25 Dose: 40 mg Levofloxacin 750 mg/ Device 150 mls @ 100 mls/hr IVPB Q24HR [facility] Last Admin: 01/30/19 14:46 Dose: Not Given Vancomycin HCl 1.25 gm/ Sodium (Chloride) 250 mls @ 166.667 mls/hr IVPB 1500 [facility] Levothyroxine Sodium (Synthroid) 50 mcg PO 0600 [facility] Last Admin: 01/31/19 06:25 Dose: 50 mcg Miscellaneous Medication (Pharmacy To Dose) 0 each IVPB ASDIR PRN PRN Reason: VANC AND RENAL DOSING Polyethylene Glycol (Miralax) 17 gm PO DAILY [facility] Potassium Ch[facility] ([facility]Con) [facility] Last Admin: 01/31/19 12:31 Dose: 40 meq Senna/Docusate Sodium (Senokot S) 2 tab PO BID PRN PRN Reason: Constipation Sodium Chloride (Flush - Normal Saline) 10 ml IVF Q12HR [facility] Last Admin: 01/31/19 08:12 Dose: 10 ml Sodium Chloride (Flush - Normal Saline) 10 ml IVF PRN PRN PRN Reason: Saline Flush
[2019-01-31] MEDS ORDERED: Vancomycin HCl 1.25 GM in Sodium Chloride 0.9% 250 ML 250 ML IVPB SCH (15:00)
[2019-01-31] MEDS: Atorvastatin Calcium 20 MG TAB PO SCH (20:33)
[2019-01-31] MEDS: Docusate 100 MG CAP PO SCH (20:33)
[2019-02-01 05:35] LABS: Anion Gap 11 mmol/L (10-20); BUN (Urea Nitrogen) 17 mg/dL (9.8-20.1); Calc. Creatinine Clearance 49 mL/min (70-130); Calcium 8.5 mg/dL (7.8-10.44); Carbon Dioxide 34 mmol/L (23-31); Chloride 97 mmol/L (98-107); Estimated GFR-MDRD 48; Glucose 97 mg/dL (83-110); Potassium 3.8 mmol/L (3.5-5.1); Sodium 138 mmol/L (136-145)
[2019-02-01 05:44] LABS: Band 2 % (5-11); Hemoglobin 10.1 g/dL (12.0-16.0); Lymphocytes 16 % (21-51); MDiff Complete? YES; Mean Corpuscular HGB CONC 30.8 g/dL (32.0-36.0); Mean Corpuscular Hemoglobin 28.4 pg (27.0-31.0); Mean Corpuscular Volume 92.4 fL (78.0-98.0); Mean Platelet Volume 9.4 fL (7.4-10.4); Monocytes 19 % (0-10); Myelocyte 1 % (0-0); Neutrophil 58 % (42-75); Platelet Count 171 thou/uL (130-400); Platelet Morphology Comment Appears Adequate; RBC Distribution Width 14.2 % (11.5-14.5); RBC Morphology Normal; Reactive Lymphocytes 4 % (0-10); Red Blood Cell (RBC) Count 3.56 mill/uL (4.20-5.40); White Blood Cell (WBC) Count 6.1 thou/uL (4.8-10.8)
[2019-02-01] MEDS: Levothyroxine Sodium 50 MCG TAB PO SCH (06:02)
[2019-02-01] MEDS: Furosemide 40 MG/4 ML VIAL SLOW IVP SCH (06:03)
[2019-02-01] MEDS: Enoxaparin Sodium 40 MG/0.4 ML SYRINGE SC SCH (07:56)
[2019-02-01] MEDS: Aspirin 325 mg Enteric Coated Tablet PO SCH (07:57)
[2019-02-01] MEDS: Amlodipine 5 MG TAB PO SCH (07:57)
[2019-02-01] MEDS: Polyethylene Glycol 3350 17 GM Packet PO SCH (07:57)
[2019-02-01] MEDS: Dronedarone HCl 400 MG TAB PO SCH ×2 (07:57→16:21)
[2019-02-01] MEDS: Carvedilol 3.125 MG TAB PO SCH ×2 (07:57→16:20)
[2019-02-01] MEDS: Docusate 100 MG CAP PO SCH ×2 (07:57→20:36)
--- NOTE | 2019-02-01 09:49 | PDOC.CTH ---
Cardiology Progress Note - Subjective Patient states improved respiratory status. Slept without O2 last night. walked in [place] yesterday. C/O left leg/thigh tightness at incision site that started last night. - Objective Vital Signs Temp Pulse Resp BP Pulse Ox 02/01/19 07:57 60 02/01/19 07:53 98.3 F 60 18 135/70 97 02/01/19 04:00 97.9 F 63 18 131/63 95 Weight 188 lb 4.8 oz 01/31/19 02/01/19 02/02/19 05:59 06:59 06:59 Intake Total Output Total Balance - Physical Examination General/Neuro: alert & oriented x3 Neck: no JVD present Lungs: CTA Heart: RRR Abdomen: NT/ND Extremities: other: (no edema) Other PE findings: Left thigh with erythema, warmth - Telemetry Telemetry Rhythm: SR; intermittent v-pacing - Labs Result Diagrams: 02/01/19 04:00 02/01/19 04:00 Troponin/CKMB CK-MB (CK-2) 1.8 ng/mL (0-6.6) 01/30/19 07:26 Troponin I 0.062 ng/mL (< 0.028) H 01/30/19 14:00 - Assessment/Plan 1. Acute on chronic diastolic CHF 2. Hypokalemia 3. CAD s/p recent CABG 4. UTI 5. HTN 6. Possible Cellulitis left thigh Volume status improved. Change lasix to po and decrease potassium to once daily. Patient on Levaquin and Vanc for UTI. Will have [facility] come by to examine incision site.
--- NOTE | 2019-02-01 11:46 | RAD ---
TWO VIEWS OF THE CHEST: COMPARISON: 01/30/2019. HISTORY: Pleural effusions. FINDINGS: Two views of the chest show an enlarged but stable cardiomediastinal silhouette. The pacemaker is un changed in position. The patient is status post sternotomy. There is a moderate left pleural effusi on and a small right pleural effusion. These are relatively stable compared to the prior examination . IMPRESSION: Stable bilateral pleural effusions. POS: PADMINI
[2019-02-01] MEDS ORDERED: Clindamycin/D5W 900 MG in Premix Bag 1 BAG IVPB SCH (13:00)
--- NOTE | 2019-02-01 13:25 | PDOC.PN ---
- Subjective Encounter Start Date: 02/01/19 Encounter Start Time: 09:00 Pt seen for followup re: diastolic CHF exacerbation. feels well. - Objective Resuscitation Status - Order Detail: 01/30/19 11:32 Resuscitation Status Routine Resuscitation Status: DNAR: NO Resuscitation Discussed with: patient Vital Signs & Weight: Vital Signs (12 hours) Temp Pulse Resp BP Pulse Ox 02/01/19 11:00 98.7 F 60 18 116/56 L 96 02/01/19 07:57 60 02/01/19 07:55 97 02/01/19 07:53 98.3 F 60 18 135/70 97 02/01/19 04:00 97.9 F 63 18 131/63 95 Weight Weight 188 lb 4.8 oz I&O: 01/31/19 02/01/19 02/02/19 05:59 06:59 06:59 Intake Total Output Total Balance Result Diagrams: 02/01/19 04:00 02/01/19 04:00 Phys Exam - Physical Examination Constitutional: NAD HEENT: moist MMs Neck: supple Respiratory: clear to auscultation bilateral Cardiovascular: RRR Gastrointestinal: soft Neurological: moves all 4 limbs Psychiatric: normal affect Deviation from normal: left thigh rash Dx/Plan (1) Acute on chronic diastolic CHF (congestive heart failure), NYHA class 3 Code(s): I50.33 - ACUTE ON CHRONIC DIASTOLIC (CONGESTIVE) HEART FAILURE Status : Acute Comment: Improving, switch to oral furosemide Repeat chest x-ray (2) UTI (urinary tract infection) Status: Acute Comment: continue levofloxacin (3) Cellulitis Code(s): L03.90 - CELLULITIS, UNSPECIFIED Status: Acute Comment: Pt is on vancomycin, clindamycin added (4) CAD (coronary artery disease), [place] coronary artery Code(s): I25.10 - ATHSCL HEART DISEASE OF [place] CORONARY ARTERY W/O ANG PCTRS Status: Chronic Qualifiers: [place] vs. transplanted heart: [place] heart Associated angina: with unstable angina Qualified Code(s): I25.110 - Atherosclerotic heart disease of [place] coronary artery with unstable angina pectoris Comment: stable (5) HLD (hyperlipidemia) Code(s): E78.5 - HYPERLIPIDEMIA, UNSPECIFIED Status: Chronic Comment: on statin (6) Hypertension Code(s): I10 - ESSENTIAL (PRIMARY) HYPERTENSION Status: Chronic Qualifiers: Hypertension type: essential hypertension Qualified Code(s): I10 - Essential (primary) hypertension Comment: controlled (7) Hypothyroid Code(s): E03.9 - HYPOTHYROIDISM, UNSPECIFIED Status: Chronic Comment: on synthroid (8) Sepsis Code(s): A41.9 - SEPSIS, UNSPECIFIED ORGANISM Status: Resolved - Plan plan discussed w/ family, out of bed/ambulate * . Review of Systems - Review of Systems Respiratory: SOB with Excertion. negative: Cough, Shortness of Breath, Pleuritic Pain, Wheezing Cardiovascular: negative: chest pain, palpitations, orthopnea, paroxysmal nocturnal dyspnea, edema, light headedness - Medications/Allergies Allergies/Adverse Reactions: Allergies Allergy/AdvReac Type Severity Reaction Status Date / Time adhesive Allergy Rash Verified 12/22/18 00:09 cefazolin [From [facility]] Allergy Verified 12/21/18 23:37 codeine Allergy Verified 12/21/18 23:37 iodine Allergy Verified 12/22/18 04:57 shellfish derived Allergy Short of Verified 12/21/18 23:37 Breath Medications: Current Medications Acetaminophen (Tylenol) 650 mg PO Q4H PRN PRN Reason: Headache/Fever/Mild Pain (1-3) Last Admin: 01/31/19 23:26 Dose: 650 mg Acetaminophen (Tylenol) 650 mg [place] Q4H PRN PRN Reason: Headache/Fever/Mild Pain (1-3) Amlodipine Besylate (Norvasc) 5 mg PO DAILY [facility] Last Admin: 02/01/19 07:57 Dose: 5 mg Aspirin (Ecotrin) 325 mg PO DAILY [facility] Last Admin: 02/01/19 07:57 Dose: 325 mg Atorvastatin Calcium (Lipitor) 20 mg PO [facility] Last Admin: 01/31/19 20:33 Dose: 20 mg Bisacodyl (Dulcolax) 10 mg [place] Q12H PRN PRN Reason: Constipation Bisacodyl (Dulcolax) 10 mg PO Q12H PRN PRN Reason: CONSTIPATION Carvedilol (Coreg) 3.125 mg PO BID-[facility] Last Admin: 02/01/19 07:57 Dose: 3.125 mg Clindamycin HCl (Cleocin) 300 mg PO 0100,0900,1700 [facility] Docusate Sodium (Colace) 100 mg PO BID [facility] Last Admin: 02/01/19 07:57 Dose: 100 mg Dronedarone (Multaq) 400 mg PO BID-[facility] Last Admin: 02/01/19 07:57 Dose: 400 mg Enoxaparin Sodium (Lovenox) 40 mg SC 0900 [facility] Last Admin: 02/01/19 07:56 Dose: 40 mg Heparin Sodium (Porcine) (Heparin Lock Flush 100 Units/Ml) 1,000 units IVF NOW [facility] Stop: 02/01/19 15:15 Clindamycin Phosphate/Dextrose (900 mg/ Device) 50 mls @ 100 mls/hr IVPB NOW [facility] Stop: 02/01/19 15:00 Levofloxacin (Levaquin) 500 mg PO 0600 [facility] Levofloxacin (Levaquin) 500 mg PO NOW [facility] Stop: 02/01/19 15:00 Levothyroxine Sodium (Synthroid) 50 mcg PO 0600 [facility] Last Admin: 02/01/19 06:02 Dose: 50 mcg Miscellaneous Medication (Pharmacy To Dose) 0 each IVPB ASDIR PRN PRN Reason: VANC AND RENAL DOSING Polyethylene Glycol (Miralax) 17 gm PO DAILY [facility] Last Admin: 02/01/19 07:57 Dose: Not Given Potassium Chloride (Klor-Con) 40 meq PO QA-[facility] Senna/Docusate Sodium (Senokot S) 2 tab PO BID PRN PRN Reason: Constipation Sodium Chloride (Flush - Normal Saline) 10 ml IVF Q12HR [facility] Last Admin: 02/01/19 07:57 Dose: 10 ml Sodium Chloride (Flush - Normal Saline) 10 ml IVF PRN PRN PRN Reason: Saline Flush
--- NOTE | 2019-02-01 14:11 | RAD ---
SINGLE VIEW OF THE CHEST: COMPARISON: 02/01/2019. HISTORY: Thoracocentesis. FINDINGS: A single view of the chest shows a cardiomediastinal silhouette which is upper limits of normal in si ze. There is decreased size of the moderate left pleural effusion. Small residual bilateral pleural effusions remain. The patient is status post sternotomy. No pneumothorax is seen. The pacemaker i s unchanged in position. IMPRESSION: Decreased size of left pleural effusion without evidence of pneumothorax. POS: C
--- NOTE | 2019-02-01 14:41 | CON ---
DATE OF CONSULTATION: HISTORY OF PRESENT ILLNESS: An 88-year-old female, who was seen by Dr. Maciel in our office postop CABG. She was doing well on discharge when she presented with increasing shortness of breath and cough. X-ray shows findings consistent with CHF. Echocardiogram done during this admission now shows that the EF is still normal. She is diuresed and she is feeling better. PAST MEDICAL HISTORY: Pertinent for atrial fibrillation, hypothyroidism, hypertension, hyperlipidemia. PAST SURGICAL HISTORY: Including recent bypass, cystectomy, pacemaker, knee surgery, ankle surgery, shoulder surgery. SOCIAL HISTORY: No alcohol or tobacco abuse. ALLERGIES: MULTIPLE MEDICATIONS APPARENTLY INCLUDING ANCEF, IODINE. MEDICATIONS: Home medicines: 1. Synthroid 50. 2. Hydrocodone. 3. Pepcid. 4. Lasix 40 a day. 5. Coreg 3.125. 6. Aspirin. 7. Amlodipine 5. REVIEW OF SYSTEMS: Otherwise, 10-point negative. PHYSICAL EXAMINATION: VITAL SIGNS: Saturations are 96% on room air, respiratory rate 18, temperature 98, pulse 60, blood pressure 116/56. CHEST: Decreased breath sounds in left lower one-third. Right lung unremarkable. CARDIAC: Normal S1 and S2. No gallops. ABDOMEN: Soft without masses. She has some cellulitis involving the left leg where she had the incision for vein grafting. LABORATORY DATA: White count 6000, H and H of 10 and 32, platelet count is 171. Renal function is normal. Chest x-ray shows left pleural effusion. IMPRESSION: 1. Status post coronary artery bypass graft, large bilateral pleural effusion, left greater than right. 2. Hypertension. 3. Hypothyroidism. 4. Nonsmoker. PLAN: 1. Continue diuretics as prescribed. I am going to tap the left chest and send fluid for appropriate studies including cytology and culture. 2. We will notify Dr. Maciel. This is a consultation note of 70 minutes, 50% in direct patient care. Job ID: [id number]
[2019-02-01 15:05] LABS: Fluid, Triglycerides 22 mg/dL (Not Available); Pleural Fluid, Amylase Less than 30 U/L (Not Available); Pleural Fluid, Glucose 106 mg/dL; Pleural Fluid, LDH 126 U/L (Not Available); Pleural Fluid, Protein 3.3 g/dL
[2019-02-01 15:08] LABS: Body Fluid Source Pleural Fluid; Clarity Hazy (Clear)
[2019-02-01 15:09] LABS: RBC Background Count 0.006; RBC Count-Automated 16000 /cumm; Tube # 3; WBC/NonHematic-Auto 516 /cumm
[2019-02-01] MEDS ORDERED: Furosemide 40 MG TAB PO SCH (15:15)
[2019-02-01 15:36] LABS: BF Segmented Neutrophils 6 %; Cell Count Non Hematic 21 %; Eosinophils 2 %; Lymphocytes 70 %
[2019-02-01] MEDS: Clindamycin 150 MG CAP PO SCH (16:20)
[2019-02-01] MEDS: Atorvastatin Calcium 20 MG TAB PO SCH (20:36)
[2019-02-02] MEDS: Clindamycin 150 MG CAP PO SCH ×3 (00:05→16:37)
[2019-02-02] MEDS: Levothyroxine Sodium 50 MCG TAB PO SCH (06:25)
[2019-02-02 07:03] LABS: #Basophils 0.1 thou/uL (0.0-0.2); #Eosinphils 0.2 thou/uL (0.0-0.7); #Lymphocytes 1.9 thou/uL (1.20-3.40); %Basophils 1.1 % (0.0-1.0); %Eosinophils 3.1 % (0.0-10.0); %Lymphocytes 25.9 % (21.0-51.0); %Monocytes 13.7 % (0.0-10.0); %Neutrophils 56.3 % (42.0-75.0); Hemoglobin 11.4 g/dL (12.0-16.0); Mean Corpuscular HGB CONC 31.2 g/dL (32.0-36.0); Mean Corpuscular Hemoglobin 28.3 pg (27.0-31.0); Mean Corpuscular Volume 90.8 fL (78.0-98.0); Mean Platelet Volume 9.1 fL (7.4-10.4); Platelet Count 207 thou/uL (130-400); RBC Distribution Width 14.3 % (11.5-14.5); Red Blood Cell (RBC) Count 4.02 mill/uL (4.20-5.40); White Blood Cell (WBC) Count 7.2 thou/uL (4.8-10.8)
[2019-02-02 07:08] LABS: Anion Gap 12 mmol/L (10-20); BUN (Urea Nitrogen) 20 mg/dL (9.8-20.1); Calc. Creatinine Clearance 43 mL/min (70-130); Calcium 8.7 mg/dL (7.8-10.44); Carbon Dioxide 31 mmol/L (23-31); Chloride 98 mmol/L (98-107); Estimated GFR-MDRD 42; Glucose 102 mg/dL (83-110); Potassium 4.2 mmol/L (3.5-5.1); Sodium 137 mmol/L (136-145)
--- NOTE | 2019-02-02 08:12 | OP ---
DATE OF PROCEDURE: 02/01/2019 INDICATION: An 88-year-old female reconsulted regarding shortness of breath and bilateral pleural effusion. X-ray shows a large left pleural effusion. DESCRIPTION OF PROCEDURE: After informed consent from the patient, sitting apparently on the bedside, left posterior thorax was cleaned with chlorhexidine. 1% lidocaine infiltrated into the left ninth intercostal space in the midscapular line, the pleural cavity was entered in, and about 20 mL of sanguinous fluid was removed. Thereafter, using an 8-Q[place] catheter, over 1000 mL of fluid was removed without any difficulty. Pleural fluid was sent for appropriate studies including culture and cytology. The patient tolerated the procedure well. Job ID: [id number]
[2019-02-02] MEDS: Carvedilol 3.125 MG TAB PO SCH ×2 (09:13→16:37)
[2019-02-02] MEDS: Dronedarone HCl 400 MG TAB PO SCH ×2 (09:14→16:37)
[2019-02-02] MEDS: Potassium Chloride 10 MEQ TAB PO SCH (09:14)
[2019-02-02] MEDS: Amlodipine 5 MG TAB PO SCH (09:15)
[2019-02-02] MEDS: Aspirin 325 mg Enteric Coated Tablet PO SCH (09:16)
[2019-02-02] MEDS: Enoxaparin Sodium 40 MG/0.4 ML SYRINGE SC SCH (09:16)
[2019-02-02] MEDS: Docusate 100 MG CAP PO SCH ×2 (09:16→21:13)
[2019-02-02] MEDS: Polyethylene Glycol 3350 17 GM Packet PO SCH (09:25)
--- NOTE | 2019-02-02 10:04 | PDOC.PN ---
- Subjective Encounter Start Date: 02/02/19 Encounter Start Time: 11:40 Subjective: Left thigh cellulitis was worse in hospital, clindamycin restarted yesterda -: and seems a little better per patient. Breathing much better since -: thoracentesis. - Objective Resuscitation Status - Order Detail: 01/30/19 11:32 Resuscitation Status Routine Resuscitation Status: DNAR: NO Resuscitation Discussed with: patient MAR Reviewed: Yes Vital Signs & Weight: Vital Signs (12 hours) Temp Pulse Resp BP Pulse Ox 02/02/19 07:36 98.2 F 68 20 134/60 95 02/02/19 04:00 98.3 F 63 18 144/66 H 96 02/02/19 00:05 98.5 F 66 20 134/63 94 L Weight Weight 186 lb 6.4 oz I&O: 02/01/19 02/02/19 02/03/19 06:59 06:59 06:59 Intake Total 1520 Output Total 1400 Balance 120 Result Diagrams: 02/02/19 06:43 02/02/19 06:43 Phys Exam - Physical Examination Constitutional: NAD HEENT: moist MMs Respiratory: no wheezing, no rhonchi rales in left lung base, good air movement throughout Cardiovascular: RRR Gastrointestinal: soft, positive bowel sounds left inner thigh with redness and swelling around vein harvest site Neurological: non-focal, moves all 4 limbs Psychiatric: normal affect, A&O x 3 Dx/Plan (1) Acute on chronic diastolic CHF (congestive heart failure), NYHA class 3 Code(s): I50.33 - ACUTE ON CHRONIC DIASTOLIC (CONGESTIVE) HEART FAILURE Status : Acute Comment: switched to oral Furosemide (2) Pleural effusion Code(s): J90 - PLEURAL EFFUSION, NOT ELSEWHERE CLASSIFIED Status: Acute Comment: Bilateral, L>R, s/p thoracentesis (3) UTI (urinary tract infection) Status: Acute Comment: growing E. coli, sensitive to fluoroquinolones, continue levofloxacin (4) Cellulitis Code(s): L03.90 - CELLULITIS, UNSPECIFIED Status: Acute Comment: Pt now on Levaquin and Clindamycin (5) CAD (coronary artery disease), [place] coronary artery Code(s): I25.10 - ATHSCL HEART DISEASE OF [place] CORONARY ARTERY W/O ANG PCTRS Status: Chronic Qualifiers: [place] vs. transplanted heart: [place] heart Associated angina: with unstable angina Qualified Code(s): I25.110 - Atherosclerotic heart disease of [place] coronary artery with unstable angina pectoris Comment: stable, s/p CABG x4 12/23/2018 (6) HLD (hyperlipidemia) Code(s): E78.5 - HYPERLIPIDEMIA, UNSPECIFIED Status: Chronic Comment: on statin (7) Hypertension Code(s): I10 - ESSENTIAL (PRIMARY) HYPERTENSION Status: Chronic Qualifiers: Hypertension type: essential hypertension Qualified Code(s): I10 - Essential (primary) hypertension Comment: controlled (8) Hypothyroid Code(s): E03.9 - HYPOTHYROIDISM, UNSPECIFIED Status: Chronic Comment: on synthroid (9) Sepsis Code(s): A41.9 - SEPSIS, UNSPECIFIED ORGANISM Status: Resolved - Plan cont current plan of care, continue antibiotics, out of bed/ambulate, DVT proph w/lovenox Spoke with Dr. Espinoza and he said the cellulitis looks better but -: would recommend watch one more day in the hospital before d/c. * . - Discharge Day Encounter end time: 11:50
--- NOTE | 2019-02-02 20:39 | PDOC.CTH ---
Cardiology Progress Note - Subjective The pt seen and examined. No cardiac complaints. No overnight events. - Objective Vital Signs Temp Pulse Pulse Pulse Resp BP BP 02/02/19 16:29 97.8 F 63 19 02/02/19 12:36 98.3 F 68 16 02/02/19 11:53 85 67 147/67 H 122/58 L BP Pulse Ox Pulse Ox Pulse Ox 02/02/19 16:29 118/59 L 97 02/02/19 12:36 128/60 97 02/02/19 11:53 96 95 Weight 186 lb 6.4 oz 02/01/19 02/02/19 02/03/19 06:59 06:59 06:59 Intake Total 1520 1200 Output Total 1400 225 Balance 120 975 - Physical Examination General/Neuro: alert & oriented x3 Neck: no JVD present Lungs: CTA Heart: RRR Abdomen: soft Extremities: other: (No edema) - Telemetry Telemetry Rhythm: SR - Labs Result Diagrams: 02/02/19 06:43 02/03/19 07:17 Troponin/CKMB CK-MB (CK-2) 1.8 ng/mL (0-6.6) 01/30/19 07:26 Troponin I 0.062 ng/mL (< 0.028) H 01/30/19 14:00 - Assessment/Plan 1. Acute on chronic diastolic CHF - stable without Lasix, which will resume when her renal function improve. 2. Lt Pleural effusion with s/p Thoracentesis - 3. CAD s/p recent CABG x4 with SYBIL ligation in 12/23/2018 - 4. UTI - managed by PCP 5. HTN - stable 6. Possible Cellulitis Lt thigh - imoroving with PO ABX. 7. Parox. Afib with S/p ELIEZER/DCCV on 01/07/2019 - remains in SR with Multaq and ASA 325mg qd (s/p SYBIL ligation) 8. Hyperlipidemia - On statin 9. Hypothyroidism - managed by PCP SHERMAN yee * Echo on 01/31/2019 showed EF 55-60%, mild-mod MR, mild TR, small pericardiac effusion, Lt Pleural effusion. Pt. seen and eval. by me. I agree with the A/P by the [facility]. . She is feeling better. Minimal edema. Decreased BS at the bases. RRR. Review of Systems - Review of Systems Constitutional: reports: no symptoms reported EENTM: reports: no symptoms reported Respiratory: reports: no symptoms reported Cardiac (ROS): reports: no symptoms reported ABD/GI: reports: no symptoms reported : reports: no symptoms reported Musculoskeletal: reports: no symptoms reported Skin: reports: no symptoms reported
[2019-02-02] MEDS: Atorvastatin Calcium 20 MG TAB PO SCH (21:13)
[2019-02-03] MEDS: Clindamycin 150 MG CAP PO SCH ×2 (01:26→08:10)
[2019-02-03] MEDS: Levothyroxine Sodium 50 MCG TAB PO SCH (06:21)
[2019-02-03 07:42] LABS: Anion Gap 11 mmol/L (10-20); BUN (Urea Nitrogen) 17 mg/dL (9.8-20.1); Calc. Creatinine Clearance 52 mL/min (70-130); Calcium 8.7 mg/dL (7.8-10.44); Carbon Dioxide 30 mmol/L (23-31); Chloride 98 mmol/L (98-107); Estimated GFR-MDRD 52; Glucose 102 mg/dL (83-110); Potassium 3.6 mmol/L (3.5-5.1); Sodium 135 mmol/L (136-145)
[2019-02-03] MEDS: Dronedarone HCl 400 MG TAB PO SCH (08:09)
[2019-02-03] MEDS: Carvedilol 3.125 MG TAB PO SCH (08:09)
[2019-02-03] MEDS: Amlodipine 5 MG TAB PO SCH (08:10)
[2019-02-03] MEDS: Potassium Chloride 10 MEQ TAB PO SCH (08:10)
[2019-02-03] MEDS: Aspirin 325 mg Enteric Coated Tablet PO SCH (08:10)
[2019-02-03] MEDS: Docusate 100 MG CAP PO SCH (08:11)
[2019-02-03] MEDS: Enoxaparin Sodium 40 MG/0.4 ML SYRINGE SC SCH (08:11)
[2019-02-03] MEDS: Polyethylene Glycol 3350 17 GM Packet PO SCH (08:37)
--- NOTE | 2019-02-03 09:25 | PDOC.PN ---
- Subjective Encounter Start Date: 02/03/19 Encounter Start Time: 10:30 Subjective: Patient reports feeling better. Redness and swelling of left thigh -: improved further. No SOB. No chest pain. - Objective Resuscitation Status - Order Detail: 01/30/19 11:32 Resuscitation Status Routine Resuscitation Status: DNAR: NO Resuscitation Discussed with: patient SHERMAN Reviewed: Yes Vital Signs & Weight: Vital Signs (12 hours) Temp Pulse Resp BP Pulse Ox 02/03/19 08:03 97.9 F 61 20 137/65 96 02/03/19 04:00 97.9 F 60 18 142/66 H 97 Weight Weight 187 lb 4.8 oz I&O: 02/02/19 02/03/19 02/04/19 06:59 06:59 06:59 Intake Total 1520 1680 Output Total 1400 445 Balance 120 1235 Result Diagrams: 02/02/19 06:43 02/03/19 07:17 Phys Exam - Physical Examination Constitutional: NAD HEENT: moist MMs Respiratory: no wheezing, no rales, no rhonchi Cardiovascular: RRR Gastrointestinal: soft, positive bowel sounds Neurological: non-focal, moves all 4 limbs Psychiatric: normal affect, A&O x 3 Deviation from normal: redness and swelling around left medial thigh vein harvest site improved Dx/Plan (1) Acute on chronic diastolic CHF (congestive heart failure), NYHA class 3 Code(s): I50.33 - ACUTE ON CHRONIC DIASTOLIC (CONGESTIVE) HEART FAILURE Status : Acute Comment: switched to oral Furosemide (2) Pleural effusion Code(s): J90 - PLEURAL EFFUSION, NOT ELSEWHERE CLASSIFIED Status: Acute Comment: Bilateral, L>R, s/p thoracentesis (3) UTI (urinary tract infection) Status: Acute Comment: growing E. coli, sensitive to fluoroquinolones, continue levofloxacin (4) Cellulitis Code(s): L03.90 - CELLULITIS, UNSPECIFIED Status: Acute Comment: Pt now on Levaquin and Clindamycin, improved (5) CAD (coronary artery disease), [place] coronary artery Code(s): I25.10 - ATHSCL HEART DISEASE OF [place] CORONARY ARTERY W/O ANG PCTRS Status: Chronic Qualifiers: [place] vs. transplanted heart: [place] heart Associated angina: with unstable angina Qualified Code(s): I25.110 - Atherosclerotic heart disease of [place] coronary artery with unstable angina pectoris Comment: stable, s/p CABG x4 12/23/2018 (6) HLD (hyperlipidemia) Code(s): E78.5 - HYPERLIPIDEMIA, UNSPECIFIED Status: Chronic Comment: on statin (7) Hypertension Code(s): I10 - ESSENTIAL (PRIMARY) HYPERTENSION Status: Chronic Qualifiers: Hypertension type: essential hypertension Qualified Code(s): I10 - Essential (primary) hypertension Comment: controlled (8) Hypothyroid Code(s): E03.9 - HYPOTHYROIDISM, UNSPECIFIED Status: Chronic Comment: on synthroid (9) Sepsis Code(s): A41.9 - SEPSIS, UNSPECIFIED ORGANISM Status: Resolved - Plan cont current plan of care, continue antibiotics discharge home today, f/u with Dr. Espinoza next week as scheduled. * . - Discharge Day Encounter end time: 11:00
[2019-02-03 11:42] VITALS: BP 137/63; TEMP 98
--- NOTE | 2019-02-03 13:59 | PDOC.CTH ---
Cardiology Progress Note - Subjective The pt seen and examined. No cardiac complaints. No overnight events. - Objective Vital Signs Temp Pulse Resp BP Pulse Ox 02/03/19 11:41 98 F 60 19 137/63 97 02/03/19 08:03 97.9 F 61 20 137/65 96 02/03/19 04:00 97.9 F 60 18 142/66 H 97 Weight 187 lb 4.8 oz 02/02/19 02/03/19 02/04/19 06:59 06:59 06:59 Intake Total 1520 1680 Output Total 1400 445 Balance 120 1235 - Physical Examination General/Neuro: alert & oriented x3 Neck: no JVD present Lungs: CTA (diminished at bases) Heart: RRR Abdomen: soft Extremities: other: (No edema) - Telemetry Telemetry Rhythm: SR - Labs Result Diagrams: 02/02/19 06:43 02/03/19 07:17 Troponin/CKMB CK-MB (CK-2) 1.8 ng/mL (0-6.6) 01/30/19 07:26 Troponin I 0.062 ng/mL (< 0.028) H 01/30/19 14:00 - Assessment/Plan 1. Acute on chronic diastolic CHF - stable; will resume Lasix. 2. Lt Pleural effusion with s/p Thoracentesis - stable 3. CAD s/p recent CABG x4 with SYBIL ligation in 12/23/2018 - 4. UTI - managed by PCP 5. HTN - stable 6. Possible Cellulitis Lt thigh - imoroving with PO ABX. 7. Parox. Afib with S/p ELIEZER/DCCV on 01/07/2019 - remains in SR with Multaq and ASA 325mg qd (s/p SYBIL ligation) 8. Hyperlipidemia - On statin 9. Hypothyroidism - managed by PCP MAR reviewed * Echo on 01/31/2019 showed EF 55-60%, mild-mod MR, mild TR, small pericardiac effusion, Lt Pleural effusion. * From Cardiac standpoint, the pt is stable to d/c home. The pt will f/u with Dr Vega' office within 2wks. The prescription of Kcl 20 mEq pd was sent to her pharmacy. Review of Systems - Review of Systems Constitutional: reports: no symptoms reported EENTM: reports: no symptoms reported Respiratory: reports: no symptoms reported Cardiac (ROS): reports: no symptoms reported ABD/GI: reports: no symptoms reported : reports: no symptoms reported Musculoskeletal: reports: no symptoms reported
--- NOTE | 2019-02-04 05:38 | DIS ---
DATE OF ADMISSION: 01/30/2019 DATE OF DISCHARGE: 02/03/2019 PRIMARY CARE PHYSICIAN: Dr. Hernán Loza. REASON FOR ADMISSION: CHF exacerbation and sepsis. DISCHARGE DIAGNOSES: 1. Acute on chronic diastolic congestive heart failure. 2. Pleural effusion, status post thoracentesis. 3. Urinary tract infection with Escherichia coli. 4. Recurrent cellulitis of the left thigh vein harvest site. 5. Coronary artery disease. 6. Hyperlipidemia. 7. Hypertension. 8. Hypothyroidism. 9. Sepsis, resolved. PROCEDURES PERFORMED: 1. Echocardiogram showing an ejection fraction of 55% to 60%, diastolic dysfunction, and a trivial pericardial effusion. 2. Thoracentesis of large left pleural effusion with 1000 mL of fluid removed. CONSULTATIONS: 1. Cardiology, Dr. Booth. 2. CT surgery, Dr. Espinoza. 3. Pulmonology, Dr. Duke. MICROBIOLOGY: Urine culture showing Escherichia coli resistant to ampicillin and sulbactam and trimethoprim and sulfamethoxazole, but sensitive to levofloxacin. Did have 1 out of 2 blood cultures positive for coag-negative staph, which is a contaminant. Pleural fluid AFB smear negative. Culture pending at the time of discharge and pleural fluid bacterial culture preliminary is no growth at 48 hours. SUMMARY OF HOSPITAL COURSE: This is an 88-year-old female, hospitalized earlier in the year for acute myocardial infarction, underwent coronary artery bypass grafting, had some paroxysmal atrial fibrillation afterward with electrical cardioversion. She was discharged to rehab and then sent home from rehab a few days prior to this admission. She was seen by Dr. Espinoza in the clinic for some redness and swelling around her vein harvest site in her left thigh. This was markedly improving. However, she started getting short of breath, having orthopnea, lower extremity edema. She was seen in the emergency room, had room air hypoxia, increased respiratory rate, tachycardia, and bandemia along with evidence of urinary tract infection. Chest x-ray did show large pleural effusion. The patient was admitted to the hospital. She was given IV antibiotics. She was given diuretics. She had an echocardiogram as above, showing diastolic congestive heart failure. The patient did well with diuresis. Her initial sepsis was treated with antibiotics and resolved. She eventually grew out Escherichia coli from her urine. Her clindamycin was discontinued upon presentation to the hospital, and she was put on broad-spectrum antibiotics. Her left thigh wound infection did worsen over that period of time, and eventually, Dr. Espinoza restarted the clindamycin orally about 2 days ago, her infection has improved since then. On the day of discharge, the patient was saturating well on room air. She was started on Multaq and given some samples by Dr. Vega and has been cleared for discharge by Dr. Espinoza and Dr. Vega. DISCHARGE MANAGEMENT: Discharged home to [facility]. ACTIVITY: As tolerated. DIET: Low-sodium, healthy heart, fluid-restricted diet. THERAPY: Resume home health therapy. FOLLOWUP: Follow up with cardiac rehab as scheduled with Dr. Loza on February 25 at 3:30 p.m., with Dr. Vega on February 16 at 9:30 a.m., and with Dr. Espinoza on February 12 at 2:45 p.m. DISCHARGE MEDICATIONS: 1. Multaq 400 mg twice a day. Samples and prescription given by Dr. Vega. 2. Amlodipine 5 mg daily, 30 tabs dispensed. 3. Aspirin 325 mg daily, 30 tabs dispensed. 4. Atorvastatin 20 mg daily, 30 tabs dispensed. 5. Dulcolax 10 mg q.12 hours p.r.n. constipation, 14 tabs dispensed. 6. Coreg 3.125 mg twice a day, 60 tabs dispensed. 7. Clindamycin 300 mg 3 times a day, 5 caps dispensed plus the 37 she still has at home, will make a full 2 weeks of antibiotics after discharge. 8. Colace 100 mg twice a day, 60 caps dispensed. 9. Pepcid 20 mg twice a day, 60 tabs dispensed. 10. Furosemide 40 mg daily, 30 tabs dispensed. 11. Levofloxacin 500 mg daily, 3 tabs dispensed. 12. Levothyroxine 50 mcg daily, 30 tablets dispensed. 13. Nystatin powder applied twice a day. 14. MiraLax 17 g daily, 30 packs dispensed. 15. Resume [place] as needed. 16. Resume Robitussin DM as needed. 17. Resume nitroglycerin sublingual as needed for pain. Arranging the details of this discharge took 35 minutes. Job ID: [id number] MTDD
[2019-02-04] MEDS ORDERED: Furosemide 20 MG TAB PO SCH (09:00)
--- NOTE | 2019-02-04 11:20 | PQF ---
CHLOE WILKERSON RYAN ANDREW MD [id number] CLINICAL DOCUMENTATION IMPROVEMENT CLARIFICATION FORM: ICD-10 Updated PLEASE DO AN ADDENDUM TO THE PROGRESS NOTE WITH ANY DOCUMENTATION UPDATES OR ADDITIONS AND CARRY THROUGH TO DC SUMMARY. THANK YOU. DATE: 02/04/2019 ATTN: DR. AGUILLON Please exercise your independent, professional judgment in responding to the clarification form. Clinical indicators are provided on the bottom of this form for your review Please check appropriate box(s): [ X ] Acute Respiratory Failure: [ X ] with Hypoxia[ ] with Hypercapnia [ ] Acute On Chronic Respiratory Failure: [ ] with Hypoxia [ ] with Hypercapnia [ ] Acute Respiratory Failure due to: (etiology) [ ] ARDS (Acute Respiratory Distress Syndrome) [ ] Chronic Respiratory Failure only [ ] with Hypoxia [ ] with Hypercapnia [ ] Hypoxia [ ] Other diagnosis [ ] Unable to determine In addition, please specify: Present on Admission (POA): [ X ] Yes [ ] No [ ] Unable to determine For continuity of documentation, please document condition throughout progress notes and discharge summary. Thank You. CLINICAL INDICATORS - SIGNS / SYMPTOMS / LABS: 01/30-ER: RESP EXAM INCLUDED FINDINGS OF MILD RESPIRATORY DISTRESS, BREATH SOUNDS NOT CLEAR, RALES PRESENT TO BILATERAL LOWER LOBES. TACHYPNEA, MEASURED 24 IN ED. ALSO WITH DIAGNOSIS: HYPOXIA 01/30-CXR: BILATERAL PLEURAL EFFUSIONS, CARDIOMEGALY, PULMONARY EDEMA. WORSENING CHF. 02/03-DC SUMMARY: SHE STARTED GETTING SHORT OF BREATH, HAVING ORTHOPNEA, LOWER EXTREMITY EDEMA. SHE WAS SEEN IN THE ER, HAD ROOM AIR HYPOXIA, INCREASED RESPIRATORY RATE, TACHYCARDIA... CXR DID SHOW LARGE PLEURAL EFFUSION. ECHO SHOWING DIASTOLIC CHF... ON THE DAY OF DISCHARGE, THE PATIENT WAS SATURATING WELL ON ROOM AIR. RISK FACTORS: CHF exacerbation Pleural effusion Sepsis Tobacco abuse / exposure TREATMENTS: Oxygen Monitoring of oxygenation status Respiratory treatments Serial CXR Antibiotics IV Diuresis Pulmonary Consult [employer] (This form is maintained as a part of the permanent medical record) 2014 [employer]. All Rights Reserved Marcelina Preciado RN, CDIS [email or web address] [phone] WANDY
--- NOTE | 2019-02-07 09:16 | EKG ---
Test Reason : Blood Pressure : / mmHG Vent. Rate : 072 BPM Atrial Rate : 074 BPM P-R Int : 080 ms QRS Dur : 080 ms QT Int : 536 ms P-R-T Axes : 000 -28 183 degrees QTc Int : 586 ms Electronic atrial pacemaker Low voltage QRS Prolonged QT Abnormal ECG Baseline Artifact Present Confirmed by MONA PHIPPS ([id number]), copy editor DORIE CASTILLO ([id number]) on 02/07/2019 9:15:37 AM Referred By: Confirmed By:MONA PHIPPS
== END 2019-02-03 14:10 | disposition home health service (06) | DRG 871 ==
LOC: ERS 07:19 → ERHOLD 10:04 → 2NO 13:18
PROVIDERS: ADMIT Internal Medicine; ATTEND Internal Medicine
PROC: 0W9B30Z Drainage of Left Pleural Cavity with Drainage Device, Percutaneous Approach (ICD-10-PCS; principal; 2019-02-01)
DX: A41.51 Sepsis due to Escherichia coli [E. coli] (principal); I50.33 Acute on chronic diastolic (congestive) heart failure; J96.01 Acute respiratory failure with hypoxia; J90 Pleural effusion, not elsewhere classified; N39.0 Urinary tract infection, site not specified; L03.116 Cellulitis of left lower limb; I11.0 Hypertensive heart disease with heart failure; I25.10 Atherosclerotic heart disease of native coronary artery without angina pectoris; Z95.1 Presence of aortocoronary bypass graft; I48.0 Paroxysmal atrial fibrillation; E78.5 Hyperlipidemia, unspecified; E03.9 Hypothyroidism, unspecified; I25.2 Old myocardial infarction; E87.6 Hypokalemia
CPT/HCPCS: 36415; 71045; 71046; 80048; 80053; 81003; 81015; 82150; 82553; 82945; 83605; 83615; 83880; 83986; 84157; 84478; 84484; 85025; 85060; 87040; 87070; 87077; 87086; 87116; 87149; 87186; 87205; 87206; 88112; 88305; 89051; 93005; 93306; 93798; 96365; 96367; 96375; J1642; J1650; J1940; J1956; J3370; J3490; J7050

== ENCOUNTER 2019-06-24 14:11 | Outpatient (CLI) | payer MEDICARE ==
--- NOTE | 2019-06-24 17:40 | MMO ---
Bilateral MAMMO Bilat Screen [facility]. CLINICAL HISTORY: Patient is 88 years old and is seen for screening. The patient has the following family history of breast cancer: mother. VIEWS: The views performed were: bilateral craniocaudal with tomosynthesis and bilateral mediolateral oblique with tomosynthesis. FILMS COMPARED: The present examination has been compared to prior imaging studies performed at [facility] on 06/13/2015, 06/15/2016, 06/18/2017 and 06/20/2018. MAMMOGRAM FINDINGS: The breasts are almost entirely fat. There are no suspicious masses, suspicious calcifications, or new areas of architectural distortion. IMPRESSION: THERE IS NO MAMMOGRAPHIC EVIDENCE OF MALIGNANCY. A ROUTINE FOLLOW-UP MAMMOGRAM IN 1 YEAR IS RECOMMENDED. THE RESULTS OF THIS EXAM WERE SENT TO THE PATIENT. ACR BI-RADS Category 1 - Negative MAMMOGRAPHY NOTE: 1. A negative mammogram report should not delay a biopsy if a dominant of clinically suspicious mass is present. 2. Approximately 10% to 15% of breast cancers are not detected by mammography. 3. Adenosis and dense breasts may obscure an underlying neoplasm. Reported by: LOLIS RUST MD Electonically Signed: [id number]
== END 2019-06-24 14:12 | disposition home or self-care (01) ==
LOC: BICMAMMO 14:11
PROVIDERS: ATTEND Family Medicine
DX: Z12.31 Encounter for screening mammogram for malignant neoplasm of breast (principal); Z80.3 Family history of malignant neoplasm of breast
CPT/HCPCS: 77063; 77067

== ENCOUNTER 2019-08-22 20:21 | Emergency (ER) | payer MEDICARE ==
--- NOTE | 2019-08-22 21:12 | RAD ---
XR Foot Rt 3 View STANDARD HISTORY: Foot injury COMPARISON: None FINDINGS: The bones are demineralized. There are arthritic changes of the first metatarsal phalangeal joint as well as mid foot region. A prominent calcaneal spur of the plantar fascia is noted. A Kurt's type deformity of the calcaneus is also noted. There are no signs of fracture. IMPRESSION: No evidence of fracture.
--- NOTE | 2019-08-22 21:13 | RAD ---
XR Knee Lt 4 View STANDARD HISTORY: Knee injury COMPARISON: None. FINDINGS: The bones appear demineralized. There are vascular calcifications noted. A total knee prost hesis is in good position. No loosening or fracture. IMPRESSION: No acute changes.
--- NOTE | 2019-08-22 21:14 | RAD ---
XR Knee Rt 4 View STANDARD HISTORY: Knee injury COMPARISON: None. FINDINGS: The bones are demineralized. Vascular calcifications are seen. A total knee prosthesis is i n good position without evidence of loosening or fracture. IMPRESSION: No acute injury.
--- NOTE | 2019-08-22 21:21 | CT ---
CT Brain WO Con HISTORY: Head injury COMPARISON: 04/29/2014 study FINDINGS: The ventricular and cisternal system shows minimal atrophy. There are no signs of intracere bral hemorrhage or extra-axial fluid collections. The mastoid air cells and visualized sinuses are clear. IMPRESSION: No acute intracranial abnormalities.
== END 2019-08-22 22:09 | disposition home or self-care (01) ==
LOC: ERS 20:21
DX: S80.212A Abrasion, left knee, initial encounter (principal); S80.211A Abrasion, right knee, initial encounter; S90.416A Abrasion, unspecified lesser toe(s), initial encounter; S00.83XA Contusion of other part of head, initial encounter; I48.91 Unspecified atrial fibrillation; E03.9 Hypothyroidism, unspecified; Z79.899 Other long term (current) drug therapy; Z79.891 Long term (current) use of opiate analgesic; W01.0XXA Fall on same level from slipping, tripping and stumbling without subsequent striking against object, initial encounter
CPT/HCPCS: 70450

== ENCOUNTER 2019-12-19 15:56 | Inpatient (IN) | payer MEDICARE ==
[2019-12-19] MEDS ORDERED: Morphine 2 MG/ML SYRINGE ONE ×2 (16:29→18:46)
[2019-12-19 17:07] LABS: #Basophils 0.1 thou/uL (0.0-0.2); #Eosinphils 0.3 thou/uL (0.0-0.7); #Lymphocytes 2.7 thou/uL (1.20-3.40); #Monocytes 1.4 thou/uL (0.11-0.59); #Neutrophils 6.1 thou/uL (1.40-6.50); %Basophils 0.9 % (0.0-1.0); %Eosinophils 2.6 % (0.0-10.0); %Lymphocytes 25.7 % (21.0-51.0); %Monocytes 12.9 % (0.0-10.0); %Neutrophils 57.9 % (42.0-75.0); Hemoglobin 13.4 g/dL (12.0-16.0); Mean Corpuscular HGB CONC 32.6 g/dL (32.0-36.0); Mean Corpuscular Hemoglobin 29.1 pg (27.0-31.0); Mean Corpuscular Volume 89.2 fL (78.0-98.0); Mean Platelet Volume 9.2 fL (7.4-10.4); Platelet Count 173 thou/uL (130-400); RBC Distribution Width 13.4 % (11.5-14.5); White Blood Cell (WBC) Count 10.5 thou/uL (4.8-10.8)
[2019-12-19 17:13] LABS: PTT 34.2 SEC (22.9-36.1)
--- NOTE | 2019-12-19 17:19 | RAD ---
PORTABLE AP CHEST X-RAY: 12/19/19 HISTORY: Right hip pain after a fall. COMPARISON: 02/01/19. FINDINGS: Dual lead left subclavian cardiac pacing device remains in place. Postsurgical changes related to CAB G are again noted. Postsurgical changes related to right glenohumeral prosthesis are also again pres ent. The cardiac silhouette and pulmonary vasculature are within normal limits. The lungs are clear. There has been resolution of the bilateral pleural effusions seen on the prior exam. Lungs are clear on to day's exam. Vascular calcifications are seen in the thoracic aorta. Prominent left glenohumeral osteo arthropathy is seen. IMPRESSION: 1. No acute cardiopulmonary process. 2. Resolution of bilateral pleural effusions as well as resolution of pulmonary vascular congest ion when compared to prior exam. POS: JACKI
[2019-12-19 17:20] LABS: INR-International Normal Ratio 1.5; Prothrombin Time 17.9 SEC (12.0-14.7)
--- NOTE | 2019-12-19 17:26 | CT ---
NONCONTRAST CT PELVIS: 12/19/19 HISTORY: Fall from standing position landing on right side. Right hip shortening. No hip pain. FINDINGS: There is a comminuted intertrochanteric right hip fracture with fracture also seen in the region of t he base of the femoral neck. There is mild displacement of fracture fragments. Distal fracture is mil dly displaced superiorly. The lesser trochanter fragment is slightly displaced medially. There is no evidence of a dislocation, no additional fracture is seen. Bilateral hip osteoarthritis is present with degenerative changes seen in the sacroiliac joints bila terally as well as involving the pubic symphysis. There is a sclerotic density seen within the left iliac bone adjacent to the left sacroiliac joint wi th suggestion of interdigitated margins and this has characteristics most suggestive of a bone island . There is evidence of hysterectomy. Colonic diverticulosis is present. There is prominent motion artif act seen at the base of the kidneys, but there is suggestion of either a hypodense cystic lesion at t he inferior pole right kidney versus dilatation of a calyx. This cannot be further evaluated on this exam. Prominent vascular calcifications are identified. IMPRESSION: 1. Markedly comminuted intertrochanteric right hip fracture with mild displacement of fracture f ragments, and the distal fracture fragment is mildly displaced superiorly. 2. Diffuse osteopenia as well as scattered degenerative changes. 3. This exam does include the most inferior aspect of each kidney, and there is suggestion of a hypodense cystic lesion at the inferior pole right kidney. However, given the significant motion, th is cannot be further evaluated. This could be related to dilatation of a calyx versus a renal cyst. N onemergent renal ultrasound is recommended. 4. Colonic diverticulosis. 5. Dense vascular calcifications. 6. Increased density seen posterior to the level of the right intertrochanteric hip fracture lik christine related to small amount of hemorrhage secondary to fracture. No hematoma is appreciated. POS: JACKI
[2019-12-19 17:30] LABS: ALT (SGPT) 13 U/L (8-55); AST (SGOT) 22 U/L (5-34); Albumin 4.1 g/dL (3.4-4.8); Alkaline Phosphatase 94 U/L (40-110); Anion Gap 14 mmol/L (10-20); BUN (Urea Nitrogen) 24 mg/dL (9.8-20.1); Bilirubin, Total 0.9 mg/dL (0.2-1.2); Calc. Creatinine Clearance 0 mL/min (70-130); Calcium 9.1 mg/dL (7.8-10.44); Carbon Dioxide 25 mmol/L (23-31); Chloride 104 mmol/L (98-107); Estimated GFR-MDRD 52; Globulin 3.2 g/dL (2.4-3.5); Glucose 121 mg/dL (83-110); Potassium 4.9 mmol/L (3.5-5.1); Protein, Total 7.3 g/dL (6.0-8.3); Sodium 138 mmol/L (136-145)
[2019-12-19] MEDS ORDERED: Dextrose 5% in Water 1,000 ML IV PRN (17:42)
[2019-12-19] MEDS ORDERED: Dextrose 50% Abboject 50 ML SYRINGE SLOW IVP PRN (17:42)
[2019-12-19] MEDS ORDERED: Ondansetron PF 4 MG/2 ML Vial IVP PRN (17:42)
[2019-12-19] MEDS ORDERED: hydrALAZINE 20 MG/ML VIAL SLOW IVP PRN (17:42)
[2019-12-19] MEDS ORDERED: traMADol HCl 50 MG TAB PO PRN (17:47)
--- NOTE | 2019-12-19 18:57 | HP ---
REQUESTING PHYSICIAN: Momo Tiwari DO CONSULTING PHYSICIAN: Dr. Avila. HISTORY OF PRESENT ILLNESS: Ms. Monson is an 88-year-old female, coming to the ED for evaluation of right hip pain. The patient reports that she was in the religion this morning. She tripped on the chair, lost her balance, and fell down. The patient reports that she did not hit her head or any other part of her body. She did not loss consciousness. After a fall, she complained of right hip pain and unable to bear weight. Upon arrival in the ED, the patient is alert and awake. Vital signs stable. She complains of right hip pain. REVIEW OF SYSTEMS: Noncontributory except per HPI. PAST MEDICAL HISTORY: Hypertension, AFib with sick sinus syndrome with pacemaker, and hypothyroidism. PAST SURGICAL HISTORY: Open cardiac surgery with 4-vessel more than 1 year, pacemaker 10 years, bilateral shoulder surgery, bilateral knee surgery, and hysterectomy. SOCIAL HISTORY: The patient lives at home. Denies alcohol. Denies drug use. Denies smoking history. ALLERGIES: ANCEF AND SHELLFISH. CURRENT MEDICATIONS: 1. Levothyroxine 50 mcg. 2. Potassium. 3. Norvasc 5 mg in the morning. 4. Carvedilol 3.125 mg in the morning. 5. Pepcid 20 mg in the morning. 6. Lasix 40 mg in the morning. 7. Multaq 400 mg in the afternoon. 8. Aspirin 325 in the afternoon. 9. Lipitor 20 mg in the afternoon. 10. Carvedilol 3.125 in the afternoon. 11. Colace 100 mg 1 in the afternoon. 12. Pepcid 20 mg in the afternoon. PHYSICAL EXAMINATION: GENERAL: The patient is lying down in bed comfortable with no acute respiratory distress. GCS 15. The patient is alert, awake and oriented x3. VITAL SIGNS: Temperature is 98.2, heart rate is 62, respiratory rate is 16, O2 saturation 99% on room air, and blood pressure 179/72. HEENT: Atraumatic. No bruising. No tender to palpation. LUNGS: Clear bilaterally. HEART: Irregular rate and irregular rhythm. ABDOMEN: Soft and nondistended. EXTREMITIES: Neurovascularly intact x4. NEUROLOGIC: No focal neurology deficits. Extremities have right hip limited range of motion due to pain. LABORATORY DATA: Initial workup shows white count 10.5, hemoglobin is 13.4 and sodium 138. Creatinine 1. Coagulation is normal. Pelvic CT scan shows markedly community intertrochanteric right hip fracture with mild displacement and fracture fragment, colonic diverticulosis. Chest x-ray, no acute cardiopulmonary process. ASSESSMENT: 1. Status post ground-level fall. 2. Right rib fracture. 3. History of coronary artery bypass grafting with 4-vessel. 4. Hypertension. 5. Hypothyroidism. PLAN: The patient will be admitted to [place] [id number] for pain control. The patient will have a nonpharmacological DVT prophylaxis, gastritis prophylaxis. Dr. Avila will see the patient and make decision when the patient is going to go to the OR for right hip fracture. Job ID: [id number]
[2019-12-19] MEDS: Senokot S 8.6-50 MG TAB PO SCH (19:57)
[2019-12-19] MEDS: Morphine 2 MG/ML SYRINGE SLOW IVP PRN (19:57)
[2019-12-19] MEDS: Docusate 100 MG CAP PO SCH (19:57)
[2019-12-19] MEDS: Famotidine 20 MG TAB PO SCH (19:57)
[2019-12-19] MEDS: Cyclobenzaprine 10 MG TAB PO PRN (19:57)
[2019-12-19] MEDS: Acetaminophen 500 MG TAB PO SCH ×2 (19:57→22:36)
[2019-12-19 21:51] VITALS: BMI 25.1
--- NOTE | 2019-12-19 22:15 | PRG ---
DATE OF SERVICE: 12/19/2019 SUBJECTIVE: The patient was admitted this afternoon, status post ground level fall in which she sustained a right hip fracture. She takes Eliquis, which will delay her surgery for at least 24 hours. Her last dose was this morning, so currently she is projected to have surgery on Saturday. Until then, we will do pain control and supportive care. Currently, she has had no issues. Her pain is controlled. She is tolerating a diet and she is resting comfortably. PHYSICAL EXAMINATION: VITAL SIGNS: Stable. The patient is afebrile. GENERAL: She is resting comfortably in bed. She is awake, alert, and oriented x3. Nelly Coma Scale is 15. LUNGS: Respirations are effortless. EXTREMITIES: Neurovascularly intact x4. ASSESSMENT AND PLAN: 1. Status post ground level fall. 2. Right intertrochanteric femur fracture. 3. History of 4-vessel coronary artery bypass grafting, on Eliquis and aspirin. 4. History of hypertension. 5. History of hypothyroidism. Plan will be to continue supportive care and await surgery. Postoperatively, we will begin physical and occupational therapy and discuss placement at that time. Job ID: [id number]
[2019-12-20] MEDS: Morphine 2 MG/ML SYRINGE SLOW IVP PRN ×4 (00:04→13:41)
--- NOTE | 2019-12-20 00:36 | CON ---
DATE OF CONSULTATION: CHIEF COMPLAINT: Right hip pain. HISTORY OF PRESENT ILLNESS: Ms. Monson is an 88-year-old female, who fell at [facility] this afternoon. She was at a [facility] service. She landed on her right side. She had pain in her hip. She was unable to ambulate. She had pain with any movement. She normally ambulates well. She does not currently use a cane or walker. She has had bilateral knee replacements as well as bilateral shoulder replacements. She has also had cardiac surgery in the past. She has been in fair health recently. She did start Eliquis 3 months ago for atrial fibrillation. She took her Eliquis this morning. She was taken to the emergency department by EMS and CT scan was obtained. This demonstrated an intertrochanteric fracture of the right femur. Orthopedics was consulted for this injury. REVIEW OF SYSTEMS: Positive for right hip pain. Otherwise, negative 10-point review of systems. PAST MEDICAL HISTORY: Hypertension, atrial fibrillation with sick sinus syndrome, hypothyroidism, history of coronary artery disease. PAST SURGICAL HISTORY: Cardiac bypass surgery approximately 1 year ago, pacemaker placement, bilateral shoulder arthroplasty, bilateral knee arthroplasty, hysterectomy. SOCIAL HISTORY: The patient lives independently. She denies alcohol, tobacco, or drug use. ALLERGIES: ANCEF AND SHELLFISH. MEDICATIONS: Are detailed in the chart. The patient is on Eliquis, which she took this morning. PHYSICAL EXAMINATION: VITAL SIGNS: Stable. The patient is normotensive, 98% on room air. GENERAL: She is alert, lying supine, no apparent distress. RESPIRATORY: Breathing comfortably. ABDOMEN: Soft, nontender, and nondistended. HEENT: Normocephalic and atraumatic. MUSCULOSKELETAL: The patient's right lower extremity has pain with hip motion. She is able to flex and extend her toes and ankle. She has a palpable dorsalis pedis pulse. She has atraumatic upper extremities. Left lower extremity is atraumatic. IMAGING: CT scan of the pelvis is reviewed, which demonstrates a comminuted and displaced intertrochanteric fracture of the right femur. X-rays of the hip are not currently available. IMPRESSION: Right intertrochanteric femur fracture. PLAN: At this point, the patient will require surgical intervention. We will plan for intramedullary nail fixation of the right proximal femur. Unfortunately, the patient has taken her Eliquis today, so we will need to wait until Saturday to perform surgery. This will give her approximately 48 hours off the medication. We will maintain her pain control. She will have DVT prophylaxis. She will have medical optimization prior to surgery. She should be n.p.o. tomorrow night in preparation for surgery Saturday. She should remain on bedrest until surgery is accomplished. No restriction on head of bed elevation. Job ID: [id number]
[2019-12-20] MEDS: Cyclobenzaprine 10 MG TAB PO PRN ×3 (03:44→19:46)
[2019-12-20] MEDS: Acetaminophen 500 MG TAB PO SCH ×4 (06:21→23:08)
[2019-12-20] MEDS: Levothyroxine Sodium 50 MCG TAB PO SCH (06:21)
[2019-12-20] MEDS ORDERED: Clindamycin/D5W 900 MG in Premix Bag 1 BAG IVPB SCH (08:15)
[2019-12-20] MEDS: Carvedilol 3.125 MG TAB PO SCH ×2 (09:01→17:31)
[2019-12-20] MEDS: Furosemide 40 MG TAB PO SCH (09:02)
[2019-12-20] MEDS: Dronedarone HCl 400 MG TAB PO SCH ×2 (09:02→17:31)
[2019-12-20] MEDS: Amlodipine 5 MG TAB PO SCH (09:02)
--- NOTE | 2019-12-20 09:03 | RAD ---
EXAM: 2 views of the right hip HISTORY: Right hip pain COMPARISON: None FINDINGS: 2 views of the right hip shows an intertrochanteric right femur fracture. No degenerative c hanges are seen. No soft tissue swelling is present. IMPRESSION: Intertrochanteric right femur fracture
[2019-12-20] MEDS: Docusate 100 MG CAP PO SCH ×2 (09:05→19:42)
[2019-12-20] MEDS: Senokot S 8.6-50 MG TAB PO SCH ×2 (09:05→19:42)
[2019-12-20] MEDS: Polyethylene Glycol 3350 17 GM Packet PO SCH (09:05)
[2019-12-20] MEDS: Famotidine 20 MG TAB PO SCH ×2 (09:05→19:42)
--- NOTE | 2019-12-20 11:37 | PRG ---
DATE OF SERVICE: 12/20/2019 SUBJECTIVE: Ms. Monson is an 88-year-old female, status post ground level fall. She sustained right hip fracture. She is on Eliquis. She has a history of bypass and pacemaker, bypass was last here , pacemaker 10 years ago. History of hypertension and hypothyroid. The patient is currently in surgical floor for pain management, pulmonary toilet, and gastritis prophylaxis. The patient awaits for Eliquis to wear off before going to the OR with Dr. Avila for right hip fracture fixation. The patient reports she has been doing good. Pain is well controlled if she is not moving. She tolerated with her regular diet. Vital signs stable. Her urine is adequate. OBJECTIVE: GENERAL: The patient is lying down in bed comfortable with no acute respiratory distress. VITAL SIGNS: Temperature is 97.7, heart rate 61, respiratory rate 14, O2 saturation 96% on room air, and blood pressure 126/62. LUNGS: Clear bilaterally. HEART: Regular rate and rhythm. ABDOMEN: Soft. Nondistended. EXTREMITIES: Neurovascularly intact x4. NEUROLOGY: No focal neurology deficits. ASSESSMENT: 1. Status post ground level fall. 2. Right hip fracture. 3. History of coronary artery disease with coronary artery bypass graft, 4-vessel bypass, 1 year, on Eliquis. Pacemaker 10 years ago. History of hypertension and hypothyroid. PLAN: Continue supportive care. Continue pain control. The patient has a plan to go to the OR with Dr. Avila tomorrow for right hip fracture fixation. Continue nonpharmacological DVT prophylaxis. After the surgery, the patient will need to work with Physical Therapy and Occupational Therapy. Anticipate placement in rehabilitation facility. Job ID: [id number]
[2019-12-20] MEDS: Gabapentin 100 MG CAP PO PRN (13:41)
[2019-12-21] MEDS: Gabapentin 100 MG CAP PO PRN (01:35)
[2019-12-21] MEDS: Morphine 2 MG/ML SYRINGE SLOW IVP PRN ×2 (01:37→05:31)
[2019-12-21] MEDS: Sodium Chloride 0.9% 1,000 ML IV SCH ×3 (02:39→17:20)
--- NOTE | 2019-12-21 03:27 | PRG ---
DATE OF SERVICE: 12/21/2019 SUBJECTIVE: The patient remains on the surgical floor. She is status post ground level fall when she sustained a right hip fracture. The patient takes Eliquis that delayed her surgery, which is currently planned for tomorrow. She has been made n.p.o. after midnight. Today, she has had no issues. She tolerated her diet. Her pain was controlled. PHYSICAL EXAMINATION: VITAL SIGNS: Stable. The patient is afebrile. GENERAL: The patient is resting comfortably in bed. She is awake, alert, conversant, and appropriate. LUNGS: Clear to auscultation bilaterally. HEART: Regular rate and rhythm. ABDOMEN: Soft, flat, nontender with active bowel sounds. EXTREMITIES: Neurovascularly intact x4. ASSESSMENT/PLAN: 1. Status post ground level fall hospital day #2. 2. Right intertrochanteric femur fracture, awaiting surgery. 3. History of 4-vessel coronary artery bypass graft, on Eliquis and aspirin. 4. History of hypertension and hypothyroidism. PLAN: Plan will be to continue supportive care. N.p.o. after midnight. Maintenance fluids and postoperatively, we will begin Physical and Occupational Therapy and discuss placement at that time. Job ID: [id number]
[2019-12-21] MEDS: Levothyroxine Sodium 50 MCG TAB PO SCH (05:07)
[2019-12-21] MEDS: Acetaminophen 500 MG TAB PO SCH ×4 (05:07→23:51)
[2019-12-21] MEDS ORDERED: Clindamycin/D5W 900 mg/50 ml Premix Bag ONE (06:27)
[2019-12-21] MEDS ORDERED: Fentanyl 100 MCG/2 ML VIAL ONE (06:34)
[2019-12-21] MEDS ORDERED: Ondansetron HCl/PF 4 MG/2 ML Vial IVP PRN (07:04)
[2019-12-21] MEDS: Polyethylene Glycol 3350 17 GM Packet PO SCH (08:45)
[2019-12-21] MEDS: Senokot S 8.6-50 MG TAB PO SCH ×2 (08:45→20:37)
[2019-12-21] MEDS: Docusate 100 MG CAP PO SCH ×2 (08:45→20:37)
[2019-12-21] MEDS: Carvedilol 3.125 MG TAB PO SCH ×2 (09:36→17:15)
[2019-12-21] MEDS: Famotidine 20 MG TAB PO SCH ×2 (09:36→20:37)
[2019-12-21] MEDS: Furosemide 40 MG TAB PO SCH (09:36)
[2019-12-21] MEDS: Amlodipine 5 MG TAB PO SCH (09:36)
[2019-12-21] MEDS: Dronedarone HCl 400 MG TAB PO SCH ×2 (09:36→17:15)
[2019-12-21] MEDS ORDERED: Ondansetron PF 4 MG/2 ML Vial ONE (10:22)
[2019-12-21] MEDS ORDERED: Rocuronium Bromide 10 MG/ML (10ML VIAL) ONE (10:22)
[2019-12-21] MEDS ORDERED: Dexamethasone 20 MG/5 ML VIAL ONE (10:22)
[2019-12-21] MEDS ORDERED: Ketorolac Tromethamine 30 MG/ML VIAL ONE (10:22)
[2019-12-21] MEDS ORDERED: Lidocaine 1% PF 5 ML VIAL ONE (10:22)
[2019-12-21] MEDS ORDERED: PROPOFOL 200 MG/20 ML VIAL ONE (10:22)
[2019-12-21] MEDS ORDERED: Glycopyrrolate 0.2 MG/ML 5 ML SYRINGE ONE (10:22)
--- NOTE | 2019-12-21 11:02 | RAD ---
EXAM: 2 views of the right hip HISTORY: Right intertrochanteric femur fracture COMPARISON: None FINDINGS: 2 limited intraoperative fluoroscopic views of the right hip shows the patient is status po st ORIF of the intertrochanteric femur fracture. No obvious perihardware lucency is seen. IMPRESSION: Status post ORIF of femur fracture without evidence of complication
--- NOTE | 2019-12-21 12:10 | PRG ---
DATE OF SERVICE: 12/21/2019 SUBJECTIVE: The patient was feeling well this morning. She was sitting up and eating breakfast. She had just returned from surgery. She was able to use her incentive spirometer quite well. She currently felt that her pain had been controlled. OBJECTIVE: VITAL SIGNS: Stable. GENERAL: The patient is sitting up in bed. Awake, alert, and oriented. LUNGS: No acute respiratory distress. HEART: Regular rate and rhythm. ABDOMEN: Soft, flat, nontender. EXTREMITIES: Neurovascularly intact x4. ASSESSMENT: 1. Status post ground level fall, hospital day #2. 2. Right intertrochanteric femur fracture. Repaired today by Surgery. 3. History of 4-vessel coronary artery bypass graft, on Eliquis and aspirin. 4. History of hypertension and hypothyroidism. PLAN: Continue supportive care. The patient may have regular diet. Physical Therapy and Occupational Therapy will see them today. We will plan on sending this patient to rehab when she is ready. Job ID: [id number] MTDD
--- NOTE | 2019-12-21 12:34 | OP ---
DATE OF PROCEDURE: 12/21/2019 PROCEDURE PERFORMED: Right femur intramedullary nail. PREOPERATIVE DIAGNOSIS: Right femur intertrochanteric fracture. POSTOPERATIVE DIAGNOSIS: Right femur intertrochanteric fracture. COMPLICATIONS: None. ESTIMATED BLOOD LOSS: 100 mL. MANAGER SUMMER: None. IMPLANTS: Synthes 10 mm trochanteric nail, short with helical blade. INDICATIONS: Ms. Monson is an 88-year-old female, who fell and fractured her right proximal femur. She was indicated for intramedullary nail fixation to restore the anatomic alignment, promote healing, and prevent complications of prolonged bedrest. Risks have been reviewed in detail. She elected to proceed with the operation. DESCRIPTION OF PROCEDURE: Ms. Monson was identified in the preoperative holding area. Her correct extremity was marked. She was carried to the operating room. She was positioned supine. General anesthesia was induced. A multidisciplinary time-out was performed. The right lower extremity was prepped and draped in sterile fashion. We began the procedure with evaluating the proximal femur on x-ray. We obtained an appropriate reduction using traction and rotation. Once we were satisfied with this, we proceeded to make a small incision proximal to the greater trochanter. A guidewire was inserted. We over-reamed the guidewire. Next, we placed our 10 mm nail over the guidewire. At this point, we seated the nail appropriately. We then placed a helical blade in the centered position of the femoral head. This was guided by x-ray. We finally placed a distal Crosslock screw using appropriate guide. At this point, we thoroughly irrigated. We took final x-ray images and closed the wounds appropriately in layers. A sterile dressing was applied. The patient was taken to the recovery room in good condition. Job ID: [id number]
[2019-12-21] MEDS: Clindamycin/D5W 900 MG in Premix Bag 1 BAG IVPB SCH ×2 (14:27→22:17)
[2019-12-21] MEDS: Aspirin 81 mg Enteric Coated Tablet PO SCH (20:36)
[2019-12-22] MEDS ORDERED: traMADol HCl 50 MG TAB PO PRN (00:12)
[2019-12-22] MEDS ORDERED: Acetaminophen/Codeine 30-300mg Tablet PO PRN (00:12)
--- NOTE | 2019-12-22 01:04 | PRG ---
DATE OF SERVICE: 12/22/2019 SUBJECTIVE: The patient is currently hospital day #3, postop day #1 status post ground level fall when she sustained a right intertrochanteric femur fracture. The patient had a delay in her surgery due to her Eliquis use. She underwent her procedure yesterday. She tolerated it well. Today, she started working with physical and occupational therapy. She is tolerating a diet. Her pain is controlled. OBJECTIVE: VITAL SIGNS: Stable. The patient is afebrile. GENERAL: The patient is resting comfortably in bed. She was asleep when I entered the room, but she did awaken with verbal stimuli. She stated she had no pain at that time. LUNGS: Respirations are nonlabored and effortless. HEART: Regular rate and rhythm. ABDOMEN: Soft, nondistended. EXTREMITIES: Neurovascularly intact x4. Postop dressing is clean, dry, and intact. ASSESSMENT: 1. Status post ground level fall, hospital day #3. 2. Postop day #1, status post open reduction and internal fixation of right intertrochanteric femur fracture. 3. History of 4-vessel coronary artery bypass graft. 4. History of Eliquis and aspirin use. 5. History of hypertension and hypothyroidism. PLAN: Plan will be to continue supportive care, encourage physical and occupational therapy, and await placement decision. Job ID: [id number]
[2019-12-22] MEDS: Levothyroxine Sodium 50 MCG TAB PO SCH (05:11)
[2019-12-22 07:50] LABS: Band 15 % (5-11); Hemoglobin 8.2 g/dL (12.0-16.0); Lymphocytes 8 % (21-51); MDiff Complete? YES; Mean Corpuscular HGB CONC 33.5 g/dL (32.0-36.0); Mean Corpuscular Hemoglobin 30.4 pg (27.0-31.0); Mean Corpuscular Volume 90.8 fL (78.0-98.0); Mean Platelet Volume 9.2 fL (7.4-10.4); Monocytes 23 % (0-10); Neutrophil 54 % (42-75); Platelet Count 113 thou/uL (130-400); Platelet Morphology Comment Appears Decreased; Polychromasia SLIGHT = 2-3 cells (100X) (0-2/hpf); RBC Distribution Width 13.3 % (11.5-14.5); White Blood Cell (WBC) Count 8.5 thou/uL (4.8-10.8)
[2019-12-22 08:29] LABS: Anion Gap 9 mmol/L (10-20); BUN (Urea Nitrogen) 29 mg/dL (9.8-20.1); Calc. Creatinine Clearance 54 mL/min (70-130); Calcium 7.6 mg/dL (7.8-10.44); Carbon Dioxide 26 mmol/L (23-31); Chloride 102 mmol/L (98-107); Estimated GFR-MDRD 61; Glucose 99 mg/dL (83-110); Potassium 3.8 mmol/L (3.5-5.1); Sodium 133 mmol/L (136-145)
[2019-12-22] MEDS ORDERED: Acetaminophen 325 MG TAB PO SCH (08:30)
[2019-12-22] MEDS ORDERED: Sodium Chloride 0.9% 500 ML IV SCH (08:30)
[2019-12-22] MEDS: Aspirin 81 mg Enteric Coated Tablet PO SCH ×2 (08:42→20:18)
[2019-12-22] MEDS: Carvedilol 3.125 MG TAB PO SCH ×2 (08:42→17:15)
[2019-12-22] MEDS: Acetaminophen 325 MG TAB PO SCH ×3 (08:44→20:18)
[2019-12-22] MEDS: Dronedarone HCl 400 MG TAB PO SCH ×2 (08:44→17:15)
[2019-12-22] MEDS: Ascorbic Acid 500 mg Chewable Tablet PO SCH ×2 (08:44→17:15)
[2019-12-22] MEDS: Ferrous Sulfate 325 MG TAB PO SCH ×2 (08:44→17:15)
[2019-12-22] MEDS: Docusate 100 MG CAP PO SCH ×2 (08:44→20:18)
[2019-12-22] MEDS: Senokot S 8.6-50 MG TAB PO SCH ×2 (08:45→20:18)
[2019-12-22] MEDS: Furosemide 40 MG TAB PO SCH (08:45)
[2019-12-22] MEDS: Polyethylene Glycol 3350 17 GM Packet PO SCH (08:45)
[2019-12-22] MEDS: Ibuprofen 200 MG TAB PO SCH ×2 (10:52→17:16)
--- NOTE | 2019-12-22 12:19 | PRG ---
DATE OF SERVICE: 12/22/2019 SUBJECTIVE: The patient is postop day #1 status post ground level fall, status post right intertrochanteric femur fracture, repaired by open reduction and internal fixation. She is doing well this morning and in good spirits. However, she was having low blood pressures. When she got up with physical therapy, her blood pressure did increase, but from sitting to standing, there was a drop in the systolic blood pressure of 20 points and the patient felt lightheaded. This was confirmed by nursing staff, who witnessed this episode. Otherwise, she continues to use her incentive spirometer well. OBJECTIVE: VITAL SIGNS: Hypotensive 95/58. Otherwise normal. Orthostatic blood pressures, sitting 118/52 and standing 91/46. CONSTITUTIONAL: Well-appearing. The patient does appear dry on exam with dry mucous membranes and has very little urine output from the PureWick catheter. RESPIRATORY: No acute respiratory distress. CARDIAC: Regular rate and rhythm. No murmurs. EXTREMITIES: Warm and well perfused. ASSESSMENT: 1. Status post ground level fall. 2. Postop day 1, status post open reduction and internal fixation of right intertrochanteric femur fracture. 3. History of four-vessel coronary artery bypass graft. 4. History of Eliquis and aspirin use. 5. History of hypertension and hypothyroidism. 6. Orthostatic hypotension, likely from fluid depletion PLAN: We will continue supportive care. The patient received a 500 mL bolus of normal saline this morning to correct her orthostatic hypotension and hypovolemia. We held her Lasix and amlodipine for the time being. We will reassess her fluid status tomorrow. We will be very careful about this since the patient has a cardiac history. 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 We will initiate steroids at this point. Continue supportive care. Continue physical therapy and occupational therapy. Job ID: [id number] MTDD
[2019-12-22] MEDS: Famotidine 20 MG TAB PO SCH (20:18)
--- NOTE | 2019-12-23 02:00 | PRG ---
DATE OF SERVICE: 12/22/2019 SUBJECTIVE: The patient was seen this evening during rounds. She was resting comfortably and asleep, but no signs of acute distress. Nursing reported no acute events. OBJECTIVE: VITAL SIGNS: Temperature 98, pulse 64, respirations 16, oxygen saturation 97% on room air, and blood pressure 114/58. GENERAL: Well-appearing elderly female, lying in bed with no signs of acute distress. PULMONARY: Equal chest rise and fall. No signs of acute respiratory distress. ASSESSMENT: 1. Status post fall, on Eliquis. 2. Right hip fracture, status post repair. 3. Orthostatic hypotension, status post 1 L normal saline today. 4. History of CABG x4, pacemaker, hypertension, hypothyroidism. PLAN: Continue current diet and pain regimen. Continue physical and occupational therapy. We will continue to hold the patient's home Lasix and amlodipine. We will reassess blood work tomorrow. The patient is pending placement at acute rehab facility. Job ID: [id number]
[2019-12-23] MEDS: Ibuprofen 200 MG TAB PO SCH ×3 (02:24→17:31)
[2019-12-23] MEDS: Acetaminophen 325 MG TAB PO SCH ×4 (02:24→20:42)
[2019-12-23] MEDS: Levothyroxine Sodium 50 MCG TAB PO SCH (05:11)
[2019-12-23 05:42] LABS: Anion Gap 9 mmol/L (10-20); BUN (Urea Nitrogen) 32 mg/dL (9.8-20.1); Calc. Creatinine Clearance 46 mL/min (70-130); Calcium 7.5 mg/dL (7.8-10.44); Carbon Dioxide 27 mmol/L (23-31); Chloride 107 mmol/L (98-107); Estimated GFR-MDRD 52; Glucose 94 mg/dL (83-110); Phosphorus 3.5 mg/dL (2.3-4.7); Potassium 4.3 mmol/L (3.5-5.1); Sodium 139 mmol/L (136-145)
[2019-12-23 05:49] LABS: Band 1 % (5-11); Eosinophils 2 % (0-10); Hemoglobin 7.4 g/dL (12.0-16.0); Lymphocytes 29 % (21-51); MDiff Complete? YES; Mean Corpuscular HGB CONC 32.8 g/dL (32.0-36.0); Mean Corpuscular Hemoglobin 29.8 pg (27.0-31.0); Mean Corpuscular Volume 90.8 fL (78.0-98.0); Mean Platelet Volume 10.1 fL (7.4-10.4); Monocytes 18 % (0-10); Neutrophil 50 % (42-75); Platelet Count 105 thou/uL (130-400); Platelet Morphology Comment Appears Decreased; RBC Distribution Width 13.9 % (11.5-14.5); Red Blood Cell (RBC) Count 2.48 mill/uL (4.20-5.40); White Blood Cell (WBC) Count 6.1 thou/uL (4.8-10.8)
[2019-12-23] MEDS ORDERED: PHOS-NAK 1 PKT PACK PO SCH (08:00)
[2019-12-23] MEDS: Ferrous Sulfate 325 MG TAB PO SCH ×2 (08:37→17:31)
[2019-12-23] MEDS: Aspirin 81 mg Enteric Coated Tablet PO SCH ×2 (08:37→20:42)
[2019-12-23] MEDS: Docusate 100 MG CAP PO SCH ×2 (08:38→20:42)
[2019-12-23] MEDS: Dronedarone HCl 400 MG TAB PO SCH ×2 (08:38→17:31)
[2019-12-23] MEDS: Carvedilol 3.125 MG TAB PO SCH ×2 (08:38→17:31)
[2019-12-23] MEDS: Ascorbic Acid 500 mg Chewable Tablet PO SCH ×2 (08:38→17:31)
[2019-12-23] MEDS: Senokot S 8.6-50 MG TAB PO SCH ×2 (08:38→20:42)
[2019-12-23] MEDS: Polyethylene Glycol 3350 17 GM Packet PO SCH (08:40)
[2019-12-23] MEDS: Hydrocortisone Sod Succ/PF 100 mg/2 ml Vial IVP SCH ×3 (10:14→15:08)
--- NOTE | 2019-12-23 12:35 | PRG ---
DATE OF SERVICE: 12/23/2019 SUBJECTIVE: The patient has been doing well overnight. She is now postop day # 2 from open reduction and internal fixation of a right intertrochanteric hip fracture. Today is her birthday, and she is feeling well. She has received fluids, and we have stopped her Lasix due to episode of hypotension yesterday. Her blood pressure has been much better now. OBJECTIVE: VITAL SIGNS: Improved. Blood pressure 115/56, afebrile. GENERAL: Well appearing. RESPIRATORY: No acute respiratory distress. CARDIAC: Regular rate and rhythm. No murmurs. EXTREMITIES: Warm and well perfused. ASSESSMENT: 1. Status post ground level fall. 2. Postoperative day 2, status post open reduction and internal fixation of right intertrochanteric femur fracture. 3. History of four-vessel coronary artery bypass graft. 4. History of Eliquis and aspirin use. 5. History of hypertension and hypothyroidism. 6. Orthostatic hypotension, improved. PLAN: We will continue the patient's diet and pain regimen. She will continue physical and occupational therapy. Continue to hold home Lasix and amlodipine. The patient was started on steroids for a low cortisol level. The patient is pending placement at acute rehab facility. Otherwise, from our standpoint, she is ready for discharge. Job ID: [id number] MTDD
[2019-12-23] MEDS ORDERED: Ondansetron ODT 4 MG TAB PO PRN (13:13)
[2019-12-23] MEDS: Famotidine 20 MG TAB PO SCH (20:41)
[2019-12-23] MEDS ORDERED: Atorvastatin Calcium 20 MG TAB PO SCH (21:00)
--- NOTE | 2019-12-23 23:52 | PRG ---
DATE OF SERVICE: 12/23/2019 SUBJECTIVE: The patient was seen this evening during rounds. She was resting comfortably in bed and asleep with no signs of acute distress. Nursing reported no acute events. OBJECTIVE: VITAL SIGNS: Temperature 98.2, pulse 62, respirations 16, oxygen saturation 96% on room air, and blood pressure 134/59. GENERAL: Well-appearing elderly female, lying in bed, asleep with no signs of acute distress. PULMONARY: Equal chest rise and fall. No signs of acute respiratory distress. ASSESSMENT: 1. Status post fall on Eliquis. 2. Right hip fracture, status post repair. 3. History of coronary artery bypass grafting x4, pacemaker, hypertension, and hypothyroidism. 4. Orthostatic hypotension, resolved. 5. History of atrial fibrillation, on Eliquis. PLAN: Continue current diet and pain regimen. Continue physical and occupational therapy. The patient has not been restarted on all of her home medication, mainly Lasix. We will continue to hold dose. She is currently on her home aspirin, however, we have not yet restarted her Eliquis. We will discuss with the team tomorrow about restarting the Eliquis. However, she is pending discharge tomorrow. Her current home medication reconciliation does not include Eliquis. We will follow up with the patient about her pharmacy, re-evaluate her med rec in the morning, start medications appropriately. Job ID: [id number]
[2019-12-24] MEDS: Acetaminophen 325 MG TAB PO SCH ×2 (02:08→08:25)
[2019-12-24] MEDS: Ibuprofen 200 MG TAB PO SCH ×2 (02:08→11:53)
[2019-12-24] MEDS: Levothyroxine Sodium 50 MCG TAB PO SCH (05:17)
[2019-12-24 07:48] VITALS: BP 134/61; TEMP 97.6
[2019-12-24] MEDS: Carvedilol 3.125 MG TAB PO SCH (08:24)
[2019-12-24] MEDS: Dronedarone HCl 400 MG TAB PO SCH (08:24)
[2019-12-24] MEDS: Ferrous Sulfate 325 MG TAB PO SCH (08:25)
[2019-12-24] MEDS: Aspirin 81 mg Enteric Coated Tablet PO SCH (08:25)
[2019-12-24] MEDS: Ascorbic Acid 500 mg Chewable Tablet PO SCH (08:25)
[2019-12-24] MEDS: Polyethylene Glycol 3350 17 GM Packet PO SCH (08:26)
[2019-12-24] MEDS: Senokot S 8.6-50 MG TAB PO SCH (08:26)
[2019-12-24] MEDS: Docusate 100 MG CAP PO SCH (08:26)
[2019-12-24] MEDS ORDERED: Bisacodyl 5 MG TAB PO PRN (10:16)
[2019-12-24] MEDS ORDERED: Nitroglycerin 0.4 MG TAB (25 Tab Bottle) SL PRN (10:17)
[2019-12-24] MEDS ORDERED: Gabapentin 100 MG CAP PO SCH (15:00)
--- NOTE | 2019-12-24 15:22 | DIS ---
DATE OF ADMISSION: 12/19/2019 DATE OF DISCHARGE: 12/24/2019 CONSULTS: Orthopedic Surgery, Dr. Avila. PROCEDURES: On 12/19/2019, chest x-ray, impression, no acute cardiopulmonary process. Resolution of bilateral pleural effusions as well as resolution of pulmonary vascular congestion when compared to prior exam. Pelvis CT, impression, 1. Markedly comminuted intertrochanteric right hip fracture with mild displacement of fracture fragments and the distal fracture fragment is mildly displaced superiorly. 2. Diffuse osteopenia as well as scattered degenerative changes. There is a hypodense cystic lesion at the inferior pole of the right kidney. 3. Colonic diverticulosis. Dense vascular calcifications. Right hip x-ray, impression, intertrochanteric right femur fracture. On 12/21/2019, right femur intramedullary nail by Dr. Avila. PRIMARY DIAGNOSES: Right femur intertrochanteric fracture. Mechanical fall, right rib fracture. SECONDARY DIAGNOSES: History of coronary artery bypass graft with 4 vessels, hypertension, hypothyroidism, atrial fibrillation, and pacemaker. DISCHARGE MEDICATIONS: 1. Acetaminophen/codeine No. 3 q.4 hours as needed for pain, one tab. 2. Norvasc 5 mg p.o. daily. 3. Eliquis 5 mg p.o. b.i.d. 4. Vitamin C 500 mg p.o. b.i.d. with meals. 5. Aspirin 325 mg p.o. daily. 6. Atorvastatin 20 mg p.o. at bedtime. 7. Dulcolax as needed. 8. Carvedilol 3.125 mg p.o. b.i.d. with meals. 9. Flexeril 5 mg p.o. 3 times a day as needed for muscle spasms. 10. Multaq 400 mg p.o. b.i.d. with meals. 11. Pepcid 20 mg p.o. b.i.d. 12. Ferrous sulfate 325 mg p.o. b.i.d. with meals. 13. Lasix 40 mg p.o. daily. 14. Gabapentin 100 mg 3 times a day. 15. Robitussin DM as needed. 16. Ibuprofen 400 mg p.o. q.8 hours. 17. DuoNebs q.4 hours as needed. 18. Levothyroxine 50 mcg p.o. daily. 19. Nitroglycerin 0.4 mg tabs sublingual q.5 minutes p.r.n. chest pain. 20. Zofran ODT 4 mg p.o. q.6 hours as needed. 21. MiraLAX as needed. 22. Senokot as needed. 23. Sertraline 50 mg p.o. daily. 24. Bactrim DS one tablet p.o. b.i.d. for 3 days. The patient was started today 12/24/2019 for urinary tract infection. There were no discontinued medications. HISTORY OF PRESENT ILLNESS AND HOSPITAL COURSE: This is an 89-year-old female, who presented to the emergency room with a right hip pain after a ground-level fall. The patient reports she tripped on a chair and lost her balance causing her to fall. The patient denies hitting her head or injuring any other part of her body. The patient denies any loss of consciousness. The patient was complaining of severe right hip pain and was unable to bear weight. The patient did have some mild hypotension after receiving her Lasix during her hospital stay. Otherwise, the patient's pain was well controlled and was able to work with Physical Therapy. On the day of discharge, the patient was examined by Dr. Rivera. The patient had no complaints or concerns. The patient's vital signs were stable on the day of discharge and her exam was unremarkable including cardiopulmonary and GI exam. The patient was deemed stable for discharge to inpatient rehab for continued physical and occupational therapy. DISPOSITION: Stable. DISCHARGE INSTRUCTIONS: Location: Inpatient rehab. Diet: Heart healthy diet. Activity: Weightbearing as tolerated, posterior hip precautions. Followup: Follow up with Dr. Avila in 2 weeks. Call his office to schedule an appointment. There is no need to follow up with Trauma Services, Dr. Rivera. Please call if you have any questions. Job ID: [id number]
[2019-12-24] MEDS ORDERED: Apixaban 5 MG TAB PO SCH (21:00)
[2019-12-24] MEDS ORDERED: Sulfameth/Trimethoprim DS 800-160mg TAB PO SCH (21:00)
[2019-12-24] MEDS ORDERED: Famotidine 20 MG TAB PO SCH (21:00)
[2019-12-25] MEDS ORDERED: Polyethylene Glycol 3350 17 GM Packet PO SCH (09:00)
== END 2019-12-24 12:09 | DRG 481 ==
LOC: ERS 15:56 → SURG A 19:04
PROVIDERS: ADMIT Orthopaedic Surgery; ATTEND Surgery
PROC: 0QS636Z Reposition Right Upper Femur with Intramedullary Internal Fixation Device, Percutaneous Approach (ICD-10-PCS; principal; 2019-12-21)
DX: S72.141A Displaced intertrochanteric fracture of right femur, initial encounter for closed fracture (principal); S22.31XA Fracture of one rib, right side, initial encounter for closed fracture; J90 Pleural effusion, not elsewhere classified; K57.30 Diverticulosis of large intestine without perforation or abscess without bleeding; I95.1 Orthostatic hypotension; I10 Essential (primary) hypertension; E86.1 Hypovolemia; I48.91 Unspecified atrial fibrillation; R09.89 Other specified symptoms and signs involving the circulatory and respiratory systems; R40.2412 Glasgow coma scale score 13-15, at arrival to emergency department; E03.9 Hypothyroidism, unspecified; Z95.0 Presence of cardiac pacemaker; Z90.710 Acquired absence of both cervix and uterus; Z95.1 Presence of aortocoronary bypass graft; Z98.890 Other specified postprocedural states; Z88.1 Allergy status to other antibiotic agents; Z91.013 Allergy to seafood; W01.0XXA Fall on same level from slipping, tripping and stumbling without subsequent striking against object, initial encounter; Y93.89 Activity, other specified; Y92.098 Other place in other non-institutional residence as the place of occurrence of the external cause
CPT/HCPCS: 36415; 36416; 71045; 72192; 76000; 80048; 80053; 82533; 83735; 84100; 85025; 85610; 85730; 86850; 86900; 86901; 93005; 94760; 96374; 96376; C1713; G0390; J1100; J1720; J1885; J2001; J2270; J2405; J2704; J3010; J3490; Q0162